=== PATIENT | female | born 1955 | race Caucasian/White ===

== ENCOUNTER → 2018-01-18 15:11 | Outpatient (CLI) | payer BC, SELFPAY ==
[2018-01-18 16:16] LABS: Color, Urine Yellow (Yellow); Glucose, Dipstick Normal (Normal); Ketone-Dipstick Negative (Negative); Leukocyte Esterase-Dipstick Negative /ul (Negative); Nitrite-Dipstick Negative (Negative); Occult Blood-Urine 10 /ul (Negative); Protein-Dipstick Negative (Negative); Urine Bilirubin Dipstick Negative (Negative); Urine Clarity Clear (Clear); Urine Urobilinogen Normal (Normal)
== END ==
PROVIDERS: Family Provider Family Medicine Geriatric Medicine; PCP Family Medicine Geriatric Medicine; Visit Provider Internal Medicine Rheumatology
DX: R31.9 Hematuria, unspecified (principal); I77.6 Arteritis, unspecified
CPT/HCPCS: 81002

== ENCOUNTER → 2018-02-24 15:45 | Outpatient (CLI) | payer BC, SELFPAY ==
--- NOTE | 2018-02-24 15:51 | CT_ITS ---
STUDY: CT ABDOMEN AND PELVIS WITH CONTRAST REASON FOR EXAM: Female, 62 years old. Hematuria RADIATION DOSAGE (If Supplied By Facility): CTDIvol = ( 15.70 ) mGy, DLP = ( 906.45 ) mGycm TECHNIQUE: Transaxial images were obtained from the dome of the diaphragm to the symphysis pubis without oral contrast. 100 ml of Isovue 300 contrast was administered. Sagittal and coronal images were reconstructed. Individualized dose optimization techniques were used for this CT. COMPARISON: CT dated February 13, 2015 FINDINGS: The visualized lung bases are unremarkable. There are coronary artery calcifications present. Within the left hepatic lobe there is a stable linear calcific appearing focus. Normal gallbladder and extrahepatic biliary system. There is persistent splenomegaly that is less pronounced than the prior examination. There is persistent mass effect on the left kidney. Normal pancreas. Normal bilateral adrenal glands. No hydronephrosis is visualized. There is symmetric enhancement of the kidneys. There are no discrete renal masses visualized. Normal visualized stomach. Normal small intestine. Normal colon. The appendix is visualized and appears normal. There is diffuse atherosclerotic calcification of the abdominal aorta, without a demonstrated aneurysm. Normal inferior vena cava. Normal retroperitoneum. Normal urinary bladder. There is a coarse calcification within the uterus consistent with a calcified fibroid. Normal abdominal wall. There are diffuse degenerative changes of the visualized lumbar spine. There is a levoscoliosis of the lumbar spine. CT/Abdomen/Pelvis W IV Cont ONLY IMPRESSION: Persistent splenomegaly, that is less pronounced than the prior examination, with persistent mass effect on the left kidney. No hydronephrosis. Atherosclerosis. Calcified uterine fibroid. Levoscoliosis of the lumbar spine. Electronically Signed: Nasra Ortiz MD at 16:59 EDT Tel , Service support ,
[2018-02-24 16:10] LABS: CREATININE FINGERSTICK 0.8 mg/dL (0.55-1.02); EGFR FINGERSTICK > 60.0000 mL/min (>60)
== END ==
PROVIDERS: Family Provider Family Medicine Geriatric Medicine; PCP Family Medicine Geriatric Medicine; Visit Provider Nurse Practitioner Adult Health
DX: R31.9 Hematuria, unspecified (principal)
CPT/HCPCS: 74177; Q9967

== ENCOUNTER 2018-03-23 12:39 | Emergency (ER) | payer BC, SELFPAY ==
[2018-03-23 12:40] VITALS: BP 138/78; PULSE 75; RESP 16; TEMP 36.7; O2SAT 100; BMI 27.9
--- NOTE | 2018-03-23 13:07 | RAD_ITS ---
STUDY: X-RAY - LEFT TIBIA AND FIBULA REASON FOR EXAM: Female, 62 years old. Laceration following a fall. TECHNIQUE: 4 view(s) of the tibia and fibula were obtained. COMPARISON: None. FINDINGS: Metallic screw is seen along the anterior tibial tuberosity most likely secondary to prior tendon repair. Normal visualized fibula. The soft tissue structures are unremarkable. RAD/Tibia & Fibula 2 Views IMPRESSION: No acute abnormality is seen. Electronically Signed: Amado Brar MD at 13:49 EDT Tel [phone], Service support ,
--- NOTE | 2018-03-23 13:54 | ED.DCSUM_ITS ---
- ER Visit Summary Date of Service: 03/23/18 Chief Complaint: Fall History of Present Illness: The patient is a 62 F presenting after fall. Patient tripped over a curb in the parking lot. She has a skin avulsion to her left lower extremity. Mild abrasion on the right lower extremity. She has been able to ambulate. She did not hit her head or lose consciousness. She is not on anticoagulants. Tetanus is up-to-date. Physical Examination: Vitals are stable. Patient is afebrile. Alert no acute distress. HEENT exam is unremarkable. Neck is nontender Lungs are clear and equal bilaterally. Heart is regular rate and rhythm. Abdomen is soft nontender nondistended. Extremities skin avulsion anterior left lower extremity, neurovascular intact distally, mild abrasion right lower extremity. Skin is warm and dry. No focal neurologic deficit. Remainder of exam is unremarkable. Emergency Department Course and Treatment: X-ray left tib-fib shows no acute process. Wounds are cleaned and dressed. Advised wound care instructions. Advised follow-up with primary care physician. Advised return to ED for worsening complaints. Disposition: Discharge home Impression: Left lower extremity skin tear status post mechanical fall This note was generated with [employer] dictation software. It may contain incorrect words, spelling, and punctuation that were not noted in review of the chart prior to signing ED Disposition - Plan for ED Patient: Chief Complaint: Laceration Referrals: Hector Bocanegra Chi, MD [Primary Care Provider] -
--- NOTE | 2018-03-23 13:55 | ED.DEP ---
ED Disposition - Plan for ED Patient: Chief Complaint: Laceration Instructions: ED Avulsion Dermal Referrals: Hector Bocanegra Chi, MD [Primary Care Provider] -
== END 2018-03-23 14:19 | disposition home or self-care (01) ==
LOC: ED 13:11
PROVIDERS: Emergency Provider Emergency Medicine; Family Provider Family Medicine Geriatric Medicine; PCP Family Medicine Geriatric Medicine
DX: S81.812A Laceration without foreign body, left lower leg, initial encounter (principal); W01.0XXA Fall on same level from slipping, tripping and stumbling without subsequent striking against object, initial encounter; Y93.9 Activity, unspecified; Y92.481 Parking lot as the place of occurrence of the external cause; M32.9 Systemic lupus erythematosus, unspecified; M19.90 Unspecified osteoarthritis, unspecified site
CPT/HCPCS: 73590; 99282

== ENCOUNTER → 2018-04-05 16:49 | Outpatient (CLI) | payer BC, SELFPAY ==
[2018-04-05 17:50] LABS: Absolute Lymphocyte Count 0.53 X10^3/ul (0.83-4.51); Absolute Neutrophil Count 1.1 X10^3/uL (2.0-7.7); Eosinophil# 0.03 X10^3/uL; Eosinophils% 1.6 % (0-5); Hematocrit 41.8 % (37-47); Lymphocyte # 0.53 X10^3/ul (4.0); Lymphocyte % 28.5 % (19-41); Mean Corp Hgb Conc 31.1 g/gl (32-36); Mean Corpuscular Hgb 25.4 pg (27.0-32.0); Mean Corpuscular Volume 81.8 fL (81-99); Mean Platelet Vol. 10.1 fl (6.2-12.0); Monocyte# 0.22 X10^3/uL; Monocyte% 11.8 % (0-10); Neutrophil # 1.08 X10^3/uL (2.7-7.7); Neutrophil % 58.1 % (47-70); Platelet Count 186 K/mm3 (150-450); RBC Distribution Width CV 13.3 % (11.6-14.6); RBC Distribution Width SD 40.1 fl (35.1-43.9); Red Blood Count 5.11 M/mm3 (4.2-5.4); White Blood Count 1.9 K/mm3 (4.4-11.0)
[2018-04-05 17:53] LABS: Differential Indicated SCAN CRITERIA MET; POSITIVE COUNT NO; POSITIVE DIFFERENTIAL YES; POSITIVE MORPHOLOGY NO
[2018-04-05 18:09] LABS: ALB/GLOB Ratio 1.1 RATIO (0.9-2.4); AST(SGOT) 14 U/L (15-37); Alanine Aminotransfer ALT/SGPT 13 U/L (13-56); Albumin, Serum 3.8 g/dL (3.2-5.0); Alkaline Phosphatase 60 U/L (45-117); Anion Gap 6 (5-15); BUN 13 mg/dL (7-18); BUN/Creat Ratio 17.5 RATIO (10-20); Calcium,Total 8.9 mg/dL (8.5-10.1); Chloride 104 mmol/L (98-107); Creatinine, Serum 0.74 mg/dL (0.55-1.02); EST Glomerular Filtration Rate 83 mL/min (>60); Est Glom Filt Rate - Afr Amer 101 mL/min (>60); Globulin 3.4 g/dL (2.2-4.2); Glucose 84 mg/dL (74-106); Potassium 4.6 mmol/L (3.5-5.1); Protein, Total 7.2 g/dL (6.4-8.2); Sodium Level 139 mmol/L (136-145); Thyroid Stim Hormone (TSH) 0.18 uIU/mL (0.358-3.74)
[2018-04-05 18:52] LABS: Platelet Estimate ADEQUATE (ADEQ); Red Cell Morphology NORM C+C NORMAL (NORM C&C)
[2018-04-06 14:31] LABS: T3 Uptake 31 % (30-39); T4 Free Direct 1.03 ng/dL (0.76-1.46)
== END ==
PROVIDERS: Family Provider Family Medicine Geriatric Medicine; PCP Family Medicine Geriatric Medicine; Visit Provider Family Medicine Geriatric Medicine
DX: E03.9 Hypothyroidism, unspecified (principal); R53.83 Other fatigue
CPT/HCPCS: 36415; 80053; 84439; 84443; 84479; 85025

== ENCOUNTER → 2018-10-11 16:08 | Outpatient (CLI) | payer MEDICARE, BC, SELFPAY ==
[2018-07-15 10:54] VITALS: BMI 27.5
[2018-10-11 17:58] LABS: Absolute Lymphocyte Count 0.38 X10^3/ul (0.83-4.51); Absolute Neutrophil Count 0.8 X10^3/uL (2.0-7.7); Eosinophil# 0.01 X10^3/uL; Eosinophils% 0.7 % (0-5); Hematocrit 42.3 % (37-47); Hemoglobin 13.2 g/dl (12.0-15.0); Lymphocyte # 0.38 X10^3/ul (4.0); Lymphocyte % 28.1 % (19-41); Mean Corp Hgb Conc 31.2 g/gl (32-36); Mean Corpuscular Hgb 23.7 pg (27.0-32.0); Mean Corpuscular Volume 76.1 fL (81-99); Mean Platelet Vol. 10.5 fl (6.2-12.0); Monocyte# 0.16 X10^3/uL; Monocyte% 11.9 % (0-10); Neutrophil % 59.3 % (47-70); Platelet Count 200 K/mm3 (150-450); RBC Distribution Width CV 15.7 % (11.6-14.6); RBC Distribution Width SD 42.7 fl (35.1-43.9); Red Blood Count 5.56 M/mm3 (4.2-5.4)
[2018-10-11 18:03] LABS: POSITIVE COUNT YES; POSITIVE DIFFERENTIAL YES; POSITIVE MORPHOLOGY NO; White Blood Count 1.4 K/mm3 (4.4-11.0)
[2018-10-11 18:07] LABS: Differential Indicated SCAN CRITERIA MET
[2018-10-11 18:13] LABS: Vitamin D,25 Hydroxy 29.6 ng/mL (29.95-100.01)
[2018-10-11 18:28] LABS: Platelet Estimate ADEQUATE (ADEQ); Red Cell Morphology NORM C+C NORMAL (NORM C&C)
[2018-10-11 19:15] LABS: AST(SGOT) 24 U/L (15-37); Alanine Aminotransfer ALT/SGPT 22 U/L (13-56); Albumin, Serum 4.1 g/dL (3.2-5.0); Alkaline Phosphatase 55 U/L (45-117); Anion Gap 12 (5-15); BUN 16 mg/dL (7-18); BUN/Creat Ratio 19.3 RATIO (10-20); Calcium,Total 9.4 mg/dL (8.5-10.1); Chloride 101 mmol/L (98-107); Creatinine, Serum 0.83 mg/dL (0.55-1.02); EST Glomerular Filtration Rate 73 mL/min (>60); Est Glom Filt Rate - Afr Amer 89 mL/min (>60); Glucose 100 mg/dL (74-106); Potassium 4.3 mmol/L (3.5-5.1); Protein, Total 8.1 g/dL (6.4-8.2); Sodium Level 138 mmol/L (136-145); Thyroid Stim Hormone (TSH) 0.14 uIU/mL (0.358-3.74)
[2018-10-12 14:22] LABS: Pathologist Review Reviewed
[2018-10-12 17:33] LABS: T3 Uptake 30 % (30-39); T4 Free Direct 0.95 ng/dL (0.76-1.46)
== END ==
PROVIDERS: Family Provider Family Medicine Geriatric Medicine; PCP Family Medicine Geriatric Medicine; Visit Provider Family Medicine Geriatric Medicine
DX: E55.9 Vitamin D deficiency, unspecified (principal); E03.9 Hypothyroidism, unspecified; R53.83 Other fatigue
CPT/HCPCS: 36415; 80053; 82306; 84439; 84443; 84479; 85025

== ENCOUNTER → 2018-11-22 09:23 | Outpatient (CLI) | payer MEDICARE, BC, SELFPAY ==
[2018-10-20 13:28] VITALS: BMI 25.9
--- NOTE | 2018-11-22 09:28 | NM_ITS ---
CLINICAL: 63-year-old female with reported history of clinical hyperthyroidism. I-123 THYROID UPTAKE and SCAN COMPARISON: None available. FINDINGS: The patient was administered a 301 uCi I-123 capsule by mouth. The 4-hour I-123 radioactive iodine thyroidal uptake was calculated to be 31.3 % (normal 5 to 25 %). The 24-hour I-123 radioactive iodine thyroidal uptake was calculated to be 129.4 % (normal 5 to 40 %). The I-123 thyroid scan demonstrates homogeneous radiopharmaceutical concentration throughout both lobes of a U-shaped thyroid gland. There are no colloidal parenchymal hypofunctioning-cold nodules noted in either lobe of the thyroid gland. NM/Thyroid Image Quant Measure IMPRESSION: 1. ABNORMAL ELEVATED 4- and 24-hour I-123 radioactive iodine thyroidal uptakes. 2. The I-123 thyroid scan in conjunction with the calculated iodine uptake values, is consistent with the presence of a diffuse toxic goiter. Electronically Signed: Augusto Collier DO at 23:03 EST Tel , Service support ,
== END ==
PROVIDERS: Family Provider Family Medicine Geriatric Medicine; PCP Family Medicine Geriatric Medicine; Referring Provider Family Medicine Geriatric Medicine; Visit Provider Family Medicine Geriatric Medicine
DX: E03.9 Hypothyroidism, unspecified (principal)
CPT/HCPCS: 78014; A9516

== ENCOUNTER → 2019-03-04 | Outpatient (CLI) | payer MEDICARE, BC, SELFPAY ==
[2018-10-20 13:28] VITALS: BMI 25.9
--- NOTE | 2019-03-04 10:28 | VDLE_ITS ---
Reason For Study: Localized edema RIGHT LEFT GSV is normal. GSV is normal. CFV is compressible, spontaneous, phasic, CFV is compressible, spontaneous, phasic, competent and demonstrates normal competent, and demonstrates normal augmentation. augmentation. FV is compressible, spontaneous, phasic, FV is compressible, spontaneous, phasic, competent and demonstrates normal competent and demonstrates normal augmentation. augmentation. POP V is compressible, spontaneous, phasic, POP V is compressible, spontaneous, phasic, competent and demonstrates normal competent and demonstrates normal augmentation. augmentation. T/P Trunk is compressible. T/P Trunk is compressible. PTV is compressible. PTV is compressible. RT PerV is compressible. LT PerV is compressible. Procedure Exam performed in department. A preliminary report was called and/or faxed to [facility]. Interpretation Summary Deep veins of the lower extremities are bilaterally patent and compressible segmentally. There is no evidence of deep vein thrombosis on either side. Valvular competence appears intact within the proximal deep venous systems bilaterally. The greater saphenous veins appear bilaterally patent and compressible segmentally. Ordering Physician: Hector Bocanegra Referring Physician: Hector Bocanegra Chi Performed By: Aysha Blackman RVT
--- NOTE | 2019-03-04 10:59 | CT_ITS ---
STUDY: CT LEFT TIBIA/FIBULA REASON FOR EXAM: Deep venous thrombosis, edema, lump in the medial calf, history of breast cancer. TECHNIQUE: Transaxial CT imaging of the tibia/fibula was performed. Sagittal and coronal images were reconstructed. Individualized dose optimization techniques were used for this CT. COMPARISON: Radiographs 03/23/2018. FINDINGS: There is a healed osteotomy of the anterior tibial tubercle from patellar realignment with an intact orthopedic screw (sagittal reconstructions 50-54). Otherwise, normal tibia. Normal fibula. There is atrophy with fat replacement of the distal medial gastrocnemius muscle (axial images 73-95). There is soft tissue swelling of the mid/distal lower leg without discrete soft tissue mass or cyst. There is vascular calcification. There are small superficial soft tissue calcifications. CT/Extremity Lower without Contra IMPRESSION: Soft tissue swelling without demonstrated soft tissue mass. Atrophy of the distal medial gastrocnemius muscle. Healed anterior tibial tubercle osteotomy. Electronically Signed: Vega Paulino MD at 12:16 EDT Tel , Service support ,
[2019-03-04 12:29] LABS: Absolute Lymphocyte Count 0.61 X10^3/ul (0.83-4.51); Absolute Neutrophil Count 0.9 X10^3/uL (2.0-7.7); Eosinophil# 0.03 X10^3/uL; Eosinophils% 1.6 % (0-5); Hematocrit 42.8 % (37-47); Hemoglobin 13.2 g/dl (12.0-15.0); Lymphocyte # 0.61 X10^3/ul (4.0); Lymphocyte % 32.8 % (19-41); Mean Corp Hgb Conc 30.8 g/gl (32-36); Mean Corpuscular Hgb 23.9 pg (27.0-32.0); Mean Corpuscular Volume 77.4 fL (81-99); Mean Platelet Vol. 10.8 fl (6.2-12.0); Monocyte# 0.28 X10^3/uL; Monocyte% 15.1 % (0-10); Neutrophil # 0.94 X10^3/uL (2.7-7.7); Neutrophil % 50.5 % (47-70); Platelet Count 216 K/mm3 (150-450); RBC Distribution Width CV 14.4 % (11.6-14.6); RBC Distribution Width SD 40.4 fl (35.1-43.9); Red Blood Count 5.53 M/mm3 (4.2-5.4); White Blood Count 1.9 K/mm3 (4.4-11.0)
[2019-03-04 12:32] LABS: Differential Indicated SCAN CRITERIA MET; POSITIVE COUNT NO; POSITIVE DIFFERENTIAL YES; POSITIVE MORPHOLOGY NO
[2019-03-04 12:39] LABS: Anion Gap 4 (5-15); BUN 16 mg/dL (7-18); BUN/Creat Ratio 20.2 RATIO (10-20); Calcium,Total 8.8 mg/dL (8.5-10.1); Chloride 103 mmol/L (98-107); Creatinine, Serum 0.79 mg/dL (0.55-1.02); EST Glomerular Filtration Rate 77 mL/min (>60); Est Glom Filt Rate - Afr Amer 93 mL/min (>60); Glucose 81 mg/dL (74-106); Potassium 4.2 mmol/L (3.5-5.1); Sodium Level 138 mmol/L (136-145)
[2019-03-04 13:04] LABS: Platelet Estimate ADEQUATE (ADEQ); Red Cell Morphology NORM C+C NORMAL (NORM C&C)
[2019-03-04 14:08] LABS: D-Dimer Quantitative (DVT/PE) 7.76 FEU/ug/m (0.27-0.49)
== END | disposition home or self-care (01) ==
PROVIDERS: Family Provider Family Medicine Geriatric Medicine; PCP Family Medicine Geriatric Medicine; Referring Provider Family Medicine Geriatric Medicine; Visit Provider Family Medicine Geriatric Medicine
DX: R60.0 Localized edema (principal)
CPT/HCPCS: 36415; 73700; 80048; 85025; 85379; 93970

== ENCOUNTER → 2019-03-07 | Outpatient (CLI) | payer MEDICARE, BC, SELFPAY ==
[2018-10-20 13:28] VITALS: BMI 25.9
--- NOTE | 2019-03-07 10:12 | CT_ITS ---
STUDY: CTA CHEST REASON FOR EXAM: Female, 63 years old. Elevated D dimer. Shortness of breath. RADIATION DOSAGE (If Supplied By Facility): CTDIvol = ( 4.80 ) mGy, DLP = ( 148.70 ) mGycm TECHNIQUE: The examination was performed with the intravenous administration of 100 IV Isovue 370. Post-processing of the angiographic images was performed, with multiplanar reformation and 3D reconstruction. Individualized dose optimization techniques were used for this CT. COMPARISON: None. FINDINGS: Normal enhancement of the main pulmonary artery and right and left pulmonary arteries. Normal enhancement of the bilateral peripheral pulmonary arteries. There is no demonstrated pulmonary embolism. Normal thoracic aorta and visualized great vessels. There is no demonstrated aortic dissection. There are calcifications of the coronary arteries. Normal mediastinum. Normal hilar regions. Normal visualized trachea and bronchi. The lungs are well expanded. Normal pulmonary parenchyma. Normal pleura. Normal chest wall structures. There are degenerative changes of thoracic spine. Splenomegaly. CT/CTA Chest W/WO Contrast IMPRESSION: Coronary artery calcification. Splenomegaly. Electronically Signed: Amado Brar, at 11:13 EDT , Service support ,
== END | disposition home or self-care (01) ==
PROVIDERS: Family Provider Family Medicine Geriatric Medicine; PCP Family Medicine Geriatric Medicine; Referring Provider Family Medicine Geriatric Medicine; Visit Provider Family Medicine Geriatric Medicine
DX: R79.9 Abnormal finding of blood chemistry, unspecified (principal)
CPT/HCPCS: 71275; Q9967

== ENCOUNTER → 2019-04-13 | Outpatient (CLI) | payer MEDICARE, BC, SELFPAY ==
[2018-10-20 13:28] VITALS: BMI 25.9
[2019-04-13 16:44] LABS: Absolute Lymphocyte Count 0.46 X10^3/uL (0.83-4.51); Absolute Neutrophil Count 0.5 X10^3/uL (2.0-7.7); Eosinophil# 0.05 X10^3/uL; Eosinophils% 4.2 % (0-5); Hematocrit 38.4 % (37-47); Hemoglobin 11.7 g/dL (12.0-15.0); Lymphocyte # 0.46 X10^3/ul (4.0); Mean Corp Hgb Conc 30.5 g/dL (32-36); Mean Corpuscular Hgb 23.2 pg (27.0-32.0); Mean Corpuscular Volume 76.2 fL (81-99); Mean Platelet Vol. 10.4 fl (6.2-12.0); Monocyte# 0.15 X10^3/uL; Monocyte% 12.7 % (0-10); NRBC Flagged by Analyzer 0 % (0-5); Neutrophil # 0.52 X10^3/uL (2.7-7.7); Neutrophil % 44.1 % (47-70); POSITIVE COUNT YES; POSITIVE DIFFERENTIAL YES; Platelet Count 191 K/mm3 (150-450); RBC Distribution Width CV 14.3 % (11.6-14.6); RBC Distribution Width SD 38.8 fl (35.1-43.9); Red Blood Count 5.04 M/mm3 (4.2-5.4)
[2019-04-13 17:10] LABS: Differential Indicated SCAN CRITERIA MET; White Blood Count 1.2 K/mm3 (4.4-11.0)
[2019-04-13 17:11] LABS: ALB/GLOB Ratio 0.9 RATIO (0.9-2.4); AST(SGOT) 15 U/L (15-37); Alanine Aminotransfer ALT/SGPT 9 U/L (13-56); Albumin, Serum 3.6 g/dL (3.2-5.0); Alkaline Phosphatase 48 U/L (45-117); Anion Gap 4 (5-15); BUN 18 mg/dL (7-18); BUN/Creat Ratio 20.7 RATIO (10-20); Calcium,Total 8.9 mg/dL (8.5-10.1); Chloride 104 mmol/L (98-107); Creatinine, Serum 0.87 mg/dL (0.55-1.02); EST Glomerular Filtration Rate 70 mL/min (>60); Est Glom Filt Rate - Afr Amer 84 mL/min (>60); Globulin 3.8 g/dL (2.2-4.2); Glucose 90 mg/dL (74-106); Protein, Total 7.4 g/dL (6.4-8.2); Sodium Level 137 mmol/L (136-145); Thyroid Stim Hormone (TSH) 0.33 uIU/mL (0.358-3.74)
[2019-04-13 17:49] LABS: Differential Comment SCANNED
[2019-04-14 15:26] LABS: Pathologist Review Reviewed
== END | disposition home or self-care (01) ==
LOC: POLAB3 10:45
PROVIDERS: Family Provider Family Medicine Geriatric Medicine; PCP Family Medicine Geriatric Medicine; Visit Provider Family Medicine Geriatric Medicine
DX: E55.9 Vitamin D deficiency, unspecified (principal); R53.83 Other fatigue
CPT/HCPCS: 36415; 80053; 82306; 84443; 85025

== ENCOUNTER → 2019-06-03 | Outpatient (CLI) | payer MEDICARE, BC, SELFPAY ==
[2019-04-20 12:55] VITALS: BMI 25.2
[2019-06-03 08:28] LABS: Absolute Lymphocyte Count 0.63 X10^3/uL (0.83-4.51); Absolute Neutrophil Count 0.4 X10^3/uL (2.0-7.7); Eosinophil# 0.09 X10^3/uL; Eosinophils% 6.8 % (0-5); Hematocrit 39.7 % (37-47); Hemoglobin 11.7 g/dL (12.0-15.0); Lymphocyte # 0.63 X10^3/ul (4.0); Lymphocyte % 47.7 % (19-41); Mean Corp Hgb Conc 29.5 g/dL (32-36); Mean Corpuscular Hgb 22.9 pg (27.0-32.0); Mean Corpuscular Volume 77.8 fL (81-99); Mean Platelet Vol. 9.7 fl (6.2-12.0); Monocyte% 15.2 % (0-10); NRBC Flagged by Analyzer 0 % (0-5); Neutrophil % 30.3 % (47-70); POSITIVE COUNT YES; POSITIVE DIFFERENTIAL YES; Platelet Count 194 K/mm3 (150-450); RBC Distribution Width CV 14.6 % (11.6-14.6); RBC Distribution Width SD 41.1 fl (35.1-43.9); White Blood Count 1.3 K/mm3 (4.4-11.0)
[2019-06-03 08:46] LABS: Differential Indicated SCAN CRITERIA MET
[2019-06-03 09:07] LABS: Albumin, Serum 3.2 g/dL (3.2-5.0); BUN 17 mg/dL (7-18); BUN/Creat Ratio 22.5 RATIO (10-20); Creatinine, Serum 0.76 mg/dL (0.55-1.02); EST Glomerular Filtration Rate 81 mL/min (>60); Est Glom Filt Rate - Afr Amer 98 mL/min (>60); Glucose 80 mg/dL (74-106); Protein, Total 7.2 g/dL (6.4-8.2)
[2019-06-03 09:08] LABS: ALB/GLOB Ratio 0.8 RATIO (0.9-2.4); AST(SGOT) 13 U/L (15-37); Alanine Aminotransfer ALT/SGPT 13 U/L (13-56); Alkaline Phosphatase 46 U/L (45-117); Anion Gap 9 (5-15); Calcium,Total 8.4 mg/dL (8.5-10.1); Chloride 107 mmol/L (98-107); Free T3 2.8 pg/mL (2.18-3.98); Potassium 3.8 mmol/L (3.5-5.1); Sodium Level 143 mmol/L (136-145); T4 Free Direct 1.09 ng/dL (0.76-1.46)
[2019-06-03 14:59] LABS: Vitamin D,25 Hydroxy 29.6 ng/mL (29.95-100.01)
[2019-06-05 07:06] LABS: Thyroid Stim Immunoglob <0.10 IU/L (0.00-0.55)
[2019-06-06 11:37] LABS: Thyroid Peroxidase AB 9 IU/mL (0-34)
[2019-06-07 12:24] LABS: Pathologist Review Reviewed
== END | disposition home or self-care (01) ==
LOC: LAB 08:00
PROVIDERS: Family Provider Family Medicine Geriatric Medicine; PCP Family Medicine Geriatric Medicine; Referring Provider Internal Medicine Endocrinology, Diabetes & Metabolism; Visit Provider Internal Medicine Endocrinology, Diabetes & Metabolism
DX: E05.90 Thyrotoxicosis, unspecified without thyrotoxic crisis or storm (principal); E55.9 Vitamin D deficiency, unspecified
CPT/HCPCS: 36415; 80053; 82306; 84439; 84443; 84445; 84481; 85025; 86376

== ENCOUNTER → 2019-10-13 13:13 | Outpatient (CLI) | payer MEDICARE, BC, SELFPAY ==
[2019-04-20 12:55] VITALS: BMI 25.2
[2019-10-13 16:41] LABS: Absolute Lymphocyte Count 0.32 X10^3/uL (0.83-4.51); Absolute Neutrophil Count 1.4 X10^3/uL (2.0-7.7); Eosinophil# 0.04 X10^3/uL; Eosinophils% 2.1 % (0-5); Hematocrit 41.1 % (37-47); Hemoglobin 12.2 g/dL (12.0-15.0); Lymphocyte # 0.32 X10^3/ul (4.0); Lymphocyte % 16.8 % (19-41); Mean Corp Hgb Conc 29.7 g/dL (32-36); Mean Corpuscular Hgb 23.4 pg (27.0-32.0); Mean Corpuscular Volume 78.7 fL (81-99); Monocyte# 0.15 X10^3/uL; Monocyte% 7.9 % (0-10); NRBC Flagged by Analyzer 0 % (0-5); Neutrophil # 1.38 X10^3/uL (2.7-7.7); Neutrophil % 72.7 % (47-70); POSITIVE DIFFERENTIAL YES; Platelet Count 197 K/mm3 (150-450); RBC Distribution Width CV 14.9 % (11.6-14.6); RBC Distribution Width SD 42.9 fl (35.1-43.9); Red Blood Count 5.22 M/mm3 (4.2-5.4); White Blood Count 1.9 K/mm3 (4.4-11.0)
[2019-10-13 16:49] LABS: Differential Indicated SCAN CRITERIA MET
[2019-10-13 17:07] LABS: Vitamin D,25 Hydroxy 27.9 ng/mL (29.95-100.01)
[2019-10-13 17:09] LABS: ALB/GLOB Ratio 0.9 RATIO (0.9-2.4); AST(SGOT) 14 U/L (15-37); Alanine Aminotransfer ALT/SGPT 14 U/L (13-56); Albumin, Serum 3.6 g/dL (3.2-5.0); Alkaline Phosphatase 47 U/L (45-117); Anion Gap 6 (5-15); BUN 16 mg/dL (7-18); BUN/Creat Ratio 20.9 RATIO (10-20); Calcium,Total 9.3 mg/dL (8.5-10.1); Chloride 102 mmol/L (98-107); Creatinine, Serum 0.76 mg/dL (0.55-1.02); EST Glomerular Filtration Rate 80 mL/min (>60); Est Glom Filt Rate - Afr Amer 97 mL/min (>60); Globulin 4.1 g/dL (2.2-4.2); Glucose 84 mg/dL (74-106); Potassium 3.9 mmol/L (3.5-5.1); Protein, Total 7.7 g/dL (6.4-8.2); Sodium Level 137 mmol/L (136-145); Thyroid Stim Hormone (TSH) 1.14 uIU/mL (0.358-3.74)
[2019-10-13 17:24] LABS: Platelet Estimate ADEQUATE (ADEQ); Red Cell Morphology NORM C+C NORMAL (NORM C&C)
[2019-10-14 14:07] LABS: Pathologist Review Reviewed
== END ==
PROVIDERS: PCP Family Medicine Geriatric Medicine; Visit Provider Family Medicine Geriatric Medicine
DX: E55.9 Vitamin D deficiency, unspecified (principal); R53.83 Other fatigue
CPT/HCPCS: 36415; 80053; 82306; 84443; 85025

== ENCOUNTER → 2020-02-13 | Outpatient (CLI) | payer MEDICARE, BC, SELFPAY ==
[2019-11-02 12:58] VITALS: BMI 23.9
[2020-02-13 15:53] LABS: Anion Gap 3 (5-15); BUN 19 mg/dL (7-18); BUN/Creat Ratio 23.2 RATIO (10-20); Chloride 106 mmol/L (98-107); Creatinine, Serum 0.82 mg/dL (0.55-1.02); EST Glomerular Filtration Rate 74 mL/min (>60); Est Glom Filt Rate - Afr Amer 90 mL/min (>60); Free T3 2.2 pg/mL (2.18-3.98); Glucose 94 mg/dL (74-106); Potassium 4.1 mmol/L (3.5-5.1); Sodium Level 140 mmol/L (136-145); T4 Free Direct 1.01 ng/dL (0.76-1.46); Thyroid Stim Hormone (TSH) 0.61 uIU/mL (0.358-3.74)
== END | disposition home or self-care (01) ==
LOC: LAB 14:57
PROVIDERS: PCP Family Medicine Geriatric Medicine; Referring Provider Internal Medicine Endocrinology, Diabetes & Metabolism; Visit Provider Internal Medicine Endocrinology, Diabetes & Metabolism
DX: E05.90 Thyrotoxicosis, unspecified without thyrotoxic crisis or storm (principal)
CPT/HCPCS: 36415; 80048; 84439; 84443; 84481

== ENCOUNTER → 2020-04-12 | Outpatient (CLI) | payer MEDICARE, BC, SELFPAY ==
[2019-11-02 12:58] VITALS: BMI 23.9
[2020-04-12 15:53] LABS: Absolute Lymphocyte Count 0.55 X10^3/uL (0.83-4.51); Absolute Neutrophil Count 0.8 X10^3/uL (2.0-7.7); Basophil# 0.01 X10^3/uL; Basophil% 0.6 % (0-1); Eosinophil# 0.07 X10^3/uL; Eosinophils% 4.2 % (0-5); Hematocrit 38.8 % (37-47); Hemoglobin 11.9 g/dL (12.0-15.0); Lymphocyte # 0.55 X10^3/ul (4.0); Lymphocyte % 32.7 % (19-41); Mean Corp Hgb Conc 30.7 g/dL (32-36); Mean Corpuscular Hgb 24.1 pg (27.0-32.0); Mean Corpuscular Volume 78.5 fL (81-99); Mean Platelet Vol. 10.6 fl (6.2-12.0); Monocyte# 0.27 X10^3/uL; Monocyte% 16.1 % (0-10); NRBC Flagged by Analyzer 0 % (0-5); Neutrophil # 0.78 X10^3/uL (2.7-7.7); Neutrophil % 46.4 % (47-70); POSITIVE DIFFERENTIAL YES; Platelet Count 208 K/mm3 (150-450); RBC Distribution Width CV 14.9 % (11.6-14.6); RBC Distribution Width SD 41.2 fl (35.1-43.9); Red Blood Count 4.94 M/mm3 (4.2-5.4); White Blood Count 1.7 K/mm3 (4.4-11.0)
[2020-04-12 16:07] LABS: Differential Indicated SCAN CRITERIA MET
[2020-04-12 16:16] LABS: Vitamin D,25 Hydroxy 35.1 ng/mL
[2020-04-12 16:28] LABS: ALB/GLOB Ratio 0.8 RATIO (0.9-2.4); AST(SGOT) 11 U/L (15-37); Alanine Aminotransfer ALT/SGPT 11 U/L (13-56); Albumin, Serum 3.4 g/dL (3.2-5.0); Alkaline Phosphatase 47 U/L (45-117); Anion Gap 5 (5-15); BUN 19 mg/dL (7-18); BUN/Creat Ratio 24.2 RATIO (10-20); Calcium,Total 9.1 mg/dL (8.5-10.1); Chloride 105 mmol/L (98-107); Creatinine, Serum 0.78 mg/dL (0.55-1.02); EST Glomerular Filtration Rate 78 mL/min (>60); Est Glom Filt Rate - Afr Amer 94 mL/min (>60); Globulin 4.1 g/dL (2.2-4.2); Glucose 87 mg/dL (74-106); Protein, Total 7.5 g/dL (6.4-8.2); Sodium Level 138 mmol/L (136-145); Thyroid Stim Hormone (TSH) 0.77 uIU/mL (0.358-3.74)
[2020-04-12 17:10] LABS: Platelet Estimate ADEQUATE (ADEQ); Red Cell Morphology NORM C+C NORMAL (NORM C&C)
[2020-04-13 12:20] LABS: Pathologist Review Reviewed
== END | disposition home or self-care (01) ==
LOC: POLAB3 15:15
PROVIDERS: PCP Family Medicine Geriatric Medicine; Visit Provider Family Medicine Geriatric Medicine
DX: E55.9 Vitamin D deficiency, unspecified (principal); R53.83 Other fatigue
CPT/HCPCS: 36415; 80053; 82306; 84443; 85025

== ENCOUNTER → 2020-05-17 | Outpatient (CLI) | payer MEDICARE, BC, SELFPAY ==
[2020-05-02 13:01] VITALS: BMI 23.7
--- NOTE | 2020-05-17 08:51 | VDLE_ITS ---
Reason For Study: Localized edema RIGHT GSV is normal. CFV is compressible, spontaneous, phasic, competent and demonstrates normal augmentation. FV is compressible, spontaneous, phasic, competent and demonstrates normal augmentation. POP V is compressible, spontaneous, phasic, competent and demonstrates normal augmentation. T/P Trunk is compressible. PTV is compressible. RT PerV is compressible. Procedure Exam performed in department. A preliminary report was called and/or faxed to [facility]. Interpretation Summary Deep veins of the right lower extremity are patent and compressible segmentally. There is no evidence of right lower extremity deep vein thrombosis. Valvular competence appears intact within the proximal deep venous system on the right . The right great saphenous vein appears patent and compressible segmentally. Ordering Physician: Hector Bocanegra Referring Physician: Hector Bocanegra Chi Performed By: Aysha Blackman RVT and Student
== END | disposition home or self-care (01) ==
LOC: CVS 08:49
PROVIDERS: PCP Family Medicine Geriatric Medicine; Referring Provider Family Medicine Geriatric Medicine; Visit Provider Family Medicine Geriatric Medicine
DX: R60.0 Localized edema (principal)
CPT/HCPCS: 93971

== ENCOUNTER → 2020-10-15 13:22 | Outpatient (CLI) | payer MEDICARE, BC, SELFPAY ==
[2020-05-02 13:01] VITALS: BMI 23.7
[2020-10-15 17:28] LABS: Absolute Neutrophil Count 0.8 X10^3/uL (2.0-7.7); Basophil# 0.01 X10^3/uL; Basophil% 0.5 % (0-1); Eosinophil# 0.08 X10^3/uL; Eosinophils% 4.1 % (0-5); Hemoglobin 12.6 g/dL (12.0-15.0); Lymphocyte % 36.3 % (19-41); Mean Corp Hgb Conc 28.6 g/dL (32-36); Mean Corpuscular Hgb 22.2 pg (27.0-32.0); Mean Corpuscular Volume 77.5 fL (81-99); Mean Platelet Vol. 10.3 fl (6.2-12.0); Monocyte# 0.34 X10^3/uL; Monocyte% 17.6 % (0-10); NRBC Flagged by Analyzer 0 % (0-5); Neutrophil # 0.79 X10^3/uL (2.7-7.7); POSITIVE DIFFERENTIAL YES; Platelet Count 247 K/mm3 (150-450); RBC Distribution Width CV 14.6 % (11.6-14.6); Red Blood Count 5.68 M/mm3 (4.2-5.4); White Blood Count 1.9 K/mm3 (4.4-11.0)
[2020-10-15 17:37] LABS: Vitamin D,25 Hydroxy 32.5 ng/mL
[2020-10-15 17:42] LABS: ALB/GLOB Ratio 0.8 RATIO (0.9-2.4); AST(SGOT) 18 U/L (15-37); Alanine Aminotransfer ALT/SGPT 17 U/L (13-56); Albumin, Serum 3.7 g/dL (3.2-5.0); Alkaline Phosphatase 56 U/L (45-117); Anion Gap 8 (5-15); BUN 18 mg/dL (7-18); BUN/Creat Ratio 21.5 RATIO (10-20); Calcium,Total 9.1 mg/dL (8.5-10.1); Chloride 105 mmol/L (98-107); Creatinine, Serum 0.84 mg/dL (0.55-1.02); EST Glomerular Filtration Rate 72 mL/min (>60); Est Glom Filt Rate - Afr Amer 87 mL/min (>60); Globulin 4.5 g/dL (2.2-4.2); Glucose 107 mg/dL (74-106); Potassium 3.6 mmol/L (3.5-5.1); Protein, Total 8.2 g/dL (6.4-8.2); Sodium Level 140 mmol/L (136-145); Thyroid Stim Hormone (TSH) 1.66 uIU/mL (0.358-3.74)
[2020-10-15 17:54] LABS: Differential Indicated SCAN CRITERIA MET
== END ==
PROVIDERS: PCP Family Medicine Geriatric Medicine; Visit Provider Family Medicine Geriatric Medicine
DX: E55.9 Vitamin D deficiency, unspecified (principal); R53.83 Other fatigue; N39.0 Urinary tract infection, site not specified
CPT/HCPCS: 36415; 80053; 82306; 84443; 85025; 87086; 87088; 87186

== ENCOUNTER 2020-10-25 09:40 | Emergency (ER) | payer MEDICARE, BC, SELFPAY ==
[2020-05-02 13:01] VITALS: BMI 23.7
[2020-10-25 09:41] VITALS: BP 126/66; PULSE 82; RESP 16; TEMP 35.8; BMI 24.6
--- NOTE | 2020-10-25 09:54 | ED.VIS.GEN ---
History of Present Illness Chief Complaint: Lower Extremity Injury Informant: Patient Narrative: 65-year-old female presenting with right foot pain on the plantar surface at the base of the right great toe. Patient states she injured her foot kicking a heater at home. She has antalgic gait secondary to this. She states she did not sustain a burn on the heater. - Past Medical History (1) History of hypertension Status: Chronic (2) History of irritable bowel syndrome Status: Chronic (3) History of malignant neoplasm of breast Status: Chronic Past Medical History - Allergies and Home Meds Allergies/Adverse Reactions: Allergies Penicillins Adverse Reaction (Intermediate, Verified 10/25/20 09:41) Rash itching Primary Care Physician: Hector Bocanegra Chi, MD [Primary Care Provider] - Prior records reviewed: Yes Past Medical History: - - Reviewed in problem list Surgical History: noncontributory, mastectomy, total knee arthroplasty Lives: Alone Smoking Status: Never smoker Alcohol: None Drugs: None Review of Systems General: Denies: Chills, Fever, Sweats Eyes: Denies: Visual changes - bilaterally, Diplopia ENT: Denies: Rhinorrhea, Sore throat Cardiovascular: Denies: Chest pain, Palpitations Respiratory: Denies: Dyspnea, Cough, Dyspnea on exertion Gastrointestinal: Denies: Abdominal pain, Nausea, Vomiting, Diarrhea, Melena, Hematochezia Genitourinary: Denies: Dysuria, Hematuria, Frequency Musculoskeletal: Reports: Swelling - Right foot, Extremity Pain - Right foot Skin: Reports: - - Bruising to the right foot. Denies: Rash, Abscess Neurological: Denies: Headache, Parasthesia, Numbness Psych: Denies: Depression, Anxiety Physical Exam Vital Signs/Narrative: Vital Signs Temp Pulse Resp BP 10/25/20 09:41 96.5 F L 82 16 126/66 H Inital Vital Signs reviewed: Yes General: Well nourished, No Acute Distress Head: Normocephalic, Atraumatic Eyes: Perrl, EOMI ENT: Negative for: Moist mucous membranes, No rhinorrhea Cardiovascular: Regular rate, Regular rhythm Respiratory: No distress, CTA bilaterally Extremities: Tenderness - Tenderness, erythema and swelling to the base of the right great toe Skin: - - Bruising and swelling noted to the base of the right great toe. Mild erythema noted. Neurological: Alert, Oriented x3, Cranial nerves II-XII grossly intact Psychological: Normal affect, Normal Mood Diagnostic/Tx/Re-eval Clinical Impression(s) from Imaging Studies Foot X-Ray 10/25/20 10:15 IMPRESSION: Diffuse soft tissue swelling. Electronically Signed: Amado Brar MD at 10:49 EST , Service support , - Medical Decision Making 65-year-old female presenting with right toe pain after kicking a home heater. She states this was several days ago but she is having trouble walking due to pain. She noticed that it is a little swollen and red. She has no systemic signs or symptoms. Patient had x-ray of the right foot as interpreted by myself and the radiologist there appears to be no fracture or subluxation. There is some soft tissue swelling. Given patient's erythema I will start her on antibiotics with first dose in the ED. Patient was given Ultram for pain. She is counseled on wound care and return precautions. She knowledge understanding. Impression: 1. Right foot contusion 2. Right foot cellulitis ED Disposition - Plan for ED Patient: Disposition: Home or Assisted Living Instructions: ED Cellulitis, ED Contusion, Lower Extremity Prescriptions: Doxycycline 100 mg PO BID #20 cap Prescription Printed traMADol [Ultram] 50 mg PO Q6H PRN PRN 3 Days #12 tab PRN Reason: Pain Prescription Printed Referrals: Hector Bocanegra Chi, MD [Primary Care Provider] -
[2020-10-25] MEDS: traMADol 50 MG Tablet PO (10:06)
--- NOTE | 2020-10-25 10:15 | RAD_ITS ---
STUDY: X-RAY - RIGHT FOOT CLINICAL: Female, 65 years old. Right foot pain. TECHNIQUE: 3 view(s) of the foot. COMPARISON: Comparison is made with prior study dated 04/21/2012. FINDINGS: Normal talus, calcaneus, and tarsal bones. Normal visualized subtalar, talonavicular, calcaneocuboid, tarsal and tarsometatarsal articulations. Normal metatarsi. Normal metatarsophalangeal joint of the great toe. Normal tibial and fibular sesamoid bones. Normal interphalangeal joint of the great toe. Normal phalanges of the great toe. Normal second through fifth metatarsophalangeal joints. Normal interphalangeal joints and phalanges of the lesser toes. Hammertoe deformity. Diffuse soft tissue swelling. RAD/Foot min 3 Views IMPRESSION: Diffuse soft tissue swelling. Electronically Signed: Amado Brar MD at 10:49 EST , Service support ,
[2020-10-25 11:26] VITALS: BP 129/74; PULSE 64; RESP 15; O2SAT 98
== END 2020-10-25 11:26 | disposition home or self-care (01) ==
LOC: ED 10:54
PROVIDERS: Emergency Provider Student in an Organized Health Care Education/Training Program; PCP Family Medicine Geriatric Medicine
DX: L03.115 Cellulitis of right lower limb (principal); S90.31XA Contusion of right foot, initial encounter; I10 Essential (primary) hypertension; W22.09XA Striking against other stationary object, initial encounter; Y93.89 Activity, other specified; Y92.009 Unspecified place in unspecified non-institutional (private) residence as the place of occurrence of the external cause; Y99.8 Other external cause status
CPT/HCPCS: 73630; 99282

== ENCOUNTER → 2021-04-16 12:59 | Outpatient (CLI) | payer MEDICARE, BC, SELFPAY ==
[2020-11-20 13:57] VITALS: BMI 23.9
[2021-04-16 16:28] LABS: Absolute Lymphocyte Count 0.45 X10^3/uL (0.83-4.51); Absolute Neutrophil Count 0.4 X10^3/uL (2.0-7.7); Basophil# 0.01 X10^3/uL; Basophil% 0.8 % (0-1); Eosinophil# 0.09 X10^3/uL; Eosinophils% 7.2 % (0-5); Hematocrit 39.6 % (37-47); Hemoglobin 11.7 g/dL (12.0-15.0); Lymphocyte # 0.45 X10^3/ul (0.83-4.51); Mean Corp Hgb Conc 29.5 g/dL (32-36); Mean Corpuscular Hgb 23.6 pg (27.0-32.0); Mean Platelet Vol. 10.2 fl (6.2-12.0); Monocyte# 0.25 X10^3/uL; NRBC Flagged by Analyzer 0 % (0-5); Neutrophil # 0.44 X10^3/uL (2.7-7.7); Neutrophil % 35.2 % (47-70); POSITIVE COUNT YES; POSITIVE DIFFERENTIAL YES; Platelet Count 221 K/mm3 (150-450); RBC Distribution Width CV 14.1 % (11.6-14.6); Red Blood Count 4.95 M/mm3 (4.2-5.4); White Blood Count 1.3 K/mm3 (4.4-11.0)
[2021-04-16 16:31] LABS: Differential Indicated SCAN CRITERIA MET
[2021-04-16 16:45] LABS: Vitamin D,25 Hydroxy 33.5 ng/mL
[2021-04-16 17:10] LABS: ALB/GLOB Ratio 0.8 RATIO (0.9-2.4); AST(SGOT) 15 U/L (15-37); Alanine Aminotransfer ALT/SGPT 12 U/L (13-56); Albumin, Serum 3.4 g/dL (3.2-5.0); Alkaline Phosphatase 48 U/L (45-117); Anion Gap 6 (5-15); BUN 16 mg/dL (7-18); BUN/Creat Ratio 20.9 RATIO (10-20); Calcium,Total 8.8 mg/dL (8.5-10.1); Chloride 105 mmol/L (98-107); Creatinine, Serum 0.76 mg/dL (0.55-1.02); EST Glomerular Filtration Rate 80 mL/min (>60); Est Glom Filt Rate - Afr Amer 97 mL/min (>60); Globulin 4.3 g/dL (2.2-4.2); Glucose 86 mg/dL (74-106); Protein, Total 7.7 g/dL (6.4-8.2); Sodium Level 137 mmol/L (136-145); Thyroid Stim Hormone (TSH) 0.47 uIU/mL (0.358-3.74)
[2021-04-17 12:46] LABS: Pathologist Review Reviewed
== END ==
PROVIDERS: PCP Family Medicine Geriatric Medicine; Visit Provider Family Medicine Geriatric Medicine
DX: E55.9 Vitamin D deficiency, unspecified (principal); R53.83 Other fatigue
CPT/HCPCS: 36415; 80053; 82306; 84443; 85025

== ENCOUNTER 2021-10-16 13:21 | Outpatient (CLI) | payer MEDICARE, SELFPAY ==
--- NOTE | 2021-10-16 14:18 | RAD_ITS ---
STUDY: X-RAY - LUMBAR SPINE REASON FOR EXAM: Female, 66 years old. Low back pain. TECHNIQUE: 3 view(s) of the lumbar spine were obtained. COMPARISON: February 20, 2015. FINDINGS: Progression of exaggerated lumbar lordosis measuring 55 degrees on the present study as compared to the prior study where it measured 35 degrees. Progression of lumbar levoscoliosis. On the present study the levoscoliosis measures 33 degrees and on the prior study 23 degrees. There is a normal alignment of the vertebrae. Normal vertebral bodies. Small marginal osteophytes at several levels. Mild multilevel disc space narrowing not significantly changed. The soft tissue structures are unremarkable. RAD/Lumbar Spine 2 or 3 Views IMPRESSION: Progression of lumbar lordosis and lumbar levoscoliosis. Mild degenerative changes. Electronically Signed: Sj Reynolds MD at 2:30 EST , Service support ,
[2021-10-16 16:21] LABS: Absolute Lymphocyte Count 0.52 X10^3/uL (0.83-4.51); Absolute Neutrophil Count 0.5 X10^3/uL (2.0-7.7); Basophil# 0.01 X10^3/uL; Basophil% 0.7 % (0-1); Eosinophils% 6.7 % (0-5); Hematocrit 40.6 % (37-47); Hemoglobin 12.6 g/dL (12.0-15.0); Lymphocyte # 0.52 X10^3/ul (0.83-4.51); Lymphocyte % 34.9 % (19-41); Mean Corpuscular Hgb 24.4 pg (27.0-32.0); Mean Corpuscular Volume 78.7 fL (81-99); Mean Platelet Vol. 10.4 fl (6.2-12.0); Monocyte# 0.37 X10^3/uL; Monocyte% 24.8 % (0-10); NRBC Flagged by Analyzer 0 % (0-5); Neutrophil # 0.49 X10^3/uL (2.7-7.7); Neutrophil % 32.9 % (47-70); POSITIVE COUNT YES; POSITIVE DIFFERENTIAL YES; Platelet Count 212 K/mm3 (150-450); RBC Distribution Width CV 13.6 % (11.6-14.6); RBC Distribution Width SD 38.6 fl (35.1-43.9); Red Blood Count 5.16 M/mm3 (4.2-5.4); White Blood Count 1.5 K/mm3 (4.4-11.0)
[2021-10-16 16:30] LABS: Differential Indicated SCAN CRITERIA MET
[2021-10-16 16:39] LABS: Vitamin D,25 Hydroxy 23.5 ng/mL
[2021-10-16 16:47] LABS: ALB/GLOB Ratio 0.8 RATIO (0.9-2.4); AST(SGOT) 16 U/L (15-37); Alanine Aminotransfer ALT/SGPT 15 U/L (13-56); Albumin, Serum 3.6 g/dL (3.2-5.0); Alkaline Phosphatase 50 U/L (45-117); Anion Gap 6 (5-15); BUN 20 mg/dL (7-18); BUN/Creat Ratio 26.9 RATIO (10-20); Calcium,Total 9.1 mg/dL (8.5-10.1); Chloride 105 mmol/L (98-107); Creatinine, Serum 0.74 mg/dL (0.55-1.02); EST Glomerular Filtration Rate 83 mL/min (>60); Est Glom Filt Rate - Afr Amer 100 mL/min (>60); Globulin 4.3 g/dL (2.2-4.2); Glucose 98 mg/dL (74-106); Potassium 3.9 mmol/L (3.5-5.1); Protein, Total 7.9 g/dL (6.4-8.2); Sodium Level 139 mmol/L (136-145)
[2021-10-16 16:59] LABS: Differential Comment SCANNED
[2021-10-21 09:09] LABS: Pathologist Review Reviewed
== END 2021-10-16 23:59 | disposition short-term general hospital (02) ==
LOC: POLAB3 13:22 → RAD 14:16
PROVIDERS: PCP Family Medicine Geriatric Medicine; Referring Provider Family Medicine Geriatric Medicine; Visit Provider Family Medicine Geriatric Medicine
DX: R53.83 Other fatigue (principal); E55.9 Vitamin D deficiency, unspecified; N39.0 Urinary tract infection, site not specified; M54.50 Low back pain, unspecified
CPT/HCPCS: 36415; 72100; 80053; 82306; 84443; 85025; 87086; 87088

== ENCOUNTER → 2022-10-08 | Outpatient (CLI) | payer MEDICARE, SELFPAY ==
[2022-10-08 17:30] LABS: Absolute Lymphocyte Count 0.37 X10^3/uL (0.83-4.51); Absolute Neutrophil Count 0.5 X10^3/uL (2.0-7.7); Basophil# 0.01 X10^3/uL; Basophil% 0.9 % (0-1); Eosinophil# 0.05 X10^3/uL; Eosinophils% 4.3 % (0-5); Hematocrit 40.1 % (37-47); Hemoglobin 12.4 g/dL (12.0-15.0); Lymphocyte # 0.37 X10^3/ul (0.83-4.51); Lymphocyte % 32.2 % (19-41); Mean Corp Hgb Conc 30.9 g/dL (32-36); Mean Corpuscular Hgb 24.2 pg (27.0-32.0); Mean Corpuscular Volume 78.3 fL (81-99); Mean Platelet Vol. 10.2 fl (6.2-12.0); Monocyte# 0.21 X10^3/uL; Monocyte% 18.3 % (0-10); NRBC Flagged by Analyzer 0 % (0-5); Neutrophil # 0.51 X10^3/uL (2.7-7.7); Neutrophil % 44.3 % (47-70); POSITIVE COUNT YES; POSITIVE DIFFERENTIAL YES; Platelet Count 169 K/mm3 (150-450); RBC Distribution Width CV 15.3 % (11.6-14.6); RBC Distribution Width SD 42.8 fl (35.1-43.9); Red Blood Count 5.12 M/mm3 (4.2-5.4)
[2022-10-08 17:46] LABS: ALB/GLOB Ratio 0.9 RATIO (0.9-2.4); AST(SGOT) 10 U/L (15-37); Alanine Aminotransfer ALT/SGPT 14 U/L (13-56); Albumin, Serum 3.5 g/dL (3.2-5.0); Alkaline Phosphatase 47 U/L (45-117); Anion Gap 6 (5-15); BUN 22 mg/dL (7-18); BUN/Creat Ratio 23.8 RATIO (10-20); Chloride 106 mmol/L (98-107); Creatinine, Serum 0.93 mg/dL (0.55-1.02); EST Glomerular Filtration Rate 64 mL/min (>60); Est Glom Filt Rate - Afr Amer 77 mL/min (>60); Globulin 3.8 g/dL (2.2-4.2); Glucose 87 mg/dL (74-106); Potassium 4.5 mmol/L (3.5-5.1); Protein, Total 7.3 g/dL (6.4-8.2); Sodium Level 139 mmol/L (136-145); Thyroid Stim Hormone (TSH) 0.85 uIU/mL (0.358-3.74); Vitamin D,25 Hydroxy 25.8 ng/mL
[2022-10-08 17:58] LABS: Differential Indicated SCAN CRITERIA MET; White Blood Count 1.2 K/mm3 (4.4-11.0)
[2022-10-08 19:22] LABS: Differential Comment SCANNED
[2022-10-10 11:40] LABS: Pathologist Review Reviewed
== END | disposition home or self-care (01) ==
LOC: POLAB3 15:37
PROVIDERS: PCP Family Medicine Geriatric Medicine; Visit Provider Family Medicine Geriatric Medicine
DX: R53.83 Other fatigue (principal); E55.9 Vitamin D deficiency, unspecified
CPT/HCPCS: 36415; 80053; 82306; 84443; 85025

== ENCOUNTER → 2023-04-01 | Outpatient (CLI) | payer MEDICARE, SELFPAY ==
--- NOTE | 2023-04-01 11:10 | RAD_ITS ---
INDICATION: WOUND LATERAL MALLEOLUS EXAMINATION/TECHNIQUE: X-RAY - LEFT XR Ankle Min 3 Views 3 VIEWS COMPARISON: X-rays left tibia-fibula 03/23/2018. FINDINGS: BONES: Osteopenic. No fracture demonstrated. No lytic lesion or periosteal reaction. JOINTS: No dislocation. SOFT TISSUES: Mild soft tissue swelling overlying the lateral malleolus with skin defect noted corresponding to wound. No radiopaque foreign body identified. RAD/Ankle min 3 Views IMPRESSION: Soft tissue swelling. No radiographic evidence of osteomyelitis. MRI may be helpful for further evaluation clinically indicated. Electronically Signed: Caitlyn Cantor MD at 18:37 EDT ,
[2023-04-01 12:25] LABS: Erythrocyte Sedimentation Rate 14 mm/hr (0-30)
[2023-04-01 12:27] LABS: Absolute Lymphocyte Count 0.46 X10^3/uL (0.83-4.51); Absolute Neutrophil Count 0.5 X10^3/uL (2.0-7.7); Basophil# 0.01 X10^3/uL; Basophil% 0.8 % (0-1); Eosinophil# 0.04 X10^3/uL; Eosinophils% 3.1 % (0-5); Hematocrit 42.3 % (37-47); Hemoglobin 12.9 g/dL (12.0-15.0); Lymphocyte # 0.46 X10^3/ul (0.83-4.51); Lymphocyte % 35.9 % (19-41); Mean Corp Hgb Conc 30.5 g/dL (32-36); Mean Corpuscular Hgb 24.7 pg (27.0-32.0); Mean Platelet Vol. 10.8 fl (6.2-12.0); Monocyte# 0.31 X10^3/uL; Monocyte% 24.2 % (0-10); NRBC Flagged by Analyzer 0 % (0-5); Neutrophil # 0.46 X10^3/uL (2.7-7.7); POSITIVE COUNT YES; POSITIVE DIFFERENTIAL YES; Platelet Count 183 K/mm3 (150-450); RBC Distribution Width CV 14.2 % (11.6-14.6); RBC Distribution Width SD 41.4 fl (35.1-43.9); Red Blood Count 5.22 M/mm3 (4.2-5.4); White Blood Count 1.3 K/mm3 (4.4-11.0)
[2023-04-01 12:42] LABS: ALB/GLOB Ratio 0.9 RATIO (0.9-2.4); AST(SGOT) 13 U/L (15-37); Alanine Aminotransfer ALT/SGPT 11 U/L (13-56); Albumin, Serum 3.7 g/dL (3.2-5.0); Alkaline Phosphatase 44 U/L (45-117); Anion Gap 4 (5-15); BUN 22 mg/dL (7-18); BUN/Creat Ratio 25.1 RATIO (10-20); CRP 9.94 mg/L (0.0-3.0); Calcium,Total 9.2 mg/dL (8.5-10.1); Chloride 108 mmol/L (98-107); Creatinine, Serum 0.88 mg/dL (0.55-1.02); EST Glomerular Filtration Rate 68 mL/min (>60); Est Glom Filt Rate - Afr Amer 82 mL/min (>60); Globulin 3.9 g/dL (2.2-4.2); Glucose 92 mg/dL (74-106); Potassium 4.6 mmol/L (3.5-5.1); Protein, Total 7.6 g/dL (6.4-8.2); Sodium Level 138 mmol/L (136-145)
[2023-04-01 12:48] LABS: Differential Indicated SCAN CRITERIA MET
[2023-04-01 12:59] LABS: Differential Comment SCANNED
[2023-04-01 14:43] LABS: M R Staph aureus DNA By PCR Negative (Negative); Probe Check PASS; Specimen Processing Control PASS; Staph aureus DNA By PCR NEGATIVE (Negative)
[2023-04-03 10:23] LABS: Pathologist Review Reviewed
== END | disposition home or self-care (01) ==
PROVIDERS: PCP Family Medicine Geriatric Medicine; Referring Provider Family Medicine Geriatric Medicine; Visit Provider Family Medicine Geriatric Medicine
DX: M32.9 Systemic lupus erythematosus, unspecified (principal); B95.62 Methicillin resistant Staphylococcus aureus infection as the cause of diseases classified elsewhere; M25.472 Effusion, left ankle
CPT/HCPCS: 36415; 73610; 80053; 85025; 85652; 86140; 87075; 87640

== ENCOUNTER 2023-04-23 13:45 | Outpatient (RCR) | payer MEDICARE, SELFPAY ==
[2023-04-14 13:05] VITALS: BP 133/78; PULSE 78; RESP 16; TEMP 36.1; BMI 24.5
--- NOTE | 2023-04-14 14:03 | HP.PCM_ITS ---
History of Present Illness Date of Service: 04/14/23 Chief Complaint: Pressure ulceration, left lateral malleolus History of Wound: This is a 67-year-old female who presents with an ulceration on the left lateral malleolus. The ulceration has been present for approximately 4 weeks. The patient indicates her suspicion that this may be due to pressure phenomenon. She is a side sleeper, and notes restlessness in her lower extremities while sleeping. She has made effort in recent days to avoid sleeping on her left side, relieving the pressure on the ulcer site. She has been evaluated by her primary care physician, Dr. Bocanegra, who has treated the patient with 2 courses of oral antibiotics, including doxycycline and clindamycin. A culture performed on April 01, 2023, was positive for anaerobic cocci, though no sensitivities were reported. A recent x-ray of the area revealed soft tissue swelling, though no evidence of osteomyelitis. Laboratory studies were obtained on April 01, 2023, with results as follows: White blood count 1.3, hemoglobin 12.9, hematocrit 42.3, platelets 183,000, ESR 14, potassium 4.6, sodium 138, chloride 108, carbon dioxide 26.0, BUN 22, creatinine 0.88, glucose 92, calcium 9.2, total bilirubin 0.50, AST 13, ALT 11, alkaline phosphatase 44, C-reactive protein 9.94, total protein 7.6, albumin 3.7. The patient is active. Her BMI is 24.6. She denies a history of cerebrovascular accident, myocardial infarction, pulmonary disease, renal disease, and diabetes mellitus. Pre-existing medical problems are documented herein. Due to systemic lupus erythematosus, the patient has been on long-term steroid administration. [facility] Medical History Breast cancer Fibromyalgia Hyperlipidemia Hypertension Insomnia Irritable bowel syndrome Muscle spasm Pressure ulcer of left ankle, stage 3 Splenomegaly Systemic lupus erythematosus Home Medications doxycycline monohydrate 100 mg capsule 100 mg PO BID #20 caps 10/25/20 [Rx Last Taken Unknown] prednisone 5 mg tablet 5 mg PO DAILY 10/25/20 [History Last Taken Unknown] cholecalciferol (vitamin D3) 50 mcg (2,000 unit) capsule 50 mcg PO DAILY 05/26/22 [History Last Taken Unknown] hydroxychloroquine 200 mg tablet (Plaquenil) 200 mg PO DAILY 05/26/22 [History Last Taken Unknown] Allergy/AdvReac Type Severity Reaction Status Date / Time Penicillins AdvReac Intermediate Rash Verified 05/26/22 13:55 Family History Daughter No problems noted. Father Diabetes Father Pancreas cancer Mother Osteoarthritis Afib Surgical History History of bilateral mastectomy History of left knee surgery Social History Smoking Status: Never smoker second hand exposure: No alcohol intake: never substance use type: does not use ford/latter-day: None seatbelt use: always do you feel safe at home: Yes Vital Signs Vital Signs Vital Signs: 04/14/23 13:05 Temperature 96.9 F L Temperature Source Temporal Pulse Rate 78 Respiratory Rate 16 Blood Pressure 133/78 H Blood Pressure Mean 96 Blood Pressure Source Monitor Blood Pressure Position Sitting Blood Pressure Location Left Arm Oxygen Delivery Method Room Air Weight Weight: 150 lb Body Mass Index (BMI) 24.5 Physical Exam Const alert, oriented x3, no apparent distress and average body habitus General Appearance: cooperative, comfortable, well kempt, well developed and frail Orientation / Consciousness: awake, oriented to person, oriented to place and oriented to time Exam Limitations: no limitations HEENT normocephalic, head/scalp atraumatic and hearing grossly normal bilaterally Head and Scalp: normal to inspection, normocephalic and atraumatic Face and Sinus: normal facial exam External Ear: external ears normal Eyes PERRL, EOMs intact bilaterally and conjunctivae normal General Eye: normal appearance of both eyes Neck full ROM Chest Chest: symmetrical chest wall rise Resp normal respiratory effort, normal air movement, no retractions and no use of accessory muscles Effort and Inspection: able to speak in complete sentences Back/Spine Back/Spine Narrative: Kyphoscoliosis Extremity no clubbing, cyanosis or edema Skin General Skin Exam: ecchymosis Wound Narrative: No significant swelling or edema are noted in the patient's lower extremities bilaterally. An ulceration is noted overlying the left lateral malleolus. Dimensions are documented elsewhere. There is no sign of infection or cellulitis. There is a moderate amount of bioburden. Neuro oriented x3, CN's II-XII intact bilaterally, moves all extremities and no focal motor deficits Sensorium / Orientation: awake, alert, oriented to person, oriented to place and oriented to time Coordination / Balance: [id number] test normal Speech: speech normal Psych mental status grossly normal Appearance: grossly normal and appropriate Attitude: calm Activity / Motor Behavior: appropriate eye contact Speech: normal speech Mood & Affect: euthymic mood Thought Process: normal thought process Thought Content: normal thought content Attention / Concentration: attention grossly intact Debridement Note Debridement Note Wound debrided: Left lateral malleolus Laterality: Left Wound Grade/Stage: Stage III pressure ulcer Type of Debridement: Excisional debridement Anesthesia Used: 5% Lidocaine Gel Depth: Down to and including healthy tissue and in the subcutaneous layer Percentage of wound debrided: 100 Instrument Used: 5mm curette Tissue Removed: Bioburden and nonviable tissue Severity: Fat Layer Exposed Amount of bleeding with debridement: Mild Bleeding Controlled with: Compression and gauze Patient tolerated procedure: Patient tolerated procedure well Post-Debridement Measurements and Additional Note: Post-Debridement Measurements/Treatment - Nurse 1 - General Ulcer Assessment Start: 04/14/23 13:05 Freq: Status: Active Protocol: JESUS Activity Type Activity Date Activity User E-sign Co-sign Detail Recorded Client Recorded Date Recorded By Document 04/14/23 13:05 [id number] 04/14/23 13:28 04/14/23 13:05 - Today's Visit Information Type of service Initial Visit Arrival Mode Ambulatory Patient Identification Verified (Name & Yes ) Height and Weight Height 5 ft 5.5 in Weight 150 lb Weight in Pounds 150.0 lbs Body Mass Index (BMI) 24.5 BMI Classification Normal BSA - Hero 1.76 Vital Signs Temperature (97.8 F-99.1 F) 96.9 F L Temperature Source Temporal Pulse Rate (60-100) 78 Pulse Location Monitor Respiratory Rate (12-18) 16 Respiratory rate source Observation Oxygen Delivery Method Room Air Blood Pressure (90/60-120/80) 133/78 H Blood Pressure Mean 96 Source Monitor Position Sitting Blood Pressure Location Left Arm History Since Last Visit- (Skip if this is Patient's initial visit) Left Footwear Regular Shoe Right Footwear Regular Shoe Pain Scale: 0-10 Numeric Is Patient Pain Free? No LT ANKLE -Description Sharp -Intensity 8 -Duration (hours) Acute -Pain Behavior Guarding -Alleviating Factors/Interventions Medication Lower Extremity Assessment/ Foot Assessment/ Toe Nail Assessment Left -Dorsalis Pedis Palpable Yes -Dorsalis Pedis Doppler Monophasic -Extremity Color Normal -Hair Growth on Legs Yes -Hair Growth on Toes No -Temperature of Extremity Warm -Capillary Refill Less than 3 Seconds -Thick No -Discolored No -Deformed No -Improper Length & Hygeine No Communication Assessment Preferred language Azeri Able to Read Yes Able to Write Yes Communication Tools None Caregiver Communication Skills No Impairment Impairment Right Hearing Abillity Normal Left Hearing Abillity Normal Visual Assistive Devices Glasses Teaching Assessment Preferences Verbal,Written, Demonstration Barriers to Learning None Readiness To Learn Excellent Willingness to Engage in Self Management High Activies Readiness to Engage in Self Management High Activities Anxiety Level Calm Cooperation Cooperative Perception Coherent Interest in Health Problem Asks Questions Education Importance Acknowledges Need Does Patient Smoke tobacco or other No substances Smoking Status Never smoker Is Patient Diabetic No Functional Assessment Recent Decline in Ability to Perform Denies Any Declines Culture/Gnosticist/Irrigator Overhead Cultural/Gnosticist Needs that may affect No Treatment Plan Would you allow our hospital rivet passer to No meet you for the purpose of spiritual/ emotional support? Irrigator Overhead to contact place of episcopal No Teaching: Wound Center *Welcome to the Wound Center -Person Taught Patient -Teaching Method Discussion, Demonstration -Response to teaching Verbalize understanding WC - Nurse 1 - General Ulcer Measurement Start: 04/14/23 13:05 Freq: Status: Active Protocol: Activity Type Activity Date Activity User E-sign Co-sign Detail Recorded Client Recorded Date Recorded By Document 04/14/23 13:05 [id number] 04/14/23 13:28 04/14/23 13:05 Wound Center Nurse 1 1. LT LAT ANKLE -Current Size (cm) - Length 1.3 -Current Size (cm) - Width 1.6 -Current Size (cm) - Depth 0.2 -Total Square Cm 2.08 -Date of Last Picture (Recall this 04/14/23 field) -Photo Taken Yes -Tunneling No -Undermining/Tunneling No -Circular Undermining No -Exudate Amt Small -Exudate Type Serosanguineous -Wound Margin Distinct, Outline Attached -Granulation Amt Large (67-100%) -Granulation Quality Red -Necrosis Amt Medium (34-66%) -Necrotic Tissue Type Adherent Slough -Structure Exposed None/Limited to Skin Breakdown -Texture (Aurelia-wound Skin Appearance) Assessed, Localized Edema -Moisture (Aurelia-wound Skin Appearance) Assessed -Color (Aurelia-wound Skin Appearance) Assessed, Erythema -Temperature (Aurelia-wound Skin No Abnormality Appearance) (Pt Warm) -Tenderness on Palpation (Aurelia-wound Yes Skin Appearance) -Ulcer Cleansing Soap and Water -Foul Odor after Cleansing No -Anesthetic Used 5% Lidocaine Gel Left Calf (cm) 34 Left Ankle (cm) 19.7 Assessment/Plan Assessment/Plan (1) Pressure ulcer of left ankle, stage 3: CODE(S): L89.523 - Pressure ulcer of left ankle, stage 3 (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9 - Systemic lupus erythematosus, unspecified (10) Hypertension: CODE(S): I10 - Essential (primary) hypertension (11) Irritable bowel syndrome: CODE(S): K58.9 - Irritable bowel syndrome without diarrhea PLAN: Plan This is a 67-year-old female of relatively normal body habitus. She presents w ith an ulceration overlying the left lateral malleolus. The ulceration has been present for approximately 1 month. She denies trauma, but feels as though this may be pressure related. She has been sleeping on her left side, and she indicates that pressure to the left lateral malleolus may have resulted in the ulceration. She has been treated by courses of doxycycline and clindamycin by her primary care physician, Dr. Bocanegra. Recent x-rays reveal soft tissue swelling, but no other significant abnormalities. The patient has been utilizing an antibiotic ointment topically. She is known to be on long-term steroids due to her diagnosis of systemic lupus erythematosus. The long-term use of steroids may adversely affect the patient's healing potential. The patient has been advised to elevate her lower extremities to minimize swelling. We are to implement the use of Aquacel silver topically, which will be applied by the patient on a daily basis. She has been instructed in the appropriate means of application. A foam overlay will be applied to minimize pressure and trauma. Offloading measures have been discussed with the patient in detail. She is to avoid sleeping on her left side, which will eliminate the likelihood of pressure to the ulcerated area. The patient is to return in 1 week for reassessment. Total time: 48 minutes
[2023-04-23 13:49] VITALS: BP 146/83; PULSE 68; RESP 16; TEMP 36.3; BMI 24.5
== END 2023-04-27 23:59 | disposition home or self-care (01) ==
LOC: WC 13:45
PROVIDERS: PCP Family Medicine Geriatric Medicine; Referring Provider Family Medicine Geriatric Medicine; Visit Provider Surgery
DX: L89.523 Pressure ulcer of left ankle, stage 3 (principal); D70.9 Neutropenia, unspecified; D70.8 Other neutropenia; M32.9 Systemic lupus erythematosus, unspecified; M06.9 Rheumatoid arthritis, unspecified; M05.00 Felty's syndrome, unspecified site; Z90.13 Acquired absence of bilateral breasts and nipples; I10 Essential (primary) hypertension; Z80.0 Family history of malignant neoplasm of digestive organs; R16.1 Splenomegaly, not elsewhere classified; E78.5 Hyperlipidemia, unspecified; I73.00 Raynaud's syndrome without gangrene; K58.9 Irritable bowel syndrome, unspecified; R60.0 Localized edema
CPT/HCPCS: 11042; 99211; 99213; G0463

== ENCOUNTER 2023-05-26 11:30 | Outpatient (RCR) | payer MEDICARE, SELFPAY ==
[2023-04-28 00:23] VITALS: BP 146/83; PULSE 68; RESP 16; TEMP 36.3; BMI 24.5
[2023-04-28 11:10] VITALS: BP 142/68; PULSE 60; RESP 18; TEMP 36.2; BMI 24.5
--- NOTE | 2023-04-28 14:55 | HP.PCM_ITS ---
History of Present Illness Date of Service: 04/28/23 Chief Complaint: Pressure ulceration, left lateral malleolus History of Wound: This is a 67-year-old female who presented with an ulceration on the left lateral malleolus. The ulceration had been present for approximately 4 weeks. The patient indicated her suspicion that this may be due to pressure phenomenon. She is a side sleeper, and notes restlessness in her lower extremities while sleeping. She has made effort in recent days to avoid sleeping on her left side, relieving the pressure on the ulcer site. She has been evaluated by her primary care physician, Dr. Bocanegra, who has treated the patient with 2 courses of oral antibiotics, including doxycycline and clindamycin. A culture performed on April 01, 2023, was positive for anaerobic cocci, though no sensitivities were reported. A recent x-ray of the area revealed soft tissue swelling, though no evidence of osteomyelitis. Laboratory studies were obtained on April 01, 2023, with results as follows: White blood count 1.3, hemoglobin 12.9, hematocrit 42.3, platelets 183,000, ESR 14, potassium 4.6, sodium 138, chloride 108, carbon dioxide 26.0, BUN 22, creatinine 0.88, glucose 92, calcium 9.2, total bilirubin 0.50, AST 13, ALT 11, alkaline phosphatase 44, C-reactive protein 9.94, total protein 7.6, albumin 3.7. The patient is active. Her BMI is 24.6. She denies a history of cerebrovascular accident, myocardial infarction, pulmonary disease, renal disease, and diabetes mellitus. Pre-existing medical problems are documented herein. Due to systemic lupus erythematosus, the patient has been on long-term steroid administration. [facility] Medical History Breast cancer Fibromyalgia Hyperlipidemia Hypertension Insomnia Irritable bowel syndrome Muscle spasm Pressure ulcer of left ankle, stage 3 Splenomegaly Systemic lupus erythematosus Home Medications doxycycline monohydrate 100 mg capsule 100 mg PO BID #20 caps 10/25/20 [Rx Last Taken Unknown] prednisone 5 mg tablet 5 mg PO DAILY 10/25/20 [History Last Taken Unknown] cholecalciferol (vitamin D3) 50 mcg (2,000 unit) capsule 50 mcg PO DAILY 05/26/22 [History Last Taken Unknown] hydroxychloroquine 200 mg tablet (Plaquenil) 200 mg PO DAILY 05/26/22 [History Last Taken Unknown] Allergy/AdvReac Type Severity Reaction Status Date / Time Penicillins AdvReac Intermediate Rash Verified 05/26/22 13:55 Family History Daughter No problems noted. Father Diabetes Father Pancreas cancer Mother Osteoarthritis Afib Surgical History History of bilateral mastectomy History of left knee surgery Social History Smoking Status: Never smoker second hand exposure: No alcohol intake: never substance use type: does not use ford/baptism: None seatbelt use: always do you feel safe at home: Yes Vital Signs Vital Signs Vital Signs: 04/28/23 11:10 04/28/23 00:23 Temperature 97.1 F L 97.3 F L Temperature Source Temporal Pulse Rate 60 68 Respiratory Rate 18 16 Blood Pressure 142/68 H 146/83 H Blood Pressure Mean 92 104 Blood Pressure Source Monitor Blood Pressure Position Sitting Blood Pressure Location Left Arm Left Arm Oxygen Delivery Method Room Air Weight Weight: 150 lb Body Mass Index (BMI) 24.5 Physical Exam Const alert, oriented x3, no apparent distress and average body habitus General Appearance: cooperative, comfortable, well kempt, well developed and frail Orientation / Consciousness: awake, oriented to person, oriented to place and oriented to time Exam Limitations: no limitations HEENT normocephalic, head/scalp atraumatic and hearing grossly normal bilaterally Head and Scalp: normal to inspection, normocephalic and atraumatic Face and Sinus: normal facial exam External Ear: external ears normal Eyes PERRL, EOMs intact bilaterally and conjunctivae normal General Eye: normal appearance of both eyes Neck full ROM Chest Chest: symmetrical chest wall rise Resp normal respiratory effort, normal air movement, no retractions and no use of accessory muscles Effort and Inspection: able to speak in complete sentences Back/Spine Back/Spine Narrative: Kyphoscoliosis Extremity no clubbing, cyanosis or edema Skin General Skin Exam: ecchymosis Wound Narrative: No significant swelling or edema are noted in the patient's lower extremities bilaterally. An ulceration is noted overlying the left lateral malleolus. Dimensions are documented elsewhere. There is a moderate amount of bioburden. There is now significant undermining in virtually all directions, with the development of callus circumferentially about the ulceration. Neuro oriented x3, CN's II-XII intact bilaterally, moves all extremities and no focal motor deficits Sensorium / Orientation: awake, alert, oriented to person, oriented to place and oriented to time Coordination / Balance: [id number] test normal Speech: speech normal Psych mental status grossly normal Appearance: grossly normal and appropriate Attitude: calm Activity / Motor Behavior: appropriate eye contact Speech: normal speech Mood & Affect: euthymic mood Thought Process: normal thought process Thought Content: normal thought content Attention / Concentration: attention grossly intact Debridement Note Debridement Note Wound debrided: Left lateral malleolus Laterality: Left Wound Grade/Stage: Stage III pressure ulcer Type of Debridement: Excisional debridement Anesthesia Used: 5% Lidocaine Gel Depth: Down to and including healthy tissue and in the subcutaneous layer Percentage of wound debrided: 100 Instrument Used: 5mm curette Tissue Removed: Bioburden and nonviable tissue Severity: Fat Layer Exposed Amount of bleeding with debridement: Mild Bleeding Controlled with: Compression and gauze Patient tolerated procedure: Patient tolerated procedure well Debridement Free Text: Due to the significant change in the appearance of the ulceration over the last week, swab cultures have been obtained for aerobic and anaerobic bacterial growth. Post-Debridement Measurements and Additional Note: Post-Debridement Measurements/Treatment - Nurse 1 - General Ulcer Assessment Start: 04/28/23 11:10 Freq: Status: Active Protocol: WC.LOWEXT Activity Type Activity Date Activity User E-sign Co-sign Detail Recorded Client Recorded Date Recorded By Document 04/28/23 11:10 [id number] 04/28/23 11:12 04/28/23 11:10 - Today's Visit Information Type of service Follow-up Visit (Physician/FINANCIAL DIRECTOR ) Arrival Mode Ambulatory Patient Identification Verified (Name & Yes ) Patient Requires Transmission-Based No Precautions Height and Weight Body Mass Index (BMI) 24.5 BMI Classification Normal Vital Signs Temperature (97.8 F-99.1 F) 97.1 F L Temperature Source Temporal Pulse Rate (60-100) 60 Pulse Location Monitor Respiratory Rate (12-18) 18 Respiratory rate source Observation Oxygen Delivery Method Room Air Blood Pressure (90/60-120/80) 142/68 H Blood Pressure Mean 92 Source Monitor Position Sitting Blood Pressure Location Left Arm History Since Last Visit- (Skip if this is Patient's initial visit) Have you changed medications since your No last visit? Any new allergies or adverse reactions No Had a fall/change in ADL's that may No increase risk of falls Signs or symptoms of abuse and/or No neglect since last visit Have you been in the hospital since your No last visit? Has dressing in place as prescribed Yes Has compression in place as prescribed No Has offloadiing in place as prescribed No Experienced any changes in pain level or No management Left Footwear Regular Shoe Right Footwear Regular Shoe Pain Scale: 0-10 Numeric Is Patient Pain Free? No LT ankle -Description Sharp,Aching -Intensity 8 -Duration (hours) Acute -Pain Behavior Facial Grimacing -Alleviating Factors/Interventions Medication WC - Nurse 1 - General Ulcer Measurement Start: 04/28/23 11:10 Freq: Status: Active Protocol: Activity Type Activity Date Activity User E-sign Co-sign Detail Recorded Client Recorded Date Recorded By Document 04/28/23 11:10 HANDY [id number] 04/28/23 11:12 HANDY 04/28/23 11:10 Wound Center Nurse 1 1. LT LAT ANKLE -Current Size (cm) - Length 0.9 -Current Size (cm) - Width 1.0 -Current Size (cm) - Depth 0.2 -Total Square Cm 0.90 -Date of Last Picture (Recall this 04/28/23 field) -Photo Taken Yes -Tunneling No -Undermining/Tunneling No -Circular Undermining No -Exudate Amt Small -Exudate Type Serosanguineous -Wound Margin Distinct, Outline Attached -Granulation Amt Medium (34-66%) -Granulation Quality [place] -Necrosis Amt Large (67-100%) -Necrotic Tissue Type Adherent Slough -Texture (Aurelia-wound Skin Appearance) Assessed -Moisture (Aurelia-wound Skin Appearance) Assessed, Maceration -Color (Aurelia-wound Skin Appearance) Assessed,Palor -Temperature (Aurelia-wound Skin No Abnormality Appearance) (Pt Warm) -Tenderness on Palpation (Aurelia-wound No Skin Appearance) -Ulcer Cleansing Soap and Water -Foul Odor after Cleansing No -Anesthetic Used 5% Lidocaine Gel WC - Nurse 2 - General Ulcer CM Notes Start: 04/28/23 11:10 Freq: Status: Active Protocol: Activity Type Activity Date Activity User E-sign Co-sign Detail Recorded Client Recorded Date Recorded By Document 04/28/23 12:41 PL [id number] 04/28/23 12:41 PL 04/28/23 12:41 Wound Center Nurse 2 -Time 11:17 -Correct Patient Yes -Correct Side, Site, Position Yes -Correct Procedure Yes -Procedure Performed Yes -Type of Procedure Debridement -Clinical Debridement Subcutaneous -Tissue Removed Subcutaneous -Post Debridement (cm) - Length 0.9 -Post Debridement (cm) - Width 1.0 -Post Debridement (cm) - Depth 0.2 -Total Square (Post) (cm) 0.90 -Area of Debridement (cm) - Length 0.9 -Area of Debridement (cm) - Width 1.0 -Total Square (Area) (cm) 0.90 -Tunneling No -Undermining/Tunneling No -Circular Undermining No -Wound/Ulcer Outcome Not Healed -Ulcer Cleansing Rinsed/ Irrigated with Saline -Foul Odor after Cleansing No -Bioengineered Tissue No -Bleeding Controlled with Pressure -Treatment Response Procedure Tolerated Well -Debridement - Subq, 1st 20sq cm Yes Pain Scale: 0-10 Numeric Is Patient Pain Free? Yes - Nurse 3 - General Ulcer D/C NN Start: 04/28/23 11:10 Freq: Status: Active Protocol: Activity Type Activity Date Activity User E-sign Co-sign Detail Recorded Client Recorded Date Recorded By Document 04/28/23 14:31 DL [id number] 04/28/23 14:32 DL 04/28/23 14:31 Wound Care Center Nurse 3 1. LT LAT ANKLE -Ulcer Cleansing Rinsed/ Irrigated with Saline -Foul Odor after Cleansing No -Primary Dressing Applied Promogran -Primary Dressing Covered/Secured with Dry Gauze, Secured with Tape -Promogran 1 Treatment Response Procedure Tolerated Well Pain Scale: 0-10 Numeric Is Patient Pain Free? 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9 - Systemic lupus erythematosus, unspecified (10) Hypertension: CODE(S): I10 - Essential (primary) hypertension (11) Irritable bowel syndrome: CODE(S): K58.9 - Irritable bowel syndrome without diarrhea PLAN: Plan This is a 67-year-old female of relatively normal body habitus. She presents with an ulceration overlying the left lateral malleolus. The ulceration had been present for approximately 1 month. She denied trauma, but felt as though this may be pressure related. She had been sleeping on her left side, and she indicated that pressure to the left lateral malleolus may have resulted in the ulceration. She had been treated by courses of doxycycline and clindamycin by her primary care physician, Dr. Bocanegra. Recent x-rays reveal soft tissue swelling, but no other significant abnormalities. The patient had been uti lizing an antibiotic ointment topically. She is known to be on long-term steroids due to her diagnosis of systemic lupus erythematosus. The long-term use of steroids may adversely affect the patient's healing potential. The patient has been advised to elevate her lower extremities to minimize swelling. We are to continue the use of Aquacel silver topically, which will be applied by the patient on a daily basis. She has been instructed in the appropriate means of application. A foam overlay will be applied to minimize pressure and trauma. Offloading measures have been discussed with the patient in detail. She is to avoid sleeping on her left side, which will eliminate the likelihood of pressure to the ulcerated area. Because of the development of undermining circumferentially, with apparent callus formation, it may be necessary to consider a surgical debridement and unroofing procedure in the OR setting. This will be determined in the near future. We will await the results of bacterial cultures, obtained today. The patient is to return in 1 week for reassessment. Total time: 28 minutes
[2023-05-05 10:54] VITALS: BP 113/84; PULSE 72; RESP 18; TEMP 36.1; BMI 24.5
--- NOTE | 2023-05-05 11:16 | HP.PCM_ITS ---
History of Present Illness Date of Service: 05/05/23 Chief Complaint: Pressure ulceration, left lateral malleolus History of Wound: This is a 67-year-old female who presented with an ulceration on the left lateral malleolus. The ulceration had been present for approximately 4 weeks. The patient indicated her suspicion that this may be due to pressure phenomenon. She is a side sleeper, and notes restlessness in her lower extremities while sleeping. She has made effort in recent days to avoid sleeping on her left side, relieving the pressure on the ulcer site. She has been evaluated by her primary care physician, Dr. Bocanegra, who has treated the patient with 2 courses of oral antibiotics, including doxycycline and clindamycin. A culture performed on April 01, 2023, was positive for anaerobic cocci, though no sensitivities were reported. A recent x-ray of the area revealed soft tissue swelling, though no evidence of osteomyelitis. Laboratory studies were obtained on April 01, 2023, with results as follows: White blood count 1.3, hemoglobin 12.9, hematocrit 42.3, platelets 183,000, ESR 14, potassium 4.6, sodium 138, chloride 108, carbon dioxide 26.0, BUN 22, creatinine 0.88, glucose 92, calcium 9.2, total bilirubin 0.50, AST 13, ALT 11, alkaline phosphatase 44, C-reactive protein 9.94, total protein 7.6, albumin 3.7. The patient is active. Her BMI is 24.6. She denies a history of cerebrovascular accident, myocardial infarction, pulmonary disease, renal disease, and diabetes mellitus. Pre-existing medical problems are documented herein. Due to systemic lupus erythematosus, the patient has been on long-term steroid administration. [facility] Medical History Breast cancer Fibromyalgia Hyperlipidemia Hypertension Insomnia Irritable bowel syndrome Muscle spasm Pressure ulcer of left ankle, stage 3 Splenomegaly Systemic lupus erythematosus Home Medications doxycycline monohydrate 100 mg capsule 100 mg PO BID #20 caps 10/25/20 [Rx Last Taken Unknown] prednisone 5 mg tablet 5 mg PO DAILY 10/25/20 [History Last Taken Unknown] cholecalciferol (vitamin D3) 50 mcg (2,000 unit) capsule 50 mcg PO DAILY 05/26/22 [History Last Taken Unknown] hydroxychloroquine 200 mg tablet (Plaquenil) 200 mg PO DAILY 05/26/22 [History Last Taken Unknown] Allergy/AdvReac Type Severity Reaction Status Date / Time Penicillins AdvReac Intermediate Rash Verified 05/26/22 13:55 Family History Daughter No problems noted. Father Diabetes Father Pancreas cancer Mother Osteoarthritis Afib Surgical History History of bilateral mastectomy History of left knee surgery Social History Smoking Status: Never smoker second hand exposure: No alcohol intake: never substance use type: does not use ford/buddhism: None seatbelt use: always do you feel safe at home: Yes Vital Signs Vital Signs Vital Signs: 05/05/23 10:54 Temperature 97.0 F L Temperature Source Temporal Pulse Rate 72 Respiratory Rate 18 Blood Pressure 113/84 H Blood Pressure Mean 93 Blood Pressure Source Monitor Blood Pressure Position Sitting Blood Pressure Location Right Arm Oxygen Delivery Method Room Air Weight Weight: 150 lb Body Mass Index (BMI) 24.5 Physical Exam Const alert, oriented x3, no apparent distress and average body habitus General Appearance: cooperative, comfortable, well kempt, well developed and frail Orientation / Consciousness: awake, oriented to person, oriented to place and oriented to time Exam Limitations: no limitations HEENT normocephalic, head/scalp atraumatic and hearing grossly normal bilaterally Head and Scalp: normal to inspection, normocephalic and atraumatic Face and Sinus: normal facial exam External Ear: external ears normal Eyes PERRL, EOMs intact bilaterally and conjunctivae normal General Eye: normal appearance of both eyes Neck full ROM Chest Chest: symmetrical chest wall rise Resp normal respiratory effort, normal air movement, no retractions and no use of accessory muscles Effort and Inspection: able to speak in complete sentences Back/Spine Back/Spine Narrative: Kyphoscoliosis Extremity no clubbing, cyanosis or edema Skin General Skin Exam: ecchymosis Wound Narrative: No significant swelling or edema are noted in the patient's lower extremities bilaterally. An ulceration is noted overlying the left lateral malleolus. Dimensions are documented elsewhere. There is a moderate amount of bioburden. There is less erythema in the periulcer area, and no appreciable undermining. There has been significant improvement. Neuro oriented x3, CN's II-XII intact bilaterally, moves all extremities and no focal motor deficits Sensorium / Orientation: awake, alert, oriented to person, oriented to place and oriented to time Coordination / Balance: [id number] test normal Speech: speech normal Psych mental status grossly normal Appearance: grossly normal and appropriate Attitude: calm Activity / Motor Behavior: appropriate eye contact Speech: normal speech Mood & Affect: euthymic mood Thought Process: normal thought process Thought Content: normal thought content Attention / Concentration: attention grossly intact Debridement Note Debridement Note Wound debrided: Left lateral malleolus Laterality: Left Wound Grade/Stage: Stage III pressure ulcer Type of Debridement: Excisional debridement Anesthesia Used: 5% Lidocaine Gel Depth: Down to and including healthy tissue and in the subcutaneous layer Percentage of wound debrided: 100 Instrument Used: 5mm curette Tissue Removed: Bioburden and nonviable tissue Severity: Fat Layer Exposed Amount of bleeding with debridement: Mild Bleeding Controlled with: Compression and gauze Patient tolerated procedure: Patient tolerated procedure well Post-Debridement Measurements and Additional Note: Post-Debridement Measurements/Treatment - Nurse 1 - General Ulcer Assessment Start: 04/28/23 11:10 Freq: Status: Active Protocol: JESUS Activity Type Activity Date Activity User E-sign Co-sign Detail Recorded Client Recorded Date Recorded By Document 04/28/23 11:10 KW [id number] 04/28/23 11:12 KW Document 05/05/23 10:54 MW [id number] 05/05/23 10:57 MW 04/28/23 05/05/23 11:10 10:54 - Today's Visit Information Type of service Follow-up Visit Follow-up Visit (Physician/COATING MACHINE OPERATOR (Physician/COATING MACHINE OPERATOR ) ) Arrival Mode Ambulatory Ambulatory Transfer Assistance None Accompanied by self Patient Identification Verified (Name & Yes Yes ) Patient Requires Transmission-Based No No Precautions Safety Precautions NA Height and Weight Body Mass Index (BMI) 24.5 24.5 BMI Classification Normal Normal Vital Signs Temperature (97.8 F-99.1 F) 97.1 F L 97.0 F L Temperature Source Temporal Temporal Pulse Rate (60-100) 60 72 Pulse Location Monitor Monitor Respiratory Rate (12-18) 18 18 Respiratory rate source Observation Observation Oxygen Delivery Method Room Air Room Air Blood Pressure (90/60-120/80) 142/68 H 113/84 H Blood Pressure Mean 92 93 Source Monitor Monitor Position Sitting Sitting Blood Pressure Location Left Arm Right Arm History Since Last Visit- (Skip if this is Patient's initial visit) Have you changed medications since your No No last visit? Any new allergies or adverse reactions No No Had a fall/change in ADL's that may No No increase risk of falls Signs or symptoms of abuse and/or No No neglect since last visit Have you been in the hospital since your No No last visit? Has dressing in place as prescribed Yes Yes Has compression in place as prescribed No N/A Has offloadiing in place as prescribed No No Experienced any changes in pain level or No No management Left Footwear Regular Shoe Regular Shoe Right Footwear Regular Shoe Regular Shoe Pain Scale: 0-10 Numeric Is Patient Pain Free? No No LT ankle -Description Sharp,Aching Sharp,Burning -Intensity 8 7 -Duration (hours) Acute Acute -Pain Behavior Facial Withdrawal from Grimacing Touch,Facial Grimacing -Pain Aggravating Factors Walking, Debridement -Alleviating Factors/Interventions Medication None -Effectiveness of Alleviating Factor/ Minimally Intervention effective -Comments Taking advil OTC WC - Nurse 1 - General Ulcer Measurement Start: 04/28/23 11:10 Freq: Status: Active Protocol: Activity Type Activity Date Activity User E-sign Co-sign Detail Recorded Client Recorded Date Recorded By Document 04/28/23 11:10 KW [id number] 04/28/23 11:12 KW Document 05/05/23 10:54 MW [id number] 05/05/23 10:57 MW 04/28/23 05/05/23 11:10 10:54 Wound Center Nurse 1 1. LT LAT ANKLE -Combined with other wound No -Current Size (cm) - Length 0.9 1.3 -Current Size (cm) - Width 1.0 1.2 -Current Size (cm) - Depth 0.2 0.2 -Total Square Cm 0.90 1.56 -Date of Last Picture (Recall this 04/28/23 field) -Photo Taken Yes No -Epithelialization None Present -Tunneling No No -Undermining/Tunneling No No -Circular Undermining No No -Exudate Amt Small -Exudate Type Serosanguineous -Wound Margin Distinct, Outline Attached -Granulation Amt Medium (34-66%) Medium (34-66%) -Granulation Quality [place] -Slough/Fibrin Yes -Necrosis Amt Large (67-100%) Medium (34-66%) -Necrotic Tissue Type Adherent Slough Adherent Slough -Structure Exposed Fat Layer Exposed,N/A -Texture (Aurelia-wound Skin Appearance) Assessed Assessed, Localized Edema ,Scarring -Moisture (Aurelia-wound Skin Appearance) Assessed, Assessed,Dry/ Maceration Scaly -Color (Aurelia-wound Skin Appearance) Assessed,Palor Assessed -Temperature (Aurelia-wound Skin No Abnormality No Abnormality Appearance) (Pt Warm) (Pt Warm) -Tenderness on Palpation (Aurelia-wound No No Skin Appearance) -Ulcer Cleansing Soap and Water Rinsed/ Irrigated with Saline -Foul Odor after Cleansing No No -Anesthetic Used 5% Lidocaine 5% Lidocaine Gel Gel Lower Limb Edema Present No WC - Nurse 2 - General Ulcer CM Notes Start: 04/28/23 11:10 Freq: Status: Active Protocol: Activity Type Activity Date Activity User E-sign Co-sign Detail Recorded Client Recorded Date Recorded By Document 04/28/23 12:41 PL [id number] 04/28/23 12:41 PL 04/28/23 12:41 Wound Center Nurse 2 1. LT LAT ANKLE -Time 11:17 -Correct Patient Yes -Correct Side, Site, Position Yes -Correct Procedure Yes -Procedure Performed Yes -Type of Procedure Debridement -Clinical Debridement Subcutaneous -Tissue Removed Subcutaneous -Post Debridement (cm) - Length 0.9 -Post Debridement (cm) - Width 1.0 -Post Debridement (cm) - Depth 0.2 -Total Square (Post) (cm) 0.90 -Area of Debridement (cm) - Length 0.9 -Area of Debridement (cm) - Width 1.0 -Total Square (Area) (cm) 0.90 -Tunneling No -Undermining/Tunneling No -Circular Undermining No -Wound/Ulcer Outcome Not Healed -Ulcer Cleansing Rinsed/ Irrigated with Saline -Foul Odor after Cleansing No -Bioengineered Tissue No -Bleeding Controlled with Pressure -Treatment Response Procedure Tolerated Well -Debridement - Subq, 1st 20sq cm Yes Pain Scale: 0-10 Numeric Is Patient Pain Free? Yes TIERA - Nurse 3 - General Ulcer D/C NN Start: 04/28/23 11:10 Freq: Status: Active Protocol: Activity Type Activity Date Activity User E-sign Co-sign Detail Recorded Client Recorded Date Recorded By Document 04/28/23 14:31 DL [id number] 04/28/23 14:32 DL 04/28/23 14:31 Wound Care Center Nurse 3 1. LT LAT ANKLE -Ulcer Cleansing Rinsed/ Irrigated with Saline -Foul Odor after Cleansing No -Primary Dressing Applied Promogran -Primary Dressing Covered/Secured with Dry Gauze, Secured with Tape -Promogran 1 Treatment Response Procedure Tolerated Well Pain Scale: 0-10 Numeric Is Patient Pain Free? 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9 - Systemic lupus erythematosus, unspecified (10) Hypertension: CODE(S): I10 - Essential (primary) hypertension (11) Irritable bowel syndrome: CODE(S): K58.9 - Irritable bowel syndrome without diarrhea PLAN: Plan This is a 67-year-old female of relatively normal body habitus. She presented with an ulceration overlying the left lateral malleolus. The ulceration had b een present for approximately 1 month. She denied trauma, but felt as though this may be pressure related. She had been sleeping on her left side, and she indicated that pressure to the left lateral malleolus may have resulted in the ulceration. She had been treated by courses of doxycycline and clindamycin by her primary care physician, Dr. Bocanegra. Recent x-rays reveal soft tissue swelling, but no other significant abnormalities. The patient had been utilizing an antibiotic ointment topically. She is known to be on long-term steroids due to her diagnosis of systemic lupus erythematosus. The long-term use of steroids may adversely affect the patient's healing potential. The patient has been advised to elevate her lower extremities to minimize swelling. We are to continue the use of Aquacel silver topically, which will be applied by the patient on a daily basis. She has been instructed in the appropriate means of application. A foam overlay will be applied to minimize pressure and trauma. Offloading measures have been discussed with the patient in detail. She is to avoid sleeping on her left side, which will eliminate the likelihood of pressure to the ulcerated area. Cultures were obtained 1 week ago, results of which were positive for ESBL E. coli, ESBL Klebsiella oxytoca, stenotrophomonas maltophilia, and Enterococcus faecalis. Prescriptions have been provided the patient for Bactrim double strength twice daily for 10 days, as well as linezolid 600 mg p.o. twice daily for 10 days. The patient is currently in the midst of these courses of antibiotics. Since the patient's prior appointment, there is now less erythema and undermining, with significant improvement of the ulcer bed and the aurelia-ulcer area. The patient is to return in 1 week for reassessment. Total time: 26 minutes
[2023-05-12 11:00] VITALS: BP 140/60; PULSE 65; RESP 18; TEMP 36.6; BMI 24.5
--- NOTE | 2023-05-12 12:36 | HP.PCM_ITS ---
History of Present Illness Date of Service: 05/12/23 Chief Complaint: Pressure ulceration, left lateral malleolus History of Wound: This is a 67-year-old female who presented with an ulceration on the left lateral malleolus. The ulceration had been present for approximately 4 weeks. The patient indicated her suspicion that this may be due to pressure phenomenon. She is a side sleeper, and notes restlessness in her lower extremities while sleeping. She has made effort in recent days to avoid sleeping on her left side, relieving the pressure on the ulcer site. She has been evaluated by her primary care physician, Dr. Bocanegra, who has treated the patient with 2 courses of oral antibiotics, including doxycycline and clindamycin. A culture performed on April 01, 2023, was positive for anaerobic cocci, though no sensitivities were reported. A recent x-ray of the area revealed soft tissue swelling, though no evidence of osteomyelitis. Laboratory studies were obtained on April 01, 2023, with results as follows: White blood count 1.3, hemoglobin 12.9, hematocrit 42.3, platelets 183,000, ESR 14, potassium 4.6, sodium 138, chloride 108, carbon dioxide 26.0, BUN 22, creatinine 0.88, glucose 92, calcium 9.2, total bilirubin 0.50, AST 13, ALT 11, alkaline phosphatase 44, C-reactive protein 9.94, total protein 7.6, albumin 3.7. The patient is active. Her BMI is 24.6. She denies a history of cerebrovascular accident, myocardial infarction, pulmonary disease, renal disease, and diabetes mellitus. Pre-existing medical problems are documented herein. Due to systemic lupus erythematosus, the patient has been on long-term steroid administration. [facility] Medical History Breast cancer Fibromyalgia Hyperlipidemia Hypertension Insomnia Irritable bowel syndrome Muscle spasm Pressure ulcer of left ankle, stage 3 Splenomegaly Systemic lupus erythematosus Home Medications doxycycline monohydrate 100 mg capsule 100 mg PO BID #20 caps 10/25/20 [Rx Last Taken Unknown] prednisone 5 mg tablet 5 mg PO DAILY 10/25/20 [History Last Taken Unknown] cholecalciferol (vitamin D3) 50 mcg (2,000 unit) capsule 50 mcg PO DAILY 05/26/22 [History Last Taken Unknown] hydroxychloroquine 200 mg tablet (Plaquenil) 200 mg PO DAILY 05/26/22 [History Last Taken Unknown] Allergy/AdvReac Type Severity Reaction Status Date / Time Penicillins AdvReac Intermediate Rash Verified 05/26/22 13:55 Family History Daughter No problems noted. Father Diabetes Father Pancreas cancer Mother Osteoarthritis Afib Surgical History History of bilateral mastectomy History of left knee surgery Social History Smoking Status: Never smoker second hand exposure: No alcohol intake: never substance use type: does not use ford/christianity: None seatbelt use: always do you feel safe at home: Yes Vital Signs Vital Signs Vital Signs: 05/12/23 11:00 Temperature 97.8 F Temperature Source Temporal Pulse Rate 65 Respiratory Rate 18 Blood Pressure 140/60 H Blood Pressure Mean 86 Blood Pressure Source Monitor Blood Pressure Position Sitting Blood Pressure Location Left Arm Oxygen Delivery Method Room Air Weight Weight: 150 lb Body Mass Index (BMI) 24.5 Physical Exam Const alert, oriented x3, no apparent distress, average body habitus and no limitations General Appearance: cooperative, comfortable, well kempt, well developed and frail Orientation / Consciousness: awake, oriented to person, oriented to place and oriented to time Exam Limitations: no limitations HEENT normocephalic, head/scalp atraumatic and hearing grossly normal bilaterally Head and Scalp: normal to inspection, normocephalic and atraumatic Face and Sinus: normal facial exam External Ear: external ears normal Eyes PERRL, EOMs intact bilaterally and conjunctivae normal General Eye: normal appearance of both eyes Neck full ROM Chest Chest: symmetrical chest wall rise Resp normal respiratory effort, normal air movement, no retractions and no use of accessory muscles Effort and Inspection: able to speak in complete sentences Back/Spine Back/Spine Narrative: Kyphoscoliosis Extremity no clubbing, cyanosis or edema Skin General Skin Exam: ecchymosis Wound Narrative: No significant swelling or edema are noted in the patient's lower extremities bilaterally. An ulceration is noted overlying the left lateral malleolus. Dimensions are documented elsewhere. There is a moderate amount of bioburden. There is no significant erythema in the aurelia-ulcer area, and only minimal undermining. Neuro oriented x3, CN's II-XII intact bilaterally, moves all extremities and no focal motor deficits Sensorium / Orientation: awake, alert, oriented to person, oriented to place and oriented to time Coordination / Balance: [id number] test normal Speech: speech normal Psych mental status grossly normal Appearance: grossly normal and appropriate Attitude: calm Activity / Motor Behavior: appropriate eye contact Speech: normal speech Mood & Affect: euthymic mood Thought Process: normal thought process Thought Content: normal thought content Attention / Concentration: attention grossly intact Debridement Note Debridement Note Wound debrided: Left lateral malleolus Laterality: Left Wound Grade/Stage: Stage III pressure ulcer Type of Debridement: Excisional debridement Anesthesia Used: 5% Lidocaine Gel Depth: Down to and including healthy tissue and in the subcutaneous layer Percentage of wound debrided: 100 Instrument Used: 5mm curette Tissue Removed: Bioburden and nonviable tissue Severity: Fat Layer Exposed Amount of bleeding with debridement: Mild Bleeding Controlled with: Compression and gauze Patient tolerated procedure: Patient tolerated procedure well Post-Debridement Measurements and Additional Note: Post-Debridement Measurements/Treatment - Nurse 1 - General Ulcer Assessment Start: 04/28/23 11:10 Freq: Status: Active Protocol: JESUS Activity Type Activity Date Activity User E-sign Co-sign Detail Recorded Client Recorded Date Recorded By Document 04/28/23 11:10 KW [id number] 04/28/23 11:12 KW Document 05/05/23 10:54 MW [id number] 05/05/23 10:57 MW Document 05/12/23 11:00 MW [id number] 05/12/23 11:03 MW 04/28/23 05/05/23 05/12/23 11:10 10:54 11:00 - Today's Visit Information Type of service Follow-up Visit Follow-up Visit Follow-up Visit (Physician/SERVICE TECH/WELDER (Physician/SERVICE TECH/WELDER (Physician/SERVICE TECH/WELDER ) ) ) Arrival Mode Ambulatory Ambulatory Ambulatory Transfer Assistance None None Accompanied by self self Patient Identification Verified (Name & Yes Yes Yes ) Patient Requires Transmission-Based No No No Precautions Safety Precautions NA NA Height and Weight Body Mass Index (BMI) 24.5 24.5 24.5 BMI Classification Normal Normal Normal Vital Signs Temperature (97.8 F-99.1 F) 97.1 F L 97.0 F L 97.8 F Temperature Source Temporal Temporal Temporal Pulse Rate (60-100) 60 72 65 Pulse Location Monitor Monitor Monitor Respiratory Rate (12-18) 18 18 18 Respiratory rate source Observation Observation Observation Oxygen Delivery Method Room Air Room Air Room Air Blood Pressure (90/60-120/80) 142/68 H 113/84 H 140/60 H Blood Pressure Mean 92 93 86 Source Monitor Monitor Monitor Position Sitting Sitting Sitting Blood Pressure Location Left Arm Right Arm Left Arm History Since Last Visit- (Skip if this is Patient's initial visit) Have you changed medications since your No No No last visit? Any new allergies or adverse reactions No No No Had a fall/change in ADL's that may No No No increase risk of falls Signs or symptoms of abuse and/or No No No neglect since last visit Have you been in the hospital since your No No No last visit? Has dressing in place as prescribed Yes Yes Yes Has compression in place as prescribed No N/A N/A Has offloadiing in place as prescribed No No N/A Experienced any changes in pain level or No No No management Left Footwear Regular Shoe Regular Shoe Regular Shoe Right Footwear Regular Shoe Regular Shoe Regular Shoe Pain Scale: 0-10 Numeric Is Patient Pain Free? No No No LT ankle -Description Sharp,Aching Sharp,Burning -Intensity 8 7 -Duration (hours) Acute Acute -Pain Behavior Facial Withdrawal from Grimacing Touch,Facial Grimacing -Pain Aggravating Factors Walking, Debridement -Alleviating Factors/Interventions Medication None -Effectiveness of Alleviating Factor/ Minimally Intervention effective -Comments Taking advil OTC WC - Nurse 1 - General Ulcer Measurement Start: 04/28/23 11:10 Freq: Status: Active Protocol: Activity Type Activity Date Activity User E-sign Co-sign Detail Recorded Client Recorded Date Recorded By Document 04/28/23 11:10 KW [id number] 04/28/23 11:12 KW Document 05/05/23 10:54 MW [id number] 05/05/23 10:57 MW Document 05/12/23 11:00 MW [id number] 05/12/23 11:03 MW 04/28/23 05/05/23 05/12/23 11:10 10:54 11:00 Wound Center Nurse 1 1. LT LAT ANKLE -Combined with other wound No No -Current Size (cm) - Length 0.9 1.3 1.2 -Current Size (cm) - Width 1.0 1.2 1.5 -Current Size (cm) - Depth 0.2 0.2 0.2 -Total Square Cm 0.90 1.56 1.80 -Date of Last Picture (Recall this 04/28/23 field) -Photo Taken Yes No No -Epithelialization None Present Small 1-33% -Tunneling No No No -Undermining/Tunneling No No No -Circular Undermining No No No -Exudate Amt Small Small -Exudate Type Serosanguineous Serosanguineous -Wound Margin Distinct, Flat & Intact Outline Attached -Granulation Amt Medium (34-66%) Medium (34-66%) Medium (34-66%) -Granulation Quality [place] -Slough/Fibrin Yes Yes -Necrosis Amt Large (67-100%) Medium (34-66%) Medium (34-66%) -Necrotic Tissue Type Adherent Slough Adherent Slough Adherent Slough -Structure Exposed Fat Layer N/A Exposed,N/A -Texture (Aurelia-wound Skin Appearance) Assessed Assessed, Assessed, Localized Edema Localized Edema ,Scarring ,Scarring -Moisture (Aurelia-wound Skin Appearance) Assessed, Assessed,Dry/ Maceration Scaly -Color (Aurelia-wound Skin Appearance) Assessed,Palor Assessed Assessed, Hemosiderin Staining -Temperature (Aurelia-wound Skin No Abnormality No Abnormality No Abnormality Appearance) (Pt Warm) (Pt Warm) (Pt Warm) -Tenderness on Palpation (Aurelia-wound No No No Skin Appearance) -Ulcer Cleansing Soap and Water Rinsed/ Rinsed/ Irrigated with Irrigated with Saline Saline -Foul Odor after Cleansing No No No -Anesthetic Used 5% Lidocaine 5% Lidocaine 5% Lidocaine Gel Gel Gel Lower Limb Edema Present No No WC - Nurse 2 - General Ulcer CM Notes Start: 04/28/23 11:10 Freq: Status: Active Protocol: Activity Type Activity Date Activity User E-sign Co-sign Detail Recorded Client Recorded Date Recorded By Document 04/28/23 12:41 PL [id number] 04/28/23 12:41 PL Document 05/05/23 12:20 PL [id number] 05/05/23 12:21 PL Document 05/12/23 12:27 PL [id number] 05/12/23 12:28 PL 04/28/23 05/05/23 05/12/23 12:41 12:20 12:27 Wound Center Nurse 2 1. LT LAT ANKLE -Time 11:17 11:01 11:18 -Correct Patient Yes Yes Yes -Correct Side, Site, Position Yes Yes Yes -Correct Procedure Yes Yes Yes -Procedure Performed Yes Yes Yes -Type of Procedure Debridement Debridement Debridement -Clinical Debridement Subcutaneous Subcutaneous Subcutaneous -Tissue Removed Subcutaneous Subcutaneous Subcutaneous -Post Debridement (cm) - Length 0.9 1.3 1.2 -Post Debridement (cm) - Width 1.0 1.2 1.5 -Post Debridement (cm) - Depth 0.2 0.2 0.2 -Total Square (Post) (cm) 0.90 1.56 1.80 -Area of Debridement (cm) - Length 0.9 1.3 1.2 -Area of Debridement (cm) - Width 1.0 1.2 1.5 -Total Square (Area) (cm) 0.90 1.56 1.80 -Tunneling No No No -Undermining/Tunneling No No No -Circular Undermining No No No -Wound/Ulcer Outcome Not Healed Not Healed Not Healed -Ulcer Cleansing Rinsed/ Rinsed/ Rinsed/ Irrigated with Irrigated with Irrigated with Saline Saline Saline -Foul Odor after Cleansing No No No -Bioengineered Tissue No No No -Bleeding Controlled with Pressure Pressure Pressure -Treatment Response Procedure Procedure Procedure Tolerated Well Tolerated Well Tolerated Well -Debridement - Subq, 1st 20sq cm Yes Yes Yes Pain Scale: 0-10 Numeric Is Patient Pain Free? Yes Yes Yes - Nurse 3 - General Ulcer D/C NN Start: 04/28/23 11:10 Freq: Status: Active Protocol: Activity Type Activity Date Activity User E-sign Co-sign Detail Recorded Client Recorded Date Recorded By Document 04/28/23 14:31 DL [id number] 04/28/23 14:32 DL Document 05/12/23 11:29 DL [id number] 05/12/23 11:29 DL 04/28/23 05/12/23 14:31 11:29 Wound Care Center Nurse 3 1. LT LAT ANKLE -Ulcer Cleansing Rinsed/ Rinsed/ Irrigated with Irrigated with Saline Saline -Foul Odor after Cleansing No No -Primary Dressing Applied Promogran Promogran -Primary Dressing Covered/Secured with Dry Gauze, Dry Gauze & Secured with Roll Gauze, Tape Secured with Tape -Promogran 1 1 Treatment Response Procedure Procedure Tolerated Well Tolerated Well Pain Scale: 0-10 Numeric Is Patient Pain Free? 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9 - Systemic lupus erythematosus, unspecified (10) Hypertension: CODE(S): I10 - Essential (primary) hypertension (11) Irritable bowel syndrome: CODE(S): K58.9 - Irritable bowel syndrome without diarrhea PLAN: Plan This is a 67-year-old female of relatively normal body habitus. She presented with an ulceration overlying the left lateral malleolus. The ulceration had been present for approximately 1 month. She denied trauma, but felt as though this may be pressure related. She had been sleeping on her left side, and she indicated that pressure to the left lateral malleolus may have resulted in the ulceration. She had been treated by courses of doxycycline and clindamycin by her primary care physician, Dr. Bocanegra. Recent x-rays reveal soft tissue swelling, but no other significant abnormalities. The patient had been utilizing an antibiotic ointment topically. She is known to be on long-term steroids due to her diagnosis of systemic lupus erythematosus. The long-term use of steroids may adversely affect the patient's healing potential. The patient has been advised to elevate her lower extremities to minimize swelling. There has been little change in the appearance of the ulceration within the last week. We are to implement the use of Promogran topically, which will be applied by the patient on a daily basis. She has been instructed in the appropriate means of application. A foam overlay will be applied to minimize pressure and trauma. Offloading measures have been discussed with the patient in detail. She is to avoid sleeping on her left side, which will eliminate the likelihood of pressure to the ulcerated area. Cultures were obtained recently, results of which were positive for ESBL E. coli, ESBL Klebsiella oxytoca, stenotrophomonas maltophilia, and Enterococcus faecalis. Prescriptions have been provided the patient for Bactrim double strength twice daily for 10 days, as well as linezolid 600 mg p.o. twice daily for 10 days. The patient is currently near completion of these antibiotics. There appears to be less aurelia-ulcer erythema and undermining involving the ulceration. We are to consider the use of a skin graft substitute/allograft, and we will seek insurance preauthorization. The patient is to return in 1 week for reassessment. Total time: 25 minutes
[2023-05-19 11:04] VITALS: BP 142/64; PULSE 57; RESP 18; TEMP 35.2; BMI 24.5
--- NOTE | 2023-05-19 12:57 | PCM.WC.HP ---
History of Present Illness Date of Service: 05/19/23 Chief Complaint: Pressure ulceration, left lateral malleolus History of Wound: This is a 67-year-old female who presented with an ulceration on the left lateral malleolus. The ulceration had been present for approximately 4 weeks. The patient indicated her suspicion that this may be due to pressure phenomenon. She is a side sleeper, and notes restlessness in her lower extremities while sleeping. She has made effort in recent days to avoid sleeping on her left side, relieving the pressure on the ulcer site. She has been evaluated by her primary care physician, Dr. Bocanegra, who has treated the patient with 2 courses of oral antibiotics, including doxycycline and clindamycin. A culture performed on April 01, 2023, was positive for anaerobic cocci, though no sensitivities were reported. A recent x-ray of the area revealed soft tissue swelling, though no evidence of osteomyelitis. Laboratory studies were obtained on April 01, 2023, with results as follows: White blood count 1.3, hemoglobin 12.9, hematocrit 42.3, platelets 183,000, ESR 14, potassium 4.6, sodium 138, chloride 108, carbon dioxide 26.0, BUN 22, creatinine 0.88, glucose 92, calcium 9.2, total bilirubin 0.50, AST 13, ALT 11, alkaline phosphatase 44, C-reactive protein 9.94, total protein 7.6, albumin 3.7. The patient is active. Her BMI is 24.6. She denies a history of cerebrovascular accident, myocardial infarction, pulmonary disease, renal disease, and diabetes mellitus. Pre-existing medical problems are documented herein. Due to systemic lupus erythematosus, the patient has been on long-term steroid administration. [facility] Medical History Breast cancer Fibromyalgia Hyperlipidemia Hypertension Insomnia Irritable bowel syndrome Muscle spasm Pressure ulcer of left ankle, stage 3 Splenomegaly Systemic lupus erythematosus Home Medications doxycycline monohydrate 100 mg capsule 100 mg PO BID #20 caps 10/25/20 [Rx Last Taken Unknown] prednisone 5 mg tablet 5 mg PO DAILY 10/25/20 [History Last Taken Unknown] cholecalciferol (vitamin D3) 50 mcg (2,000 unit) capsule 50 mcg PO DAILY 05/26/22 [History Last Taken Unknown] hydroxychloroquine 200 mg tablet (Plaquenil) 200 mg PO DAILY 05/26/22 [History Last Taken Unknown] Allergy/AdvReac Type Severity Reaction Status Date / Time Penicillins AdvReac Intermediate Rash Verified 05/26/22 13:55 Family History Daughter No problems noted. Father Diabetes Father Pancreas cancer Mother Osteoarthritis Afib Surgical History History of bilateral mastectomy History of left knee surgery Social History Smoking Status: Never smoker second hand exposure: No alcohol intake: never substance use type: does not use ford/sabianist: None seatbelt use: always do you feel safe at home: Yes Vital Signs Vital Signs Vital Signs: 05/19/23 11:04 Temperature 95.3 F L Temperature Source Temporal Pulse Rate 57 L Respiratory Rate 18 Blood Pressure 142/64 H Blood Pressure Mean 90 Blood Pressure Source Monitor Blood Pressure Position Semi-Fowlers Blood Pressure Location Left Arm Oxygen Delivery Method Room Air Weight Weight: 150 lb Body Mass Index (BMI) 24.5 Physical Exam Const alert, oriented x3, no apparent distress, average body habitus and no limitations General Appearance: cooperative, comfortable, well kempt, well developed and frail Orientation / Consciousness: awake, oriented to person, oriented to place and oriented to time Exam Limitations: no limitations HEENT normocephalic, head/scalp atraumatic and hearing grossly normal bilaterally Head and Scalp: normal to inspection, normocephalic and atraumatic Face and Sinus: normal facial exam External Ear: external ears normal Eyes PERRL, EOMs intact bilaterally and conjunctivae normal General Eye: normal appearance of both eyes Neck full ROM Chest Chest: symmetrical chest wall rise Resp normal respiratory effort, normal air movement, no retractions and no use of accessory muscles Effort and Inspection: able to speak in complete sentences Back/Spine Back/Spine Narrative: Kyphoscoliosis Extremity no clubbing, cyanosis or edema Skin General Skin Exam: ecchymosis Wound Narrative: No significant swelling or edema are noted in the patient's lower extremities bilaterally. An ulceration is noted overlying the left lateral malleolus. Dimensions are documented elsewhere. There is a moderate amount of bioburden. There is no significant erythema in the aurelia-ulcer area. There is no sign of infection or cellulitis. Neuro oriented x3, CN's II-XII intact bilaterally, moves all extremities and no focal motor deficits Sensorium / Orientation: awake, alert, oriented to person, oriented to place and oriented to time Coordination / Balance: moavoz-lu-pclu test normal Speech: speech normal Psych mental status grossly normal Appearance: grossly normal and appropriate Attitude: calm Activity / Motor Behavior: appropriate eye contact Speech: normal speech Mood & Affect: euthymic mood Thought Process: normal thought process Thought Content: normal thought content Attention / Concentration: attention grossly intact Debridement Note Debridement Note Wound debrided: Left lateral malleolus Laterality: Left Wound Grade/Stage: Stage III pressure ulcer Type of Debridement: Excisional debridement Anesthesia Used: 5% Lidocaine Gel Depth: Down to and including healthy tissue and in the subcutaneous layer Percentage of wound debrided: 100 Instrument Used: 5mm curette Tissue Removed: Bioburden and nonviable tissue Severity: Fat Layer Exposed Amount of bleeding with debridement: Mild Bleeding Controlled with: Compression and gauze Patient tolerated procedure: Patient tolerated procedure well Debridement Free Text: Following a routine excisional debridement, which was well-tolerated by the patient, an allograft was applied to the left lateral malleolus ulceration. With hemostasis controlled, an 18 mm EpiFix allograft was selected. The allograft was removed from its sterile packaging. It was placed topically on the ulcer bed in the appropriate orientation. The entirety of the graft was utilized to cover the open ulceration. Adaptic Touch was placed topically, over which dry sterile gauze was placed. The entire site was then anchored in place using Steri-Strips. A dry sterile gauze dressing was then placed over the entire area. The patient tolerated the procedure well. Post-Debridement Measurements and Additional Note: Post-Debridement Measurements/Treatment TIERA - Nurse 1 - General Ulcer Assessment Start: 04/28/23 11:10 Freq: Status: Active Protocol: JESUS Activity Type Activity Date Activity User E-sign Co-sign Detail Recorded Client Recorded Date Recorded By Document 04/28/23 11:10 KW [id number] 04/28/23 11:12 KW Document 05/05/23 10:54 MW [id number] 05/05/23 10:57 MW Document 05/12/23 11:00 MW [id number] 05/12/23 11:03 MW Document 05/19/23 11:04 KW [id number] 05/19/23 11:08 KW 04/28/23 05/05/23 05/12/23 11:10 10:54 11:00 WC - Today's Visit Information Type of service Follow-up Visit Follow-up Visit Follow-up Visit (Physician/MATHEMATICS LECTURER (Physician/MATHEMATICS LECTURER (Physician/MATHEMATICS LECTURER ) ) ) Arrival Mode Ambulatory Ambulatory Ambulatory Transfer Assistance None None Accompanied by self self Patient Identification Verified (Name & Yes Yes Yes ) Patient Requires Transmission-Based No No No Precautions Safety Precautions NA NA Height and Weight Body Mass Index (BMI) 24.5 24.5 24.5 BMI Classification Normal Normal Normal Vital Signs Temperature (97.8 F-99.1 F) 97.1 F L 97.0 F L 97.8 F Temperature Source Temporal Temporal Temporal Pulse Rate (60-100) 60 72 65 Pulse Location Monitor Monitor Monitor Respiratory Rate (12-18) 18 18 18 Respiratory rate source Observation Observation Observation Oxygen Delivery Method Room Air Room Air Room Air Blood Pressure (90/60-120/80) 142/68 H 113/84 H 140/60 H Blood Pressure Mean 92 93 86 Source Monitor Monitor Monitor Position Sitting Sitting Sitting Blood Pressure Location Left Arm Right Arm Left Arm History Since Last Visit- (Skip if this is Patient's initial visit) Have you changed medications since your No No No last visit? Any new allergies or adverse reactions No No No Had a fall/change in ADL's that may No No No increase risk of falls Signs or symptoms of abuse and/or No No No neglect since last visit Have you been in the hospital since your No No No last visit? Has dressing in place as prescribed Yes Yes Yes Has compression in place as prescribed No N/A N/A Has offloadiing in place as prescribed No No N/A Experienced any changes in pain level or No No No management Left Footwear Regular Shoe Regular Shoe Regular Shoe Right Footwear Regular Shoe Regular Shoe Regular Shoe Pain Scale: 0-10 Numeric Is Patient Pain Free? No No No LT ankle -Description Sharp,Aching Sharp,Burning -Intensity 8 7 -Duration (hours) Acute Acute -Pain Behavior Facial Withdrawal from Grimacing Touch,Facial Grimacing -Pain Aggravating Factors Walking, Debridement -Alleviating Factors/Interventions Medication None -Effectiveness of Alleviating Factor/ Minimally Intervention effective -Comments Taking advil OTC 05/19/23 11:04 WC - Today's Visit Information Type of service Follow-up Visit (Physician/MATHEMATICS LECTURER ) Arrival Mode Ambulatory Transfer Assistance Accompanied by Patient Identification Verified (Name & Yes ) Patient Requires Transmission-Based Precautions Safety Precautions Height and Weight Body Mass Index (BMI) 24.5 BMI Classification Normal Vital Signs Temperature (97.8 F-99.1 F) 95.3 F L Temperature Source Temporal Pulse Rate (60-100) 57 L Pulse Location Monitor Respiratory Rate (12-18) 18 Respiratory rate source Observation Oxygen Delivery Method Room Air Blood Pressure (90/60-120/80) 142/64 H Blood Pressure Mean 90 Source Monitor Position Semi-Fowlers Blood Pressure Location Left Arm History Since Last Visit- (Skip if this is Patient's initial visit) Have you changed medications since your No last visit? Any new allergies or adverse reactions No Had a fall/change in ADL's that may No increase risk of falls Signs or symptoms of abuse and/or No neglect since last visit Have you been in the hospital since your No last visit? Has dressing in place as prescribed Yes Has compression in place as prescribed No Has offloadiing in place as prescribed No Experienced any changes in pain level or No management Left Footwear Regular Shoe Right Footwear Regular Shoe Pain Scale: 0-10 Numeric Is Patient Pain Free? Yes LT ankle -Description -Intensity -Duration (hours) -Pain Behavior -Pain Aggravating Factors -Alleviating Factors/Interventions -Effectiveness of Alleviating Factor/ Intervention -Comments WC - Nurse 1 - General Ulcer Measurement Start: 04/28/23 11:10 Freq: Status: Active Protocol: Activity Type Activity Date Activity User E-sign Co-sign Detail Recorded Client Recorded Date Recorded By Document 04/28/23 11:10 KW [id number] 04/28/23 11:12 KW Document 05/05/23 10:54 MW [id number] 05/05/23 10:57 MW Document 05/12/23 11:00 MW [id number] 05/12/23 11:03 MW Document 05/19/23 11:04 KW [id number] 05/19/23 11:08 KW 04/28/23 05/05/23 05/12/23 11:10 10:54 11:00 Wound Center Nurse 1 1. LT LAT ANKLE -Combined with other wound No No -Current Size (cm) - Length 0.9 1.3 1.2 -Current Size (cm) - Width 1.0 1.2 1.5 -Current Size (cm) - Depth 0.2 0.2 0.2 -Total Square Cm 0.90 1.56 1.80 -Date of Last Picture (Recall this 04/28/23 field) -Photo Taken Yes No No -Epithelialization None Present Small 1-33% -Tunneling No No No -Undermining/Tunneling No No No -Circular Undermining No No No -Exudate Amt Small Small -Exudate Type Serosanguineous Serosanguineous -Wound Margin Distinct, Flat & Intact Outline Attached -Granulation Amt Medium (34-66%) Medium (34-66%) Medium (34-66%) -Granulation Quality [place] -Slough/Fibrin Yes Yes -Necrosis Amt Large (67-100%) Medium (34-66%) Medium (34-66%) -Necrotic Tissue Type Adherent Slough Adherent Slough Adherent Slough -Structure Exposed Fat Layer N/A Exposed,N/A -Texture (Aurelia-wound Skin Appearance) Assessed Assessed, Assessed, Localized Edema Localized Edema ,Scarring ,Scarring -Moisture (Aurelia-wound Skin Appearance) Assessed, Assessed,Dry/ Maceration Scaly -Color (Aurelia-wound Skin Appearance) Assessed,Palor Assessed Assessed, Hemosiderin Staining -Temperature (Aurelia-wound Skin No Abnormality No Abnormality No Abnormality Appearance) (Pt Warm) (Pt Warm) (Pt Warm) -Tenderness on Palpation (Aurelia-wound No No No Skin Appearance) -Ulcer Cleansing Soap and Water Rinsed/ Rinsed/ Irrigated with Irrigated with Saline Saline -Foul Odor after Cleansing No No No -Anesthetic Used 5% Lidocaine 5% Lidocaine 5% Lidocaine Gel Gel Gel Lower Limb Edema Present No No 05/19/23 11:04 Wound Center Nurse 1 1. LT LAT ANKLE -Combined with other wound -Current Size (cm) - Length 1.1 -Current Size (cm) - Width 1.8 -Current Size (cm) - Depth 0.1 -Total Square Cm 1.98 -Date of Last Picture (Recall this field) -Photo Taken -Epithelialization -Tunneling No -Undermining/Tunneling No -Circular Undermining No -Exudate Amt Small -Exudate Type Serosanguineous -Wound Margin Distinct, Outline Attached -Granulation Amt Small (1-33%) -Granulation Quality [place],Red -Slough/Fibrin -Necrosis Amt Small (1-33%) -Necrotic Tissue Type Adherent Slough -Structure Exposed None/Limited to Skin Breakdown -Texture (Aurelia-wound Skin Appearance) Assessed -Moisture (Aurelia-wound Skin Appearance) Assessed,Dry/ Scaly -Color (Aurelia-wound Skin Appearance) Assessed -Temperature (Aurelia-wound Skin No Abnormality Appearance) (Pt Warm) -Tenderness on Palpation (Aurelia-wound Skin Appearance) -Ulcer Cleansing Rinsed/ Irrigated with Saline -Foul Odor after Cleansing No -Anesthetic Used 5% Lidocaine Gel Lower Limb Edema Present NA WC - Nurse 2 - General Ulcer CM Notes Start: 04/28/23 11:10 Freq: Status: Active Protocol: Activity Type Activity Date Activity User E-sign Co-sign Detail Recorded Client Recorded Date Recorded By Document 04/28/23 12:41 PL [id number] 04/28/23 12:41 PL Document 05/05/23 12:20 PL [id number] 05/05/23 12:21 PL Document 05/12/23 12:27 PL [id number] 05/12/23 12:28 PL 04/28/23 05/05/23 05/12/23 12:41 12:20 12:27 Wound Center Nurse 2 1. LT LAT ANKLE -Time 11:17 11:01 11:18 -Correct Patient Yes Yes Yes -Correct Side, Site, Position Yes Yes Yes -Correct Procedure Yes Yes Yes -Procedure Performed Yes Yes Yes -Type of Procedure Debridement Debridement Debridement -Clinical Debridement Subcutaneous Subcutaneous Subcutaneous -Tissue Removed Subcutaneous Subcutaneous Subcutaneous -Post Debridement (cm) - Length 0.9 1.3 1.2 -Post Debridement (cm) - Width 1.0 1.2 1.5 -Post Debridement (cm) - Depth 0.2 0.2 0.2 -Total Square (Post) (cm) 0.90 1.56 1.80 -Area of Debridement (cm) - Length 0.9 1.3 1.2 -Area of Debridement (cm) - Width 1.0 1.2 1.5 -Total Square (Area) (cm) 0.90 1.56 1.80 -Tunneling No No No -Undermining/Tunneling No No No -Circular Undermining No No No -Wound/Ulcer Outcome Not Healed Not Healed Not Healed -Ulcer Cleansing Rinsed/ Rinsed/ Rinsed/ Irrigated with Irrigated with Irrigated with Saline Saline Saline -Foul Odor after Cleansing No No No -Bioengineered Tissue No No No -Bleeding Controlled with Pressure Pressure Pressure -Treatment Response Procedure Procedure Procedure Tolerated Well Tolerated Well Tolerated Well -Debridement - Subq, 1st 20sq cm Yes Yes Yes Pain Scale: 0-10 Numeric Is Patient Pain Free? Yes Yes Yes - Nurse 3 - General Ulcer D/C NN Start: 04/28/23 11:10 Freq: Status: Active Protocol: Activity Type Activity Date Activity User E-sign Co-sign Detail Recorded Client Recorded Date Recorded By Document 04/28/23 14:31 DL [id number] 04/28/23 14:32 DL Document 05/12/23 11:29 DL [id number] 05/12/23 11:29 DL Document 05/19/23 11:35 DL [id number] 05/19/23 11:36 DL 04/28/23 05/12/23 05/19/23 14:31 11:29 11:35 Wound Care Center Nurse 3 1. LT LAT ANKLE -Ulcer Cleansing Rinsed/ Rinsed/ Irrigated with Irrigated with Saline Saline -Foul Odor after Cleansing No No No -Primary Dressing Applied Promogran Promogran -Other Dressing epifix -Primary Dressing Covered/Secured with Dry Gauze, Dry Gauze & Dry Gauze & Secured with Roll Gauze, Roll Gauze, Tape Secured with Secured with Tape Tape -Promogran 1 1 Treatment Response Procedure Procedure Procedure Tolerated Well Tolerated Well Tolerated Well Pain Scale: 0-10 Numeric Is Patient Pain Free? 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9 - Systemic lupus erythematosus, unspecified (10) Hypertension: CODE(S): I10 - Essential (primary) hypertension (11) Irritable bowel syndrome: CODE(S): K58.9 - Irritable bowel syndrome without diarrhea PLAN: Plan This is a 67-year-old female of relatively normal body habitus. She presented with an ulceration overlying the left lateral malleolus. The ulceration had been present for approximately 1 month. She denied trauma, but felt as though this may be pressure related. She had been sleeping on her left side, and she indicated that pressure to the left lateral malleolus may have resulted in the ulceration. She had been treated by courses of doxycycline and clindamycin by her primary care physician, Dr. Bocanegra. Recent x-rays reveal soft tissue swelling, but no other significant abnormalities. The patient had been utilizing an antibiotic ointment topically. She is known to be on long-term steroids due to her diagnosis of systemic lupus erythematosus. The long-term use of steroids may adversely affect the patient's healing potential. The patient has been advised to elevate her lower extremities to minimize swelling. There has been little change in the appearance of the ulceration within the last week. We have placed an 18 mm EpiFix allograft today, which is to be left in place, undisturbed, for the next week. This represents the first such allograft placement. Offloading measures have been discussed with the patient in detail. She is to avoid sleeping on her left side, which will eliminate the likelihood of pressure to the ulcerated area. Cultures were obtained recently, results of which were positive for ESBL E. coli, ESBL Klebsiella oxytoca, stenotrophomonas maltophilia, and Enterococcus faecalis. Prescriptions were provided the patient for Bactrim double strength twice daily for 10 days, as well as linezolid 600 mg p.o. twice daily for 10 days. The patient has completed both courses of antibiotics. The patient is to return in 1 week for reassessment. Total time: 26 minutes
[2023-05-26 11:54] VITALS: BP 134/52; PULSE 73; RESP 16; TEMP 36.1; BMI 24.5
--- NOTE | 2023-05-26 14:08 | PCM.WC.HP ---
History of Present Illness Date of Service: 05/26/23 Chief Complaint: Pressure ulceration, left lateral malleolus History of Wound: This is a 67-year-old female who presented with an ulceration on the left lateral malleolus. The ulceration had been present for approximately 4 weeks. The patient indicated her suspicion that this may be due to pressure phenomenon. She is a side sleeper, and notes restlessness in her lower extremities while sleeping. She has made effort in recent days to avoid sleeping on her left side, relieving the pressure on the ulcer site. She has been evaluated by her primary care physician, Dr. Bocanegra, who has treated the patient with 2 courses of oral antibiotics, including doxycycline and clindamycin. A culture performed on April 01, 2023, was positive for anaerobic cocci, though no sensitivities were reported. A recent x-ray of the area revealed soft tissue swelling, though no evidence of osteomyelitis. Laboratory studies were obtained on April 01, 2023, with results as follows: White blood count 1.3, hemoglobin 12.9, hematocrit 42.3, platelets 183,000, ESR 14, potassium 4.6, sodium 138, chloride 108, carbon dioxide 26.0, BUN 22, creatinine 0.88, glucose 92, calcium 9.2, total bilirubin 0.50, AST 13, ALT 11, alkaline phosphatase 44, C-reactive protein 9.94, total protein 7.6, albumin 3.7. The patient is active. Her BMI is 24.6. She denies a history of cerebrovascular accident, myocardial infarction, pulmonary disease, renal disease, and diabetes mellitus. Pre-existing medical problems are documented herein. Due to systemic lupus erythematosus, the patient has been on long-term steroid administration. [facility] Medical History B12 deficiency anemia Breast cancer Fibromyalgia Hyperlipidemia Hypertension Insomnia Irritable bowel syndrome Muscle spasm Pressure ulcer of left ankle, stage 3 Splenomegaly Systemic lupus erythematosus Home Medications doxycycline monohydrate 100 mg capsule 100 mg PO BID #20 caps 10/25/20 [Rx Last Taken Unknown] prednisone 5 mg tablet 5 mg PO DAILY 10/25/20 [History Last Taken Unknown] hydroxychloroquine 200 mg tablet (Plaquenil) 200 mg PO DAILY 05/26/22 [History Last Taken Unknown] Allergy/AdvReac Type Severity Reaction Status Date / Time Penicillins AdvReac Intermediate Rash Verified 05/25/23 14:30 Family History Daughter No problems noted. Father Diabetes Father Pancreas cancer Mother Osteoarthritis Afib Surgical History History of bilateral mastectomy History of left knee surgery Social History Smoking Status: Never smoker second hand exposure: No alcohol intake: never substance use type: does not use ford/confucianist: None seatbelt use: always do you feel safe at home: Yes Vital Signs Vital Signs Vital Signs: 05/26/23 11:54 Temperature 96.9 F L Temperature Source Temporal Pulse Rate 73 Respiratory Rate 16 Blood Pressure 134/52 H Blood Pressure Mean 79 Blood Pressure Source Monitor Blood Pressure Position Semi-Fowlers Blood Pressure Location Right Arm Weight Weight: 150 lb Body Mass Index (BMI) 24.5 Physical Exam Const alert, oriented x3, no apparent distress, average body habitus and no limitations General Appearance: cooperative, comfortable, well kempt, well developed and frail Orientation / Consciousness: awake, oriented to person, oriented to place and oriented to time Exam Limitations: no limitations HEENT normocephalic, head/scalp atraumatic and hearing grossly normal bilaterally Head and Scalp: normal to inspection, normocephalic and atraumatic Face and Sinus: normal facial exam External Ear: external ears normal Eyes PERRL, EOMs intact bilaterally and conjunctivae normal General Eye: normal appearance of both eyes Neck full ROM Chest Chest: symmetrical chest wall rise Resp normal respiratory effort, normal air movement, no retractions and no use of accessory muscles Effort and Inspection: able to speak in complete sentences Back/Spine Back/Spine Narrative: Kyphoscoliosis Extremity no clubbing, cyanosis or edema Skin General Skin Exam: ecchymosis Wound Narrative: No significant swelling or edema are noted in the patient's lower extremities bilaterally. An ulceration is noted overlying the left lateral malleolus. Dimensions are documented elsewhere. There is a small amount of bioburden. There is no significant erythema in the aurelia-ulcer area. There is no sign of infection or cellulitis. Neuro oriented x3, CN's II-XII intact bilaterally, moves all extremities and no focal motor deficits Sensorium / Orientation: awake, alert, oriented to person, oriented to place and oriented to time Coordination / Balance: [id number] test normal Speech: speech normal Psych mental status grossly normal Appearance: grossly normal and appropriate Attitude: calm Activity / Motor Behavior: appropriate eye contact Speech: normal speech Mood & Affect: euthymic mood Thought Process: normal thought process Thought Content: normal thought content Attention / Concentration: attention grossly intact Debridement Note Debridement Note Wound debrided: Left lateral malleolus Laterality: Left Wound Grade/Stage: Stage III pressure ulcer Type of Debridement: Excisional debridement Anesthesia Used: 5% Lidocaine Gel Depth: Down to and including healthy tissue and in the subcutaneous layer Percentage of wound debrided: 100 Instrument Used: 5mm curette Tissue Removed: Bioburden and nonviable tissue Severity: Fat Layer Exposed Amount of bleeding with debridement: Mild Bleeding Controlled with: Compression and gauze Patient tolerated procedure: Patient tolerated procedure well Debridement Free Text: Following a routine excisional debridement, which was well-tolerated by the patient, an allograft was applied to the left lateral malleolus ulceration. With hemostasis controlled, an 18 mm EpiFix allograft was selected. The allograft was removed from its sterile packaging. It was placed topically on the ulcer bed in the appropriate orientation. The entirety of the graft was utilized to cover the open ulceration. Adaptic Touch was placed topically, over which dry sterile gauze was placed. The Adaptic and gauze were then anchored in place using Steri-Strips. A dry sterile gauze dressing was then placed over the entire area. This was the second such application of an EpiFix allograft. The patient tolerated the procedure well. Post-Debridement Measurements and Additional Note: Post-Debridement Measurements/Treatment WC - Nurse 1 - General Ulcer Assessment Start: 04/28/23 11:10 Freq: Status: Active Protocol: TIERA.ROULA Activity Type Activity Date Activity User E-sign Co-sign Detail Recorded Client Recorded Date Recorded By Document 04/28/23 11:10 KW [id number] 04/28/23 11:12 KW Document 05/05/23 10:54 MW [id number] 05/05/23 10:57 MW Document 05/12/23 11:00 MW [id number] 05/12/23 11:03 MW Document 05/19/23 11:04 KW [id number] 05/19/23 11:08 KW Document 05/26/23 11:54 KIKE [id number] 05/26/23 11:55 JF 04/28/23 05/05/23 05/12/23 11:10 10:54 11:00 - Today's Visit Information Type of service Follow-up Visit Follow-up Visit Follow-up Visit (Physician/RESISTOR TESTING MACHINE OPERATOR (Physician/RESISTOR TESTING MACHINE OPERATOR (Physician/RESISTOR TESTING MACHINE OPERATOR ) ) ) Arrival Mode Ambulatory Ambulatory Ambulatory Transfer Assistance None None Accompanied by self self Patient Identification Verified (Name & Yes Yes Yes ) Patient Requires Transmission-Based No No No Precautions Safety Precautions NA NA Height and Weight Body Mass Index (BMI) 24.5 24.5 24.5 BMI Classification Normal Normal Normal Vital Signs Temperature (97.8 F-99.1 F) 97.1 F L 97.0 F L 97.8 F Temperature Source Temporal Temporal Temporal Pulse Rate (60-100) 60 72 65 Pulse Location Monitor Monitor Monitor Respiratory Rate (12-18) 18 18 18 Respiratory rate source Observation Observation Observation Oxygen Delivery Method Room Air Room Air Room Air Blood Pressure (90/60-120/80) 142/68 H 113/84 H 140/60 H Blood Pressure Mean 92 93 86 Source Monitor Monitor Monitor Position Sitting Sitting Sitting Blood Pressure Location Left Arm Right Arm Left Arm History Since Last Visit- (Skip if this is Patient's initial visit) Have you changed medications since your No No No last visit? Any new allergies or adverse reactions No No No Had a fall/change in ADL's that may No No No increase risk of falls Signs or symptoms of abuse and/or No No No neglect since last visit Have you been in the hospital since your No No No last visit? Has dressing in place as prescribed Yes Yes Yes Has compression in place as prescribed No N/A N/A Has offloadiing in place as prescribed No No N/A Experienced any changes in pain level or No No No management Left Footwear Regular Shoe Regular Shoe Regular Shoe Right Footwear Regular Shoe Regular Shoe Regular Shoe Pain Scale: 0-10 Numeric Is Patient Pain Free? No No No LT ankle -Description Sharp,Aching Sharp,Burning -Intensity 8 7 -Duration (hours) Acute Acute -Pain Behavior Facial Withdrawal from Grimacing Touch,Facial Grimacing -Pain Aggravating Factors Walking, Debridement -Alleviating Factors/Interventions Medication None -Effectiveness of Alleviating Factor/ Minimally Intervention effective -Comments Taking advil OTC 05/19/23 05/26/23 11:04 11:54 WC - Today's Visit Information Type of service Follow-up Visit Follow-up Visit (Physician/RESISTOR TESTING MACHINE OPERATOR (Physician/RESISTOR TESTING MACHINE OPERATOR ) ) Arrival Mode Ambulatory Ambulatory Transfer Assistance Accompanied by Patient Identification Verified (Name & Yes Yes ) Patient Requires Transmission-Based Precautions Safety Precautions Height and Weight Body Mass Index (BMI) 24.5 24.5 BMI Classification Normal Normal Vital Signs Temperature (97.8 F-99.1 F) 95.3 F L 96.9 F L Temperature Source Temporal Temporal Pulse Rate (60-100) 57 L 73 Pulse Location Monitor Monitor Respiratory Rate (12-18) 18 16 Respiratory rate source Observation Observation Oxygen Delivery Method Room Air Blood Pressure (90/60-120/80) 142/64 H 134/52 H Blood Pressure Mean 90 79 Source Monitor Monitor Position Semi-Fowlers Semi-Fowlers Blood Pressure Location Left Arm Right Arm History Since Last Visit- (Skip if this is Patient's initial visit) Have you changed medications since your No No last visit? Any new allergies or adverse reactions No No Had a fall/change in ADL's that may No No increase risk of falls Signs or symptoms of abuse and/or No No neglect since last visit Have you been in the hospital since your No No last visit? Has dressing in place as prescribed Yes Yes Has compression in place as prescribed No N/A Has offloadiing in place as prescribed No N/A Experienced any changes in pain level or No No management Left Footwear Regular Shoe Regular Shoe Right Footwear Regular Shoe Regular Shoe Pain Scale: 0-10 Numeric Is Patient Pain Free? Yes Yes LT ankle -Description -Intensity -Duration (hours) -Pain Behavior -Pain Aggravating Factors -Alleviating Factors/Interventions -Effectiveness of Alleviating Factor/ Intervention -Comments WC - Nurse 1 - General Ulcer Measurement Start: 04/28/23 11:10 Freq: Status: Active Protocol: Activity Type Activity Date Activity User E-sign Co-sign Detail Recorded Client Recorded Date Recorded By Document 04/28/23 11:10 KW [id number] 04/28/23 11:12 KW Document 05/05/23 10:54 MW [id number] 05/05/23 10:57 MW Document 05/12/23 11:00 MW [id number] 05/12/23 11:03 MW Document 05/19/23 11:04 KW [id number] 05/19/23 11:08 KW Document 05/26/23 11:54 JF [id number] 05/26/23 11:55 JF 04/28/23 05/05/23 05/12/23 11:10 10:54 11:00 Wound Center Nurse 1 1. LT LAT ANKLE -Combined with other wound No No -Current Size (cm) - Length 0.9 1.3 1.2 -Current Size (cm) - Width 1.0 1.2 1.5 -Current Size (cm) - Depth 0.2 0.2 0.2 -Total Square Cm 0.90 1.56 1.80 -Date of Last Picture (Recall this 04/28/23 field) -Photo Taken Yes No No -Epithelialization None Present Small 1-33% -Tunneling No No No -Undermining/Tunneling No No No -Circular Undermining No No No -Exudate Amt Small Small -Exudate Type Serosanguineous Serosanguineous -Wound Margin Distinct, Flat & Intact Outline Attached -Granulation Amt Medium (34-66%) Medium (34-66%) Medium (34-66%) -Granulation Quality [place] -Slough/Fibrin Yes Yes -Necrosis Amt Large (67-100%) Medium (34-66%) Medium (34-66%) -Necrotic Tissue Type Adherent Slough Adherent Slough Adherent Slough -Structure Exposed Fat Layer N/A Exposed,N/A -Texture (Aurelia-wound Skin Appearance) Assessed Assessed, Assessed, Localized Edema Localized Edema ,Scarring ,Scarring -Moisture (Aurelia-wound Skin Appearance) Assessed, Assessed,Dry/ Maceration Scaly -Color (Aurelia-wound Skin Appearance) Assessed,Palor Assessed Assessed, Hemosiderin Staining -Temperature (Aurelia-wound Skin No Abnormality No Abnormality No Abnormality Appearance) (Pt Warm) (Pt Warm) (Pt Warm) -Tenderness on Palpation (Aurelia-wound No No No Skin Appearance) -Ulcer Cleansing Soap and Water Rinsed/ Rinsed/ Irrigated with Irrigated with Saline Saline -Foul Odor after Cleansing No No No -Anesthetic Used 5% Lidocaine 5% Lidocaine 5% Lidocaine Gel Gel Gel Lower Limb Edema Present No No Left Calf (cm) Left Ankle (cm) 05/19/23 05/26/23 11:04 11:54 Wound Center Nurse 1 1. LT LAT ANKLE -Combined with other wound No -Current Size (cm) - Length 1.1 1.2 -Current Size (cm) - Width 1.8 1.4 -Current Size (cm) - Depth 0.1 0.1 -Total Square Cm 1.98 1.68 -Date of Last Picture (Recall this field) -Photo Taken Yes -Epithelialization Small 1-33% -Tunneling No No -Undermining/Tunneling No No -Circular Undermining No No -Exudate Amt Small Small -Exudate Type Serosanguineous Serosanguineous -Wound Margin Distinct, Flat & Intact Outline Attached -Granulation Amt Small (1-33%) Large (67-100%) -Granulation Quality [place],Red Red -Slough/Fibrin Yes -Necrosis Amt Small (1-33%) Small (1-33%) -Necrotic Tissue Type Adherent Slough Adherent Slough -Structure Exposed None/Limited to N/A Skin Breakdown -Texture (Aurelia-wound Skin Appearance) Assessed Assessed -Moisture (Aurelia-wound Skin Appearance) Assessed,Dry/ Assessed,Dry/ Scaly Scaly -Color (Aurelia-wound Skin Appearance) Assessed Assessed -Temperature (Aurelia-wound Skin No Abnormality No Abnormality Appearance) (Pt Warm) (Pt Warm) -Tenderness on Palpation (Aurelia-wound No Skin Appearance) -Ulcer Cleansing Rinsed/ Wound Cleanser Irrigated with Saline -Foul Odor after Cleansing No No -Anesthetic Used 5% Lidocaine 5% Lidocaine Gel Gel Lower Limb Edema Present NA Yes Left Calf (cm) 35.3 Left Ankle (cm) 19.0 WC - Nurse 2 - General Ulcer CM Notes Start: 04/28/23 11:10 Freq: Status: Active Protocol: Activity Type Activity Date Activity User E-sign Co-sign Detail Recorded Client Recorded Date Recorded By Document 04/28/23 12:41 PL [id number] 04/28/23 12:41 PL Document 05/05/23 12:20 PL [id number] 05/05/23 12:21 PL Document 05/12/23 12:27 PL [id number] 05/12/23 12:28 PL Document 05/19/23 15:35 PL [id number] 05/19/23 15:39 PL Edit Result 05/19/23 15:35 PL (1) [id number] 05/19/23 15:42 PL Document 05/26/23 12:52 PL [id number] 05/26/23 12:53 PL (1) 1. LT LAT ANKLE - Expiration Date => 01/27/28 - Product Lot Number => [id number] - Percent Used => 100 04/28/23 05/05/23 05/12/23 12:41 12:20 12:27 Wound Center Nurse 2 1. LT LAT ANKLE -Time 11:17 11:01 11:18 -Correct Patient Yes Yes Yes -Correct Side, Site, Position Yes Yes Yes -Correct Procedure Yes Yes Yes -Procedure Performed Yes Yes Yes -Type of Procedure Debridement Debridement Debridement -Clinical Debridement Subcutaneous Subcutaneous Subcutaneous -Tissue Removed Subcutaneous Subcutaneous Subcutaneous -Post Debridement (cm) - Length 0.9 1.3 1.2 -Post Debridement (cm) - Width 1.0 1.2 1.5 -Post Debridement (cm) - Depth 0.2 0.2 0.2 -Total Square (Post) (cm) 0.90 1.56 1.80 -Area of Debridement (cm) - Length 0.9 1.3 1.2 -Area of Debridement (cm) - Width 1.0 1.2 1.5 -Total Square (Area) (cm) 0.90 1.56 1.80 -Tunneling No No No -Undermining/Tunneling No No No -Circular Undermining No No No -Wound/Ulcer Outcome Not Healed Not Healed Not Healed -Ulcer Cleansing Rinsed/ Rinsed/ Rinsed/ Irrigated with Irrigated with Irrigated with Saline Saline Saline -Foul Odor after Cleansing No No No -Bioengineered Tissue No No No -Type of Bioengineered Tissue -Expiration Date -Product Lot Number -Percent Used -Bleeding Controlled with Pressure Pressure Pressure -Treatment Response Procedure Procedure Procedure Tolerated Well Tolerated Well Tolerated Well -Debridement - Subq, 1st 20sq cm Yes Yes Yes -Apply Skin Sub - 1st 25 sq cm - Legs -Epifix 18mm Disc Pain Scale: 0-10 Numeric Is Patient Pain Free? Yes Yes Yes 05/19/23 05/26/23 15:35 12:52 Wound Center Nurse 2 1. LT LAT ANKLE -Time 11:17 12:06 -Correct Patient Yes Yes -Correct Side, Site, Position Yes Yes -Correct Procedure Yes Yes -Procedure Performed Yes Yes -Type of Procedure Debridement Debridement -Clinical Debridement Subcutaneous Subcutaneous -Tissue Removed Subcutaneous Subcutaneous -Post Debridement (cm) - Length 1.1 1.2 -Post Debridement (cm) - Width 1.8 1.4 -Post Debridement (cm) - Depth 0.1 0.1 -Total Square (Post) (cm) 1.98 1.68 -Area of Debridement (cm) - Length 1.1 1.2 -Area of Debridement (cm) - Width 1.8 1.4 -Total Square (Area) (cm) 1.98 1.68 -Tunneling No No -Undermining/Tunneling No No -Circular Undermining No No -Wound/Ulcer Outcome Not Healed Not Healed -Ulcer Cleansing Rinsed/ Rinsed/ Irrigated with Irrigated with Saline Saline -Foul Odor after Cleansing No No -Bioengineered Tissue Yes Yes -Type of Bioengineered Tissue Epifix 18mm Epifix 18mm Disc Disc -Expiration Date 01/27/28 -Product Lot Number [id number] -Percent Used 100 -Bleeding Controlled with Pressure Pressure -Treatment Response Procedure Procedure Tolerated Well Tolerated Well -Debridement - Subq, 1st 20sq cm No No -Apply Skin Sub - 1st 25 sq cm - Legs 1 1 -Epifix 18mm Disc 3 3 Pain Scale: 0-10 Numeric Is Patient Pain Free? Yes Yes WC - Nurse 3 - General Ulcer D/C NN Start: 04/28/23 11:10 Freq: Status: Active Protocol: Activity Type Activity Date Activity User E-sign Co-sign Detail Recorded Client Recorded Date Recorded By Document 04/28/23 14:31 DL [id number] 04/28/23 14:32 DL Document 05/12/23 11:29 DL [id number] 05/12/23 11:29 DL Document 05/19/23 11:35 DL [id number] 05/19/23 11:36 DL 04/28/23 05/12/23 05/19/23 14:31 11:29 11:35 Wound Care Center Nurse 3 1. LT LAT ANKLE -Ulcer Cleansing Rinsed/ Rinsed/ Irrigated with Irrigated with Saline Saline -Foul Odor after Cleansing No No No -Primary Dressing Applied Promogran Promogran -Other Dressing epifix -Primary Dressing Covered/Secured with Dry Gauze, Dry Gauze & Dry Gauze & Secured with Roll Gauze, Roll Gauze, Tape Secured with Secured with Tape Tape -Promogran 1 1 Treatment Response Procedure Procedure Procedure Tolerated Well Tolerated Well Tolerated Well Pain Scale: 0-10 Numeric Is Patient Pain Free? 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9 - Systemic lupus erythematosus, unspecified (10) Hypertension: CODE(S): I10 - Essential (primary) hypertension (11) Irritable bowel syndrome: CODE(S): K58.9 - Irritable bowel syndrome without diarrhea PLAN: Plan This is a 67-year-old female of relatively normal body habitus. She presented with an ulceration overlying the left lateral malleolus. The ulceration had been present for approximately 1 month. She denied trauma, but felt as though this may be pressure related. She had been sleeping on her left side, and she indicated that pressure to the left lateral malleolus may have resulted in the ulceration. She had been treated by courses of doxycycline and clindamycin by her primary care physician, Dr. Bocanegra. Recent x-rays reveal soft tissue swelling, but no other significant abnormalities. The patient had been utilizing an antibiotic ointment topically. She is known to be on long-term steroids due to her diagnosis of systemic lupus erythematosus. The long-term use of steroids may adversely affect the patient's healing potential. The patient has been advised to elevate her lower extremities to minimize swelling. There has been slight improvement in the appearance of the ulceration within the last week. We have placed an 18 mm EpiFix allograft today, which is to be left in place, undisturbed, for the next week. This represents the second such allograft placement. Offloading measures have been discussed with the patient in detail. She is to avoid sleeping on her left side, which will eliminate the likelihood of pressure to the ulcerated area. Cultures were obtained recently, results of which were positive for ESBL E. coli, ESBL Klebsiella oxytoca, stenotrophomonas maltophilia, and Enterococcus faecalis. Prescriptions were provided the patient for Bactrim double strength twice daily for 10 days, as well as linezolid 600 mg p.o. twice daily for 10 days. The patient has completed both courses of antibiotics. The patient is to return in 1 week for reassessment. Total time: 25 minutes
== END 2023-05-28 23:59 | disposition home or self-care (01) ==
LOC: WC 11:30
PROVIDERS: PCP Family Medicine Geriatric Medicine; Referring Provider Family Medicine Geriatric Medicine; Visit Provider Surgery
DX: L89.523 Pressure ulcer of left ankle, stage 3 (principal); D70.8 Other neutropenia; M32.9 Systemic lupus erythematosus, unspecified; M06.9 Rheumatoid arthritis, unspecified; M05.00 Felty's syndrome, unspecified site; I10 Essential (primary) hypertension; E78.5 Hyperlipidemia, unspecified; Z90.13 Acquired absence of bilateral breasts and nipples; Z80.0 Family history of malignant neoplasm of digestive organs; I73.00 Raynaud's syndrome without gangrene; K58.9 Irritable bowel syndrome, unspecified; Z79.2 Long term (current) use of antibiotics; R16.1 Splenomegaly, not elsewhere classified
CPT/HCPCS: 11042; 15271; 87070; 87075; 87077; 87186; 87205; Q4186

== ENCOUNTER 2023-06-23 11:30 | Outpatient (RCR) | payer MEDICARE, SELFPAY ==
[2023-05-29 00:32] VITALS: BP 134/52; PULSE 73; RESP 16; TEMP 36.1; BMI 24.5
[2023-06-02 11:32] VITALS: BP 149/71; PULSE 79; RESP 16; TEMP 36.3; BMI 24.5
--- NOTE | 2023-06-02 13:13 | HP.PCM_ITS ---
History of Present Illness Date of Service: 06/02/23 Chief Complaint: Pressure ulceration, left lateral malleolus History of Wound: This is a 67-year-old female who presented with an ulceration on the left lateral malleolus. The ulceration had been present for approximately 4 weeks. The patient indicated her suspicion that this may be due to pressure phenomenon. She is a side sleeper, and notes restlessness in her lower extremities while sleeping. She has made effort in recent days to avoid sleeping on her left side, relieving the pressure on the ulcer site. She has been evaluated by her primary care physician, Dr. Bocanegra, who has treated the patient with 2 courses of oral antibiotics, including doxycycline and clindamycin. A culture performed on April 01, 2023, was positive for anaerobic cocci, though no sensitivities were reported. A recent x-ray of the area revealed soft tissue swelling, though no evidence of osteomyelitis. Laboratory studies were obtained on April 01, 2023, with results as follows: White blood count 1.3, hemoglobin 12.9, hematocrit 42.3, platelets 183,000, ESR 14, potassium 4.6, sodium 138, chloride 108, carbon dioxide 26.0, BUN 22, creatinine 0.88, glucose 92, calcium 9.2, total bilirubin 0.50, AST 13, ALT 11, alkaline phosphatase 44, C-reactive protein 9.94, total protein 7.6, albumin 3.7. The patient is active. Her BMI is 24.6. She denies a history of cerebrovascular accident, myocardial infarction, pulmonary disease, renal disease, and diabetes mellitus. Pre-existing medical problems are documented herein. Due to systemic lupus erythematosus, the patient has been on long-term steroid administration. [facility] Medical History B12 deficiency anemia Breast cancer Fibromyalgia Hyperlipidemia Hypertension Insomnia Irritable bowel syndrome Muscle spasm Pressure ulcer of left ankle, stage 3 Splenomegaly Systemic lupus erythematosus Home Medications doxycycline monohydrate 100 mg capsule 100 mg PO BID #20 caps 10/25/20 [Rx Last Taken Unknown] prednisone 5 mg tablet 5 mg PO DAILY 10/25/20 [History Last Taken Unknown] hydroxychloroquine 200 mg tablet (Plaquenil) 200 mg PO DAILY 05/26/22 [History Last Taken Unknown] Allergy/AdvReac Type Severity Reaction Status Date / Time Penicillins AdvReac Intermediate Rash Verified 05/25/23 14:30 Family History Daughter No problems noted. Father Diabetes Father Pancreas cancer Mother Osteoarthritis Afib Surgical History History of bilateral mastectomy History of left knee surgery Social History Smoking Status: Never smoker second hand exposure: No alcohol intake: never substance use type: does not use ford/pentecostalism: None seatbelt use: always do you feel safe at home: Yes Vital Signs Vital Signs Vital Signs: 06/02/23 11:32 Temperature 97.3 F L Temperature Source Temporal Pulse Rate 79 Respiratory Rate 16 Blood Pressure 149/71 H Blood Pressure Mean 97 Blood Pressure Source Monitor Blood Pressure Position Sitting Blood Pressure Location Left Arm Weight Weight: 150 lb Body Mass Index (BMI) 24.5 Physical Exam Const alert, oriented x3, no apparent distress, average body habitus and no limitations General Appearance: cooperative, comfortable, well kempt, well developed and frail Orientation / Consciousness: awake, oriented to person, oriented to place and oriented to time Exam Limitations: no limitations HEENT normocephalic, head/scalp atraumatic and hearing grossly normal bilaterally Head and Scalp: normal to inspection, normocephalic and atraumatic Face and Sinus: normal facial exam External Ear: external ears normal Eyes PERRL, EOMs intact bilaterally and conjunctivae normal General Eye: normal appearance of both eyes Neck full ROM Chest Chest: symmetrical chest wall rise Resp normal respiratory effort, normal air movement, no retractions and no use of accessory muscles Effort and Inspection: able to speak in complete sentences Back/Spine Back/Spine Narrative: Kyphoscoliosis Extremity no clubbing, cyanosis or edema Skin General Skin Exam: ecchymosis Wound Narrative: No significant swelling or edema are noted in the patient's lower extremities bilaterally. An ulceration is noted overlying the left lateral malleolus. Dimensions are documented elsewhere. The ulceration has decreased in size slightly. There is a small amount of bioburden. There is no significant erythema in the aurelia-ulcer area. There is no sign of infection or cellulitis. A small satellite ulceration is noted superior to the original ulceration. Neuro oriented x3, CN's II-XII intact bilaterally, moves all extremities and no focal motor deficits Sensorium / Orientation: awake, alert, oriented to person, oriented to place and oriented to time Coordination / Balance: [id number] test normal Speech: speech normal Psych mental status grossly normal Appearance: grossly normal and appropriate Attitude: calm Activity / Motor Behavior: appropriate eye contact Speech: normal speech Mood & Affect: euthymic mood Thought Process: normal thought process Thought Content: normal thought content Attention / Concentration: attention grossly intact Debridement Note Debridement Note Wound debrided: Left lateral malleolus Laterality: Left Wound Grade/Stage: Stage III pressure ulcer Type of Debridement: Excisional debridement Anesthesia Used: 5% Lidocaine Gel Depth: Down to and including healthy tissue and in the subcutaneous layer Percentage of wound debrided: 100 Instrument Used: 5mm curette Tissue Removed: Bioburden and nonviable tissue Severity: Fat Layer Exposed Amount of bleeding with debridement: Mild Bleeding Controlled with: Compression and gauze Patient tolerated procedure: Patient tolerated procedure well Debridement Free Text: Following a routine excisional debridement, which was well-tolerated by the patient, an allograft was applied to the left lateral malleolus ulceration. With hemostasis controlled, an 18 mm EpiFix allograft was selected. The allograft was removed from its sterile packaging. It was placed topically on the ulcer bed in the appropriate orientation. The entirety of the graft was utilized to cover the open ulceration. Collagen hydrogel was applied topically to the small satellite ulceration superior to the original ulcer. Adaptic Touch was placed topically, over which dry sterile gauze was placed. The Adaptic and gauze were then anchored in place using Steri-Strips. A dry sterile gauze dressing was then placed over the entire area. This was the third such application of an EpiFix allograft. The patient tolerated the procedure well. Post-Debridement Measurements and Additional Note: Post-Debridement Measurements/Treatment TIERA - Nurse 1 - General Ulcer Assessment Start: 06/02/23 11:32 Freq: Status: Active Protocol: JESUS Activity Type Activity Date Activity User E-sign Co-sign Detail Recorded Client Recorded Date Recorded By Document 06/02/23 11:32 KIKE [id number] 06/02/23 11:39 KIKE 06/02/23 11:32 TIERA - Today's Visit Information Type of service Follow-up Visit (Physician/MANAGER PRICING ) Arrival Mode Ambulatory Patient Identification Verified (Name & Yes ) Patient Requires Transmission-Based No Precautions Height and Weight Body Mass Index (BMI) 24.5 BMI Classification Normal Vital Signs Temperature (97.8 F-99.1 F) 97.3 F L Temperature Source Temporal Pulse Rate (60-100) 79 Pulse Location Monitor Respiratory Rate (12-18) 16 Respiratory rate source Observation Blood Pressure (90/60-120/80) 149/71 H Blood Pressure Mean 97 Source Monitor Position Sitting Blood Pressure Location Left Arm History Since Last Visit- (Skip if this is Patient's initial visit) Have you changed medications since your No last visit? Any new allergies or adverse reactions No Had a fall/change in ADL's that may No increase risk of falls Signs or symptoms of abuse and/or No neglect since last visit Has dressing in place as prescribed Yes Has compression in place as prescribed N/A Has offloadiing in place as prescribed N/A Experienced any changes in pain level or No management Left Footwear Regular Shoe Right Footwear Regular Shoe Pain Scale: 0-10 Numeric Is Patient Pain Free? Yes - Nurse 1 - General Ulcer Measurement Start: 06/02/23 11:32 Freq: Status: Active Protocol: Activity Type Activity Date Activity User E-sign Co-sign Detail Recorded Client Recorded Date Recorded By Document 06/02/23 11:32 KIKE [id number] 06/02/23 11:39 KIKE 06/02/23 11:32 Wound Center Nurse 1 1. LT LAT ANKLE -Combined with other wound No -Current Size (cm) - Length 1.2 -Current Size (cm) - Width 1.2 -Current Size (cm) - Depth 0.1 -Total Square Cm 1.44 -Photo Taken Yes -Epithelialization None Present -Tunneling No -Undermining/Tunneling No -Circular Undermining No -Exudate Amt Small -Exudate Type Serosanguineous -Wound Margin Flat & Intact -Granulation Amt Medium (34-66%) -Granulation Quality Red -Slough/Fibrin Yes -Necrosis Amt Small (1-33%) -Necrotic Tissue Type Adherent Slough -Structure Exposed N/A -Texture (Aurelia-wound Skin Appearance) Assessed, Fluctuance, Localized Edema -Moisture (Aurelia-wound Skin Appearance) Assessed,Dry/ Scaly -Color (Aurelia-wound Skin Appearance) Assessed -Temperature (Aurelia-wound Skin No Abnormality Appearance) (Pt Warm) -Tenderness on Palpation (Aurelia-wound No Skin Appearance) -Ulcer Cleansing Wound Cleanser -Foul Odor after Cleansing No -Anesthetic Used 5% Lidocaine Gel Lower Limb Edema Present NA WC - Nurse 3 - General Ulcer D/C NN Start: 06/02/23 11:32 Freq: Status: Active Protocol: Activity Type Activity Date Activity User E-sign Co-sign Detail Recorded Client Recorded Date Recorded By Document 06/02/23 12:04 [facility] [id number] 06/02/23 12:05 [facility] 06/02/23 12:04 Wound Care Center Nurse 3 1. LT LAT ANKLE -Other Dressing EPIFIX -Primary Dressing Covered/Secured with Dry Gauze & Roll Gauze, Secured with Tape Treatment Response Procedure Tolerated Well Pain Scale: 0-10 Numeric Is Patient Pain Free? 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9 - Systemic lupus erythematosus, unspecified (10) Hypertension: CODE(S): I10 - Essential (primary) hypertension (11) Irritable bowel syndrome: CODE(S): K58.9 - Irritable bowel syndrome without diarrhea PLAN: Plan This is a 67-year-old female of relatively normal body habitus. She presented with an ulceration overlying the left lateral malleolus. The ulceration had been present for approximately 1 month. She denied trauma, but felt as though this may be pressure related. She had been sleeping on her left side, and she indicated that pressure to the left lateral malleolus may have resulted in the ulceration. She had been treated by courses of doxycycline and clindamycin by her primary care physician, Dr. Bocanegra. Recent x-rays reveal soft tissue swelling, but no other significant abnormalities. The patient had been utilizing an antibiotic ointment topically. She is known to be on long-term steroids due to her diagnosis of systemic lupus erythematosus. The long-term use of steroids may adversely affect the patient's healing potential. The patient has been advised to elevate her lower extremities to minimize swelling. There has been slight improvement in the appearance and size of the ulceration within the last week. We have placed an 18 mm EpiFix allograft today, which is to be left in place, undisturbed, for the next week. This represents the third such allograft placement. Offloading measures have been discussed with the patient in detail. She is to avoid sleeping on her left side, which will eliminate the likelihood of pressure to the ulcerated area. Cultures were obtained recently, results of which were positive for ESBL E. coli, ESBL Klebsiella oxytoca, stenotrophomonas maltophilia, and Enterococcus faecalis. Prescriptions were provided the patient for Bactrim double strength twice daily for 10 days, as well as linezolid 600 mg p.o. twice daily for 10 days. The patient has completed both courses of antibiotics. The patient is to return in 1 week for reassessment. Total time: 24 minutes
[2023-06-09 11:32] VITALS: BP 150/78; PULSE 72; RESP 18; TEMP 36.5; BMI 24.5
--- NOTE | 2023-06-09 11:54 | HP.PCM_ITS ---
History of Present Illness Date of Service: 06/09/23 Chief Complaint: Pressure ulceration, left lateral malleolus History of Wound: This is a 67-year-old female who presented with an ulceration on the left lateral malleolus. The ulceration had been present for approximately 4 weeks. The patient indicated her suspicion that this may be due to pressure phenomenon. She is a side sleeper, and notes restlessness in her lower extremities while sleeping. She has made effort in recent days to avoid sleeping on her left side, relieving the pressure on the ulcer site. She has been evaluated by her primary care physician, Dr. Bocanegra, who has treated the patient with 2 courses of oral antibiotics, including doxycycline and clindamycin. A culture performed on April 01, 2023, was positive for anaerobic cocci, though no sensitivities were reported. A recent x-ray of the area revealed soft tissue swelling, though no evidence of osteomyelitis. Laboratory studies were obtained on April 01, 2023, with results as follows: White blood count 1.3, hemoglobin 12.9, hematocrit 42.3, platelets 183,000, ESR 14, potassium 4.6, sodium 138, chloride 108, carbon dioxide 26.0, BUN 22, creatinine 0.88, glucose 92, calcium 9.2, total bilirubin 0.50, AST 13, ALT 11, alkaline phosphatase 44, C-reactive protein 9.94, total protein 7.6, albumin 3.7. The patient is active. Her BMI is 24.6. She denies a history of cerebrovascular accident, myocardial infarction, pulmonary disease, renal disease, and diabetes mellitus. Pre-existing medical problems are documented herein. Due to systemic lupus erythematosus, the patient has been on long-term steroid administration. [facility] Medical History B12 deficiency anemia Breast cancer Fibromyalgia Hyperlipidemia Hypertension Insomnia Irritable bowel syndrome Muscle spasm Pressure ulcer of left ankle, stage 3 Splenomegaly Systemic lupus erythematosus Home Medications doxycycline monohydrate 100 mg capsule 100 mg PO BID #20 caps 10/25/20 [Rx Last Taken Unknown] prednisone 5 mg tablet 5 mg PO DAILY 10/25/20 [History Last Taken Unknown] hydroxychloroquine 200 mg tablet (Plaquenil) 200 mg PO DAILY 05/26/22 [History Last Taken Unknown] Allergy/AdvReac Type Severity Reaction Status Date / Time Penicillins AdvReac Intermediate Rash Verified 05/25/23 14:30 Family History Daughter No problems noted. Father Diabetes Father Pancreas cancer Mother Osteoarthritis Afib Surgical History History of bilateral mastectomy History of left knee surgery Social History Smoking Status: Never smoker second hand exposure: No alcohol intake: never substance use type: does not use ford/latter-day: None seatbelt use: always do you feel safe at home: Yes Vital Signs Vital Signs Vital Signs: 06/09/23 11:32 Temperature 97.7 F L Temperature Source Temporal Pulse Rate 72 Respiratory Rate 18 Blood Pressure 150/78 H Blood Pressure Mean 102 Blood Pressure Source Monitor Weight Weight: 150 lb Body Mass Index (BMI) 24.5 Physical Exam Const alert, oriented x3, no apparent distress, average body habitus and no limitations General Appearance: cooperative, comfortable, well kempt, well developed and frail Orientation / Consciousness: awake, oriented to person, oriented to place and oriented to time Exam Limitations: no limitations HEENT normocephalic, head/scalp atraumatic and hearing grossly normal bilaterally Head and Scalp: normal to inspection, normocephalic and atraumatic Face and Sinus: normal facial exam External Ear: external ears normal Eyes PERRL, EOMs intact bilaterally and conjunctivae normal General Eye: normal appearance of both eyes Neck full ROM Chest Chest: symmetrical chest wall rise Resp normal respiratory effort, normal air movement, no retractions and no use of accessory muscles Effort and Inspection: able to speak in complete sentences Back/Spine Back/Spine Narrative: Kyphoscoliosis Extremity no clubbing, cyanosis or edema Skin General Skin Exam: ecchymosis Wound Narrative: No significant swelling or edema are noted in the patient's lower extremities bilaterally. An ulceration is noted overlying the left lateral malleolus. Dimensions are documented elsewhere. The ulceration has decreased in size slightly, and has become more superficial. The former placement of an allograft appears to remain in place. There is no significant erythema in the aurelia-ulcer area. There is no sign of infection or cellulitis. A small satellite ulceration is noted superior to the original ulceration, which is full-thickness and demonstrates a moderate amount of bioburden. Neuro oriented x3, CN's II-XII intact bilaterally, moves all extremities and no focal motor deficits Sensorium / Orientation: awake, alert, oriented to person, oriented to place and oriented to time Coordination / Balance: [id number] test normal Speech: speech normal Psych mental status grossly normal Appearance: grossly normal and appropriate Attitude: calm Activity / Motor Behavior: appropriate eye contact Speech: normal speech Mood & Affect: euthymic mood Thought Process: normal thought process Thought Content: normal thought content Attention / Concentration: attention grossly intact Debridement Note Debridement Note Wound debrided: Left lateral malleolus Laterality: Left Type of Debridement: Excisional debridement Anesthesia Used: 5% Lidocaine Gel Depth: Down to and including healthy tissue and in the subcutaneous layer Percentage of wound debrided: 100 Instrument Used: 3mm curette Severity: Fat Layer Exposed Amount of bleeding with debridement: Mild Bleeding Controlled with: Compression and gauze Patient tolerated procedure: Patient tolerated procedure well Post-Debridement Measurements and Additional Note: Post-Debridement Measurements/Treatment - Nurse 1 - General Ulcer Assessment Start: 06/02/23 11:32 Freq: Status: Active Protocol: JESUS Activity Type Activity Date Activity User E-sign Co-sign Detail Recorded Client Recorded Date Recorded By Document 06/02/23 11:32 [id number] 06/02/23 11:39 Document 06/09/23 11:32 DL [id number] 06/09/23 11:34 DL 06/02/23 06/09/23 11:32 11:32 - Today's Visit Information Type of service Follow-up Visit Follow-up Visit (Physician/CROSSING SUPERVISOR (Physician/CROSSING SUPERVISOR ) ) Arrival Mode Ambulatory Ambulatory Transfer Assistance None Patient Identification Verified (Name & Yes Yes ) Patient Requires Transmission-Based No No Precautions Height and Weight Body Mass Index (BMI) 24.5 24.5 BMI Classification Normal Normal Vital Signs Temperature (97.8 F-99.1 F) 97.3 F L 97.7 F L Temperature Source Temporal Temporal Pulse Rate (60-100) 79 72 Pulse Location Monitor Monitor Respiratory Rate (12-18) 16 18 Respiratory rate source Observation Observation Blood Pressure (90/60-120/80) 149/71 H 150/78 H Blood Pressure Mean 97 102 Source Monitor Monitor Position Sitting Blood Pressure Location Left Arm History Since Last Visit- (Skip if this is Patient's initial visit) Have you changed medications since your No No last visit? Any new allergies or adverse reactions No No Had a fall/change in ADL's that may No No increase risk of falls Signs or symptoms of abuse and/or No No neglect since last visit Have you been in the hospital since your No last visit? Has dressing in place as prescribed Yes Yes Has compression in place as prescribed N/A Yes Has offloadiing in place as prescribed N/A N/A Experienced any changes in pain level or No No management Left Footwear Regular Shoe Right Footwear Regular Shoe Pain Scale: 0-10 Numeric Is Patient Pain Free? Yes Yes WC - Nurse 1 - General Ulcer Measurement Start: 06/02/23 11:32 Freq: Status: Active Protocol: Activity Type Activity Date Activity User E-sign Co-sign Detail Recorded Client Recorded Date Recorded By Document 06/02/23 11:32 JF [id number] 06/02/23 11:39 JF Document 06/09/23 11:34 DL [id number] 06/09/23 11:38 DL 06/02/23 06/09/23 11:32 11:34 Wound Center Nurse 1 1. LT LAT ANKLE -Combined with other wound No -Current Size (cm) - Length 1.2 2.6 -Current Size (cm) - Width 1.2 2.2 -Current Size (cm) - Depth 0.1 0.2 -Total Square Cm 1.44 5.72 -Photo Taken Yes No -Epithelialization None Present -Tunneling No -Undermining/Tunneling No -Circular Undermining No -Exudate Amt Small Medium -Exudate Type Serosanguineous Serosanguineous -Wound Margin Flat & Intact Distinct, Outline Attached -Granulation Amt Medium (34-66%) Medium (34-66%) -Granulation Quality Red Red -Slough/Fibrin Yes -Necrosis Amt Small (1-33%) Medium (34-66%) -Necrotic Tissue Type Adherent Slough Adherent Slough -Structure Exposed N/A N/A -Texture (Aurelia-wound Skin Appearance) Assessed, Scarring Fluctuance, Localized Edema -Moisture (Aurelia-wound Skin Appearance) Assessed,Dry/ No Abnormality Scaly -Color (Aurelia-wound Skin Appearance) Assessed Hemosiderin Staining -Temperature (Aurelia-wound Skin No Abnormality No Abnormality Appearance) (Pt Warm) (Pt Warm) -Tenderness on Palpation (Aurelia-wound No No Skin Appearance) -Ulcer Cleansing Wound Cleanser Soap and Water -Foul Odor after Cleansing No No -Anesthetic Used 5% Lidocaine 5% Lidocaine Gel Gel Lower Limb Edema Present NA WC - Nurse 2 - General Ulcer CM Notes Start: 06/02/23 11:32 Freq: Status: Active Protocol: Activity Type Activity Date Activity User E-sign Co-sign Detail Recorded Client Recorded Date Recorded By Document 06/02/23 14:20 PL [id number] 06/02/23 14:34 PL 06/02/23 14:20 Wound Center Nurse 2 -Time 11:46 -Correct Patient Yes -Correct Side, Site, Position Yes -Correct Procedure Yes -Procedure Performed Yes -Type of Procedure Debridement -Clinical Debridement Subcutaneous -Tissue Removed Subcutaneous -Post Debridement (cm) - Length 1.2 -Post Debridement (cm) - Width 1.2 -Post Debridement (cm) - Depth 0.1 -Total Square (Post) (cm) 1.44 -Area of Debridement (cm) - Length 1.2 -Area of Debridement (cm) - Width 1.2 -Total Square (Area) (cm) 1.44 -Tunneling No -Undermining/Tunneling No -Circular Undermining No -Wound/Ulcer Outcome Not Healed -Ulcer Cleansing Rinsed/ Irrigated with Saline -Foul Odor after Cleansing No -Bioengineered Tissue Yes -Type of Bioengineered Tissue Epifix 18mm Disc -Expiration Date 01/27/28 -Product Lot Number [id number] -Percent Used 100 -Bleeding Controlled with Pressure -Treatment Response Procedure Tolerated Well -Debridement - Subq, 1st 20sq cm No -Apply Skin Sub - 1st 25 sq cm - Legs 1 -Epifix 18mm Disc 3 Pain Scale: 0-10 Numeric Is Patient Pain Free? Yes - Nurse 3 - General Ulcer D/C NN Start: 06/02/23 11:32 Freq: Status: Active Protocol: Activity Type Activity Date Activity User E-sign Co-sign Detail Recorded Client Recorded Date Recorded By Document 06/02/23 12:04 [facility] [id number] 06/02/23 12:05 [facility] 06/02/23 12:04 Wound Care Center Nurse 3 1. LT LAT ANKLE -Other Dressing EPIFIX -Primary Dressing Covered/Secured with Dry Gauze & Roll Gauze, Secured with Tape Treatment Response Procedure Tolerated Well Pain Scale: 0-10 Numeric Is Patient Pain Free? 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9 - Systemic lupus erythematosus, unspecified (10) Hypertension: CODE(S): I10 - Essential (primary) hypertension (11) Irritable bowel syndrome: CODE(S): K58.9 - Irritable bowel syndrome without diarrhea PLAN: Plan This is a 67-year-old female of relatively normal body habitus. She presented with an ulceration overlying the left lateral malleolus. The ulceration had been present for approximately 1 month. She denied trauma, but felt as though this may be pressure related. She had been sleeping on her left side, and she indicated that pressure to the left lateral malleolus may have resulted in the ulceration. She had been treated by courses of doxycycline and clindamycin by her primary care physician, Dr. Bocanegra. Recent x-rays revealed soft tissue swelling, but no other significant abnormalities. The patient had been utilizing an antibiotic ointment topically. She is known to be on long-term steroids due to her diagnosis of systemic lupus erythematosus. The long-term use of steroids may adversely affect the patient's healing potential. The patient has been advised to elevate her lower extremities to minimize swelling. There has been slight improvement in the appearance and size of the ulceration within the last week. We placed an 18 mm EpiFix allograft 1 week ago, which had been left undisturbed until her visit today. The recent allograft application was the third such application. Currently, remnants of the allograft appear to remain in place. Therefore, the pressure ulceration was left undisturbed, and we will allow 1 more week to derive full benefit from the third allograft application. The satellite ulceration, superior to the primary ulceration, was debrided today. Following debridement, an Adaptic was placed over the site, and anchored in place with Steri-Strips. The patient is to leave this dressing in place, apply collagen hydrogel topically on a daily basis, then cover with gauze and anchor in place. Offloading measures have been discussed with the patient in detail, and are to continue. She is to avoid sleeping on her left side, which will eliminate the likelihood of pressure to the ulcerated area. Cultures were obtained recently, results of which were positive for ESBL E. coli, ESBL Klebsiella oxytoca, stenotrophomonas maltophilia, and Enterococcus faecalis. Prescriptions were provided the patient for Bactrim double strength twice daily for 10 days, as well as linezolid 600 mg p.o. twice daily for 10 days. The patient has completed both courses of antibiotics. The patient is to return in 1 week for reassessment. It is anticipated that we will apply the fourth EpiFix allograft at the patient's next visit. Total time: 26 minutes
[2023-06-16 11:32] VITALS: BP 149/49; PULSE 69; RESP 20; TEMP 35.9; BMI 24.5
--- NOTE | 2023-06-16 13:11 | HP.PCM_ITS ---
History of Present Illness Date of Service: 06/16/23 Chief Complaint: Pressure ulceration, left lateral malleolus History of Wound: This is a 68-year-old female who presented with an ulceration on the left lateral malleolus. The ulceration had been present for approximately 4 weeks. The patient indicated her suspicion that this may be due to pressure phenomenon. She is a side sleeper, and notes restlessness in her lower extremities while sleeping. She has made effort in recent days to avoid sleeping on her left side, relieving the pressure on the ulcer site. She has been evaluated by her primary care physician, Dr. Bocanegra, who has treated the patient with 2 courses of oral antibiotics, including doxycycline and clindamycin. A culture performed on April 01, 2023, was positive for anaerobic cocci, though no sensitivities were reported. A recent x-ray of the area revealed soft tissue swelling, though no evidence of osteomyelitis. Laboratory studies were obtained on April 01, 2023, with results as follows: White blood count 1.3, hemoglobin 12.9, hematocrit 42.3, platelets 183,000, ESR 14, potassium 4.6, sodium 138, chloride 108, carbon dioxide 26.0, BUN 22, creatinine 0.88, glucose 92, calcium 9.2, total bilirubin 0.50, AST 13, ALT 11, alkaline phosphatase 44, C-reactive protein 9.94, total protein 7.6, albumin 3.7. The patient is active. Her BMI is 24.6. She denies a history of cerebrovascular accident, myocardial infarction, pulmonary disease, renal disease, and diabetes mellitus. Pre-existing medical problems are documented herein. Due to systemic lupus erythematosus, the patient has been on long-term steroid administration. [facility] Medical History B12 deficiency anemia Breast cancer Fibromyalgia Hyperlipidemia Hypertension Insomnia Irritable bowel syndrome Muscle spasm Pressure ulcer of left ankle, stage 3 Splenomegaly Systemic lupus erythematosus Home Medications doxycycline monohydrate 100 mg capsule 100 mg PO BID #20 caps 10/25/20 [Rx Last Taken Unknown] prednisone 5 mg tablet 5 mg PO DAILY 10/25/20 [History Last Taken Unknown] hydroxychloroquine 200 mg tablet (Plaquenil) 200 mg PO DAILY 05/26/22 [History Last Taken Unknown] Allergy/AdvReac Type Severity Reaction Status Date / Time Penicillins AdvReac Intermediate Rash Verified 06/09/23 15:30 Family History Daughter No problems noted. Father Diabetes Father Pancreas cancer Mother Osteoarthritis Afib Surgical History History of bilateral mastectomy History of left knee surgery Social History Smoking Status: Never smoker second hand exposure: No alcohol intake: never substance use type: does not use ford/presybeterian: None seatbelt use: always do you feel safe at home: Yes Vital Signs Vital Signs Vital Signs: 06/16/23 11:32 Temperature 96.7 F L Temperature Source Temporal Pulse Rate 69 Respiratory Rate 20 H Blood Pressure 149/49 H Blood Pressure Mean 82 Weight Weight: 150 lb Body Mass Index (BMI) 24.5 Physical Exam Const alert, oriented x3, no apparent distress, average body habitus and no limitations General Appearance: cooperative, comfortable, well kempt, well developed and frail Orientation / Consciousness: awake, oriented to person, oriented to place and oriented to time Exam Limitations: no limitations HEENT normocephalic, head/scalp atraumatic and hearing grossly normal bilaterally Head and Scalp: normal to inspection, normocephalic and atraumatic Face and Sinus: normal facial exam External Ear: external ears normal Eyes PERRL, EOMs intact bilaterally and conjunctivae normal General Eye: normal appearance of both eyes Neck full ROM Chest Chest: symmetrical chest wall rise Resp normal respiratory effort, normal air movement, no retractions and no use of accessory muscles Effort and Inspection: able to speak in complete sentences Back/Spine Back/Spine Narrative: Kyphoscoliosis Extremity no clubbing, cyanosis or edema Skin General Skin Exam: ecchymosis Wound Narrative: No significant swelling or edema are noted in the patient's lower extremities bilaterally. The ulceration overlying the left lateral malleolus has taken a turn for the worst. There is now a significant amount of nonviable and necrotic tissue present. The satellite ulceration, located superiorly, has enlarged, and is now nearly coalescent with the original ulceration. Significant aurelia-ulcer erythema is noted, appearing to be cellulitic in nature. Dimensions are documented elsewhere. Swab cultures have been obtained, for aerobic and anaerobic bacterial growth. Neuro oriented x3, CN's II-XII intact bilaterally, moves all extremities and no focal motor deficits Sensorium / Orientation: awake, alert, oriented to person, oriented to place and oriented to time Coordination / Balance: offtax-ru-gcps test normal Speech: speech normal Psych mental status grossly normal Appearance: grossly normal and appropriate Attitude: calm Activity / Motor Behavior: appropriate eye contact Speech: normal speech Mood & Affect: euthymic mood Thought Process: normal thought process Thought Content: normal thought content Attention / Concentration: attention grossly intact Debridement Note Debridement Note Wound debrided: Left lateral malleolus ulceration and satellite ulceration Laterality: Left Type of Debridement: Excisional debridement Anesthesia Used: 5% Lidocaine Gel Depth: Down to and including healthy tissue and in the subcutaneous layer Percentage of wound debrided: 100 Instrument Used: 3mm curette Severity: Fat Layer Exposed Amount of bleeding with debridement: Mild Bleeding Controlled with: Compression and gauze Patient tolerated procedure: Patient tolerated procedure well Debridement Free Text: Swab cultures have been obtained for aerobic and anaerobic bacterial growth. Post-Debridement Measurements and Additional Note: Post-Debridement Measurements/Treatment - Nurse 1 - General Ulcer Assessment Start: 06/02/23 11:32 Freq: Status: Active Protocol: JESUS Activity Type Activity Date Activity User E-sign Co-sign Detail Recorded Client Recorded Date Recorded By Document 06/02/23 11:32 [id number] 06/02/23 11:39 Document 06/09/23 11:32 DL [id number] 06/09/23 11:34 DL Document 06/16/23 11:32 DL Desktop 06/16/23 11:36 DL 06/02/23 06/09/23 06/16/23 11:32 11:32 11:32 - Today's Visit Information Type of service Follow-up Visit Follow-up Visit Follow-up Visit (Physician/BLISTER RUST ERADICATOR (Physician/BLISTER RUST ERADICATOR (Physician/BLISTER RUST ERADICATOR ) ) ) Arrival Mode Ambulatory Ambulatory Ambulatory Transfer Assistance None None Patient Identification Verified (Name & Yes Yes Yes ) Patient Requires Transmission-Based No No No Precautions Height and Weight Body Mass Index (BMI) 24.5 24.5 24.5 BMI Classification Normal Normal Normal Vital Signs Temperature (97.8 F-99.1 F) 97.3 F L 97.7 F L 96.7 F L Temperature Source Temporal Temporal Temporal Pulse Rate (60-100) 79 72 69 Pulse Location Monitor Monitor Apical Respiratory Rate (12-18) 16 18 20 H Respiratory rate source Observation Observation Blood Pressure (90/60-120/80) 149/71 H 150/78 H 149/49 H Blood Pressure Mean 97 102 82 Source Monitor Monitor Position Sitting Blood Pressure Location Left Arm History Since Last Visit- (Skip if this is Patient's initial visit) Have you changed medications since your No No No last visit? Any new allergies or adverse reactions No No No Had a fall/change in ADL's that may No No No increase risk of falls Signs or symptoms of abuse and/or No No No neglect since last visit Have you been in the hospital since your No No last visit? Has dressing in place as prescribed Yes Yes Yes Has compression in place as prescribed N/A Yes N/A Has offloadiing in place as prescribed N/A N/A N/A Experienced any changes in pain level or No No No management Left Footwear Regular Shoe Right Footwear Regular Shoe Pain Scale: 0-10 Numeric Is Patient Pain Free? Yes Yes Yes - Nurse 1 - General Ulcer Measurement Start: 06/02/23 11:32 Freq: Status: Active Protocol: Activity Type Activity Date Activity User E-sign Co-sign Detail Recorded Client Recorded Date Recorded By Document 06/02/23 11:32 [id number] 06/02/23 11:39 Document 06/09/23 11:34 DL [id number] 06/09/23 11:38 DL Document 06/16/23 11:32 DL Desktop 06/16/23 11:36 DL 06/02/23 06/09/23 06/16/23 11:32 11:34 11:32 Wound Center Nurse 1 1. LT LAT ANKLE -Combined with other wound No -Current Size (cm) - Length 1.2 2.6 2.7 -Current Size (cm) - Width 1.2 2.2 1.7 -Current Size (cm) - Depth 0.1 0.2 0.2 -Total Square Cm 1.44 5.72 4.59 -Photo Taken Yes No Yes -Epithelialization None Present -Tunneling No -Undermining/Tunneling No -Circular Undermining No -Exudate Amt Small Medium Small -Exudate Type Serosanguineous Serosanguineous Serosanguineous -Wound Margin Flat & Intact Distinct, Distinct, Outline Outline Attached Attached -Granulation Amt Medium (34-66%) Medium (34-66%) None Present (0 %) -Granulation Quality Red Red -Slough/Fibrin Yes -Necrosis Amt Small (1-33%) Medium (34-66%) Large (67-100%) -Necrotic Tissue Type Adherent Slough Adherent Slough Eschar -Structure Exposed N/A N/A N/A -Texture (Aurelia-wound Skin Appearance) Assessed, Scarring Scarring Fluctuance, Localized Edema -Moisture (Aurelia-wound Skin Appearance) Assessed,Dry/ No Abnormality No Abnormality Scaly -Color (Aurelia-wound Skin Appearance) Assessed Hemosiderin Erythema, Staining Hemosiderin Staining -Temperature (Aurelia-wound Skin No Abnormality No Abnormality No Abnormality Appearance) (Pt Warm) (Pt Warm) (Pt Warm) -Tenderness on Palpation (Aurelia-wound No No No Skin Appearance) -Ulcer Cleansing Wound Cleanser Soap and Water Soap and Water -Foul Odor after Cleansing No No No -Anesthetic Used 5% Lidocaine 5% Lidocaine 5% Lidocaine Gel Gel Gel Lower Limb Edema Present NA WC - Nurse 2 - General Ulcer CM Notes Start: 06/02/23 11:32 Freq: Status: Active Protocol: Activity Type Activity Date Activity User E-sign Co-sign Detail Recorded Client Recorded Date Recorded By Document 06/02/23 14:20 [id number] 06/02/23 14:34 Document 06/09/23 13:17 [id number] 06/09/23 13:22 06/02/23 06/09/23 14:20 13:17 Wound Center Nurse 2 1. LT LAT ANKLE -Time 11:46 11:41 -Correct Patient Yes Yes -Correct Side, Site, Position Yes Yes -Correct Procedure Yes Yes -Procedure Performed Yes Yes -Type of Procedure Debridement Debridement -Clinical Debridement Subcutaneous Subcutaneous -Tissue Removed Subcutaneous Subcutaneous -Post Debridement (cm) - Length 1.2 2.7 -Post Debridement (cm) - Width 1.2 2.3 -Post Debridement (cm) - Depth 0.1 0.2 -Total Square (Post) (cm) 1.44 6.21 -Area of Debridement (cm) - Length 1.2 2.7 -Area of Debridement (cm) - Width 1.2 2.3 -Total Square (Area) (cm) 1.44 6.21 -Tunneling No No -Undermining/Tunneling No No -Circular Undermining No No -Wound/Ulcer Outcome Not Healed Not Healed -Ulcer Cleansing Rinsed/ Rinsed/ Irrigated with Irrigated with Saline Saline -Foul Odor after Cleansing No No -Bioengineered Tissue Yes No -Type of Bioengineered Tissue Epifix 18mm Disc -Expiration Date 01/27/28 -Product Lot Number [id number] -Percent Used 100 -Bleeding Controlled with Pressure Pressure -Treatment Response Procedure Procedure Tolerated Well Tolerated Well -Debridement - Subq, 1st 20sq cm No Yes -Apply Skin Sub - 1st 25 sq cm - Legs 1 -Epifix 18mm Disc 3 Pain Scale: 0-10 Numeric Is Patient Pain Free? Yes Yes - Nurse 3 - General Ulcer D/C NN Start: 06/02/23 11:32 Freq: Status: Active Protocol: Activity Type Activity Date Activity User E-sign Co-sign Detail Recorded Client Recorded Date Recorded By Document 06/02/23 12:04 [facility] [id number] 06/02/23 12:05 [facility] Document 06/09/23 11:54 [facility] [id number] 06/09/23 11:55 [facility] Document 06/16/23 11:59 DL Desktop 06/16/23 12:00 DL 06/02/23 06/09/23 06/16/23 12:04 11:54 11:59 Wound Care Center Nurse 3 1. LT LAT ANKLE -Ulcer Cleansing Rinsed/ Irrigated with Saline -Foul Odor after Cleansing No -Other Dressing EPIFIX epifix hydrogel maintained, hydrogel -Primary Dressing Covered/Secured with Dry Gauze & Dry Gauze & Dry Gauze & Roll Gauze, Roll Gauze, Roll Gauze, Secured with Secured with Secured with Tape Tape Tape Treatment Response Procedure Procedure Procedure Tolerated Well Tolerated Well Tolerated Well Pain Scale: 0-10 Numeric Is Patient Pain Free? 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9 - Systemic lupus erythematosus, unspecified (10) Hypertension: CODE(S): I10 - Essential (primary) hypertension (11) Irritable bowel syndrome: CODE(S): K58.9 - Irritable bowel syndrome without diarrhea PLAN: Plan This is a 68-year-old female of relatively normal body habitus. She presented with an ulceration overlying the left lateral malleolus. The ulceration had been present for approximately 1 month. She denied trauma, but felt as though this may be pressure related. She had been sleeping on her left side, and she indicated that pressure to the left lateral malleolus may have resulted in the ulceration. She had been treated by courses of doxycycline and clindamycin by her primary care physician, Dr. Bocanegra. Recent x-rays revealed soft tissue swelling, but no other significant abnormalities. The patient had been utilizing an antibiotic ointment topically. She is known to be on long-term steroids due to her diagnosis of systemic lupus erythematosus. The long-term use of steroids may adversely affect the patient's healing potential. The patient has been advised to elevate her lower extremities to minimize swelling. As of today's visit, there has been deterioration in the status of the patient's left lateral malleolus ulceration. There is an increasing amount of necrotic and nonviable tissue. There is aurelia-ulcer cellulitis. The satellite ulceration has enlarged in size. Swab cultures have been obtained, for aerobic and anaerobic bacterial growth. Culture results will be awaited, and antibiotics prescribed, if necessary, based upon culture results. We are to implement the use of collagenase Santyl, and the patient has been provided a prescription for the topical medication. The patient has been instructed in the appropriate means of application. Offloading measures have been discussed with the patient in detail, and are to continue. She is to avoid sleeping on her left side, which will eliminate the likelihood of pressure to the ulcerated area. The patient is to return in 1 week for reassessment. Given the deterioration of the patient's ulceration, we have obtained cultures of the ulceration, and are to obtain a noninvasive lower extremity arterial study to determine whether arterial insufficiency is a factor. Total time: 28 minutes
--- NOTE | 2023-06-17 12:44 | ART_ITS ---
Reason For Study: PVD Procedure A bilateral lower extremity continuous wave Doppler with analog waveform analysis,segmental pressures,and ankle brachial indexes without exercise. Left Segmental Pressures Left brachial= 138mmHg. Left posterior tibial artery = 114mmHg. Left dorsalis pedis artery = 139mmHg. The left posterior tibial artery waveforms are biphasic. The left dorsalis pedis waveforms are biphasic. Right Segmental Pressures Right brachial= 132mmHg. Right posterior tibial artery = 147mmHg. Right dorsalis pedis artery = 135mmHg. The right posterior tibial artery waveforms are biphasic. The right dorsalis pedis waveforms are monophasic. Indices The right ankle brachial index by the posterior tibial artery is 0.83. The right ankle brachial index by the dorsalis pedis is 1.01. The left ankle brachial index by the posterior tibial artery is 1.07. The left ankle brachial index by the dorsalis pedis is 0.98. VL/Lower Ext Art Exam w/o Exercis Interpretation Summary Biphasic Doppler waveforms are noted at ankle level on the right. Biphasic and monophasic waveforms are noted at ankle level on the left. Pulse-volume recordings appear satisfacto ry at low thigh, calf, and ankle levels bilaterally. Resting ankle-brachial indices are normal b ilaterally. There is no evidence of significant arterial occlusive disease in the lower ext remities bilaterally. Ordering Physician: Austin Atkins Referring Physician: Hector Bocanegra Chi Performed By: Eloy Sibley RVT
[2023-06-23 11:01] VITALS: BP 148/55; PULSE 69; RESP 20; TEMP 35.6; BMI 24.5
--- NOTE | 2023-06-23 11:33 | HP.PCM_ITS ---
History of Present Illness Date of Service: 06/23/23 Chief Complaint: Pressure ulceration, left lateral malleolus History of Wound: This is a 68-year-old female who presented with an ulceration on the left lateral malleolus. The ulceration had been present for approximately 4 weeks. The patient indicated her suspicion that this may be due to pressure phenomenon. She is a side sleeper, and notes restlessness in her lower extremities while sleeping. She has made effort in recent days to avoid sleeping on her left side, relieving the pressure on the ulcer site. She has been evaluated by her primary care physician, Dr. Bocanegra, who has treated the patient with 2 courses of oral antibiotics, including doxycycline and clindamycin. A culture performed on April 01, 2023, was positive for anaerobic cocci, though no sensitivities were reported. A recent x-ray of the area revealed soft tissue swelling, though no evidence of osteomyelitis. Laboratory studies were obtained on April 01, 2023, with results as follows: White blood count 1.3, hemoglobin 12.9, hematocrit 42.3, platelets 183,000, ESR 14, potassium 4.6, sodium 138, chloride 108, carbon dioxide 26.0, BUN 22, creatinine 0.88, glucose 92, calcium 9.2, total bilirubin 0.50, AST 13, ALT 11, alkaline phosphatase 44, C-reactive protein 9.94, total protein 7.6, albumin 3.7. The patient is active. Her BMI is 24.6. She denies a history of cerebrovascular accident, myocardial infarction, pulmonary disease, renal disease, and diabetes mellitus. Pre-existing medical problems are documented herein. Due to systemic lupus erythematosus, the patient has been on long-term steroid administration. [facility] Medical History B12 deficiency anemia Breast cancer Fibromyalgia Hyperlipidemia Hypertension Insomnia Irritable bowel syndrome Muscle spasm Pressure ulcer of left ankle, stage 3 Splenomegaly Systemic lupus erythematosus Home Medications doxycycline monohydrate 100 mg capsule 100 mg PO BID #20 caps 10/25/20 [Rx Last Taken Unknown] prednisone 5 mg tablet 5 mg PO DAILY 10/25/20 [History Last Taken Unknown] hydroxychloroquine 200 mg tablet (Plaquenil) 200 mg PO DAILY 05/26/22 [History Last Taken Unknown] Allergy/AdvReac Type Severity Reaction Status Date / Time Penicillins AdvReac Intermediate Rash Verified 06/16/23 14:45 Family History Daughter No problems noted. Father Diabetes Father Pancreas cancer Mother Osteoarthritis Afib Surgical History History of bilateral mastectomy History of left knee surgery Social History Smoking Status: Never smoker second hand exposure: No alcohol intake: never substance use type: does not use ford/gnosticism: None seatbelt use: always do you feel safe at home: Yes Vital Signs Vital Signs Vital Signs: 06/23/23 11:01 Temperature 96.1 F L Temperature Source Temporal Pulse Rate 69 Respiratory Rate 20 H Blood Pressure 148/55 H Blood Pressure Mean 86 Blood Pressure Source Monitor Weight Weight: 150 lb Body Mass Index (BMI) 24.5 Physical Exam Const alert, oriented x3, no apparent distress, average body habitus and no limitations General Appearance: cooperative, comfortable, well kempt, well developed and frail Orientation / Consciousness: awake, oriented to person, oriented to place and oriented to time Exam Limitations: no limitations HEENT normocephalic, head/scalp atraumatic and hearing grossly normal bilaterally Head and Scalp: normal to inspection, normocephalic and atraumatic Face and Sinus: normal facial exam External Ear: external ears normal Eyes PERRL, EOMs intact bilaterally and conjunctivae normal General Eye: normal appearance of both eyes Neck full ROM Chest Chest: symmetrical chest wall rise Resp normal respiratory effort, normal air movement, no retractions and no use of accessory muscles Effort and Inspection: able to speak in complete sentences Back/Spine Back/Spine Narrative: Kyphoscoliosis Extremity no clubbing, cyanosis or edema Skin General Skin Exam: ecchymosis Wound Narrative: No significant swelling or edema are noted in the patient's lower extremities bilaterally. The ulceration overlying the left lateral malleolus continues to worsen. There is now a significant amount of nonviable and necrotic tissue present. The satellite ulceration has now coalesced with the primary ulceration, creating 1 single ulceration. Dimensions are documented elsewhere. Significant aurelia-ulcer erythema is noted, appearing to be cellulitic in nature. Neuro oriented x3, CN's II-XII intact bilaterally, moves all extremities and no focal motor deficits Sensorium / Orientation: awake, alert, oriented to person, oriented to place and oriented to time Coordination / Balance: [id number] test normal Speech: speech normal Psych mental status grossly normal Appearance: grossly normal and appropriate Attitude: calm Activity / Motor Behavior: appropriate eye contact Speech: normal speech Mood & Affect: euthymic mood Thought Process: normal thought process Thought Content: normal thought content Attention / Concentration: attention grossly intact Debridement Note Debridement Note Wound debrided: Left lateral malleolus ulceration Laterality: Left Type of Debridement: Excisional debridement Anesthesia Used: 5% Lidocaine Gel Depth: Down to and including healthy tissue and in the subcutaneous layer Percentage of wound debrided: 100 Instrument Used: 5mm curette Severity: Fat Layer Exposed Amount of bleeding with debridement: Mild Bleeding Controlled with: Compression and gauze Patient tolerated procedure: Patient tolerated procedure well Debridement Free Text: Swab cultures have been obtained for aerobic and anaerobic bacterial growth. Post-Debridement Measurements and Additional Note: Post-Debridement Measurements/Treatment - Nurse 1 - General Ulcer Assessment Start: 06/02/23 11:32 Freq: Status: Active Protocol: JESUS Activity Type Activity Date Activity User E-sign Co-sign Detail Recorded Client Recorded Date Recorded By Document 06/02/23 11:32 [id number] 06/02/23 11:39 JF Document 06/09/23 11:32 DL [id number] 06/09/23 11:34 DL Document 06/16/23 11:32 DL Desktop 06/16/23 11:36 DL Document 06/23/23 11:01 DL Desktop 06/23/23 11:08 DL 06/02/23 06/09/23 06/16/23 11:32 11:32 11:32 - Today's Visit Information Type of service Follow-up Visit Follow-up Visit Follow-up Visit (Physician/[facility]HER [facility] CRUSHER (Physician/[facility]IGHER AND CRUSHER (Physician/WEIGHER AND CRUSHER ) ) ) Arrival Mode Ambulatory Ambulatory Ambulatory Transfer Assistance None None Patient Identification Verified (Name & Yes Yes Yes ) Patient Requires Transmission-Based No No No Precautions Height and Weight Body Mass Index (BMI) 24.5 24.5 24.5 BMI Classification Normal Normal Normal Vital Signs Temperature (97.8 F-99.1 F) 97.3 F L 97.7 F L 96.7 F L Temperature Source Temporal Temporal Temporal Pulse Rate (60-100) 79 72 69 Pulse Location Monitor Monitor Apical Respiratory Rate (12-18) 16 18 20 H Respiratory rate source Observation Observation Blood Pressure (90/60-120/80) 149/71 H 150/78 H 149/49 H Blood Pressure Mean 97 102 82 Source Monitor Monitor Position Sitting Blood Pressure Location Left Arm History Since Last Visit- (Skip if this is Patient's initial visit) Have you changed medications since your No No No last visit? Any new allergies or adverse reactions No No No Had a fall/change in ADL's that may No No No increase risk of falls Signs or symptoms of abuse and/or No No No neglect since last visit Have you been in the hospital since your No No last visit? Has dressing in place as prescribed Yes Yes Yes Has compression in place as prescribed N/A Yes N/A Has offloadiing in place as prescribed N/A N/A N/A Experienced any changes in pain level or No No No management Left Footwear Regular Shoe Right Footwear Regular Shoe Pain Scale: 0-10 Numeric Is Patient Pain Free? Yes Yes Yes 06/23/23 11:01 - Today's Visit Information Type of service Follow-up Visit (Physician/[facility] ) Arrival Mode Ambulatory Transfer Assistance None Patient Identification Verified (Name & Yes ) Patient Requires Transmission-Based No Precautions Height and Weight Body Mass Index (BMI) 24.5 BMI Classification Normal Vital Signs Temperature (97.8 F-99.1 F) 96.1 F L Temperature Source Temporal Pulse Rate (60-100) 69 Pulse Location Monitor Respiratory Rate (12-18) 20 H Respiratory rate source Observation Blood Pressure (90/60-120/80) 148/55 H Blood Pressure Mean 86 Source Monitor Position Blood Pressure Location History Since Last Visit- (Skip if this is Patient's initial visit) Have you changed medications since your No last visit? Any new allergies or adverse reactions No Had a fall/change in ADL's that may No increase risk of falls Signs or symptoms of abuse and/or No neglect since last visit Have you been in the hospital since your No last visit? Has dressing in place as prescribed Yes Has compression in place as prescribed N/A Has offloadiing in place as prescribed No Experienced any changes in pain level or No management Left Footwear Right Footwear Pain Scale: 0-10 Numeric Is Patient Pain Free? Yes WC - Nurse 1 - General Ulcer Measurement Start: 06/02/23 11:32 Freq: Status: Active Protocol: Activity Type Activity Date Activity User E-sign Co-sign Detail Recorded Client Recorded Date Recorded By Document 06/02/23 11:32 JF [id number] 06/02/23 11:39 JF Document 06/09/23 11:34 DL [id number] 06/09/23 11:38 DL Document 06/16/23 11:32 DL Desktop 06/16/23 11:36 DL Document 06/23/23 11:01 DL Desktop 06/23/23 11:08 DL 06/02/23 06/09/23 06/16/23 11:32 11:34 11:32 Wound Center Nurse 1 1. LT LAT ANKLE -Combined with other wound No -Current Size (cm) - Length 1.2 2.6 2.7 -Current Size (cm) - Width 1.2 2.2 1.7 -Current Size (cm) - Depth 0.1 0.2 0.2 -Total Square Cm 1.44 5.72 4.59 -Photo Taken Yes No Yes -Epithelialization None Present -Tunneling No -Undermining/Tunneling No -Undermining/Tunneling Starts (O'clock ) -Undermining/Tunneling Ends (O'clock) -Maximum Distance (cm) -Circular Undermining No -Exudate Amt Small Medium Small -Exudate Type Serosanguineous Serosanguineous Serosanguineous -Wound Margin Flat & Intact Distinct, Distinct, Outline Outline Attached Attached -Granulation Amt Medium (34-66%) Medium (34-66%) None Present (0 %) -Granulation Quality Red Red -Slough/Fibrin Yes -Necrosis Amt Small (1-33%) Medium (34-66%) Large (67-100%) -Necrotic Tissue Type Adherent Slough Adherent Slough Eschar -Structure Exposed N/A N/A N/A -Texture (Aurelia-wound Skin Appearance) Assessed, Scarring Scarring Fluctuance, Localized Edema -Moisture (Aurelia-wound Skin Appearance) Assessed,Dry/ No Abnormality No Abnormality Scaly -Color (Aurelia-wound Skin Appearance) Assessed Hemosiderin Erythema, Staining Hemosiderin Staining -Temperature (Aurelia-wound Skin No Abnormality No Abnormality No Abnormality Appearance) (Pt Warm) (Pt Warm) (Pt Warm) -Tenderness on Palpation (Aurelia-wound No No No Skin Appearance) -Ulcer Cleansing Wound Cleanser Soap and Water Soap and Water -Foul Odor after Cleansing No No No -Anesthetic Used 5% Lidocaine 5% Lidocaine 5% Lidocaine Gel Gel Gel Lower Limb Edema Present NA 06/23/23 11:01 Wound Center Nurse 1 1. LT LAT ANKLE -Combined with other wound -Current Size (cm) - Length 2.3 -Current Size (cm) - Width 1.9 -Current Size (cm) - Depth 0.4 -Total Square Cm 4.37 -Photo Taken -Epithelialization -Tunneling -Undermining/Tunneling -Undermining/Tunneling Starts (O'clock 4 ) -Undermining/Tunneling Ends (O'clock) 7 -Maximum Distance (cm) 0.2 -Circular Undermining -Exudate Amt Medium -Exudate Type Serosanguineous -Wound Margin Distinct, Outline Attached -Granulation Amt None Present (0 %) -Granulation Quality -Slough/Fibrin -Necrosis Amt Large (67-100%) -Necrotic Tissue Type Adherent Slough -Structure Exposed N/A -Texture (Aurelia-wound Skin Appearance) Scarring -Moisture (Aurelia-wound Skin Appearance) No Abnormality, Maceration -Color (Aurelia-wound Skin Appearance) Hemosiderin Staining -Temperature (Aurelia-wound Skin No Abnormality Appearance) (Pt Warm) -Tenderness on Palpation (Aurelia-wound No Skin Appearance) -Ulcer Cleansing Soap and Water -Foul Odor after Cleansing No -Anesthetic Used 5% Lidocaine Gel Lower Limb Edema Present WC - Nurse 2 - General Ulcer CM Notes Start: 06/02/23 11:32 Freq: Status: Active Protocol: Activity Type Activity Date Activity User E-sign Co-sign Detail Recorded Client Recorded Date Recorded By Document 06/02/23 14:20 PL [id number] 06/02/23 14:34 PL Document 06/09/23 13:17 PL [id number] 06/09/23 13:22 PL Document 06/16/23 13:33 PL [id number] 06/16/23 13:35 PL 06/02/23 06/09/23 06/16/23 14:20 13:17 13:33 Wound Center Nurse 2 1. LT LAT ANKLE -Time 11:46 11:41 11:45 -Correct Patient Yes Yes Yes -Correct Side, Site, Position Yes Yes Yes -Correct Procedure Yes Yes Yes -Procedure Performed Yes Yes Yes -Type of Procedure Debridement Debridement Debridement -Clinical Debridement Subcutaneous Subcutaneous Subcutaneous -Tissue Removed Subcutaneous Subcutaneous Subcutaneous -Post Debridement (cm) - Length 1.2 2.7 2.7 -Post Debridement (cm) - Width 1.2 2.3 1.7 -Post Debridement (cm) - Depth 0.1 0.2 0.2 -Total Square (Post) (cm) 1.44 6.21 4.59 -Area of Debridement (cm) - Length 1.2 2.7 2.7 -Area of Debridement (cm) - Width 1.2 2.3 1.7 -Total Square (Area) (cm) 1.44 6.21 4.59 -Tunneling No No No -Undermining/Tunneling No No No -Circular Undermining No No No -Wound/Ulcer Outcome Not Healed Not Healed Not Healed -Ulcer Cleansing Rinsed/ Rinsed/ Rinsed/ Irrigated with Irrigated with Irrigated with Saline Saline Saline -Foul Odor after Cleansing No No No -Bioengineered Tissue Yes No No -Type of Bioengineered Tissue Epifix 18mm Disc -Expiration Date 01/27/28 -Product Lot Number [id number] -Percent Used 100 -Bleeding Controlled with Pressure Pressure Pressure -Treatment Response Procedure Procedure Procedure Tolerated Well Tolerated Well Tolerated Well -Debridement - Subq, 1st 20sq cm No Yes Yes -Apply Skin Sub - 1st 25 sq cm - Legs 1 -Epifix 18mm Disc 3 Pain Scale: 0-10 Numeric Is Patient Pain Free? Yes Yes Yes - Nurse 3 - General Ulcer D/C NN Start: 06/02/23 11:32 Freq: Status: Active Protocol: Activity Type Activity Date Activity User E-sign Co-sign Detail Recorded Client Recorded Date Recorded By Document 06/02/23 12:04 [facility] [id number] 06/02/23 12:05 [facility] Document 06/09/23 11:54 [facility] [id number] 06/09/23 11:55 [facility] Document 06/16/23 11:59 DL Desktop 06/16/23 12:00 DL Document 06/23/23 11:24 [facility] Desktop 06/23/23 11:24 [facility] 06/02/23 06/09/23 06/16/23 12:04 11:54 11:59 Wound Care Center Nurse 3 1. LT LAT ANKLE -Ulcer Cleansing Rinsed/ Irrigated with Saline -Foul Odor after Cleansing No -Other Dressing EPIFIX epifix hydrogel maintained, hydrogel -Primary Dressing Covered/Secured with Dry Gauze & Dry Gauze & Dry Gauze & Roll Gauze, Roll Gauze, Roll Gauze, Secured with Secured with Secured with Tape Tape Tape Treatment Response Procedure Procedure Procedure Tolerated Well Tolerated Well Tolerated Well Pain Scale: 0-10 Numeric Is Patient Pain Free? Yes Yes Yes WC - Visit Discharge Discharge Condition Stable Stable Stable Ambulatory Status Ambulatory Ambulatory Ambulatory Transportation Private Auto Private Auto Private Auto Notes: Pt to start Santyl when available 06/23/23 11:24 Wound Care Center Nurse 3 1. LT LAT ANKLE -Ulcer Cleansing Rinsed/ Irrigated with Saline -Foul Odor after Cleansing No -Other Dressing SANTYL -Primary Dressing Covered/Secured with Dry Gauze & Roll Gauze, Secured with Tape Treatment Response Procedure Tolerated Well Pain Scale: 0-10 Numeric Is Patient Pain Free? 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9 - Systemic lupus erythematosus, unspecified (10) Hypertension: CODE(S): I10 - Essential (primary) hypertension (11) Irritable bowel syndrome: CODE(S): K58.9 - Irritable bowel syndrome without diarrhea PLAN: Plan This is a 68-year-old female of relatively normal body habitus. She presented with an ulceration overlying the left lateral malleolus. The ulceration had been present for approximately 1 month. She denied trauma, but felt as though this may be pressure related. She had been sleeping on her left side, and she indicated that pressure to the left lateral malleolus may have resulted in the ulceration. She had been treated by courses of doxycycline and clindamycin by her primary care physician, Dr. Bocanegra. Recent x-rays revealed soft tissue swelling, but no other significant abnormalities. The patient had been utilizing an antibiotic ointment topically. In recent weeks, the status of the patient's left lateral malleolus ulceration has worsened. The ulceration has become larger in size, and with increasing amounts of necrotic and nonviable tissue. She is known to be on long-term steroids due to her diagnosis of systemic lupus erythematosus. The long-term use of steroids may adversely affect the patient's healing potential. Due to the deteriorating nature of the patient's ulceration, the patient has been advised to speak with her other physicians regarding the possibility of temporarily discontinuing steroid treatment. The patient has been advised to elevate her lower extremities to minimize swelling. The satellite ulceration has now coalesced with the primary ulceration, creating 1 single ulceration overlying the left lateral malleolus. Swab cultures were obtained last week, and were positive for Serratia marcescens and anaerobic cocci. The patient has been started on Cipro 500 mg p.o. twice daily for 10 days and Flagyl 500 mg p.o. 3 times daily for 10 days. The patient has only been on antibiotics for several days at this juncture. We are to continue the use of collagenase Santyl, and the patient has been instructed in the appropriate means of application. Offloading measures have been discussed with the patient in detail, and are to continue. She is to avoid sleeping on her left side, which will eliminate the likelihood of pressure to the ulcerated area. The patient is to return in 1 week for reassessment. A noninvasive lower extremity arterial study, performed on June 17, 2023, revealed no evidence of significant arterial occlusive disease in the patient's lower extremities bilaterally. Furthermore, review of the patient's most recent laboratory studies, from May 25, 2023, revealed serum albumin and protein to be within normal levels. The patient is not diabetic, and has been urged to optimize her nutritional intake. Total time: 29 minutes
== END 2023-06-27 23:59 | disposition home or self-care (01) ==
LOC: WC 11:30
PROVIDERS: PCP Family Medicine Geriatric Medicine; Referring Provider Family Medicine Geriatric Medicine; Visit Provider Surgery
DX: L89.523 Pressure ulcer of left ankle, stage 3 (principal); D70.8 Other neutropenia; M32.9 Systemic lupus erythematosus, unspecified; M06.9 Rheumatoid arthritis, unspecified; M05.00 Felty's syndrome, unspecified site; E78.5 Hyperlipidemia, unspecified; Z90.13 Acquired absence of bilateral breasts and nipples; Z80.0 Family history of malignant neoplasm of digestive organs; I73.00 Raynaud's syndrome without gangrene; K58.9 Irritable bowel syndrome, unspecified; R16.1 Splenomegaly, not elsewhere classified; I10 Essential (primary) hypertension
CPT/HCPCS: 11042; 15271; 87070; 87075; 87077; 87186; 87205; 93923; Q4186

== ENCOUNTER 2023-07-16 09:11 | Outpatient (CLI) | payer MEDICARE, SELFPAY ==
[2023-07-16 09:29] VITALS: BP 113/67; PULSE 72; RESP 18; O2SAT 97; BMI 24.1
[2023-07-16 09:40] VITALS: BP 133/67; PULSE 76; RESP 18; TEMP 36.2; O2SAT 98; BMI 24.1
--- NOTE | 2023-07-16 11:11 | RAD_ITS ---
STUDY: X-RAY CHEST REASON FOR EXAM: Female, 68 years old. picc line placement TECHNIQUE: Single AP portable view of the chest. COMPARISON: Comparison is made with prior study February 28, 2012. FINDINGS: Elevation of the right hemidiaphragm. A left-sided PICC line catheter has been placed with the tip at the junction of the superior vena cava and right atrium. The lungs are clear and expanded. There is no demonstrated pleural abnormality. Normal size heart. Normal mediastinum and [place]. Normal visualized pulmonary arteries. There is atherosclerotic calcification of the aortic arch with tortuosity. There is a dextroscoliosis of the thoracic spine. Normal visualized ribs, clavicles, and shoulders. There is no demonstrated abnormality of the visualized soft tissue structures of the upper abdomen. RAD/Chest 1 View (Portable) IMPRESSION: The tip of the left-sided PIC line catheter is at the junction of the superior vena cava and right atrium. Electronically Signed: Amado Brar MD at 12:34 EDT ,
--- NOTE | 2023-07-16 11:34 | PCM.OP.PRO ---
Procedure Report Date of Procedure: 07/16/23 Assessment & Plan Assessment/Plan (1) Complicated wound infection: Procedures Radiology Radiology Access Procedures: PICC PICC Line Consent Screening tool completed:: Yes Consent obtained:: Yes Consent given by (patient or responsible libertarian):: patient Line successful (if no, document why in comments):: Yes Insertion Reason for Insertion: Mcc Medication Date of Insertion: 07/16/23 Ok to use: Yes Type of PICC inserted: Single Power PICC PICC Lot #: [id number] PICC Reference #: [id number] Microintroducer Used: Yes (in kit) Ultrasound/Equipment Used: Probe Cover Kit Trimmed Length (cm): 38 Insertion Length (cm): 38 Exposed Length (cm): 0 Tip Placement: Caval Atrial Junction Placement Confirmation: Xray Insertion Vein: Left Brachial Insertion Attempts: 1 Local Anesthesia Used: Lidocaine 1% (in kit) Dressing Applied: Tegaderm (CHG w/ Statlock) Arm Measurement above site (in cm): 32 Patient Tolerated Procedure: Well Threading Difficulties: No Comments Comment: Pt transported by to [facility] for first infusion.
[2023-07-16 11:38] VITALS: BP 133/67; PULSE 53; RESP 16; TEMP 36.1; O2SAT 100; BMI 24.1
[2023-07-16] MEDS: 0.9% NaCl PICC Flush IV ×2 (11:52→13:02)
[2023-07-16] MEDS: Ertapenem Sod 1 GM in 0.9% Normal Saline (50mL MB+) 50 ML IV (11:52)
[2023-07-16] MEDS: 0.9% NaCl IVPB Med Flush (250 mL) 15 ML IV (11:52)
[2023-07-16 13:07] VITALS: BP 127/66; PULSE 86; RESP 16; TEMP 36.3
== END 2023-07-16 09:12 | disposition home or self-care (01) ==
PROVIDERS: PCP Family Medicine Geriatric Medicine; Referring Provider Surgery; Visit Provider Surgery
DX: L89.523 Pressure ulcer of left ankle, stage 3 (principal); M01.X72 Direct infection of left ankle and foot in infectious and parasitic diseases classified elsewhere
CPT/HCPCS: 96365; 71045; J7050; A4216

== ENCOUNTER 2023-07-17 09:54 | Outpatient (CLI) | payer MEDICARE, SELFPAY ==
[2023-07-17 10:03] VITALS: BP 134/63; PULSE 71; RESP 16; TEMP 35.6; O2SAT 100
[2023-07-17] MEDS: 0.9% NaCl PICC Flush IV ×2 (10:07→11:10)
[2023-07-17] MEDS: Ertapenem Sod 1 GM in 0.9% Normal Saline (50mL MB+) 50 ML IV (10:10)
[2023-07-17] MEDS: 0.9% NaCl IVPB Med Flush (250 mL) 15 ML IV (10:51)
[2023-07-17 11:11] VITALS: BP 129/58; PULSE 64; RESP 16
== END 2023-07-17 09:55 | disposition home or self-care (01) ==
LOC: MEDOUTP 09:55
PROVIDERS: PCP Family Medicine Geriatric Medicine; Referring Provider Surgery; Visit Provider Surgery
DX: L89.523 Pressure ulcer of left ankle, stage 3 (principal); M01.X72 Direct infection of left ankle and foot in infectious and parasitic diseases classified elsewhere
CPT/HCPCS: 96365; J7050; A4216

== ENCOUNTER 2023-07-18 09:51 | Outpatient (CLI) | payer MEDICARE, SELFPAY ==
[2023-07-18] MEDS: 0.9% NaCl PICC Flush IV ×2 (10:14→11:13)
[2023-07-18] MEDS: 0.9% NaCl IVPB Med Flush (250 mL) 15 ML IV (10:14)
[2023-07-18] MEDS: Ertapenem Sod 1 GM in 0.9% Normal Saline (50mL MB+) 50 ML IV (10:18)
== END 2023-07-18 11:15 | disposition home or self-care (01) ==
LOC: MEDOUTP 09:52 → PCU 09:52
PROVIDERS: PCP Family Medicine Geriatric Medicine; Referring Provider Surgery; Visit Provider Surgery
DX: L89.523 Pressure ulcer of left ankle, stage 3 (principal); M01.X72 Direct infection of left ankle and foot in infectious and parasitic diseases classified elsewhere
CPT/HCPCS: 96365; J7050; A4216

== ENCOUNTER 2023-07-19 10:02 | Outpatient (CLI) | payer MEDICARE, SELFPAY ==
[2023-07-19] MEDS: Ertapenem Sod 1 GM in 0.9% Normal Saline (50mL MB+) 50 ML IV (10:12)
== END 2023-07-19 11:01 | disposition home or self-care (01) ==
LOC: MEDOUTP 10:02 → PCU 10:03
PROVIDERS: PCP Family Medicine Geriatric Medicine; Referring Provider Surgery; Visit Provider Surgery
DX: L89.523 Pressure ulcer of left ankle, stage 3 (principal); M01.X72 Direct infection of left ankle and foot in infectious and parasitic diseases classified elsewhere
CPT/HCPCS: 96365

== ENCOUNTER 2023-07-20 09:55 | Outpatient (CLI) | payer MEDICARE, SELFPAY ==
[2023-07-20 10:01] VITALS: BP 129/61; PULSE 69; RESP 16; TEMP 35.9; O2SAT 100; BMI 24.1
[2023-07-20] MEDS: Ertapenem Sod 1 GM in 0.9% Normal Saline (50mL MB+) 50 ML IV (10:22)
[2023-07-20] MEDS: 0.9% NaCl PICC Flush IV ×2 (10:24→11:26)
[2023-07-20] MEDS: 0.9% NaCl IVPB Med Flush (250 mL) 15 ML IV (10:24)
[2023-07-20 11:27] VITALS: BP 123/60; PULSE 56; RESP 16; TEMP 35.9; O2SAT 100
== END 2023-07-20 09:56 | disposition home or self-care (01) ==
LOC: MEDOUTP 09:55
PROVIDERS: PCP Family Medicine Geriatric Medicine; Referring Provider Surgery; Visit Provider Surgery
DX: L89.523 Pressure ulcer of left ankle, stage 3 (principal); M01.X72 Direct infection of left ankle and foot in infectious and parasitic diseases classified elsewhere
CPT/HCPCS: 96365; J7050; A4216

== ENCOUNTER 2023-07-21 09:58 | Outpatient (CLI) | payer MEDICARE, SELFPAY ==
[2023-07-21 10:10] VITALS: BP 130/56; PULSE 73; RESP 16; TEMP 36.2; O2SAT 98; BMI 24.1
[2023-07-21] MEDS: 0.9% NaCl IVPB Med Flush (250 mL) 15 ML IV (10:33)
[2023-07-21] MEDS: 0.9% NaCl PICC Flush IV ×2 (10:33→11:33)
[2023-07-21] MEDS: Ertapenem Sod 1 GM in 0.9% Normal Saline (50mL MB+) 50 ML IV (10:33)
[2023-07-21 11:34] VITALS: BP 125/62; PULSE 63; RESP 16; TEMP 35.9; O2SAT 100
== END 2023-07-21 09:59 | disposition home or self-care (01) ==
LOC: MEDOUTP 09:58
PROVIDERS: PCP Family Medicine Geriatric Medicine; Referring Provider Surgery; Visit Provider Surgery
DX: L89.523 Pressure ulcer of left ankle, stage 3 (principal); M01.X72 Direct infection of left ankle and foot in infectious and parasitic diseases classified elsewhere
CPT/HCPCS: 96365; J7050; A4216

== ENCOUNTER 2023-07-22 10:26 | Outpatient (CLI) | payer MEDICARE, SELFPAY ==
[2023-07-22 10:36] VITALS: BP 132/58; PULSE 64; RESP 16; TEMP 36; O2SAT 98; BMI 24.1
[2023-07-22] MEDS: 0.9% NaCl PICC Flush IV ×2 (10:39→11:44)
[2023-07-22] MEDS: 0.9% NaCl IVPB Med Flush (250 mL) 15 ML IV (10:39)
[2023-07-22] MEDS: Ertapenem Sod 1 GM in 0.9% Normal Saline (50mL MB+) 50 ML IV (10:39)
[2023-07-22 11:45] VITALS: BP 127/54; PULSE 60; RESP 16; TEMP 36.4; O2SAT 100
== END 2023-07-22 10:27 | disposition home or self-care (01) ==
LOC: MEDOUTP 10:26
PROVIDERS: PCP Family Medicine Geriatric Medicine; Referring Provider Surgery; Visit Provider Surgery
DX: L89.523 Pressure ulcer of left ankle, stage 3 (principal); M01.X72 Direct infection of left ankle and foot in infectious and parasitic diseases classified elsewhere
CPT/HCPCS: 96365; J7050; A4216

== ENCOUNTER 2023-07-23 10:23 | Outpatient (CLI) | payer MEDICARE, SELFPAY ==
[2023-07-23 10:40] VITALS: BP 118/60; PULSE 67; RESP 16; TEMP 36.1; O2SAT 100; BMI 24.1
[2023-07-23] MEDS: Ertapenem Sod 1 GM in 0.9% Normal Saline (50mL MB+) 50 ML IV (10:42)
[2023-07-23] MEDS: 0.9% NaCl IVPB Med Flush (250 mL) 15 ML IV (10:42)
[2023-07-23] MEDS: 0.9% NaCl PICC Flush IV (10:42)
[2023-07-23 11:45] VITALS: BP 123/58; PULSE 61; RESP 16; TEMP 36.2; O2SAT 99
== END 2023-07-23 10:24 | disposition home or self-care (01) ==
LOC: MEDOUTP 10:23
PROVIDERS: PCP Family Medicine Geriatric Medicine; Referring Provider Surgery; Visit Provider Surgery
DX: L89.523 Pressure ulcer of left ankle, stage 3 (principal); M01.X72 Direct infection of left ankle and foot in infectious and parasitic diseases classified elsewhere
CPT/HCPCS: 96365; 36592; J7050; A4216

== ENCOUNTER 2023-07-24 10:23 | Outpatient (CLI) | payer MEDICARE, SELFPAY ==
[2023-07-24 10:42] VITALS: BP 136/63; PULSE 61; RESP 16; TEMP 36.2; O2SAT 99; BMI 24.1
[2023-07-24] MEDS: Ertapenem Sod 1 GM in 0.9% Normal Saline (50mL MB+) 50 ML IV (10:49)
[2023-07-24] MEDS: 0.9% NaCl IVPB Med Flush (250 mL) 15 ML IV (10:50)
[2023-07-24] MEDS: 0.9% NaCl PICC Flush IV ×2 (10:51→12:00)
[2023-07-24 11:58] VITALS: BP 136/60; PULSE 61; RESP 16; TEMP 36.3
--- NOTE | 2023-07-24 12:45 | CASEMGMT ---
Outpatient Propagation Worker Sw met with patient briefly during treatment. Sw introduced self and explained sw role. Sw provided patient with information and education regarding feeling overwhelmed. Sw reviewed list of appropriate coping skills for patient to utilize. Patient was appreciative and receptive of information and support provided. Alisson Wesley, MARKETING CONSULTANT, ROOM SERVICE ASSOCIATE
== END 2023-07-24 10:24 | disposition home or self-care (01) ==
LOC: MEDOUTP 10:24
PROVIDERS: PCP Family Medicine Geriatric Medicine; Referring Provider Surgery; Visit Provider Surgery
DX: L89.523 Pressure ulcer of left ankle, stage 3 (principal); M01.X72 Direct infection of left ankle and foot in infectious and parasitic diseases classified elsewhere
CPT/HCPCS: 96365; J7050; A4216

== ENCOUNTER 2023-07-25 09:25 | Outpatient (CLI) | payer MEDICARE, SELFPAY ==
[2023-07-25] MEDS: 0.9% NaCl IVPB Med Flush (250 mL) 15 ML IV (09:35)
[2023-07-25] MEDS: Ertapenem Sod 1 GM in 0.9% Normal Saline (50mL MB+) 50 ML IV (09:36)
[2023-07-25] MEDS: 0.9% NaCl PICC Flush IV ×2 (09:40→10:20)
[2023-07-25 10:17] VITALS: BP 119/61; PULSE 60; RESP 18; TEMP 36.7
== END 2023-07-25 10:33 | disposition home or self-care (01) ==
LOC: MEDOUTP 09:25 → MS3 09:26
PROVIDERS: PCP Family Medicine Geriatric Medicine; Referring Provider Surgery; Visit Provider Surgery
DX: L89.523 Pressure ulcer of left ankle, stage 3 (principal); M01.X72 Direct infection of left ankle and foot in infectious and parasitic diseases classified elsewhere
CPT/HCPCS: 96365; J7050; A4216

== ENCOUNTER 2023-07-26 09:38 | Outpatient (CLI) | payer MEDICARE, SELFPAY ==
[2023-07-26] MEDS: 0.9% NaCl IVPB Med Flush (250 mL) 15 ML IV (09:44)
[2023-07-26] MEDS: 0.9% NaCl PICC Flush IV ×2 (09:44→10:24)
[2023-07-26] MEDS: Ertapenem Sod 1 GM in 0.9% Normal Saline (50mL MB+) 50 ML IV (09:46)
[2023-07-26 09:47] VITALS: BP 104/68; PULSE 83; RESP 16; TEMP 37
== END 2023-07-26 10:31 | disposition home or self-care (01) ==
LOC: MEDOUTP 09:39 → MS3 09:39
PROVIDERS: PCP Family Medicine Geriatric Medicine; Referring Provider Surgery; Visit Provider Surgery
DX: L89.523 Pressure ulcer of left ankle, stage 3 (principal); M01.X72 Direct infection of left ankle and foot in infectious and parasitic diseases classified elsewhere
CPT/HCPCS: 96365; J7050; A4216

== ENCOUNTER 2023-07-27 10:26 | Outpatient (CLI) | payer MEDICARE, SELFPAY ==
[2023-07-27 10:41] VITALS: BP 153/76; PULSE 77; RESP 16; TEMP 36; O2SAT 93; BMI 24.1
[2023-07-27] MEDS: 0.9% NaCl PICC Flush IV ×2 (10:43→11:45)
[2023-07-27] MEDS: 0.9% NaCl IVPB Med Flush (250 mL) 15 ML IV (10:44)
[2023-07-27] MEDS: Ertapenem Sod 1 GM in 0.9% Normal Saline (50mL MB+) 50 ML IV (10:46)
[2023-07-27 11:46] VITALS: BP 107/70; PULSE 61; RESP 16; TEMP 36.3; O2SAT 100
== END 2023-07-27 10:27 | disposition home or self-care (01) ==
LOC: MEDOUTP 10:26
PROVIDERS: PCP Family Medicine Geriatric Medicine; Referring Provider Surgery; Visit Provider Surgery
DX: L89.523 Pressure ulcer of left ankle, stage 3 (principal); M01.X72 Direct infection of left ankle and foot in infectious and parasitic diseases classified elsewhere
CPT/HCPCS: 96365; J7050; A4216

== ENCOUNTER 2023-07-28 10:00 | Outpatient (RCR) | payer MEDICARE, SELFPAY ==
[2023-06-28 00:42] VITALS: BP 148/55; PULSE 69; RESP 20; TEMP 35.6; BMI 24.5
[2023-06-30 11:45] VITALS: BP 145/59; PULSE 68; RESP 18; TEMP 35.8; BMI 24.5
--- NOTE | 2023-06-30 12:22 | PCM.WC.HP ---
History of Present Illness Date of Service: 06/30/23 Chief Complaint: Pressure ulceration, left lateral malleolus History of Wound: This is a 68-year-old female who presented with an ulceration on the left lateral malleolus. The ulceration had been present for approximately 4 weeks. The patient indicated her suspicion that this may be due to pressure phenomenon. She is a side sleeper, and notes restlessness in her lower extremities while sleeping. She has made effort in recent days to avoid sleeping on her left side, relieving the pressure on the ulcer site. She has been evaluated by her primary care physician, Dr. Bocanegra, who has treated the patient with 2 courses of oral antibiotics, including doxycycline and clindamycin. A culture performed on April 01, 2023, was positive for anaerobic cocci, though no sensitivities were reported. A recent x-ray of the area revealed soft tissue swelling, though no evidence of osteomyelitis. Laboratory studies were obtained on April 01, 2023, with results as follows: White blood count 1.3, hemoglobin 12.9, hematocrit 42.3, platelets 183,000, ESR 14, potassium 4.6, sodium 138, chloride 108, carbon dioxide 26.0, BUN 22, creatinine 0.88, glucose 92, calcium 9.2, total bilirubin 0.50, AST 13, ALT 11, alkaline phosphatase 44, C-reactive protein 9.94, total protein 7.6, albumin 3.7. The patient is active. Her BMI is 24.6. She denies a history of cerebrovascular accident, myocardial infarction, pulmonary disease, renal disease, and diabetes mellitus. Pre-existing medical problems are documented herein. Due to systemic lupus erythematosus, the patient has been on long-term steroid administration. [facility] Medical History B12 deficiency anemia Breast cancer Fibromyalgia Hyperlipidemia Hypertension Insomnia Irritable bowel syndrome Muscle spasm Pressure ulcer of left ankle, stage 3 Splenomegaly Systemic lupus erythematosus Home Medications doxycycline monohydrate 100 mg capsule 100 mg PO BID #20 caps 10/25/20 [Rx Last Taken Unknown] prednisone 5 mg tablet 5 mg PO DAILY 10/25/20 [History Last Taken Unknown] hydroxychloroquine 200 mg tablet (Plaquenil) 200 mg PO DAILY 05/26/22 [History Last Taken Unknown] Allergy/AdvReac Type Severity Reaction Status Date / Time Penicillins AdvReac Intermediate Rash Verified 06/23/23 14:37 Family History Daughter No problems noted. Father Diabetes Father Pancreas cancer Mother Osteoarthritis Afib Surgical History History of bilateral mastectomy History of left knee surgery Social History Smoking Status: Never smoker second hand exposure: No alcohol intake: never substance use type: does not use ford/quaker: None seatbelt use: always do you feel safe at home: Yes Vital Signs Vital Signs Vital Signs: 06/30/23 11:45 Temperature 96.5 F L Temperature Source Temporal Pulse Rate 68 Respiratory Rate 18 Blood Pressure 145/59 H Blood Pressure Mean 87 Blood Pressure Source Monitor Weight Weight: 150 lb Body Mass Index (BMI) 24.5 Physical Exam Const alert, oriented x3, no apparent distress, average body habitus and no limitations General Appearance: cooperative, comfortable, well kempt, well developed and frail Orientation / Consciousness: awake, oriented to person, oriented to place and oriented to time Exam Limitations: no limitations HEENT normocephalic, head/scalp atraumatic and hearing grossly normal bilaterally Head and Scalp: normal to inspection, normocephalic and atraumatic Face and Sinus: normal facial exam External Ear: external ears normal Eyes PERRL, EOMs intact bilaterally and conjunctivae normal General Eye: normal appearance of both eyes Neck full ROM Chest Chest: symmetrical chest wall rise Resp normal respiratory effort, normal air movement, no retractions and no use of accessory muscles Effort and Inspection: able to speak in complete sentences Back/Spine Back/Spine Narrative: Kyphoscoliosis Extremity no clubbing, cyanosis or edema Skin General Skin Exam: ecchymosis Wound Narrative: No significant swelling or edema are noted in the patient's lower extremities bilaterally. Mild hyperpigmentation is noted in the gaiter areas bilaterally. The ulceration overlying the left lateral malleolus is relatively unchanged in size, but with far less nonviable and necrotic tissue present. The satellite ulceration has now coalesced with the primary ulceration, creating 1 single ulceration. Ulcer margins are not well beveled. Dimensions are documented elsewhere. The aurelia-ulcer erythema has diminished considerably, and is now nearly abated. Neuro oriented x3, CN's II-XII intact bilaterally, moves all extremities and no focal motor deficits Sensorium / Orientation: awake, alert, oriented to person, oriented to place and oriented to time Coordination / Balance: [id number] test normal Speech: speech normal Psych mental status grossly normal Appearance: grossly normal and appropriate Attitude: calm Activity / Motor Behavior: appropriate eye contact Speech: normal speech Mood & Affect: euthymic mood Thought Process: normal thought process Thought Content: normal thought content Attention / Concentration: attention grossly intact Debridement Note Debridement Note Wound debrided: Left lateral malleolus ulceration Laterality: Left Type of Debridement: Excisional debridement Anesthesia Used: 5% Lidocaine Gel Depth: Down to and including healthy tissue and in the subcutaneous layer Percentage of wound debrided: 100 Instrument Used: 5mm curette Severity: Fat Layer Exposed Amount of bleeding with debridement: Mild Bleeding Controlled with: Compression and gauze Patient tolerated procedure: Patient tolerated procedure well Debridement Free Text: Swab cultures have been obtained for aerobic and anaerobic bacterial growth. Post-Debridement Measurements and Additional Note: Post-Debridement Measurements/Treatment - Nurse 1 - General Ulcer Assessment Start: 06/30/23 11:44 Freq: Status: Active Protocol: JESUS Activity Type Activity Date Activity User E-sign Co-sign Detail Recorded Client Recorded Date Recorded By Document 06/30/23 11:45 DL Desktop 06/30/23 11:49 DL 06/30/23 11:45 - Today's Visit Information Type of service Follow-up Visit (Physician/[employer] ) Arrival Mode Ambulatory Transfer Assistance None Patient Identification Verified (Name & Yes ) Patient Requires Transmission-Based No Precautions Height and Weight Body Mass Index (BMI) 24.5 BMI Classification Normal Vital Signs Temperature (97.8 F-99.1 F) 96.5 F L Temperature Source Temporal Pulse Rate (60-100) 68 Pulse Location Monitor Respiratory Rate (12-18) 18 Respiratory rate source Observation Blood Pressure (90/60-120/80) 145/59 H Blood Pressure Mean 87 Source Monitor History Since Last Visit- (Skip if this is Patient's initial visit) Have you changed medications since your No last visit? Any new allergies or adverse reactions No Signs or symptoms of abuse and/or No neglect since last visit Have you been in the hospital since your No last visit? Has dressing in place as prescribed Yes Has compression in place as prescribed Yes Has offloadiing in place as prescribed Yes Experienced any changes in pain level or No management Pain Scale: 0-10 Numeric Is Patient Pain Free? Yes WC - Nurse 1 - General Ulcer Measurement Start: 06/30/23 11:44 Freq: Status: Active Protocol: Activity Type Activity Date Activity User E-sign Co-sign Detail Recorded Client Recorded Date Recorded By Document 06/30/23 11:45 DL Desktop 06/30/23 11:49 DL 06/30/23 11:45 Wound Center Nurse 1 1. LT LAT ANKLE -Current Size (cm) - Length 3.2 -Current Size (cm) - Width 2.3 -Current Size (cm) - Depth 0.6 -Total Square Cm 7.36 -Photo Taken Yes -Exudate Amt Large -Exudate Type Serosanguineous -Wound Margin Thickened & Rolled Under -Granulation Amt Medium (34-66%) -Granulation Quality Red -Necrosis Amt Medium (34-66%) -Necrotic Tissue Type Adherent Slough -Structure Exposed N/A -Texture (Aurelia-wound Skin Appearance) Scarring -Moisture (Aurelia-wound Skin Appearance) Maceration -Color (Aurelia-wound Skin Appearance) Hemosiderin Staining -Temperature (Aurelia-wound Skin No Abnormality Appearance) (Pt Warm) -Tenderness on Palpation (Aurelia-wound No Skin Appearance) -Ulcer Cleansing Soap and Water -Foul Odor after Cleansing No -Anesthetic Used 5% Lidocaine Gel TIERA - Nurse 3 - General Ulcer D/C NN Start: 06/30/23 11:44 Freq: Status: Active Protocol: Activity Type Activity Date Activity User E-sign Co-sign Detail Recorded Client Recorded Date Recorded By Document 06/30/23 12:08 DL Desktop 06/30/23 12:10 DL Edit Result 06/30/23 12:08 DL (1) Desktop 06/30/23 12:11 DL (1) Notes: => Pt to resume Santyl at home. 06/30/23 12:08 Wound Care Center Nurse 3 -Ulcer Cleansing Rinsed/ Irrigated with Saline -Foul Odor after Cleansing No -Other Dressing hydrogel today in clinic -Primary Dressing Covered/Secured with Dry Gauze & Roll Gauze, Secured with Tape Right -Tubular Bandage Single Layer -Size of Tubigrip Used Size D -Size D ($) 1 Left -Tubular Bandage Single Layer -Size of Tubigrip Used Size D -Size D ($) 1 Treatment Response Procedure Tolerated Well Pain Scale: 0-10 Numeric Is Patient Pain Free? Yes WC - Visit Discharge Discharge Condition Stable Ambulatory Status Ambulatory Transportation Private Auto Notes: Pt to resume Santyl at home. 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9 - Systemic lupus erythematosus, unspecified (10) Hypertension: CODE(S): I10 - Essential (primary) hypertension (11) Irritable bowel syndrome: CODE(S): K58.9 - Irritable bowel syndrome without diarrhea PLAN: Plan This is a 68-year-old female of relatively normal body habitus. She presented with an ulceration overlying the left lateral malleolus. The ulceration had been present for approximately 1 month. She denied trauma, but felt as though this may be pressure related. She had been sleeping on her left side, and she indicated that pressure to the left lateral malleolus may have resulted in the ulceration. She had been treated by courses of doxycycline and clindamycin by her primary care physician, Dr. Bocanegra. Recent x-rays revealed soft tissue swelling, but no other significant abnormalities. The patient had been utilizing an antibiotic ointment topically. In recent weeks, the status of the patient's left lateral malleolus ulceration has worsened. The ulceration has become larger in size, and with increasing amounts of necrotic and nonviable tissue. She is known to be on long-term steroids due to her diagnosis of systemic lupus erythematosus. The long-term use of steroids may adversely affect the patient's healing potential. Due to the deteriorating nature of the patient's ulceration, the patient has been advised to speak with her other physicians regarding the possibility of temporarily discontinuing steroid treatment. The patient has been advised to elevate her lower extremities to minimize swelling. Tubigrip's are to be implemented as well in an effort to prevent swelling in the lower extremities. The satellite ulceration has now coalesced with the primary ulceration, creating 1 single ulceration overlying the left lateral malleolus. Swab cultures were obtained last week, and were positive for Serratia marcescens and anaerobic cocci. The patient has been started on Cipro 500 mg p.o. twice daily for 10 days and Flagyl 500 mg p.o. 3 times daily for 10 days. The course of antibiotics has now been completed. We are to continue the use of collagenase Santyl, and the patient has been instructed in the appropriate means of application. Offloading measures have been discussed with the patient in detail, and are to continue. She is to avoid sleeping on her left side, which will eliminate the likelihood of pressure to the ulcerated area. The patient is to return in 1 week for reassessment. A noninvasive lower extremity arterial study, performed on June 17, 2023, revealed no evidence of significant arterial occlusive disease in the patient's lower extremities bilaterally. Furthermore, review of the patient's most recent laboratory studies, from May 25, 2023, revealed serum albumin and protein to be within normal levels. A recent x-ray reveals no evidence of osteomyelitis or other deep pathology. The patient is not diabetic, and has been urged to optimize her nutritional intake. Total time: 28 minutes
--- NOTE | 2023-07-01 12:51 | VDLE_ITS ---
Reason For Study: Non healing wound RIGHT LEFT CFV is compressible, spontaneous, phasic, CFV is compressible, spontaneous, phasic, competent and demonstrates normal competent, and demonstrates normal augmentation. augmentation. FV is compressible, spontaneous, phasic, FV is compressible, spontaneous, phasic, competent and demonstrates normal competent and demonstrates normal augmentation. augmentation. POP V is compressible, phasic, and POP V is compressible, spontaneous, phasic, INCOMPETENT for greater than 1.0 second. competent and demonstrates normal T/P Trunk is compressible. augmentation. PTV is compressible. T/P Trunk is compressible. RT PerV is compressible. PTV is compressible. SFJ is competent and measures 0.65 x 0.68 cm. LT PerV is compressible. GSV proximal thigh measures 0.49 x 0.47 cm. SFJ is competent and measures 0.81 x 1.00 cm. GSV above knee is competent. GSV proximal thigh measures 0.52 x 0.57 cm. GSV at knee measures 0.57 x 0.52 cm. GSV above knee is competent. GSV below knee is INCOMPETENT for greater GSV at knee measures 0.67 x 0.70 cm. than 0.5 seconds. GSV below knee is INCOMPETENT for greater SSV at junction is competent and measures than 0.5 seconds. 0.34 x 0.36 cm. SSV at junction is competent and measures Procedure 0.31 x 0.30 cm. This is a venous duplex using B-mode, color flow and spectral Doppler. Exam performed in department. A preliminary report was called and/or faxed to . VL/Venous Duplex US - Son Extrem Interpretation Summary Deep veins of the lower extremities are bilaterally patent and compressible seg mentally. There is no evidence of deep vein thrombosis on either side. Valvular competence appears in tact within the proximal deep venous systems bilaterally. The right popliteal vein is incompete nt. The great saphenous veins appear bilaterally patent and compressible segmentally. Sapheno -femoral junctions are bilaterally competent . The right great saphenous vein appears competent ab ove the knee. The right great saphenous vein appears incompetent below the knee. The left great s aphenous vein appears competent above the knee. The left great saphenous vein appears incompetent bel ow the knee. Small saphenous veins are patent and competent bilaterally. Ordering Physician: Austin Atkins Referring Physician: Hector Bocanegra Chi Performed By: Aysha Blackman RVT
[2023-07-07 11:38] VITALS: BP 111/56; PULSE 75; RESP 18; TEMP 36.2; BMI 24.5
--- NOTE | 2023-07-07 12:43 | PCM.WC.HP ---
History of Present Illness Date of Service: 07/07/23 Chief Complaint: Pressure ulceration, left lateral malleolus History of Wound: This is a 68-year-old female who presented with an ulceration on the left lateral malleolus. The ulceration had been present for approximately 4 weeks. The patient indicated her suspicion that this may be due to pressure phenomenon. She is a side sleeper, and notes restlessness in her lower extremities while sleeping. She has made effort in recent days to avoid sleeping on her left side, relieving the pressure on the ulcer site. She has been evaluated by her primary care physician, Dr. Bocanegra, who has treated the patient with 2 courses of oral antibiotics, including doxycycline and clindamycin. A culture performed on April 01, 2023, was positive for anaerobic cocci, though no sensitivities were reported. A recent x-ray of the area revealed soft tissue swelling, though no evidence of osteomyelitis. Laboratory studies were obtained on April 01, 2023, with results as follows: White blood count 1.3, hemoglobin 12.9, hematocrit 42.3, platelets 183,000, ESR 14, potassium 4.6, sodium 138, chloride 108, carbon dioxide 26.0, BUN 22, creatinine 0.88, glucose 92, calcium 9.2, total bilirubin 0.50, AST 13, ALT 11, alkaline phosphatase 44, C-reactive protein 9.94, total protein 7.6, albumin 3.7. The patient is active. Her BMI is 24.6. She denies a history of cerebrovascular accident, myocardial infarction, pulmonary disease, renal disease, and diabetes mellitus. Pre-existing medical problems are documented herein. Due to systemic lupus erythematosus, the patient has been on long-term steroid administration. [facility] Medical History B12 deficiency anemia Breast cancer Fibromyalgia Hyperlipidemia Hypertension Insomnia Irritable bowel syndrome Muscle spasm Pressure ulcer of left ankle, stage 3 Splenomegaly Systemic lupus erythematosus Home Medications doxycycline monohydrate 100 mg capsule 100 mg PO BID #20 caps 10/25/20 [Rx Last Taken Unknown] prednisone 5 mg tablet 5 mg PO DAILY 10/25/20 [History Last Taken Unknown] hydroxychloroquine 200 mg tablet (Plaquenil) 200 mg PO DAILY 05/26/22 [History Last Taken Unknown] Allergy/AdvReac Type Severity Reaction Status Date / Time Penicillins AdvReac Intermediate Rash Verified 06/23/23 14:37 Family History Daughter No problems noted. Father Diabetes Father Pancreas cancer Mother Osteoarthritis Afib Surgical History History of bilateral mastectomy History of left knee surgery Social History Smoking Status: Never smoker second hand exposure: No alcohol intake: never substance use type: does not use ford/gnosticism: None seatbelt use: always do you feel safe at home: Yes Vital Signs Vital Signs Vital Signs: 07/07/23 11:38 Temperature 97.1 F L Temperature Source Temporal Pulse Rate 75 Respiratory Rate 18 Blood Pressure 111/56 L Blood Pressure Mean 74 Blood Pressure Source Monitor Blood Pressure Position Semi-Fowlers Blood Pressure Location Left Arm Weight Weight: 150 lb Body Mass Index (BMI) 24.5 Physical Exam Const alert, oriented x3, no apparent distress, average body habitus and no limitations General Appearance: cooperative, comfortable, well kempt, well developed and frail Orientation / Consciousness: awake, oriented to person, oriented to place and oriented to time Exam Limitations: no limitations HEENT normocephalic, head/scalp atraumatic and hearing grossly normal bilaterally Head and Scalp: normal to inspection, normocephalic and atraumatic Face and Sinus: normal facial exam External Ear: external ears normal Eyes PERRL, EOMs intact bilaterally and conjunctivae normal General Eye: normal appearance of both eyes Neck full ROM Chest Chest: symmetrical chest wall rise Resp normal respiratory effort, normal air movement, no retractions and no use of accessory muscles Effort and Inspection: able to speak in complete sentences Back/Spine Back/Spine Narrative: Kyphoscoliosis Extremity no clubbing, cyanosis or edema Skin General Skin Exam: ecchymosis Wound Narrative: No significant swelling or edema are noted in the patient's lower extremities bilaterally. Mild hyperpigmentation is noted in the gaiter areas bilaterally. The ulceration overlying the left lateral malleolus persists, though relatively unchanged in size. The base of the ulceration is generally pink and healthy in appearance. There is slight erythema surrounding the ulceration. A small amount of undermining is noted anteriorly. Ulcer margins are not well beveled. There is a moderate amount of bioburden. Neuro oriented x3, CN's II-XII intact bilaterally, moves all extremities and no focal motor deficits Sensorium / Orientation: awake, alert, oriented to person, oriented to place and oriented to time Coordination / Balance: [id number] test normal Speech: speech normal Psych mental status grossly normal Appearance: grossly normal and appropriate Attitude: calm Activity / Motor Behavior: appropriate eye contact Speech: normal speech Mood & Affect: euthymic mood Thought Process: normal thought process Thought Content: normal thought content Attention / Concentration: attention grossly intact Debridement Note Debridement Note Wound debrided: Left lateral malleolus ulceration Laterality: Left Type of Debridement: Excisional debridement Anesthesia Used: 5% Lidocaine Gel Depth: Down to and including healthy tissue and in the subcutaneous layer Percentage of wound debrided: 100 Instrument Used: 5mm curette Severity: Fat Layer Exposed Amount of bleeding with debridement: Mild Bleeding Controlled with: Compression and gauze Patient tolerated procedure: Patient tolerated procedure well Debridement Free Text: Swab cultures have been obtained for aerobic and anaerobic bacterial growth. Post-Debridement Measurements and Additional Note: Post-Debridement Measurements/Treatment - Nurse 1 - General Ulcer Assessment Start: 06/30/23 11:44 Freq: Status: Active Protocol: [email or web address] Activity Type Activity Date Activity User E-sign Co-sign Detail Recorded Client Recorded Date Recorded By Document 06/30/23 11:45 DL Desktop 06/30/23 11:49 DL Document 07/07/23 11:38 RB Desktop 07/07/23 11:40 RB 06/30/23 07/07/23 11:45 11:38 - Today's Visit Information Type of service Follow-up Visit Follow-up Visit (Physician/STREET OPENINGS INSPECTOR (Physician/STREET OPENINGS INSPECTOR ) ) Arrival Mode Ambulatory Ambulatory Transfer Assistance None None Patient Identification Verified (Name & Yes Yes ) Patient Requires Transmission-Based No No Precautions Height and Weight Body Mass Index (BMI) 24.5 24.5 BMI Classification Normal Normal Vital Signs Temperature (97.8 F-99.1 F) 96.5 F L 97.1 F L Temperature Source Temporal Temporal Pulse Rate (60-100) 68 75 Pulse Location Monitor Monitor Respiratory Rate (12-18) 18 18 Respiratory rate source Observation Observation Blood Pressure (90/60-120/80) 145/59 H 111/56 L Blood Pressure Mean 87 74 Source Monitor Monitor Position Semi-Fowlers Blood Pressure Location Left Arm History Since Last Visit- (Skip if this is Patient's initial visit) Have you changed medications since your No No last visit? Any new allergies or adverse reactions No No Had a fall/change in ADL's that may No increase risk of falls Signs or symptoms of abuse and/or No No neglect since last visit Have you been in the hospital since your No No last visit? Has dressing in place as prescribed Yes Yes Has compression in place as prescribed Yes Yes Has offloadiing in place as prescribed Yes No Experienced any changes in pain level or No No management Pain Scale: 0-10 Numeric Is Patient Pain Free? Yes No lle -Description Sharp -Intensity 5 -Duration (hours) Acute -Pain Behavior Withdrawal from Touch -Pain Aggravating Factors Exercise/ Activity -Alleviating Factors/Interventions Medication -Effectiveness of Alleviating Factor/ Minimally Intervention effective WC - Nurse 1 - General Ulcer Measurement Start: 06/30/23 11:44 Freq: Status: Active Protocol: Activity Type Activity Date Activity User E-sign Co-sign Detail Recorded Client Recorded Date Recorded By Document 06/30/23 11:45 DL Desktop 06/30/23 11:49 DL Document 07/07/23 11:38 RB Desktop 07/07/23 11:40 RB 06/30/23 07/07/23 11:45 11:38 Wound Center Nurse 1 1. LT LAT ANKLE -Combined with other wound No -Current Size (cm) - Length 3.2 2.9 -Current Size (cm) - Width 2.3 2 -Current Size (cm) - Depth 0.6 0.3 -Total Square Cm 7.36 5.8 -Photo Taken Yes Yes -Tunneling No -Undermining/Tunneling No -Circular Undermining No -Exudate Amt Large Large -Exudate Type Serosanguineous Serosanguineous -Wound Margin Thickened & Distinct, Rolled Under Outline Attached -Granulation Amt Medium (34-66%) Medium (34-66%) -Granulation Quality [place] -Slough/Fibrin Yes -Necrosis Amt Medium (34-66%) Medium (34-66%) -Necrotic Tissue Type Adherent Slough Adherent Slough -Structure Exposed N/A N/A -Texture (Aurelia-wound Skin Appearance) Scarring Assessed -Moisture ([place]urelia-wound Skin Appearance) Maceration Assessed -Color ([place]urelia-wound Skin Appearance) Hemosiderin Erythema Staining -Temperature ([place]lia-wound Skin No Abnormality No Abnormality Appearance) (Pt Warm) (Pt Warm) -Tenderness on Palpation (Aurelia-wound No No Skin Appearance) -Ulcer Cleansing Soap and Water Wound Cleanser -Foul Odor after Cleansing No No -Anesthetic Used 5% Lidocaine 5% Lidocaine Gel Gel Lower Limb Edema Present Yes Left Calf (cm) 37.5 Left Ankle (cm) 19.5 WC - Nurse 2 - General Ulcer CM Notes Start: 06/30/23 11:44 Freq: Status: Active Protocol: Activity Type Activity Date Activity User E-sign Co-sign Detail Recorded Client Recorded Date Recorded By Document 06/30/23 13:32 PL [id number] 06/30/23 13:33 PL 06/30/23 13:32 Wound Center Nurse 2 1. LT LAT ANKLE -Time 11:52 -Correct Patient Yes -Correct Side, Site, Position Yes -Correct Procedure Yes -Procedure Performed Yes -Type of Procedure Debridement -Clinical Debridement Subcutaneous -Tissue Removed Subcutaneous -Post Debridement (cm) - Length 3.3 -Post Debridement (cm) - Width 2.4 -Post Debridement (cm) - Depth 0.6 -Total Square (Post) (cm) 7.92 -Area of Debridement (cm) - Length 3.3 -Area of Debridement (cm) - Width 2.4 -Total Square (Area) (cm) 7.92 -Tunneling No -Undermining/Tunneling No -Circular Undermining No -Wound/Ulcer Outcome Not Healed -Ulcer Cleansing Rinsed/ Irrigated with Saline -Foul Odor after Cleansing No -Bioengineered Tissue No -Bleeding Controlled with Pressure -Treatment Response Procedure Tolerated Well -Debridement - Subq, 1st 20sq cm Yes Pain Scale: 0-10 Numeric Is Patient Pain Free? Yes WC - Nurse 3 - General Ulcer D/C NN Start: 06/30/23 11:44 Freq: Status: Active Protocol: Activity Type Activity Date Activity User E-sign Co-sign Detail Recorded Client Recorded Date Recorded By Document 06/30/23 12:08 DL Desktop 06/30/23 12:10 DL Edit Result 06/30/23 12:08 DL (1) Desktop 06/30/23 12:11 DL Document 07/07/23 11:56 RB Desktop 07/07/23 11:57 RB (1) Notes: => Pt to resume Santyl at home. 06/30/23 07/07/23 12:08 11:56 Wound Care Center Nurse 3 1. LT LAT ANKLE -Ulcer Cleansing Rinsed/ Irrigated with Saline -Foul Odor after Cleansing No -Other Dressing hydrogel today santyl in clinic -Primary Dressing Covered/Secured with Dry Gauze & Dry Gauze & Roll Gauze, Roll Gauze, Secured with Secured with Tape Tape Right -Tubular Bandage Single Layer Single Layer -Size of Tubigrip Used Size D Size D -Size D ($) 1 1 Left -Tubular Bandage Single Layer Single Layer -Size of Tubigrip Used Size D Size D -Size D ($) 1 1 Treatment Response Procedure Procedure Tolerated Well Tolerated Well Pain Scale: 0-10 Numeric Is Patient Pain Free? Yes Yes Teaching: Wound Center Compression Wraps & Stockings -Person Taught Patient -Teaching Method Discussion, Demonstration -Response to teaching Verbalize understanding WC - Visit Discharge Discharge Condition Stable Stable Ambulatory Status Ambulatory Ambulatory Transportation Private Auto Private Auto Medication Reconcilliation completed & No provided to patient/care provider Clinical Summary of Care Provided Yes Notes: Pt to resume Santyl at home. 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9 - Systemic lupus erythematosus, unspecified (10) Hypertension: CODE(S): I10 - Essential (primary) hypertension (11) Irritable bowel syndrome: CODE(S): K58.9 - Irritable bowel syndrome without diarrhea PLAN: Plan This is a 68-year-old female of relatively normal body habitus. She presented with an ulceration overlying the left lateral malleolus. The ulceration had been present for approximately 1 month. She denied trauma, but felt as though this may be pressure related. She had been sleeping on her left side, and she indicated that pressure to the left lateral malleolus may have resulted in the ulceration. She had been treated by courses of doxycycline and clindamycin by her primary care physician, Dr. Bocanegra. Recent x-rays revealed soft tissue swelling, but no other significant abnormalities. The patient had been utilizing an antibiotic ointment topically. The patient is known to be on long-term steroids due to her diagnosis of systemic lupus erythematosus. The long-term use of steroids may adversely affect the patient's healing potential. Due to the failure of significant progress regarding wound healing, the patient has been advised to speak with her other physicians regarding the possibility of temporarily discontinuing steroid treatment. The patient has been advised to elevate her lower extremities to minimize swelling. Tubigrip's are to be continued in an effort to prevent swelling in the lower extremities. Swab cultures were obtained today, the results of which will be awaited. Antibiotic treatment, if indicated, will be based upon the results of today's cultures. We are to continue the use of collagenase Santyl, and the patient has been instructed in the appropriate means of application. Offloading measures have been discussed with the patient in detail, and are to continue. She is to avoid sleeping on her left side, which will eliminate the likelihood of pressure to the ulcerated area. The patient is to return in 1 week for reassessment. A noninvasive lower extremity arterial study, performed on June 17, 2023, revealed no evidence of significant arterial occlusive disease in the patient's lower extremities bilaterally. Furthermore, review of the patient's most recent laboratory studies, from May 25, 2023, revealed serum albumin and protein to be within normal levels. A recent x-ray reveals no evidence of osteomyelitis or other deep pathology. The patient is not diabetic, and has been urged to optimize her nutritional intake. A venous duplex examination was performed on 07/01/2023, revealing incompetence of the great saphenous veins bilaterally below the knee. Small saphenous veins appear competent bilaterally. Therefore, superficial venous incompetence appears unlikely as a source of the patient's ulceration. We are to consider reimplementation of an EpiFix allograft in the near future. Total time: 26 minutes
[2023-07-14 11:29] VITALS: BP 140/60; PULSE 63; RESP 18; TEMP 36.6; BMI 24.5
--- NOTE | 2023-07-14 12:09 | PCM.WC.HP ---
History of Present Illness Date of Service: 07/14/23 Chief Complaint: Pressure ulceration, left lateral malleolus History of Wound: This is a 68-year-old female who presented with an ulceration on the left lateral malleolus. The ulceration had been present for approximately 4 weeks. The patient indicated her suspicion that this may be due to pressure phenomenon. She is a side sleeper, and notes restlessness in her lower extremities while sleeping. She has made effort in recent days to avoid sleeping on her left side, relieving the pressure on the ulcer site. She has been evaluated by her primary care physician, Dr. Bocanegra, who has treated the patient with 2 courses of oral antibiotics, including doxycycline and clindamycin. A culture performed on April 01, 2023, was positive for anaerobic cocci, though no sensitivities were reported. A recent x-ray of the area revealed soft tissue swelling, though no evidence of osteomyelitis. Laboratory studies were obtained on April 01, 2023, with results as follows: White blood count 1.3, hemoglobin 12.9, hematocrit 42.3, platelets 183,000, ESR 14, potassium 4.6, sodium 138, chloride 108, carbon dioxide 26.0, BUN 22, creatinine 0.88, glucose 92, calcium 9.2, total bilirubin 0.50, AST 13, ALT 11, alkaline phosphatase 44, C-reactive protein 9.94, total protein 7.6, albumin 3.7. The patient is active. Her BMI is 24.6. She denies a history of cerebrovascular accident, myocardial infarction, pulmonary disease, renal disease, and diabetes mellitus. Pre-existing medical problems are documented herein. Due to systemic lupus erythematosus, the patient has been on long-term steroid administration. [facility] Medical History (Updated 07/14/23 @ 12:[address] Austin Atkins MD) B12 deficiency anemia Breast cancer Complicated wound infection Fibromyalgia Hyperlipidemia Hypertension Insomnia Irritable bowel syndrome Muscle spasm Pressure ulcer of left ankle, stage 3 Splenomegaly Systemic lupus erythematosus Home Medications doxycycline monohydrate 100 mg capsule 100 mg PO BID #20 caps 10/25/20 [Rx Last Taken Unknown] prednisone 5 mg tablet 5 mg PO DAILY 10/25/20 [History Last Taken Unknown] hydroxychloroquine 200 mg tablet (Plaquenil) 200 mg PO DAILY 05/26/22 [History Last Taken Unknown] Allergy/AdvReac Type Severity Reaction Status Date / Time Penicillins AdvReac Intermediate Rash Verified 06/23/23 14:37 Family History Daughter No problems noted. Father Diabetes Father Pancreas cancer Mother Osteoarthritis Afib Surgical History History of bilateral mastectomy History of left knee surgery Social History Smoking Status: Never smoker second hand exposure: No alcohol intake: never substance use type: does not use ford/mormon: None seatbelt use: always do you feel safe at home: Yes Vital Signs Vital Signs Vital Signs: 07/14/23 11:29 Temperature 98 F Temperature Source Temporal Pulse Rate 63 Respiratory Rate 18 Blood Pressure 140/60 H Blood Pressure Mean 86 Blood Pressure Source Monitor Blood Pressure Position Sitting Blood Pressure Location Left Arm Oxygen Delivery Method Room Air Weight Weight: 150 lb Body Mass Index (BMI) 24.5 Physical Exam Const alert, oriented x3, no apparent distress, average body habitus and no limitations General Appearance: cooperative, comfortable, well kempt, well developed and frail Orientation / Consciousness: awake, oriented to person, oriented to place and oriented to time Exam Limitations: no limitations HEENT normocephalic, head/scalp atraumatic and hearing grossly normal bilaterally Head and Scalp: normal to inspection, normocephalic and atraumatic Face and Sinus: normal facial exam External Ear: external ears normal Eyes PERRL, EOMs intact bilaterally and conjunctivae normal General Eye: normal appearance of both eyes Neck full ROM Chest Chest: symmetrical chest wall rise Resp normal respiratory effort, normal air movement, no retractions and no use of accessory muscles Effort and Inspection: able to speak in complete sentences Back/Spine Back/Spine Narrative: Kyphoscoliosis Extremity no clubbing, cyanosis or edema Skin General Skin Exam: ecchymosis Wound Narrative: No significant swelling or edema are noted in the patient's lower extremities bilaterally. Mild hyperpigmentation is noted in the gaiter areas bilaterally. The ulceration overlying the left lateral malleolus persists. It has enlarged in size, and worsened to a significant degree. There is now a rather large amount of necrotic and nonviable tissue present. Dimensions are documented elsewhere. There is a rim of erythema, appearing to represent cellulitis. Neuro oriented x3, CN's II-XII intact bilaterally, moves all extremities and no focal motor deficits Sensorium / Orientation: awake, alert, oriented to person, oriented to place and oriented to time Coordination / Balance: [id number] test normal Speech: speech normal Psych mental status grossly normal Appearance: grossly normal and appropriate Attitude: calm Activity / Motor Behavior: appropriate eye contact Speech: normal speech Mood & Affect: euthymic mood Thought Process: normal thought process Thought Content: normal thought content Attention / Concentration: attention grossly intact Debridement Note Debridement Note Wound debrided: Left lateral malleolus ulceration Laterality: Left Type of Debridement: Excisional debridement Anesthesia Used: 5% Lidocaine Gel Depth: Down to and including healthy tissue and in the subcutaneous layer Percentage of wound debrided: 100 Instrument Used: 5mm curette Severity: Fat Layer Exposed Amount of bleeding with debridement: Mild Bleeding Controlled with: Compression and gauze Patient tolerated procedure: Patient tolerated procedure well Debridement Free Text: Despite today's excisional debridement, a large amount of frankly necrotic and nonviable tissue remain. Post-Debridement Measurements and Additional Note: Post-Debridement Measurements/Treatment - Nurse 1 - General Ulcer Assessment Start: 06/30/23 11:44 Freq: Status: Active Protocol: [email or web address] Activity Type Activity Date Activity User E-sign Co-sign Detail Recorded Client Recorded Date Recorded By Document 06/30/23 11:45 DL Desktop 06/30/23 11:49 DL Document 07/07/23 11:38 RB Desktop 07/07/23 11:40 RB Document 07/14/23 11:29 MT Desktop 07/14/23 11:35 MT 06/30/23 07/07/23 07/14/23 11:45 11:38 11:29 - Today's Visit Information Type of service Follow-up Visit Follow-up Visit Follow-up Visit (Physician/RECONDITIONER (Physician/RECONDITIONER (Physician/RECONDITIONER ) ) ) Arrival Mode Ambulatory Ambulatory Ambulatory Transfer Assistance None None Accompanied by self Patient Identification Verified (Name & Yes Yes Yes ) Patient Requires Transmission-Based No No Precautions Safety Precautions Fall Prevention Height and Weight Body Mass Index (BMI) 24.5 24.5 24.5 BMI Classification Normal Normal Normal Vital Signs Temperature (97.8 F-99.1 F) 96.5 F L 97.1 F L 98 F Temperature Source Temporal Temporal Temporal Pulse Rate (60-100) 68 75 63 Pulse Location Monitor Monitor Monitor Respiratory Rate (12-18) 18 18 18 Respiratory rate source Observation Observation Observation Oxygen Delivery Method Room Air Blood Pressure (90/60-120/80) 145/59 H 111/56 L 140/60 H Blood Pressure Mean 87 74 86 Source Monitor Monitor Monitor Position Semi-Fowlers Sitting Blood Pressure Location Left Arm Left Arm History Since Last Visit- (Skip if this is Patient's initial visit) Have you changed medications since your No No last visit? Any new allergies or adverse reactions No No Had a fall/change in ADL's that may No increase risk of falls Signs or symptoms of abuse and/or No No neglect since last visit Have you been in the hospital since your No No last visit? Has dressing in place as prescribed Yes Yes Yes Has compression in place as prescribed Yes Yes Yes Has offloadiing in place as prescribed Yes No Yes Experienced any changes in pain level or No No No management Left Footwear Regular Shoe Right Footwear Regular Shoe Pain Scale: 0-10 Numeric Is Patient Pain Free? Yes No Yes lle -Description Sharp -Intensity 5 -Duration (hours) Acute -Pain Behavior Withdrawal from Touch -Pain Aggravating Factors Exercise/ Activity -Alleviating Factors/Interventions Medication -Effectiveness of Alleviating Factor/ Minimally Intervention effective WC - Nurse 1 - General Ulcer Measurement Start: 06/30/23 11:44 Freq: Status: Active Protocol: Activity Type Activity Date Activity User E-sign Co-sign Detail Recorded Client Recorded Date Recorded By Document 06/30/23 11:45 DL Desktop 06/30/23 11:49 DL Document 07/07/23 11:38 RB Desktop 07/07/23 11:40 RB Document 07/14/23 11:29 MT Desktop 07/14/23 11:35 MT 06/30/23 07/07/23 07/14/23 11:45 11:38 11:29 Wound Center Nurse 1 1. LT LAT ANKLE -Combined with other wound No -Current Size (cm) - Length 3.2 2.9 2.5 -Current Size (cm) - Width 2.3 2 2.8 -Current Size (cm) - Depth 0.6 0.3 0.1 -Total Square Cm 7.36 5.8 7.00 -Photo Taken Yes Yes No -Tunneling No No -Undermining/Tunneling No Yes -Undermining/Tunneling Starts (O'clock 12 ) -Undermining/Tunneling Ends (O'clock) 6 -Maximum Distance (cm) 0.4 -Circular Undermining No No -Exudate Amt Large Large Small -Exudate Type Serosanguineous Serosanguineous Sanguineous -Wound Margin Thickened & Distinct, Thickened Rolled Under Outline Attached -Granulation Amt Medium (34-66%) Medium (34-66%) None Present (0 %) -Granulation Quality [place] -Slough/Fibrin Yes -Necrosis Amt Medium (34-66%) Medium (34-66%) Large (67-100%) -Necrotic Tissue Type Adherent Slough Adherent Slough Eschar -Structure Exposed N/A N/A Fat Layer Exposed -Texture (Aurelia-wound Skin Appearance) Scarring Assessed Assessed -Moisture (Aurelia-wound Skin Appearance) Maceration Assessed Assessed -Color (Aurelia-wound Skin Appearance) Hemosiderin Erythema Assessed Staining -Temperature (Aurelia-wound Skin No Abnormality No Abnormality No Abnormality Appearance) (Pt Warm) (Pt Warm) (Pt Warm) -Tenderness on Palpation (Aurelia-wound No No No Skin Appearance) -Ulcer Cleansing Soap and Water Wound Cleanser Soap and Water -Foul Odor after Cleansing No No No -Anesthetic Used 5% Lidocaine 5% Lidocaine 5% Lidocaine Gel Gel Gel -Wound Comment(s) pt wound has poor color. pt wound base is brown in color. circular undermining from 12-6 Lower Limb Edema Present Yes NA Left Calf (cm) 37.5 Left Ankle (cm) 19.5 WC - Nurse 2 - General Ulcer CM Notes Start: 06/30/23 11:44 Freq: Status: Active Protocol: Activity Type Activity Date Activity User E-sign Co-sign Detail Recorded Client Recorded Date Recorded By Document 06/30/23 13:32 PL [id number] 06/30/23 13:33 PL Document 07/07/23 13:24 PL [id number] 07/07/23 13:26 PL 06/30/23 07/07/23 13:32 13:24 Wound Center Nurse 2 1. LT LAT ANKLE -Time 11:52 11:46 -Correct Patient Yes Yes -Correct Side, Site, Position Yes Yes -Correct Procedure Yes Yes -Procedure Performed Yes Yes -Type of Procedure Debridement Debridement -Clinical Debridement Subcutaneous Subcutaneous -Tissue Removed Subcutaneous Subcutaneous -Post Debridement (cm) - Length 3.3 2.9 -Post Debridement (cm) - Width 2.4 2.0 -Post Debridement (cm) - Depth 0.6 0.3 -Total Square (Post) (cm) 7.92 5.80 -Area of Debridement (cm) - Length 3.3 2.9 -Area of Debridement (cm) - Width 2.4 2.0 -Total Square (Area) (cm) 7.92 5.80 -Tunneling No No -Undermining/Tunneling No No -Circular Undermining No No -Wound/Ulcer Outcome Not Healed Healed- Surgical Closure -Ulcer Cleansing Rinsed/ Rinsed/ Irrigated with Irrigated with Saline Saline -Foul Odor after Cleansing No No -Bioengineered Tissue No No -Bleeding Controlled with Pressure Pressure -Treatment Response Procedure Procedure Tolerated Well Tolerated Well -Debridement - Subq, 1st 20sq cm Yes Yes Pain Scale: 0-10 Numeric Is Patient Pain Free? Yes Yes WC - Nurse 3 - General Ulcer D/C NN Start: 06/30/23 11:44 Freq: Status: Active Protocol: Activity Type Activity Date Activity User E-sign Co-sign Detail Recorded Client Recorded Date Recorded By Document 06/30/23 12:08 DL Desktop 06/30/23 12:10 DL Edit Result 06/30/23 12:08 DL (1) Desktop 06/30/23 12:11 DL Document 07/07/23 11:56 RB Desktop 07/07/23 11:57 RB (1) Notes: => Pt to resume Santyl at home. 06/30/23 07/07/23 12:08 11:56 Wound Care Center Nurse 3 1. LT LAT ANKLE -Ulcer Cleansing Rinsed/ Irrigated with Saline -Foul Odor after Cleansing No -Other Dressing hydrogel today santyl in clinic -Primary Dressing Covered/Secured with Dry Gauze & Dry Gauze & Roll Gauze, Roll Gauze, Secured with Secured with Tape Tape Right -Tubular Bandage Single Layer Single Layer -Size of Tubigrip Used Size D Size D -Size D ($) 1 1 Left -Tubular Bandage Single Layer Single Layer -Size of Tubigrip Used Size D Size D -Size D ($) 1 1 Treatment Response Procedure Procedure Tolerated Well Tolerated Well Pain Scale: 0-10 Numeric Is Patient Pain Free? Yes Yes Teaching: Wound Center Compression Wraps & Stockings -Person Taught Patient -Teaching Method Discussion, Demonstration -Response to teaching Verbalize understanding WC - Visit Discharge Discharge Condition Stable Stable Ambulatory Status Ambulatory Ambulatory Transportation Private Auto Private Auto Medication Reconcilliation completed & No provided to patient/care provider Clinical Summary of Care Provided Yes Notes: Pt to resume Santyl at home. 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, unspecified site (4) Leukopenia: CODE(S): D72.819 - Decreased white blood cell count, unspecified QUALIFIERS: Leukopenia type: neutropenia Neutropenia type: other Qualified Code(s): D70.8 - Other neutropenia (5) Splenomegaly: CODE(S): R16.1 - Splenomegaly, not elsewhere classified (6) Status post bilateral mastectomy: CODE(S): Z90.13 - Acquired absence of bilateral breasts and nipples (7) RA (rheumatoid arthritis): CODE(S): M06.9 - Rheumatoid arthritis, unspecified (8) Long-term current use of steroids: CODE(S): NQN2083 - (9) Raynauds syndrome: (10) Systemic lupus erythematosus: CODE(S): M32.9 - Systemic lupus erythematosus, unspecified (11) Hypertension: CODE(S): I10 - Essential (primary) hypertension (12) Irritable bowel syndrome: CODE(S): K58.9 - Irritable bowel syndrome without diarrhea PLAN: Plan This is a 68-year-old female of relatively normal body habitus. She presented with an ulceration overlying the left lateral malleolus. The ulceration had been present for approximately 1 month. She denied trauma, but felt as though this may be pressure related. She had been sleeping on her left side, and she indicated that pressure to the left lateral malleolus may have resulted in the ulceration. She had been treated by courses of doxycycline and clindamycin by her primary care physician, Dr. Bocanegra. Recent x-rays revealed soft tissue swelling, but no other significant abnormalities. The patient had been utilizing an antibiotic ointment topically. The patient is known to be on long-term steroids due to her diagnosis of systemic lupus erythematosus. The long-term use of steroids may adversely affect the patient's healing potential. Due to the failure of significant progress regarding wound healing, the patient has been advised to speak with her other physicians regarding the possibility of temporarily discontinuing steroid treatment. The patient has been advised to elevate her lower extremities to minimize swelling. Tubigrip's are to be continued in an effort to prevent swelling in the lower extremities. Swab cultures were obtained last week, the results of which revealed the presence of Serratia marcescens, ESBL E. coli, Proteus mirabilis, and a lactobacillus anaerobe. Because of the complicated nature and multi-organism infection, we are to seek consultation with the Infectious Disease service, Dr. Bruno. Arrangements are to be made for the patient to be evaluated by Dr. Bruno as soon as possible, so that an antibiotic protocol can be initiated appropriate to the patient's recent cultures. It should be noted that the patient has recently had a multi-organism infection at the site within the last 6 to 8 weeks, which was treated with a course of oral antibiotics, with only short-term improvement. We are to implement the use of Dakin's solution?moistened gauze topically to the ulceration on a daily basis. The patient has been instructed in the appropriate means of application. It is anticipated that this will assist in the mechanical debridement of the nonviable tissue at the site. Offloading measures have been discussed with the patient in detail, and are to continue. She is to avoid sleeping on her left side, which will eliminate the likelihood of pressure to the ulcerated area. The patient is to return in 1 week for reassessment. A noninvasive lower extremity arterial study, performed on June 17, 2023, revealed no evidence of significant arterial occlusive disease in the patient's lower extremities bilaterally. Furthermore, review of the patient's most recent laboratory studies, from May 25, 2023, revealed serum albumin and protein to be within normal levels. A recent x-ray reveals no evidence of osteomyelitis or other deep pathology. The patient is not diabetic, and has been urged to optimize her nutritional intake. A venous duplex examination was performed on 07/01/2023, revealing incompetence of the great saphenous veins bilaterally below the knee. Small saphenous veins appear competent bilaterally. Therefore, superficial venous incompetence appears unlikely as a source of the patient's ulceration. Total time: 25 minutes
[2023-07-21 11:48] VITALS: BP 157/56; PULSE 71; RESP 16; TEMP 36; BMI 24.5
--- NOTE | 2023-07-21 12:24 | HP.PCM_ITS ---
History of Present Illness Date of Service: 07/21/23 Chief Complaint: Pressure ulceration, left lateral malleolus History of Wound: This is a 68-year-old female who presented with an ulceration on the left lateral malleolus. The ulceration had been present for approximately 4 weeks. The patient indicated her suspicion that this may be due to pressure phenomenon. She is a side sleeper, and notes restlessness in her lower extremities while sleeping. She has made effort in recent days to avoid sleeping on her left side, relieving the pressure on the ulcer site. She has been evaluated by her primary care physician, Dr. Bocanegra, who has treated the patient with 2 courses of oral antibiotics, including doxycycline and clindamycin. A culture performed on April 01, 2023, was positive for anaerobic cocci, though no sensitivities were reported. A recent x-ray of the area revealed soft tissue swelling, though no evidence of osteomyelitis. Laboratory studies were obtained on April 01, 2023, with results as follows: White blood count 1.3, hemoglobin 12.9, hematocrit 42.3, platelets 183,000, ESR 14, potassium 4.6, sodium 138, chloride 108, carbon dioxide 26.0, BUN 22, creatinine 0.88, glucose 92, calcium 9.2, total bilirubin 0.50, AST 13, ALT 11, alkaline phosphatase 44, C-reactive protein 9.94, total protein 7.6, albumin 3.7. The patient is active. Her BMI is 24.6. She denies a history of cerebrovascular accident, myocardial infarction, pulmonary disease, renal disease, and diabetes mellitus. Pre-existing medical problems are documented herein. Due to systemic lupus erythematosus, the patient has been on long-term steroid administration. [facility] Medical History B12 deficiency anemia Breast cancer Complicated wound infection Fibromyalgia Hyperlipidemia Hypertension Insomnia Irritable bowel syndrome Muscle spasm Pressure ulcer of left ankle, stage 3 Splenomegaly Systemic lupus erythematosus Home Medications doxycycline monohydrate 100 mg capsule 100 mg PO BID #20 caps 10/25/20 [Rx Last Taken Unknown] prednisone 5 mg tablet 5 mg PO DAILY 10/25/20 [History Last Taken Unknown] hydroxychloroquine 200 mg tablet (Plaquenil) 200 mg PO DAILY 05/26/22 [History Last Taken Unknown] Allergy/AdvReac Type Severity Reaction Status Date / Time Penicillins AdvReac Intermediate Rash Verified 07/16/23 11:31 Family History Daughter No problems noted. Father Diabetes Father Pancreas cancer Mother Osteoarthritis Afib Surgical History History of bilateral mastectomy History of left knee surgery Social History Smoking Status: Never smoker second hand exposure: No alcohol intake: never substance use type: does not use ford/yazidism: None seatbelt use: always do you feel safe at home: Yes Vital Signs Vital Signs Vital Signs: 07/21/23 11:48 Temperature 96.8 F L Temperature Source Temporal Pulse Rate 71 Respiratory Rate 16 Blood Pressure 157/56 H Blood Pressure Mean 89 Blood Pressure Source Monitor Blood Pressure Position Sitting Blood Pressure Location Left Arm Oxygen Delivery Method Room Air Weight Weight: 150 lb Body Mass Index (BMI) 24.5 Physical Exam Const alert, oriented x3, no apparent distress, average body habitus and no limitations General Appearance: cooperative, comfortable, well kempt, well developed and frail Orientation / Consciousness: awake, oriented to person, oriented to place and oriented to time Exam Limitations: no limitations HEENT normocephalic, head/scalp atraumatic and hearing grossly normal bilaterally Head and Scalp: normal to inspection, normocephalic and atraumatic Face and Sinus: normal facial exam External Ear: external ears normal Eyes PERRL, EOMs intact bilaterally and conjunctivae normal General Eye: normal appearance of both eyes Neck full ROM Chest Chest: symmetrical chest wall rise Resp normal respiratory effort, normal air movement, no retractions and no use of accessory muscles Effort and Inspection: able to speak in complete sentences Back/Spine Back/Spine Narrative: Kyphoscoliosis Extremity no clubbing, cyanosis or edema Skin General Skin Exam: ecchymosis Wound Narrative: No significant swelling or edema are noted in the patient's lower extremities bilaterally. Mild hyperpigmentation is noted in the gaiter areas bilaterally. The ulceration overlying the left lateral malleolus persists. It had recently deteriorated, enlarging in size, and demonstrating increasing areas of necrosis and nonviable tissue. Furthermore, significant cellulitis had developed about the ulceration. However, since the patient's last visit, and having been started on intravenous antibiotic, the ulceration has shown some improvement. The amount of frankly necrotic tissue has decreased. The surrounding cellulitis has also diminished. A moderate amount of necrotic and nonviable tissue persists. Dimensions are documented elsewhere. Neuro oriented x3, CN's II-XII intact bilaterally, moves all extremities and no focal motor deficits Sensorium / Orientation: awake, alert, oriented to person, oriented to place and oriented to time Coordination / Balance: [id number] test normal Speech: speech normal Psych mental status grossly normal Appearance: grossly normal and appropriate Attitude: calm Activity / Motor Behavior: appropriate eye contact Speech: normal speech Mood & Affect: euthymic mood Thought Process: normal thought process Thought Content: normal thought content Attention / Concentration: attention grossly intact Debridement Note Debridement Note Wound debrided: Left lateral malleolus ulceration Laterality: Left Type of Debridement: Excisional debridement Anesthesia Used: 5% Lidocaine Gel Depth: Down to and including healthy tissue and in the subcutaneous layer Percentage of wound debrided: 100 Instrument Used: 5mm curette Tissue Removed: Bioburden and necrotic/nonviable material Severity: Fat Layer Exposed Amount of bleeding with debridement: Mild Bleeding Controlled with: Compression and gauze Patient tolerated procedure: Patient tolerated procedure well Post-Debridement Measurements and Additional Note: Post-Debridement Measurements/Treatment - Nurse 1 - General Ulcer Assessment Start: 06/30/23 11:44 Freq: Status: Active Protocol: JESUS Activity Type Activity Date Activity User E-sign Co-sign Detail Recorded Client Recorded Date Recorded By Document 06/30/23 11:45 DL Desktop 06/30/23 11:49 DL Document 07/07/23 11:38 RB Desktop 07/07/23 11:40 RB Document 07/14/23 11:29 MT Desktop 07/14/23 11:35 MT Document 07/21/23 11:48 MW Desktop 07/21/23 11:49 MW 06/30/23 07/07/23 07/14/23 11:45 11:38 11:29 - Today's Visit Information Type of service Follow-up Visit Follow-up Visit Follow-up Visit (Physician/AIR TRAFFIC SUPERVISOR (Physician/AIR TRAFFIC SUPERVISOR (Physician/AIR TRAFFIC SUPERVISOR ) ) ) Arrival Mode Ambulatory Ambulatory Ambulatory Transfer Assistance None None Accompanied by self Patient Identification Verified (Name & Yes Yes Yes ) Patient Requires Transmission-Based No No Precautions Safety Precautions Fall Prevention Height and Weight Body Mass Index (BMI) 24.5 24.5 24.5 BMI Classification Normal Normal Normal Vital Signs Temperature (97.8 F-99.1 F) 96.5 F L 97.1 F L 98 F Temperature Source Temporal Temporal Temporal Pulse Rate (60-100) 68 75 63 Pulse Location Monitor Monitor Monitor Respiratory Rate (12-18) 18 18 18 Respiratory rate source Observation Observation Observation Oxygen Delivery Method Room Air Blood Pressure (90/60-120/80) 145/59 H 111/56 L 140/60 H Blood Pressure Mean 87 74 86 Source Monitor Monitor Monitor Position Semi-Fowlers Sitting Blood Pressure Location Left Arm Left Arm History Since Last Visit- (Skip if this is Patient's initial visit) Have you changed medications since your No No last visit? Any new allergies or adverse reactions No No Had a fall/change in ADL's that may No increase risk of falls Signs or symptoms of abuse and/or No No neglect since last visit Have you been in the hospital since your No No last visit? Has dressing in place as prescribed Yes Yes Yes Has compression in place as prescribed Yes Yes Yes Has offloadiing in place as prescribed Yes No Yes Experienced any changes in pain level or No No No management Left Footwear Regular Shoe Right Footwear Regular Shoe Pain Scale: 0-10 Numeric Is Patient Pain Free? Yes No Yes lle -Description Sharp -Intensity 5 -Duration (hours) Acute -Pain Behavior Withdrawal from Touch -Pain Aggravating Factors Exercise/ Activity -Alleviating Factors/Interventions Medication -Effectiveness of Alleviating Factor/ Minimally Intervention effective 07/21/23 11:48 WC - Today's Visit Information Type of service Follow-up Visit (Physician/AIR TRAFFIC SUPERVISOR ) Arrival Mode Ambulatory,Cane Transfer Assistance None Accompanied by self Patient Identification Verified (Name & Yes ) Patient Requires Transmission-Based No Precautions Safety Precautions Height and Weight Body Mass Index (BMI) 24.5 BMI Classification Normal Vital Signs Temperature (97.8 F-99.1 F) 96.8 F L Temperature Source Temporal Pulse Rate (60-100) 71 Pulse Location Monitor Respiratory Rate (12-18) 16 Respiratory rate source Observation Oxygen Delivery Method Room Air Blood Pressure (90/60-120/80) 157/56 H Blood Pressure Mean 89 Source Monitor Position Sitting Blood Pressure Location Left Arm History Since Last Visit- (Skip if this is Patient's initial visit) Have you changed medications since your No last visit? Any new allergies or adverse reactions No Had a fall/change in ADL's that may No increase risk of falls Signs or symptoms of abuse and/or No neglect since last visit Have you been in the hospital since your No last visit? Has dressing in place as prescribed Yes Has compression in place as prescribed Yes Has offloadiing in place as prescribed N/A Experienced any changes in pain level or No management Left Footwear Regular Shoe Right Footwear Regular Shoe Pain Scale: 0-10 Numeric Is Patient Pain Free? Yes lle -Description -Intensity -Duration (hours) -Pain Behavior -Pain Aggravating Factors -Alleviating Factors/Interventions -Effectiveness of Alleviating Factor/ Intervention WC - Nurse 1 - General Ulcer Measurement Start: 06/30/23 11:44 Freq: Status: Active Protocol: Activity Type Activity Date Activity User E-sign Co-sign Detail Recorded Client Recorded Date Recorded By Document 06/30/23 11:45 DL Desktop 06/30/23 11:49 DL Document 07/07/23 11:38 RB Desktop 07/07/23 11:40 RB Document 07/14/23 11:29 MT Desktop 07/14/23 11:35 MT Document 07/21/23 11:48 MW Desktop 07/21/23 11:49 MW 06/30/23 07/07/23 07/14/23 11:45 11:38 11:29 Wound Center Nurse 1 1. LT LAT ANKLE -Combined with other wound No -Current Size (cm) - Length 3.2 2.9 2.5 -Current Size (cm) - Width 2.3 2 2.8 -Current Size (cm) - Depth 0.6 0.3 0.1 -Total Square Cm 7.36 5.8 7.00 -Photo Taken Yes Yes No -Epithelialization -Tunneling No No -Undermining/Tunneling No Yes -Undermining/Tunneling Starts (O'clock 12 ) -Undermining/Tunneling Ends (O'clock) 6 -Maximum Distance (cm) 0.4 -Circular Undermining No No -Exudate Amt Large Large Small -Exudate Type Serosanguineous Serosanguineous Sanguineous -Wound Margin Thickened & Distinct, Thickened Rolled Under Outline Attached -Granulation Amt Medium (34-66%) Medium (34-66%) None Present (0 %) -Granulation Quality [place] -Slough/Fibrin Yes -Necrosis Amt Medium (34-66%) Medium (34-66%) Large (67-100%) -Necrotic Tissue Type Adherent Slough Adherent Slough Eschar -Structure Exposed N/A N/A Fat Layer Exposed -Texture (Aurelia-wound Skin Appearance) Scarring Assessed Assessed -Moisture (Aurelia-wound Skin Appearance) Maceration Assessed Assessed -Color (Aurelia-wound Skin Appearance) Hemosiderin Erythema Assessed Staining -Temperature (Aurelia-wound Skin No Abnormality No Abnormality No Abnormality Appearance) (Pt Warm) (Pt Warm) (Pt Warm) -Tenderness on Palpation (Aurelia-wound No No No Skin Appearance) -Ulcer Cleansing Soap and Water Wound Cleanser Soap and Water -Foul Odor after Cleansing No No No -Anesthetic Used 5% Lidocaine 5% Lidocaine 5% Lidocaine Gel Gel Gel -Wound Comment(s) pt wound has poor color. pt wound base is brown in color. circular undermining from 12-6 Lower Limb Edema Present Yes NA Left Calf (cm) 37.5 Left Ankle (cm) 19.5 07/21/23 11:48 Wound Center Nurse 1 1. LT LAT ANKLE -Combined with other wound No -Current Size (cm) - Length 2.2 -Current Size (cm) - Width 2.9 -Current Size (cm) - Depth 0.1 -Total Square Cm 6.38 -Photo Taken No -Epithelialization Small 1-33% -Tunneling No -Undermining/Tunneling No -Undermining/Tunneling Starts (O'clock ) -Undermining/Tunneling Ends (O'clock) -Maximum Distance (cm) -Circular Undermining No -Exudate Amt Medium -Exudate Type Serosanguineous -Wound Margin Distinct, Outline Attached -Granulation Amt None Present (0 %) -Granulation Quality N/A -Slough/Fibrin -Necrosis Amt Large (67-100%) -Necrotic Tissue Type -Structure Exposed N/A -Texture (Aurelia-wound Skin Appearance) Assessed, Localized Edema -Moisture (Aurelia-wound Skin Appearance) Assessed,Dry/ Scaly -Color (Aurelia-wound Skin Appearance) Assessed -Temperature (Aurelia-wound Skin No Abnormality Appearance) (Pt Warm) -Tenderness on Palpation (Aurelia-wound No Skin Appearance) -Ulcer Cleansing Rinsed/ Irrigated with Saline -Foul Odor after Cleansing No -Anesthetic Used 5% Lidocaine Gel -Wound Comment(s) Lower Limb Edema Present No Left Calf (cm) Left Ankle (cm) WC - Nurse 2 - General Ulcer CM Notes Start: 06/30/23 11:44 Freq: Status: Active Protocol: Activity Type Activity Date Activity User E-sign Co-sign Detail Recorded Client Recorded Date Recorded By Document 06/30/23 13:32 PL [id number] 06/30/23 13:33 PL Document 07/07/23 13:24 PL [id number] 07/07/23 13:26 PL Document 07/14/23 13:55 PL [id number] 07/14/23 13:57 PL 06/30/23 07/07/23 07/14/23 13:32 13:24 13:55 Wound Center Nurse 2 1. LT LAT ANKLE -Time 11:52 11:46 11:57 -Correct Patient Yes Yes Yes -Correct Side, Site, Position Yes Yes Yes -Correct Procedure Yes Yes Yes -Procedure Performed Yes Yes Yes -Type of Procedure Debridement Debridement Debridement -Clinical Debridement Subcutaneous Subcutaneous Subcutaneous -Tissue Removed Subcutaneous Subcutaneous Subcutaneous -Post Debridement (cm) - Length 3.3 2.9 2.5 -Post Debridement (cm) - Width 2.4 2.0 2.8 -Post Debridement (cm) - Depth 0.6 0.3 0.2 -Total Square (Post) (cm) 7.92 5.80 7.00 -Area of Debridement (cm) - Length 3.3 2.9 2.5 -Area of Debridement (cm) - Width 2.4 2.0 2.8 -Total Square (Area) (cm) 7.92 5.80 7.00 -Tunneling No No No -Undermining/Tunneling No No No -Circular Undermining No No No -Wound/Ulcer Outcome Not Healed Healed- Not Healed Surgical Closure -Ulcer Cleansing Rinsed/ Rinsed/ Rinsed/ Irrigated with Irrigated with Irrigated with Saline Saline Saline -Foul Odor after Cleansing No No No -Bioengineered Tissue No No No -Bleeding Controlled with Pressure Pressure Pressure -Treatment Response Procedure Procedure Procedure Tolerated Well Tolerated Well Tolerated Well -Debridement - Subq, 1st 20sq cm Yes Yes Yes Pain Scale: 0-10 Numeric Is Patient Pain Free? Yes Yes Yes - Nurse 3 - General Ulcer D/C NN Start: 06/30/23 11:44 Freq: Status: Active Protocol: Activity Type Activity Date Activity User E-sign Co-sign Detail Recorded Client Recorded Date Recorded By Document 06/30/23 12:08 DL Desktop 06/30/23 12:10 DL Edit Result 06/30/23 12:08 DL (1) Desktop 06/30/23 12:11 DL Document 07/07/23 11:56 RB Desktop 07/07/23 11:57 RB Document 07/14/23 12:19 RB [id number] 07/14/23 12:20 RB Document 07/21/23 12:00 RB Desktop 07/21/23 12:02 RB (1) Notes: => Pt to resume Santyl at home. 06/30/23 07/07/23 07/14/23 12:08 11:56 12:19 Wound Care Center Nurse 3 1. LT LAT ANKLE -Ulcer Cleansing Rinsed/ Wound Cleanser Irrigated with Saline -Foul Odor after Cleansing No -Primary Dressing Applied Hysept ($) -Other Dressing hydrogel today santyl in clinic -Primary Dressing Covered/Secured with Dry Gauze & Dry Gauze & Dry Gauze,Dry Roll Gauze, Roll Gauze, Gauze & Roll Secured with Secured with Gauze,Secured Tape Tape with Tape Right -Tubular Bandage Single Layer Single Layer Single Layer -Size of Tubigrip Used Size D Size D Size D -Size D ($) 1 1 1 -Other Left -Tubular Bandage Single Layer Single Layer Single Layer -Size of Tubigrip Used Size D Size D Size D -Size D ($) 1 1 1 -Other Treatment Response Procedure Procedure Procedure Tolerated Well Tolerated Well Tolerated Well Pain Scale: 0-10 Numeric Is Patient Pain Free? Yes Yes Yes Teaching: Wound Center Dressing Your Wound -Person Taught -Teaching Method -Response to teaching Compression Wraps & Stockings -Person Taught Patient -Teaching Method Discussion, Demonstration -Response to teaching Verbalize understanding WC - Visit Discharge Discharge Condition Stable Stable Stable Ambulatory Status Ambulatory Ambulatory Ambulatory Transportation Private Auto Private Auto Private Auto Medication Reconcilliation completed & No No provided to patient/care provider Clinical Summary of Care Provided Yes Yes Notes: Pt to resume Santyl at home. 07/21/23 12:00 Wound Care Center Nurse 3 1. LT LAT ANKLE -Ulcer Cleansing Rinsed/ Irrigated with Saline -Foul Odor after Cleansing -Primary Dressing Applied -Other Dressing dakins solution moistened gauze -Primary Dressing Covered/Secured with Dry Gauze & Roll Gauze, Secured with Tape Right -Tubular Bandage -Size of Tubigrip Used -Size D ($) -Other single layer tubigrip Left -Tubular Bandage -Size of Tubigrip Used -Size D ($) -Other single layer tubigrip Treatment Response Procedure Tolerated Well Pain Scale: 0-10 Numeric Is Patient Pain Free? Yes Teaching: Wound Center Dressing Your Wound -Person Taught Patient -Teaching Method Discussion, Demonstration -Response to teaching Verbalize understanding Compression Wraps & Stockings -Person Taught -Teaching Method -Response to teaching WC - Visit Discharge Discharge Condition Stable Ambulatory Status Ambulatory,Cane Transportation Private Auto Medication Reconcilliation completed & No provided to patient/care provider Clinical Summary of Care Provided Yes Notes: 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, unspecified site (4) Leukopenia: CODE(S): D72.819 - Decreased white blood cell count, unspecified QUALIFIERS: Leukopenia type: neutropenia Neutropenia type: other Qualified Code(s): D70.8 - Other neutropenia (5) Splenomegaly: CODE(S): R16.1 - Splenomegaly, not elsewhere classified (6) Status post bilateral mastectomy: CODE(S): Z90.13 - Acquired absence of bilateral breasts and nipples (7) RA (rheumatoid arthritis): CODE(S): M06.9 - Rheumatoid arthritis, unspecified (8) Long-term current use of steroids: CODE(S): LFY9973 - (9) Raynauds syndrome: (10) Systemic lupus erythematosus: CODE(S): M32.9 - Systemic lupus erythematosus, unspecified (11) Hypertension: CODE(S): I10 - Essential (primary) hypertension (12) Irritable bowel syndrome: CODE(S): K58.9 - Irritable bowel syndrome without diarrhea PLAN: Plan This is a 68-year-old female of relatively normal body habitus. She presented with an ulceration overlying the left lateral malleolus. The ulceration had been present for approximately 1 month. She denied trauma, but felt as though this may be pressure related. She had been sleeping on her left side, and she indicated that pressure to the left lateral malleolus may have resulted in the ulceration. She had been treated by courses of doxycycline and clindamycin by her primary care physician, Dr. Bocanegra. Recent x-rays revealed soft tissue swelling, but no other significant abnormalities. The patient had been utilizing an antibiotic ointment topically. The patient is known to be on long- term steroids due to her diagnosis of systemic lupus erythematosus. The long- term use of steroids may adversely affect the patient's healing potential. Due to the failure of significant progress regarding wound healing, the patient has been advised to speak with her other physicians regarding the possibility of temporarily discontinuing steroid treatment. The patient has been advised to elevate her lower extremities to minimize swelling. Tubigrip's are to be contin ued in an effort to prevent swelling in the lower extremities. Swab cultures were recently obtained, the results of which revealed the presence of Serratia marcescens, ESBL E. coli, Proteus mirabilis, and a lactobacillus anaerobe. Because of the complicated nature and multi-organism infection, we attempted to seek consultation with the Infectious Disease service, Dr. Bruno. However, Dr. Bruno was not available for 2 more weeks, and the decision was made to proceed with intravenous antibiotics as appropriate based upon recent culture and sensitivity results. The patient was started on Invanz 1 g intravenously on a daily basis, for a total of 10 days. As a prelude to the initiation of intravenous Invanz, a PICC catheter was placed in the patient's left upper extremity. As of today, the patient has received 6 doses of Invanz. Her left lateral malleolus ulceration has shown improvement, appearing attributable to the recent initiation of intravenous antibiotics. We are to make efforts to extend IV antibiotics for total of 2 weeks. We are to continue the use of Dakin's solution?moistened gauze topically to the ulceration on a daily basis. The patient has been instructed in the appropriate means of application. It is anticipated that this will assist in the mechanical debridement of the nonviable tissue at the site. Offloading measures have been discussed with the patient in detail, and are to continue. She is to avoid sleeping on her left side, which will eliminate the likelihood of pressure to the ulcerated area. The patient is to return in 1 week for reassessment. A noninvasive lower extremity arterial study, performed on June 17, 2023, revealed no evidence of significant arterial occlusive disease in the patient's lower extremities bilaterally. Furthermore, review of the patient's most recent laboratory studies, from May 25, 2023, revealed serum albumin and protein to be within normal levels. A recent x-ray reveals no evidence of osteomyelitis or other deep pathology. The patient is not diabetic, and has been urged to optimize her nutritional intake. A venous duplex examination was performed on 07/01/2023, revealing incompetence of the great saphenous veins bilaterally below the knee. Small saphenous veins appear competent bilaterally. Therefore, superficial venous incompetence appears unlikely as a source of the patient's ulceration. Total time: 26 minutes
[2023-07-28 10:03] VITALS: BP 151/46; PULSE 76; RESP 18; TEMP 36; BMI 24.5
== END 2023-07-28 23:59 | disposition home or self-care (01) ==
LOC: WC 10:00
PROVIDERS: PCP Family Medicine Geriatric Medicine; Referring Provider Family Medicine Geriatric Medicine; Visit Provider Surgery
DX: L89.523 Pressure ulcer of left ankle, stage 3 (principal); D70.8 Other neutropenia; M32.9 Systemic lupus erythematosus, unspecified; M06.9 Rheumatoid arthritis, unspecified; I73.00 Raynaud's syndrome without gangrene; R16.1 Splenomegaly, not elsewhere classified; Z80.0 Family history of malignant neoplasm of digestive organs; R60.0 Localized edema; I10 Essential (primary) hypertension; L08.9 Local infection of the skin and subcutaneous tissue, unspecified; Z90.13 Acquired absence of bilateral breasts and nipples; E78.5 Hyperlipidemia, unspecified; K58.9 Irritable bowel syndrome, unspecified; T14.8XXA Other injury of unspecified body region, initial encounter; Z85.3 Personal history of malignant neoplasm of breast
CPT/HCPCS: 11042; 87070; 87075; 87077; 87186; 87205; 93970

== ENCOUNTER 2023-07-28 11:54 | Outpatient (CLI) | payer MEDICARE, SELFPAY ==
--- NOTE | 2023-07-28 10:58 | PCM.WC.HP ---
History of Present Illness Date of Service: 07/28/23 Chief Complaint: Pressure ulceration, left lateral malleolus History of Wound: This is a 68-year-old female who presented with an ulceration on the left lateral malleolus. The ulceration had been present for approximately 4 weeks. The patient indicated her suspicion that this may be due to pressure phenomenon. She is a side sleeper, and notes restlessness in her lower extremities while sleeping. She has made effort in recent days to avoid sleeping on her left side, relieving the pressure on the ulcer site. She has been evaluated by her primary care physician, Dr. Bocanegra, who has treated the patient with 2 courses of oral antibiotics, including doxycycline and clindamycin. A culture performed on April 01, 2023, was positive for anaerobic cocci, though no sensitivities were reported. A recent x-ray of the area revealed soft tissue swelling, though no evidence of osteomyelitis. Laboratory studies were obtained on April 01, 2023, with results as follows: White blood count 1.3, hemoglobin 12.9, hematocrit 42.3, platelets 183,000, ESR 14, potassium 4.6, sodium 138, chloride 108, carbon dioxide 26.0, BUN 22, creatinine 0.88, glucose 92, calcium 9.2, total bilirubin 0.50, AST 13, ALT 11, alkaline phosphatase 44, C-reactive protein 9.94, total protein 7.6, albumin 3.7. The patient is active. Her BMI is 24.6. She denies a history of cerebrovascular accident, myocardial infarction, pulmonary disease, renal disease, and diabetes mellitus. Pre-existing medical problems are documented herein. Due to systemic lupus erythematosus, the patient has been on long-term steroid administration. [facility] Medical History B12 deficiency anemia Breast cancer Complicated wound infection Fibromyalgia Hyperlipidemia Hypertension Insomnia Irritable bowel syndrome Muscle spasm Pressure ulcer of left ankle, stage 3 Splenomegaly Systemic lupus erythematosus Home Medications doxycycline monohydrate 100 mg capsule 100 mg PO BID #20 caps 10/25/20 [Rx Last Taken Unknown] prednisone 5 mg tablet 5 mg PO DAILY 10/25/20 [History Last Taken Unknown] hydroxychloroquine 200 mg tablet (Plaquenil) 200 mg PO DAILY 05/26/22 [History Last Taken Unknown] Allergy/AdvReac Type Severity Reaction Status Date / Time Penicillins AdvReac Intermediate Rash Verified 07/27/23 10:36 Family History Daughter No problems noted. Father Diabetes Father Pancreas cancer Mother Osteoarthritis Afib Surgical History History of bilateral mastectomy History of left knee surgery Social History Smoking Status: Never smoker second hand exposure: No alcohol intake: never substance use type: does not use ford/mu-ism: None seatbelt use: always do you feel safe at home: Yes Physical Exam Const alert, oriented x3, no apparent distress, average body habitus and no limitations General Appearance: cooperative, comfortable, well kempt, well developed and frail Orientation / Consciousness: awake, oriented to person, oriented to place and oriented to time Exam Limitations: no limitations HEENT normocephalic, head/scalp atraumatic and hearing grossly normal bilaterally Head and Scalp: normal to inspection, normocephalic and atraumatic Face and Sinus: normal facial exam External Ear: external ears normal Eyes PERRL, EOMs intact bilaterally and conjunctivae normal General Eye: normal appearance of both eyes Neck full ROM Chest Chest: symmetrical chest wall rise Resp normal respiratory effort, normal air movement, no retractions and no use of accessory muscles Effort and Inspection: able to speak in complete sentences Back/Spine Back/Spine Narrative: Kyphoscoliosis Extremity full ROM and no clubbing, cyanosis or edema Skin General Skin Exam: ecchymosis Wound Narrative: No significant swelling or edema are noted in the patient's lower extremities bilaterally. Mild hyperpigmentation is noted in the gaiter areas bilaterally. The ulceration overlying the left lateral malleolus persists. It had recently deteriorated, enlarging in size, and demonstrating increasing areas of necrosis and nonviable tissue. Furthermore, significant cellulitis had developed about the ulceration. However, since the initiation of intravenous antibiotic, the ulceration has shown some improvement. The amount of frankly necrotic tissue has decreased. The surrounding cellulitis has also diminished, and has nearly resolved. A moderate amount of necrotic and nonviable tissue persists. Dimensions are documented elsewhere. Neuro oriented x3, CN's II-XII intact bilaterally, moves all extremities and no focal motor deficits Sensorium / Orientation: awake, alert, oriented to person, oriented to place and oriented to time Coordination / Balance: [id number] test normal Speech: speech normal Psych mental status grossly normal Appearance: grossly normal and appropriate Attitude: calm Activity / Motor Behavior: appropriate eye contact Speech: normal speech Mood & Affect: euthymic mood Thought Process: normal thought process Thought Content: normal thought content Attention / Concentration: attention grossly intact Debridement Note Debridement Note Wound debrided: Left lateral malleolus ulceration Laterality: Left Type of Debridement: Excisional debridement Anesthesia Used: 5% Lidocaine Gel Depth: Down to and including healthy tissue and in the subcutaneous layer Percentage of wound debrided: 100 Instrument Used: 5mm curette Tissue Removed: Bioburden and necrotic/nonviable material Severity: Fat Layer Exposed Amount of bleeding with debridement: Mild Bleeding Controlled with: Compression and gauze Patient tolerated procedure: Patient tolerated procedure well Post-Debridement Measurements and Additional Note: Post-Debridement Measurements/Treatment TIERA - Nurse 1 - General Ulcer Assessment Start: 06/30/23 11:44 Freq: Status: Active Protocol: JESUS Activity Type Activity Date Activity User E-sign Co-sign Detail Recorded Client Recorded Date Recorded By Document 06/30/23 11:45 DL Desktop 06/30/23 11:49 DL Document 07/07/23 11:38 RB Desktop 07/07/23 11:40 RB Document 07/14/23 11:29 MT Desktop 07/14/23 11:35 MT Document 07/21/23 11:48 MW Desktop 07/21/23 11:49 MW 06/30/23 07/07/23 07/14/23 11:45 11:38 11:29 - Today's Visit Information Type of service Follow-up Visit Follow-up Visit Follow-up Visit (Physician/[employer] (Physician/[employer] (Physician/[employer] ) ) ) Arrival Mode Ambulatory Ambulatory Ambulatory Transfer Assistance None None Accompanied by self Patient Identification Verified (Name & Yes Yes Yes ) Patient Requires Transmission-Based No No Precautions Safety Precautions Fall Prevention Height and Weight Body Mass Index (BMI) 24.5 24.5 24.5 BMI Classification Normal Normal Normal Vital Signs Temperature (97.8 F-99.1 F) 96.5 F L 97.1 F L 98 F Temperature Source Temporal Temporal Temporal Pulse Rate (60-100) 68 75 63 Pulse Location Monitor Monitor Monitor Respiratory Rate (12-18) 18 18 18 Respiratory rate source Observation Observation Observation Oxygen Delivery Method Room Air Blood Pressure (90/60-120/80) 145/59 H 111/56 L 140/60 H Blood Pressure Mean 87 74 86 Source Monitor Monitor Monitor Position Semi-Fowlers Sitting Blood Pressure Location Left Arm Left Arm History Since Last Visit- (Skip if this is Patient's initial visit) Have you changed medications since your No No last visit? Any new allergies or adverse reactions No No Had a fall/change in ADL's that may No increase risk of falls Signs or symptoms of abuse and/or No No neglect since last visit Have you been in the hospital since your No No last visit? Has dressing in place as prescribed Yes Yes Yes Has compression in place as prescribed Yes Yes Yes Has offloadiing in place as prescribed Yes No Yes Experienced any changes in pain level or No No No management Left Footwear Regular Shoe Right Footwear Regular Shoe Pain Scale: 0-10 Numeric Is Patient Pain Free? Yes No Yes lle -Description Sharp -Intensity 5 -Duration (hours) Acute -Pain Behavior Withdrawal from Touch -Pain Aggravating Factors Exercise/ Activity -Alleviating Factors/Interventions Medication -Effectiveness of Alleviating Factor/ Minimally Intervention effective 07/21/23 11:48 WC - Today's Visit Information Type of service Follow-up Visit (Physician/[employer] ) Arrival Mode Ambulatory,Cane Transfer Assistance None Accompanied by self Patient Identification Verified (Name & Yes ) Patient Requires Transmission-Based No Precautions Safety Precautions Height and Weight Body Mass Index (BMI) 24.5 BMI Classification Normal Vital Signs Temperature (97.8 F-99.1 F) 96.8 F L Temperature Source Temporal Pulse Rate (60-100) 71 Pulse Location Monitor Respiratory Rate (12-18) 16 Respiratory rate source Observation Oxygen Delivery Method Room Air Blood Pressure (90/60-120/80) 157/56 H Blood Pressure Mean 89 Source Monitor Position Sitting Blood Pressure Location Left Arm History Since Last Visit- (Skip if this is Patient's initial visit) Have you changed medications since your No last visit? Any new allergies or adverse reactions No Had a fall/change in ADL's that may No increase risk of falls Signs or symptoms of abuse and/or No neglect since last visit Have you been in the hospital since your No last visit? Has dressing in place as prescribed Yes Has compression in place as prescribed Yes Has offloadiing in place as prescribed N/A Experienced any changes in pain level or No management Left Footwear Regular Shoe Right Footwear Regular Shoe Pain Scale: 0-10 Numeric Is Patient Pain Free? Yes lle -Description -Intensity -Duration (hours) -Pain Behavior -Pain Aggravating Factors -Alleviating Factors/Interventions -Effectiveness of Alleviating Factor/ Intervention WC - Nurse 1 - General Ulcer Measurement Start: 06/30/23 11:44 Freq: Status: Active Protocol: Activity Type Activity Date Activity User E-sign Co-sign Detail Recorded Client Recorded Date Recorded By Document 06/30/23 11:45 DL Desktop 06/30/23 11:49 DL Document 07/07/23 11:38 RB Desktop 07/07/23 11:40 RB Document 07/14/23 11:29 MT Desktop 07/14/23 11:35 MT Document 07/21/23 11:48 MW Desktop 07/21/23 11:49 MW 06/30/23 07/07/23 07/14/23 11:45 11:38 11:29 Wound Center Nurse 1 1. LT LAT ANKLE -Combined with other wound No -Current Size (cm) - Length 3.2 2.9 2.5 -Current Size (cm) - Width 2.3 2 2.8 -Current Size (cm) - Depth 0.6 0.3 0.1 -Total Square Cm 7.36 5.8 7.00 -Photo Taken Yes Yes No -Epithelialization -Tunneling No No -Undermining/Tunneling No Yes -Undermining/Tunneling Starts (O'clock 12 ) -Undermining/Tunneling Ends (O'clock) 6 -Maximum Distance (cm) 0.4 -Circular Undermining No No -Exudate Amt Large Large Small -Exudate Type Serosanguineous Serosanguineous Sanguineous -Wound Margin Thickened & Distinct, Thickened Rolled Under Outline Attached -Granulation Amt Medium (34-66%) Medium (34-66%) None Present (0 %) -Granulation Quality Red [place] -Slough/Fibrin Yes -Necrosis Amt Medium (34-66%) Medium (34-66%) Large (67-100%) -Necrotic Tissue Type Adherent Slough Adherent Slough Eschar -Structure Exposed N/A N/A Fat Layer Exposed -Texture (Aurelia-wound Skin Appearance) Scarring Assessed Assessed -Moisture (Aurelia-wound Skin Appearance) Maceration Assessed Assessed -Color (Aurelia-wound Skin Appearance) Hemosiderin Erythema Assessed Staining -Temperature (Aurelia-wound Skin No Abnormality No Abnormality No Abnormality Appearance) (Pt Warm) (Pt Warm) (Pt Warm) -Tenderness on Palpation (Aurelia-wound No No No Skin Appearance) -Ulcer Cleansing Soap and Water Wound Cleanser Soap and Water -Foul Odor after Cleansing No No No -Anesthetic Used 5% Lidocaine 5% Lidocaine 5% Lidocaine Gel Gel Gel -Wound Comment(s) pt wound has poor color. pt wound base is brown in color. circular undermining from 12-6 Lower Limb Edema Present Yes NA Left Calf (cm) 37.5 Left Ankle (cm) 19.5 07/21/23 11:48 Wound Center Nurse 1 1. LT LAT ANKLE -Combined with other wound No -Current Size (cm) - Length 2.2 -Current Size (cm) - Width 2.9 -Current Size (cm) - Depth 0.1 -Total Square Cm 6.38 -Photo Taken No -Epithelialization Small 1-33% -Tunneling No -Undermining/Tunneling No -Undermining/Tunneling Starts (O'clock ) -Undermining/Tunneling Ends (O'clock) -Maximum Distance (cm) -Circular Undermining No -Exudate Amt Medium -Exudate Type Serosanguineous -Wound Margin Distinct, Outline Attached -Granulation Amt None Present (0 %) -Granulation Quality N/A -Slough/Fibrin -Necrosis Amt Large (67-100%) -Necrotic Tissue Type -Structure Exposed N/A -Texture (Aurelia-wound Skin Appearance) Assessed, Localized Edema -Moisture (Aurelia-wound Skin Appearance) Assessed,Dry/ Scaly -Color (Aurelia-wound Skin Appearance) Assessed -Temperature (Aurelia-wound Skin No Abnormality Appearance) (Pt Warm) -Tenderness on Palpation (Aurelia-wound No Skin Appearance) -Ulcer Cleansing Rinsed/ Irrigated with Saline -Foul Odor after Cleansing No -Anesthetic Used 5% Lidocaine Gel -Wound Comment(s) Lower Limb Edema Present No Left Calf (cm) Left Ankle (cm) WC - Nurse 2 - General Ulcer CM Notes Start: 06/30/23 11:44 Freq: Status: Active Protocol: Activity Type Activity Date Activity User E-sign Co-sign Detail Recorded Client Recorded Date Recorded By Document 06/30/23 13:32 PL [id number] 06/30/23 13:33 PL Document 07/07/23 13:24 PL [id number] 07/07/23 13:26 PL Document 07/14/23 13:55 PL [id number] 07/14/23 13:57 PL 06/30/23 07/07/23 07/14/23 13:32 13:24 13:55 Wound Center Nurse 2 1. LT LAT ANKLE -Time 11:52 11:46 11:57 -Correct Patient Yes Yes Yes -Correct Side, Site, Position Yes Yes Yes -Correct Procedure Yes Yes Yes -Procedure Performed Yes Yes Yes -Type of Procedure Debridement Debridement Debridement -Clinical Debridement Subcutaneous Subcutaneous Subcutaneous -Tissue Removed Subcutaneous Subcutaneous Subcutaneous -Post Debridement (cm) - Length 3.3 2.9 2.5 -Post Debridement (cm) - Width 2.4 2.0 2.8 -Post Debridement (cm) - Depth 0.6 0.3 0.2 -Total Square (Post) (cm) 7.92 5.80 7.00 -Area of Debridement (cm) - Length 3.3 2.9 2.5 -Area of Debridement (cm) - Width 2.4 2.0 2.8 -Total Square (Area) (cm) 7.92 5.80 7.00 -Tunneling No No No -Undermining/Tunneling No No No -Circular Undermining No No No -Wound/Ulcer Outcome Not Healed Healed- Not Healed Surgical Closure -Ulcer Cleansing Rinsed/ Rinsed/ Rinsed/ Irrigated with Irrigated with Irrigated with Saline Saline Saline -Foul Odor after Cleansing No No No -Bioengineered Tissue No No No -Bleeding Controlled with Pressure Pressure Pressure -Treatment Response Procedure Procedure Procedure Tolerated Well Tolerated Well Tolerated Well -Debridement - Subq, 1st 20sq cm Yes Yes Yes Pain Scale: 0-10 Numeric Is Patient Pain Free? Yes Yes Yes WC - Nurse 3 - General Ulcer D/C NN Start: 06/30/23 11:44 Freq: Status: Active Protocol: Activity Type Activity Date Activity User E-sign Co-sign Detail Recorded Client Recorded Date Recorded By Document 06/30/23 12:08 DL Desktop 06/30/23 12:10 DL Edit Result 06/30/23 12:08 DL (1) Desktop 06/30/23 12:11 DL Document 07/07/23 11:56 RB Desktop 07/07/23 11:57 RB Document 07/14/23 12:19 RB [id number] 07/14/23 12:20 RB Document 07/21/23 12:00 RB Desktop 07/21/23 12:02 RB (1) Notes: => Pt to resume Santyl at home. 06/30/23 07/07/23 07/14/23 12:08 11:56 12:19 Wound Care Center Nurse 3 1. LT LAT ANKLE -Ulcer Cleansing Rinsed/ Wound Cleanser Irrigated with Saline -Foul Odor after Cleansing No -Primary Dressing Applied Hysept ($) -Other Dressing hydrogel today santyl in clinic -Primary Dressing Covered/Secured with Dry Gauze & Dry Gauze & Dry Gauze,Dry Roll Gauze, Roll Gauze, Gauze & Roll Secured with Secured with Gauze,Secured Tape Tape with Tape Right -Tubular Bandage Single Layer Single Layer Single Layer -Size of Tubigrip Used Size D Size D Size D -Size D ($) 1 1 1 -Other Left -Tubular Bandage Single Layer Single Layer Single Layer -Size of Tubigrip Used Size D Size D Size D -Size D ($) 1 1 1 -Other Treatment Response Procedure Procedure Procedure Tolerated Well Tolerated Well Tolerated Well Pain Scale: 0-10 Numeric Is Patient Pain Free? Yes Yes Yes Teaching: Wound Center Dressing Your Wound -Person Taught -Teaching Method -Response to teaching Compression Wraps & Stockings -Person Taught Patient -Teaching Method Discussion, Demonstration -Response to teaching Verbalize understanding WC - Visit Discharge Discharge Condition Stable Stable Stable Ambulatory Status Ambulatory Ambulatory Ambulatory Transportation Private Auto Private Auto Private Auto Medication Reconcilliation completed & No No provided to patient/care provider Clinical Summary of Care Provided Yes Yes Notes: Pt to resume Santyl at home. 07/21/23 12:00 Wound Care Center Nurse 3 1. LT LAT ANKLE -Ulcer Cleansing Rinsed/ Irrigated with Saline -Foul Odor after Cleansing -Primary Dressing Applied -Other Dressing dakins solution moistened gauze -Primary Dressing Covered/Secured with Dry Gauze & Roll Gauze, Secured with Tape Right -Tubular Bandage -Size of Tubigrip Used -Size D ($) -Other single layer tubigrip Left -Tubular Bandage -Size of Tubigrip Used -Size D ($) -Other single layer tubigrip Treatment Response Procedure Tolerated Well Pain Scale: 0-10 Numeric Is Patient Pain Free? Yes Teaching: Wound Center Dressing Your Wound -Person Taught Patient -Teaching Method Discussion, Demonstration -Response to teaching Verbalize understanding Compression Wraps & Stockings -Person Taught -Teaching Method -Response to teaching WC - Visit Discharge Discharge Condition Stable Ambulatory Status Ambulatory,Cane Transportation Private Auto Medication Reconcilliation completed & No provided to patient/care provider Clinical Summary of Care Provided Yes Notes: 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, unspecified site (4) Leukopenia: CODE(S): D72.819 - Decreased white blood cell count, unspecified QUALIFIERS: Leukopenia type: neutropenia Neutropenia type: other Qualified Code(s): D70.8 - Other neutropenia (5) Splenomegaly: CODE(S): R16.1 - Splenomegaly, not elsewhere classified (6) Status post bilateral mastectomy: CODE(S): Z90.13 - Acquired absence of bilateral breasts and nipples (7) RA (rheumatoid arthritis): CODE(S): M06.9 - Rheumatoid arthritis, unspecified (8) Long-term current use of steroids: CODE(S): KZT0066 - (9) Raynauds syndrome: (10) Systemic lupus erythematosus: CODE(S): M32.9 - Systemic lupus erythematosus, unspecified (11) Hypertension: CODE(S): I10 - Essential (primary) hypertension (12) Irritable bowel syndrome: CODE(S): K58.9 - Irritable bowel syndrome without diarrhea PLAN: Plan This is a 68-year-old female of relatively normal body habitus. She presented with an ulceration overlying the left lateral malleolus. The ulceration had been present for approximately 1 month. She denied trauma, but felt as though this may be pressure related. She had been sleeping on her left side, and she indicated that pressure to the left lateral malleolus may have resulted in the ulceration. She had been treated by courses of doxycycline and clindamycin by her primary care physician, Dr. Bocanegra. Recent x-rays revealed soft tissue swelling, but no other significant abnormalities. The patient had been utilizing an antibiotic ointment topically. The patient is known to be on long-term steroids due to her diagnosis of systemic lupus erythematosus. The long-term use of steroids may adversely affect the patient's healing potential. Due to the failure of significant progress regarding wound healing, the patient has been advised to speak with her other physicians regarding the possibility of temporarily discontinuing steroid treatment. The patient has been advised to elevate her lower extremities to minimize swelling. Tubigrip's are to be continued in an effort to prevent swelling in the lower extremities. Swab cultures were recently obtained, the results of which revealed the presence of Serratia marcescens, ESBL E. coli, Proteus mirabilis, and a lactobacillus anaerobe. Because of the complicated nature and multi-organism infection, we attempted to seek consultation with the Infectious Disease service, Dr. Burno. However, Dr. Bruno was not available for 2 more weeks, and the decision was made to proceed with intravenous antibiotics as appropriate based upon recent culture and sensitivity results. The patient was started on Invanz 1 g intravenously on a daily basis, for a total of 14 days. As a prelude to the initiation of intravenous Invanz, a PICC catheter was placed in the patient's left upper extremity. As of today, the patient has several days of advance intravenously remaining. Her left lateral malleolus ulceration has shown improvement, appearing attributable to the recent initiation of intravenous antibiotics. There appears to be less necrotic tissue at the ulcer site, and the surrounding cellulitis appears to be nearly resolved. We are to transition to the use of Medihoney, which will be applied topically by the patient on a daily basis. The patient has been instructed in the appropriate means of application. Offloading measures have been discussed with the patient in detail, and are to continue. She is to avoid sleeping on her left side, which will eliminate the likelihood of pressure to the ulcerated area. The patient is to return in 1 week for reassessment. It is anticipated that we may repeat a culture of the patient's ulceration once Invanz has been completed, to be sure that her PICC catheter will no longer be required for the administration of intravenous antibiotics. A noninvasive lower extremity arterial study, performed on June 17, 2023, revealed no evidence of significant arterial occlusive disease in the patient's lower extremities bilaterally. Furthermore, review of the patient's most recent laboratory studies, from May 25, 2023, revealed serum albumin and protein to be within normal levels. A recent x-ray reveals no evidence of osteomyelitis or other deep pathology. The patient is not diabetic, and has been urged to optimize her nutritional intake. A venous duplex examination was performed on 07/01/2023, revealing incompetence of the great saphenous veins bilaterally below the knee. Small saphenous veins appear competent bilaterally. Therefore, superficial venous incompetence appears unlikely as a source of the patient's ulceration. Total time: 28 minutes
[2023-07-28] MEDS: 0.9% NaCl IVPB Med Flush (250 mL) 15 ML IV (12:06)
[2023-07-28] MEDS: Ertapenem Sod 1 GM in 0.9% Normal Saline (50mL MB+) 50 ML IV (12:06)
[2023-07-28] MEDS: 0.9% NaCl PICC Flush IV ×2 (12:06→13:07)
[2023-07-28 12:08] VITALS: BP 126/54; PULSE 66; RESP 16; TEMP 36.6; O2SAT 100; BMI 24.1
[2023-07-28 13:08] VITALS: BP 130/58; PULSE 62; RESP 16; TEMP 36.1
== END 2023-07-28 11:55 | disposition home or self-care (01) ==
LOC: MEDOUTP 11:55
PROVIDERS: PCP Family Medicine Geriatric Medicine; Referring Provider Surgery; Visit Provider Surgery
DX: L89.523 Pressure ulcer of left ankle, stage 3 (principal); M01.X72 Direct infection of left ankle and foot in infectious and parasitic diseases classified elsewhere
CPT/HCPCS: 96365; J7050; A4216

== ENCOUNTER 2023-07-29 10:22 | Outpatient (CLI) | payer MEDICARE, SELFPAY ==
[2023-07-29] MEDS: 0.9% NaCl PICC Flush IV ×2 (10:31→11:38)
[2023-07-29] MEDS: 0.9% NaCl IVPB Med Flush (250 mL) 15 ML IV (10:31)
[2023-07-29] MEDS: Ertapenem Sod 1 GM in 0.9% Normal Saline (50mL MB+) 50 ML IV (10:34)
[2023-07-29 10:38] VITALS: BP 127/79; PULSE 71; RESP 16; TEMP 36.3; BMI 24.1
[2023-07-29 11:49] VITALS: BP 117/53; PULSE 63; RESP 16; TEMP 36.4; O2SAT 94
== END 2023-07-29 10:23 | disposition home or self-care (01) ==
LOC: MEDOUTP 10:22
PROVIDERS: PCP Family Medicine Geriatric Medicine; Referring Provider Surgery; Visit Provider Surgery
DX: L89.523 Pressure ulcer of left ankle, stage 3 (principal); M01.X72 Direct infection of left ankle and foot in infectious and parasitic diseases classified elsewhere
CPT/HCPCS: 96365; 36569; J7050; A4216

== ENCOUNTER 2023-08-11 11:30 | Outpatient (RCR) | payer MEDICARE, SELFPAY ==
[2023-07-29 00:49] VITALS: BP 151/46; PULSE 76; RESP 18; TEMP 36; BMI 24.5
[2023-08-04 11:01] VITALS: BP 147/61; PULSE 78; TEMP 36.3; BMI 24.5
--- NOTE | 2023-08-04 12:12 | HP.PCM_ITS ---
History of Present Illness Date of Service: 08/04/23 Chief Complaint: Pressure ulceration, left lateral malleolus History of Wound: This is a 68-year-old female who presented with an ulceration on the left lateral malleolus. The ulceration had been present for approximately 4 weeks. The patient indicated her suspicion that this may be due to pressure phenomenon. She is a side sleeper, and notes restlessness in her lower extremities while sleeping. She has made effort in recent days to avoid sleeping on her left side, relieving the pressure on the ulcer site. She has been evaluated by her primary care physician, Dr. Bocanegra, who has treated the patient with 2 courses of oral antibiotics, including doxycycline and clindamycin. A culture performed on April 01, 2023, was positive for anaerobic cocci, though no sensitivities were reported. A recent x-ray of the area revealed soft tissue swelling, though no evidence of osteomyelitis. Laboratory studies were obtained on April 01, 2023, with results as follows: White blood count 1.3, hemoglobin 12.9, hematocrit 42.3, platelets 183,000, ESR 14, potassium 4.6, sodium 138, chloride 108, carbon dioxide 26.0, BUN 22, creatinine 0.88, glucose 92, calcium 9.2, total bilirubin 0.50, AST 13, ALT 11, alkaline phosphatase 44, C-reactive protein 9.94, total protein 7.6, albumin 3.7. The patient is active. Her BMI is 24.6. She denies a history of cerebrovascular accident, myocardial infarction, pulmonary disease, renal disease, and diabetes mellitus. Pre-existing medical problems are documented herein. Due to systemic lupus erythematosus, the patient has been on long-term steroid administration. [facility] Medical History B12 deficiency anemia Breast cancer Complicated wound infection Fibromyalgia Hyperlipidemia Hypertension Insomnia Irritable bowel syndrome Muscle spasm Pressure ulcer of left ankle, stage 3 Splenomegaly Systemic lupus erythematosus Home Medications doxycycline monohydrate 100 mg capsule 100 mg PO BID #20 caps 10/25/20 [Rx Last Taken Unknown] prednisone 5 mg tablet 5 mg PO DAILY 10/25/20 [History Last Taken Unknown] hydroxychloroquine 200 mg tablet (Plaquenil) 200 mg PO DAILY 05/26/22 [History Last Taken Unknown] Allergy/AdvReac Type Severity Reaction Status Date / Time Penicillins AdvReac Intermediate Rash Verified 10/31/23 12:07 Family History Daughter No problems noted. Father Diabetes Father Pancreas cancer Mother Osteoarthritis Afib Surgical History History of bilateral mastectomy History of left knee surgery Social History Smoking Status: Never smoker second hand exposure: No alcohol intake: never substance use type: does not use ford/scientology: None seatbelt use: always do you feel safe at home: Yes Vital Signs Vital Signs Vital Signs: 08/04/23 11:01 Temperature 97.3 F L Temperature Source Temporal Pulse Rate 78 Blood Pressure 147/61 H Blood Pressure Mean 89 Blood Pressure Source Monitor Blood Pressure Position Sitting Blood Pressure Location Right Arm Oxygen Delivery Method Room Air Weight Weight: 150 lb Body Mass Index (BMI) 24.5 Physical Exam Const alert, oriented x3, no apparent distress, average body habitus and no limitations General Appearance: cooperative, comfortable, well kempt, well developed and frail Orientation / Consciousness: awake, oriented to person, oriented to place and oriented to time Exam Limitations: no limitations HEENT normocephalic, head/scalp atraumatic and hearing grossly normal bilaterally Head and Scalp: normal to inspection, normocephalic and atraumatic Face and Sinus: normal facial exam External Ear: external ears normal Eyes PERRL, EOMs intact bilaterally and conjunctivae normal General Eye: normal appearance of both eyes Neck full ROM Chest Chest: symmetrical chest wall rise Resp normal respiratory effort, normal air movement, no retractions and no use of accessory muscles Effort and Inspection: able to speak in complete sentences Back/Spine Back/Spine Narrative: Kyphoscoliosis Extremity full ROM and no clubbing, cyanosis or edema Skin General Skin Exam: ecchymosis Wound Narrative: No significant swelling or edema are noted in the patient's lower extremities bilaterally. Mild hyperpigmentation is noted in the gaiter areas bilaterally. The ulceration overlying the left lateral malleolus persists. There is a moderate amount of bioburden. The ulceration appears somewhat desiccated in appearance. It is little changed in size. Dimensions are documented elsewhere. The aurelia-ulcer erythema appears to have diminished, and is nearly abated. The base of the ulceration is generally pink, but not healthy in appearance. Ulcer margins are not well beveled; rather punched-out in appearance. Neuro oriented x3, CN's II-XII intact bilaterally, moves all extremities and no focal motor deficits Sensorium / Orientation: awake, alert, oriented to person, oriented to place and oriented to time Coordination / Balance: pofpan-vr-omab test normal Speech: speech normal Psych mental status grossly normal Appearance: grossly normal and appropriate Attitude: calm Activity / Motor Behavior: appropriate eye contact Speech: normal speech Mood & Affect: euthymic mood Thought Process: normal thought process Thought Content: normal thought content Attention / Concentration: attention grossly intact Debridement Note Debridement Note Wound debrided: Left lateral malleolus ulceration Laterality: Left Type of Debridement: Excisional debridement Anesthesia Used: 5% Lidocaine Gel Depth: Down to and including healthy tissue and in the subcutaneous layer Percentage of wound debrided: 100 Instrument Used: 5mm curette Tissue Removed: Bioburden and necrotic/nonviable material Severity: Fat Layer Exposed Amount of bleeding with debridement: Mild Bleeding Controlled with: Compression and gauze Patient tolerated procedure: Patient tolerated procedure well Post-Debridement Measurements and Additional Note: Post-Debridement Measurements/Treatment - Nurse 1 - General Ulcer Assessment Start: 08/04/23 11:01 Freq: Status: Active Protocol: JESUS Activity Type Activity Date Activity User E-sign Co-sign Detail Recorded Client Recorded Date Recorded By Document 08/04/23 11:01 Desktop 08/04/23 11:04 08/04/23 11:01 - Today's Visit Information Type of service Follow-up Visit (Physician/CLINICAL ATHLETIC INSTRUCTOR ) Arrival Mode Ambulatory Transfer Assistance None Patient Identification Verified (Name & Yes ) Patient Requires Transmission-Based No Precautions Safety Precautions Fall Prevention Height and Weight Body Mass Index (BMI) 24.5 BMI Classification Normal Vital Signs Temperature (97.8 F-99.1 F) 97.3 F L Temperature Source Temporal Pulse Rate (60-100) 78 Pulse Location Monitor Oxygen Delivery Method Room Air Blood Pressure (90/60-120/80) 147/61 H Blood Pressure Mean 89 Source Monitor Position Sitting Blood Pressure Location Right Arm History Since Last Visit- (Skip if this is Patient's initial visit) Have you changed medications since your No last visit? Any new allergies or adverse reactions No Signs or symptoms of abuse and/or No neglect since last visit Have you been in the hospital since your No last visit? Has dressing in place as prescribed Yes Has compression in place as prescribed N/A Has offloadiing in place as prescribed N/A Left Footwear Regular Shoe Right Footwear Regular Shoe Pain Scale: 0-10 Numeric Is Patient Pain Free? Yes - Nurse 1 - General Ulcer Measurement Start: 08/04/23 11:01 Freq: Status: Active Protocol: Activity Type Activity Date Activity User E-sign Co-sign Detail Recorded Client Recorded Date Recorded By Document 08/04/23 11:01 [email or web address] 08/04/23 11:04 08/04/23 11:01 Wound Center Nurse 1 1. LT LAT ANKLE -Combined with other wound No -Current Size (cm) - Length 2.9 -Current Size (cm) - Width 2.6 -Current Size (cm) - Depth 0.2 -Total Square Cm 7.54 -Photo Taken No -Epithelialization Small 1-33% -Tunneling No -Undermining/Tunneling No -Circular Undermining No -Exudate Amt Medium -Exudate Type Serosanguineous -Wound Margin Distinct, Outline Attached -Granulation Amt Medium (34-66%) -Granulation Quality Red -Necrosis Amt Small (1-33%) -Necrotic Tissue Type Adherent Slough -Structure Exposed N/A -Texture (Aurelia-wound Skin Appearance) Assessed -Moisture (Aurelia-wound Skin Appearance) Assessed -Color (Aurelia-wound Skin Appearance) Assessed -Temperature (Aurelia-wound Skin No Abnormality Appearance) (Pt Warm) -Ulcer Cleansing Rinsed/ Irrigated with Saline -Foul Odor after Cleansing No -Anesthetic Used 5% Lidocaine Gel - Nurse 3 - General Ulcer D/C NN Start: 08/04/23 11:01 Freq: Status: Active Protocol: Activity Type Activity Date Activity User E-sign Co-sign Detail Recorded Client Recorded Date Recorded By Document 08/04/23 11:40 [email or web address] 08/04/23 11:41 08/04/23 11:40 Wound Care Center Nurse 3 -Ulcer Cleansing Not Cleansed -Negative Pressure Wound Therapy N/A -Primary Dressing Covered/Secured with Dry Gauze & Roll Gauze, Secured with Tape Right -Lotion applied to leg before No compression wrap -Tubular Bandage Single Layer -Size of Tubigrip Used Size D -Size D ($) 1 Left -Lotion applied to leg before No compression wrap -Tubular Bandage Single Layer -Size of Tubigrip Used Size D -Size D ($) 1 Pain Scale: 0-10 Numeric Is Patient Pain Free? Yes Teaching: Wound Center Dressing Your Wound -Person Taught Patient -Teaching Method Discussion, Demonstration -Response to teaching Verbalize understanding Compression Wraps & Stockings -Person Taught Patient -Teaching Method Discussion -Response to teaching Verbalize understanding WC - Visit Discharge Discharge Condition Stable Ambulatory Status Ambulatory Transportation Private Auto Medication Reconcilliation completed & Yes provided to patient/care provider Clinical Summary of Care Provided Yes 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, unspecified site (4) Leukopenia: CODE(S): D72.819 - Decreased white blood cell count, unspecified QUALIFIERS: Leukopenia type: neutropenia Neutropenia type: other Qualified Code(s): D70.8 - Other neutropenia (5) Splenomegaly: CODE(S): R16.1 - Splenomegaly, not elsewhere classified (6) Status post bilateral mastectomy: CODE(S): Z90.13 - Acquired absence of bilateral breasts and nipples (7) RA (rheumatoid arthritis): CODE(S): M06.9 - Rheumatoid arthritis, unspecified (8) Long-term current use of steroids: CODE(S): FEI9239 - (9) Raynauds syndrome: (10) Systemic lupus erythematosus: CODE(S): M32.9 - Systemic lupus erythematosus, unspecified (11) Hypertension: CODE(S): I10 - Essential (primary) hypertension (12) Irritable bowel syndrome: CODE(S): K58.9 - Irritable bowel syndrome without diarrhea PLAN: Plan This is a 68-year-old female of relatively normal body habitus. She presented with an ulceration overlying the left lateral malleolus. The ulceration had been present for approximately 1 month. She denied trauma, but felt as though this may be pressure related. She had been sleeping on her left side, and she indicated that pressure to the left lateral malleolus may have resulted in the ulceration. She had been treated by courses of doxycycline and clindamycin by her primary care physician, Dr. Bocanegra. Recent x-rays revealed soft tissue swelling, but no other significant abnormalities. The patient had been utilizing an antibiotic ointment topically. The patient is known to be on long- term steroids due to her diagnosis of systemic lupus erythematosus. The long- term use of steroids may adversely affect the patient's healing potential. Due to the failure of significant progress regarding wound healing, the patient has been advised to speak with her other physicians regarding the possibility of temporarily discontinuing steroid treatment. The patient has been advised to elevate her lower extremities to minimize swelling. Tubigrip's are to be continued in an effort to prevent swelling in the lower extremities. Swab cultures were recently obtained, the results of which revealed the presence of Serratia marcescens, ESBL E. coli, Proteus mirabilis, and a lactobacillus anaerobe. Because of the complicated nature and multi-organism infection, we attempted to seek consultation with the Infectious Disease service, Dr. Bruno. However, Dr. Bruno was not available for 2 more weeks, and the decision was made to proceed with intravenous antibiotics as appropriate based upon recent culture and sensitivity results. The patient was started on Invanz 1 g intravenously on a daily basis, for a total of 14 days. As a prelude to the initiation of intravenous Invanz, a PICC catheter was placed in the patient's left upper extremity. As of today, the patient has completed a 2-week course of IV Invanz. Although the ulceration does not appear frankly infected, there has been a failure to progress over recent weeks. Therefore, swab cultures have been obtained today for aerobic and anaerobic bacterial growth. The status of these cultures will be awaited prior to the removal of the intravenous PICC line. This is desired in the event that additional intravenous antibiotics may be required in the near future. We are to continue the use of Medihoney, which will be applied topically by the patient on a daily basis. The patient has been instructed in the appropriate means of application. Offloading measures have been discussed with the patient in detail, and are to continue. She is to avoid sleeping on her left side, which will eliminate the likelihood of pressure to the ulcerated area. The patient is to return in 1 week for reassessment. A noninvasive lower extremity arterial study, performed on June 17, 2023, revealed no evidence of significant arterial occlusive disease in the patient's lower extremities bilaterally. Furthermore, review of the patient's most recent laboratory studies, from May 25, 2023, revealed serum albumin and protein to be within normal levels. A recent x-ray reveals no evidence of osteomyelitis or other deep pathology. The patient is not diabetic, and has been urged to optimize her nutritional intake. A venous duplex examination was performed on 07/01/2023, revealing incompetence of the great saphenous veins bilaterally below the knee. Small saphenous veins appear competent bilaterally. Therefore, superficial venous incompetence appears unlikely as a source of the patient's ulceration. Consideration may be given to a biopsy of the patient's ulceration in the near future. Total time: 29 minutes
[2023-08-11 11:30] VITALS: BP 127/49; PULSE 71; RESP 18; TEMP 35.8; BMI 24.5
--- NOTE | 2023-08-11 11:47 | HP.PCM_ITS ---
History of Present Illness Date of Service: 08/11/23 Chief Complaint: Pressure ulceration, left lateral malleolus History of Wound: This is a 68-year-old female who presented with an ulceration on the left lateral malleolus. The ulceration had been present for approximately 4 weeks. The patient indicated her suspicion that this may be due to pressure phenomenon. She is a side sleeper, and notes restlessness in her lower extremities while sleeping. She has made effort in recent days to avoid sleeping on her left side, relieving the pressure on the ulcer site. She has been evaluated by her primary care physician, Dr. Bocanerga, who has treated the patient with 2 courses of oral antibiotics, including doxycycline and clindamycin. A culture performed on April 01, 2023, was positive for anaerobic cocci, though no sensitivities were reported. A recent x-ray of the area revealed soft tissue swelling, though no evidence of osteomyelitis. Laboratory studies were obtained on April 01, 2023, with results as follows: White blood count 1.3, hemoglobin 12.9, hematocrit 42.3, platelets 183,000, ESR 14, potassium 4.6, sodium 138, chloride 108, carbon dioxide 26.0, BUN 22, creatinine 0.88, glucose 92, calcium 9.2, total bilirubin 0.50, AST 13, ALT 11, alkaline phosphatase 44, C-reactive protein 9.94, total protein 7.6, albumin 3.7. The patient is active. Her BMI is 24.6. She denies a history of cerebrovascular accident, myocardial infarction, pulmonary disease, renal disease, and diabetes mellitus. Pre-existing medical problems are documented herein. Due to systemic lupus erythematosus, the patient has been on long-term steroid administration. [facility] Medical History B12 deficiency anemia Breast cancer Complicated wound infection Fibromyalgia Hyperlipidemia Hypertension Insomnia Irritable bowel syndrome Muscle spasm Pressure ulcer of left ankle, stage 3 Splenomegaly Systemic lupus erythematosus Home Medications doxycycline monohydrate 100 mg capsule 100 mg PO BID #20 caps 10/25/20 [Rx Last Taken Unknown] prednisone 5 mg tablet 5 mg PO DAILY 10/25/20 [History Last Taken Unknown] hydroxychloroquine 200 mg tablet (Plaquenil) 200 mg PO DAILY 05/26/22 [History Last Taken Unknown] Allergy/AdvReac Type Severity Reaction Status Date / Time Penicillins AdvReac Intermediate Rash Verified 10/31/23 12:07 Family History Daughter No problems noted. Father Diabetes Father Pancreas cancer Mother Osteoarthritis Afib Surgical History History of bilateral mastectomy History of left knee surgery Social History Smoking Status: Never smoker second hand exposure: No alcohol intake: never substance use type: does not use ford/alevism: None seatbelt use: always do you feel safe at home: Yes Vital Signs Vital Signs Vital Signs: 08/11/23 11:30 Temperature 96.4 F L Temperature Source Temporal Pulse Rate 71 Respiratory Rate 18 Blood Pressure 127/49 H Blood Pressure Mean 75 Blood Pressure Source Manual Blood Pressure Position Semi-Fowlers Blood Pressure Location Left Arm Weight Weight: 150 lb Body Mass Index (BMI) 24.5 Physical Exam Const alert, oriented x3, no apparent distress, average body habitus and no limitations General Appearance: cooperative, comfortable, well kempt, well developed and frail Orientation / Consciousness: awake, oriented to person, oriented to place and oriented to time Exam Limitations: no limitations HEENT normocephalic, head/scalp atraumatic and hearing grossly normal bilaterally Head and Scalp: normal to inspection, normocephalic and atraumatic Face and Sinus: normal facial exam External Ear: external ears normal Eyes PERRL, EOMs intact bilaterally and conjunctivae normal General Eye: normal appearance of both eyes Neck full ROM Chest Chest: symmetrical chest wall rise Resp normal respiratory effort, normal air movement, no retractions and no use of accessory muscles Effort and Inspection: able to speak in complete sentences Back/Spine Back/Spine Narrative: Kyphoscoliosis Extremity full ROM and no clubbing, cyanosis or edema Skin General Skin Exam: ecchymosis Wound Narrative: No significant swelling or edema are noted in the patient's lower extremities bilaterally. Mild hyperpigmentation is noted in the gaiter areas bilaterally. The ulceration overlying the left lateral malleolus persists. There is a moderate amount of bioburden. The ulceration appears somewhat desiccated in appearance. Epibole is noted at the wound margins, with a slight amount of undermining superiorly. It is little changed in size. Dimensions are documented elsewhere. The aurelia-ulcer erythema is minimal. The base of the ulceration is generally pink, but not healthy in appearance. Neuro oriented x3, CN's II-XII intact bilaterally, moves all extremities and no focal motor deficits Sensorium / Orientation: awake, alert, oriented to person, oriented to place and oriented to time Coordination / Balance: [id number] test normal Speech: speech normal Psych mental status grossly normal Appearance: grossly normal and appropriate Attitude: calm Activity / Motor Behavior: appropriate eye contact Speech: normal speech Mood & Affect: euthymic mood Thought Process: normal thought process Thought Content: normal thought content Attention / Concentration: attention grossly intact Debridement Note Debridement Note Wound debrided: Left lateral malleolus ulceration Laterality: Left Type of Debridement: Excisional debridement Anesthesia Used: 5% Lidocaine Gel Depth: Down to and including healthy tissue and in the subcutaneous layer Percentage of wound debrided: 100 Instrument Used: 5mm curette Tissue Removed: Bioburden and necrotic/nonviable material Severity: Fat Layer Exposed Amount of bleeding with debridement: Mild Bleeding Controlled with: Compression and gauze Patient tolerated procedure: Patient tolerated procedure well Post-Debridement Measurements and Additional Note: Post-Debridement Measurements/Treatment - Nurse 1 - General Ulcer Assessment Start: 08/04/23 11:01 Freq: Status: Active Protocol: JESUS Activity Type Activity Date Activity User E-sign Co-sign Detail Recorded Client Recorded Date Recorded By Document 08/04/23 11:01 Desktop 08/04/23 11:04 Document 08/11/23 11:30 Desktop 08/11/23 11:32 08/04/23 08/11/23 11:01 11:30 - Today's Visit Information Type of service Follow-up Visit Follow-up Visit (Physician/CLIP LOADING MACHINE FEEDER (Physician/CLIP LOADING MACHINE FEEDER ) ) Arrival Mode Ambulatory Ambulatory Transfer Assistance None None Patient Identification Verified (Name & Yes Yes ) Patient Requires Transmission-Based No No Precautions Safety Precautions Fall Prevention Height and Weight Body Mass Index (BMI) 24.5 24.5 BMI Classification Normal Normal Vital Signs Temperature (97.8 F-99.1 F) 97.3 F L 96.4 F L Temperature Source Temporal Temporal Pulse Rate (60-100) 78 71 Pulse Location Monitor Monitor Respiratory Rate (12-18) 18 Respiratory rate source Observation Oxygen Delivery Method Room Air Blood Pressure (90/60-120/80) 147/61 H 127/49 H Blood Pressure Mean 89 75 Source Monitor Manual Position Sitting Semi-Fowlers Blood Pressure Location Right Arm Left Arm History Since Last Visit- (Skip if this is Patient's initial visit) Have you changed medications since your No No last visit? Any new allergies or adverse reactions No No Had a fall/change in ADL's that may No increase risk of falls Signs or symptoms of abuse and/or No No neglect since last visit Have you been in the hospital since your No No last visit? Has dressing in place as prescribed Yes Yes Has compression in place as prescribed N/A Yes Has offloadiing in place as prescribed N/A No Experienced any changes in pain level or No management Left Footwear Regular Shoe Right Footwear Regular Shoe Pain Scale: 0-10 Numeric Is Patient Pain Free? Yes Yes WC - Nurse 1 - General Ulcer Measurement Start: 08/04/23 11:01 Freq: Status: Active Protocol: Activity Type Activity Date Activity User E-sign Co-sign Detail Recorded Client Recorded Date Recorded By Document 08/04/23 11:01 GM Desktop 08/04/23 11:04 GM Document 08/11/23 11:30 RB Desktop 08/11/23 11:32 RB 08/04/23 08/11/23 11:01 11:30 Wound Center Nurse 1 1. LT LAT ANKLE -Combined with other wound No No -Current Size (cm) - Length 2.9 2.7 -Current Size (cm) - Width 2.6 72.1 -Current Size (cm) - Depth 0.2 0.3 -Total Square Cm 7.54 194.67 -Photo Taken No -Epithelialization Small 1-33% -Tunneling No No -Undermining/Tunneling No No -Circular Undermining No No -Exudate Amt Medium Medium -Exudate Type Serosanguineous Serosanguineous -Wound Margin Distinct, Thickened & Outline Rolled Under Attached -Granulation Amt Medium (34-66%) Medium (34-66%) -Granulation Quality [place] -Slough/Fibrin Yes -Necrosis Amt Small (1-33%) Large (67-100%) -Necrotic Tissue Type Adherent Slough Adherent Slough -Structure Exposed N/A N/A -Texture (Aurelia-wound Skin Appearance) Assessed Assessed -Moisture (Aurelia-wound Skin Appearance) Assessed Assessed -Color (Aurelia-wound Skin Appearance) Assessed Assessed, Erythema -Temperature (Aurelia-wound Skin No Abnormality No Abnormality Appearance) (Pt Warm) (Pt Warm) -Tenderness on Palpation (Aurelia-wound No Skin Appearance) -Ulcer Cleansing Rinsed/ Wound Cleanser Irrigated with Saline -Foul Odor after Cleansing No No -Anesthetic Used 5% Lidocaine 5% Lidocaine Gel Gel Lower Limb Edema Present Yes Left Calf (cm) 35.5 Left Ankle (cm) 19.5 WC - Nurse 2 - General Ulcer CM Notes Start: 08/04/23 11:01 Freq: Status: Active Protocol: Activity Type Activity Date Activity User E-sign Co-sign Detail Recorded Client Recorded Date Recorded By Document 08/04/23 13:47 PL [id number] 08/04/23 13:48 PL 08/04/23 13:47 Wound Center Nurse 2 1. LT LAT ANKLE -Time 11:13 -Correct Patient Yes -Correct Side, Site, Position Yes -Correct Procedure Yes -Procedure Performed Yes -Type of Procedure Debridement -Clinical Debridement Subcutaneous -Tissue Removed Subcutaneous -Post Debridement (cm) - Length 2.9 -Post Debridement (cm) - Width 2.6 -Post Debridement (cm) - Depth 0.2 -Total Square (Post) (cm) 7.54 -Area of Debridement (cm) - Length 2.9 -Area of Debridement (cm) - Width 2.6 -Total Square (Area) (cm) 7.54 -Tunneling No -Undermining/Tunneling No -Circular Undermining No -Wound/Ulcer Outcome Not Healed -Ulcer Cleansing Rinsed/ Irrigated with Saline -Foul Odor after Cleansing No -Bioengineered Tissue No -Bleeding Controlled with Pressure -Treatment Response Procedure Tolerated Well -Debridement - Subq, 1st 20sq cm Yes Pain Scale: 0-10 Numeric Is Patient Pain Free? Yes WC - Nurse 3 - General Ulcer D/C NN Start: 08/04/23 11:01 Freq: Status: Active Protocol: Activity Type Activity Date Activity User E-sign Co-sign Detail Recorded Client Recorded Date Recorded By Document 08/04/23 11:40 GM Desktop 08/04/23 11:41 GM Document 08/11/23 11:44 RB Desktop 08/11/23 11:46 RB 08/04/23 08/11/23 11:40 11:44 Wound Care Center Nurse 3 1. LT LAT ANKLE -Ulcer Cleansing Not Cleansed Wound Cleanser -Negative Pressure Wound Therapy N/A -Other Dressing medihoney -Primary Dressing Covered/Secured with Dry Gauze & Dry Gauze & Roll Gauze, Roll Gauze, Secured with Secured with Tape Tape Right -Lotion applied to leg before No compression wrap -Tubular Bandage Single Layer Single Layer -Size of Tubigrip Used Size D Size C -Size C ($) 1 -Size D ($) 1 Left -Lotion applied to leg before No compression wrap -Tubular Bandage Single Layer Single Layer -Size of Tubigrip Used Size D Size C -Size C ($) 1 -Size D ($) 1 Treatment Response Procedure Tolerated Well Pain Scale: 0-10 Numeric Is Patient Pain Free? Yes Yes Teaching: Wound Center Dressing Your Wound -Person Taught Patient -Teaching Method Discussion, Demonstration -Response to teaching Verbalize understanding Compression Wraps & Stockings -Person Taught Patient Patient -Teaching Method Discussion Discussion, Demonstration -Response to teaching Verbalize Verbalize understanding understanding WC - Visit Discharge Discharge Condition Stable Stable Ambulatory Status Ambulatory Ambulatory Transportation Private Auto Private Auto Medication Reconcilliation completed & Yes No provided to patient/care provider Clinical Summary of Care Provided Yes Yes 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, unspecified site (4) Leukopenia: CODE(S): D72.819 - Decreased white blood cell count, unspecified QUALIFIERS: Leukopenia type: neutropenia Neutropenia type: other Qualified Code(s): D70.8 - Other neutropenia (5) Splenomegaly: CODE(S): R16.1 - Splenomegaly, not elsewhere classified (6) Status post bilateral mastectomy: CODE(S): Z90.13 - Acquired absence of bilateral breasts and nipples (7) RA (rheumatoid arthritis): CODE(S): M06.9 - Rheumatoid arthritis, unspecified (8) Long-term current use of steroids: CODE(S): EVD1665 - (9) Raynauds syndrome: (10) Systemic lupus erythematosus: CODE(S): M32.9 - Systemic lupus erythematosus, unspecified (11) Hypertension: CODE(S): I10 - Essential (primary) hypertension (12) Irritable bowel syndrome: CODE(S): K58.9 - Irritable bowel syndrome without diarrhea PLAN: Plan This is a 68-year-old female of relatively normal body habitus. She presented with an ulceration overlying the left lateral malleolus. The ulceration had been present for approximately 1 month. She denied trauma, but felt as though this may be pressure related. She had been sleeping on her left side, and she indicated that pressure to the left lateral malleolus may have resulted in the ulceration. She had been treated by courses of doxycycline and clindamycin by her primary care physician, Dr. Bocanegra. Recent x-rays revealed soft tissue swelling, but no other significant abnormalities. The patient had been utilizing an antibiotic ointment topically. The patient is known to be on long- term steroids due to her diagnosis of systemic lupus erythematosus. The long- term use of steroids may adversely affect the patient's healing potential. Due to the failure of significant progress regarding wound healing, the patient has been advised to speak with her other physicians regarding the possibility of temporarily discontinuing steroid treatment. The patient has been advised to elevate her lower extremities to minimize swelling. Tubigrip's are to be continued in an effort to prevent swelling in the lower extremities. Swab cultures were recently obtained, the results of which revealed the presence of Serratia marcescens, ESBL E. coli, Proteus mirabilis, and a lactobacillus anaerobe. Because of the complicated nature and multi-organism infection, we attempted to seek consultation with the Infectious Disease service, Dr. Bruno. However, Dr. Bruno was not available for 2 more weeks, and the decision was made to proceed with intravenous antibiotics as appropriate based upon recent culture and sensitivity results. The patient was started on Invanz 1 g intravenously on a daily basis, for a total of 14 days. As a prelude to the initiation of intravenous Invanz, a PICC catheter was placed in the patient's left upper extremity. The patient has completed a 2-week course of IV Invanz. Because of the lack of apparent improvement in the patient's wound, cultures were again obtained, which were positive for Staphylococcus hemolyticus. This is not normal skin ayad, but clinical factors prompted the initiation of additional antibiotic therapy. Based upon sensitivity results, linezolid 600 mg p.o. twice daily for 7 days has been prescribed, and the patient has started this course of oral antibiotics within the last 24 hours. At this juncture, her PICC catheter does not appear needed, and instructions are to be forwarded for removal of the PICC catheter which would otherwise be a risk for venous thrombosis or infection. We are to await the results of the patient's course of oral linezolid. However, it is likely that we will consider a biopsy of the wound next week, due to concerns regarding a failure to demonstrate significant improvement. We to continue the use of Medihoney, which will be applied topically by the patient on a daily basis. The patient has been instructed in the appropriate means of application. Offloading measures have been discussed with the patient in detail, and are to continue. She is to avoid sleeping on her left side, which will eliminate the likelihood of pressure to the ulcerated area. The patient is to return in 1 week for reassessment. A noninvasive lower extremity arterial study, performed on June 17, 2023, revealed no evidence of significant arterial occlusive disease in the patient's lower extremities bilaterally. Furthermore, review of the patient's most recent laboratory studies, from May 25, 2023, revealed serum albumin and protein to be within normal levels. A recent x-ray reveals no evidence of osteomyelitis or other deep pathology. The patient is not diabetic, and has been urged to optimize her nutritional intake. A venous duplex examination was performed on 07/01/2023, revealing incompetence of the great saphenous veins bilaterally below the knee. Small saphenous veins appear competent bilaterally. Therefore, superficial venous incompetence appears unlikely as a source of the patient's ulceration. Consideration may be given to a biopsy of the patient's ulceration in the near future. She will return in 1 week. Total time: 28 minutes
--- NOTE | 2023-08-21 13:26 | PCM.OP.PRO ---
Procedure Report Date of Procedure: 08/21/[address] Atkins for removal of PICC line. Patient was brought back to the radiology holding bay and positioned supine on the cot. Patient was provided education as to process of removal of PICC line. Patient has had no difficulty with PICC line and there are no signs of infection at the insertion site. Patient was then reclined to a reverse Trendelenburg. Using sterile gloves, the PICC line dressing was removed with an alcohol swab to loosen. The site was then cleaned with chlorhexidine swab. New sterile gloves were donned and patient was given instruction to hold breath on withdrawal. The PICC was steadily removed without difficulty and completely intact. Vaseline dressing and OpSite was applied. Patient denied any complaints and was ambulatory to the elevator.
== END 2023-08-27 23:59 | disposition home or self-care (01) ==
LOC: WC 11:30
PROVIDERS: PCP Family Medicine Geriatric Medicine; Referring Provider Family Medicine Geriatric Medicine; Visit Provider Surgery
DX: L89.523 Pressure ulcer of left ankle, stage 3 (principal); D70.9 Neutropenia, unspecified; M06.9 Rheumatoid arthritis, unspecified; M32.9 Systemic lupus erythematosus, unspecified; M05.00 Felty's syndrome, unspecified site; Z90.13 Acquired absence of bilateral breasts and nipples; L08.9 Local infection of the skin and subcutaneous tissue, unspecified; I73.00 Raynaud's syndrome without gangrene; E78.5 Hyperlipidemia, unspecified; I10 Essential (primary) hypertension; Z80.0 Family history of malignant neoplasm of digestive organs; R16.1 Splenomegaly, not elsewhere classified; K58.9 Irritable bowel syndrome, unspecified; T14.8XXA Other injury of unspecified body region, initial encounter
CPT/HCPCS: 11042; 87070; 87075; 87077; 87186; 87205

== ENCOUNTER 2023-09-03 12:15 | Emergency (ER) | payer MEDICARE, SELFPAY ==
[2023-09-03 12:16] VITALS: BP 148/83; PULSE 89; RESP 16; TEMP 36.8; O2SAT 93; BMI 24.9
--- NOTE | 2023-09-03 16:08 | VDLE_ITS ---
Reason For Study: swelling RIGHT LEFT GSV is normal. GSV is normal. CFV is compressible, spontaneous, phasic, CFV is compressible, spontaneous, phasic, competent and demonstrates normal competent, and demonstrates normal augmentation. augmentation. FV is compressible, spontaneous, phasic, FV is compressible, spontaneous, phasic, competent and demonstrates normal competent and demonstrates normal augmentation. augmentation. POP V is compressible, spontaneous, phasic, POP V is compressible, spontaneous, phasic, competent and demonstrates normal competent and demonstrates normal augmentation. augmentation. T/P Trunk is compressible. T/P Trunk is compressible. PTV is compressible. PTV is compressible. RT PerV is compressible. LT PerV is compressible. Procedure This is a venous duplex using B-mode, color flow and spectral Doppler. Exam performed portable in ED. The exam was diagnostic. A preliminary report was called and/or faxed to Dr. Astorga. VL/Venous Duplex US - Son Extrem Interpretation Summary Deep veins of the bilateral lower extremities are patent and compressible segme ntally. There is no evidence of bilateral lower extremity deep vein thrombosis. The bilateral great saphenous veins appear patent and compressible segmentally. Ordering Physician: Tacho Astorga Performed By: Jake Rockwell RVT
--- NOTE | 2023-09-03 16:18 | ED.VIS.LOWEX ---
HPI History of Present Illness Chief Complaint: Edema Informant: patient Narrative Narrative: Patient comes lanes of swelling of both calves. Patient states she has had this several times before. They have never been able to find the cause of this. She has never had DVT. She has never had CHF. 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 She has a wound on her left lateral malleolus for which she has been seeing wound care for a while. She is now seeing Dr. Marie who sent her in today to have this swelling checked. It has been going on again for few weeks to a month and a half. She is not at all short of breath. She is not overall gaining weight. No coughing. No fevers or chills. She states the wound is getting better. Nothing really makes the symptoms better or worse. PFSH [facility] Medical History B12 deficiency anemia Breast cancer Complicated wound infection Fibromyalgia Hyperlipidemia Hypertension Insomnia Irritable bowel syndrome Muscle spasm Pressure ulcer of left ankle, stage 3 Splenomegaly Systemic lupus erythematosus Home Medications doxycycline monohydrate 100 mg capsule 100 mg PO BID #20 caps 10/25/20 [Rx Last Taken Unknown] prednisone 5 mg tablet 5 mg PO DAILY 10/25/20 [History Last Taken Unknown] hydroxychloroquine 200 mg tablet (Plaquenil) 200 mg PO DAILY 05/26/22 [History Last Taken Unknown] hydrocodone-acetaminophen 5-325mg 5mg-325mg 1 tab PO Q6H PRN PRN Pain 3 days #10 TABLETS 09/03/23 [Rx Last Taken Unknown] prednisone 5 mg tablet 5 mg PO DAILY #65 tabs 09/03/23 [Rx Last Taken Unknown] Allergy/AdvReac Type Severity Reaction Status Date / Time Penicillins AdvReac Intermediate Rash Verified 09/03/23 12:16 Family History Daughter No problems noted. Father Diabetes Father Pancreas cancer Mother Osteoarthritis Afib Surgical History History of bilateral mastectomy History of left knee surgery Social History Smoking Status: Never smoker second hand exposure: No alcohol intake: never substance use type: does not use ford/alevism: None seatbelt use: always do you feel safe at home: Yes ROS ROS ED Constitutional Constitutional ED: Denies chills, fever(s) or sweats Cardiovascular Cardiovascular: Denies chest pain, palpitations or racing heartbeat Respiratory/Chest Respiratory/Chest: Denies cough, dyspnea or sputum Gastrointestinal Gastrointestinal: Denies abdominal pain, nausea or vomiting Genitourinary Genitourinary ED: Denies hematuria Musculoskeletal Musculoskeletal: Reports other Details: Swelling as in history of present illness. ; Denies arthralgias, back pain, myalgias or neck pain Integumentary Reports other Details: Healing ulcer left lateral malleolus. Hematologic/Lymphatic Hematologic/Lymphatic: Denies easy bleeding or easy bruising Allergic/Immunologic Allergic/Immunologic ED: Denies urticaria EXAM Physical Exam Narrative Exam Narrative: General: Patient awake alert no acute distress sitting comfortably in bed. HEENT shows no trauma. I see no petechia in her mouth at all. Neck is supple no JVD. Lungs are completely clear. No dyspnea. No rales. Saturations were registered 93% on room air but she is currently 96% on room air in the monitor. Heart is regular. I hear no murmur. Peripheral pulses are normal x 4. Abdomen soft nontender Extremities she does have dressing and Band-Aid on the lateral malleolus. She would prefer I not remove this as it was just packed earlier today by Dr. Marie. She has some slight almost petechiae looking structures on both lower extremities. But she has been on prednisone. I see these nowhere else in her body. She has had these before. She has some slight fullness of her calfs. But there is no edema of her ankles at all. I feel no cord. Legs are not hot. They are not tender. No sign of infection. Const Vital Signs: 09/03/23 12:16 09/03/23 16:20 Temperature 98.2 F Temperature Source Temporal Pulse Rate 89 Respiratory Rate 16 Respiratory Effort Normal Non-Labored Respiratory Pattern Normal Blood Pressure 148/83 H Blood Pressure Mean 104 Pulse Ox 93 Oxygen Delivery Method Room Air MDM MDM MDM Narrative Medical decision making narrative: Patient's ultrasound shows no DVT. Patient CBC shows significantly low white count but this is a chronic issue for her. Hemoglobin is okay and her platelets are also normal. Patient's electrolytes show no acute abnormality. Patient's glucose is normal. I discussed this with the patient. This looks like vasculitis. When I say that she tells me she has had vasculitis before it acts like this and she responds well to prednisone. She normally starts off at 25 mg a day and tapers down. We will do that. I will also start meds for pain she has tolerated hydrocodone before. 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 Lab Data Attestation: I reviewed the patient's lab results. Labs: Laboratory Results - last 24 hr 09/03/23 15:52 WBC 1.0 L* RBC 5.01 Hgb 12.0 Hct 39.4 MCV 78.6 L MCH 24.0 L MCHC 30.5 L RDW Std Deviation 44.3 H RDW Coeff of Mira 15.9 H Plt Count 206 MPV 9.7 Immature Gran % (Auto) 1.000 H Neut % (Auto) 44.1 L Lymph % (Auto) 35.3 Ferry % (Auto) 19.6 H Eos % (Auto) 0.0 Baso % (Auto) 0.0 Absolute Neuts (auto) 0.5 L Absolute Lymphs (auto) 0.36 L Nucleated RBC % 0 Sodium 139 Potassium 4.0 Chloride 106 Carbon Dioxide 26.0 Anion Gap 7 BUN 32 H Creatinine 0.77 Estim Creat Clear Calc 47.10 Est GFR (MDRD) Af Amer 95 Est GFR (MDRD) Non-Af 79 BUN/Creatinine Ratio 41.6 H Glucose 86 Calcium 9.3 Radiography Diagnostic Testing: Clinical Impression(s) from Imaging Studies Venous Doppler Study 09/03/23 16:08 Interpretation Summary Deep veins of the bilateral lower extremities are patent and compressible segmentally. There is no evidence of bilateral lower extremity deep vein thrombosis. The bilateral great saphenous veins appear patent and compressible segmentally. Ordering Physician: Tacho Astorga Performed By: Jake Rockwell RVT Discharge Plan Triage Chief Complaint: Edema ED Provider: Tacho Astorga Dx/Rx/DC Orders Clinical Impression: Vasculitic ulcer of right lower extremity, Vasculitis Instructions: Understanding Vasculitis Prescriptions: New prednisone 5 mg tablet 5 mg PO DAILY Qty: 65 0RF Rx Instructions: 25mg (five tablets) daily for 5 days, 20 mg (4 tablets) daily for 4 days, 15 mg (3 tablets) daily for 4 days, 10 mg (2 tablets) daily for 4 days, 1 tablet daily for 4 days. hydrocodone-acetaminophen [hydrocodone-acetaminophen] 5-325 mg tablet 1 tab PO Q6H PRN PRN (Reason: Pain) 3 Days Qty: 10 0RF No Action hydroxychloroquine [Plaquenil] 200 mg tablet 200 mg PO DAILY prednisone 5 MG tablet 5 mg PO DAILY doxycycline monohydrate 100 MG capsule 100 mg PO BID Qty: 20 0RF Primary Care Provider: Hector Bocanegra Chi Referrals: Hector Bocanegra Chi, MD [Primary Care Provider] - As soon as possible Disposition Disposition: Home, Self Care
[2023-09-03 16:21] LABS: Absolute Lymphocyte Count 0.36 X10^3/uL (0.83-4.51); Absolute Neutrophil Count 0.5 X10^3/uL (2.0-7.7); Hematocrit 39.4 % (37-47); Lymphocyte # 0.36 X10^3/ul (0.83-4.51); Lymphocyte % 35.3 % (19-41); Mean Corp Hgb Conc 30.5 g/dL (32-36); Mean Corpuscular Volume 78.6 fL (81-99); Mean Platelet Vol. 9.7 fl (6.2-12.0); Monocyte% 19.6 % (0-10); NRBC Flagged by Analyzer 0 % (0-5); Neutrophil # 0.45 X10^3/uL (2.7-7.7); Neutrophil % 44.1 % (47-70); POSITIVE COUNT YES; POSITIVE DIFFERENTIAL YES; Platelet Count 206 K/mm3 (150-450); RBC Distribution Width CV 15.9 % (11.6-14.6); RBC Distribution Width SD 44.3 fl (35.1-43.9); Red Blood Count 5.01 M/mm3 (4.2-5.4)
[2023-09-03 16:30] LABS: Differential Indicated SCAN CRITERIA MET
[2023-09-03 16:36] LABS: Anion Gap 7 (5-15); BUN 32 mg/dL (7-18); BUN/Creat Ratio 41.6 RATIO (10-20); Calcium,Total 9.3 mg/dL (8.5-10.1); Chloride 106 mmol/L (98-107); Creatinine, Serum 0.77 mg/dL (0.55-1.02); EST Glomerular Filtration Rate 79 mL/min (>60); Est Glom Filt Rate - Afr Amer 95 mL/min (>60); Glucose 86 mg/dL (74-106); Sodium Level 139 mmol/L (136-145)
[2023-09-03] MEDS: HYDROcodone Bitartrate/Apap 5/325 Tablet PO (17:20)
[2023-09-03] MEDS: predniSONE 20 MG Tablet 30 MG PO (17:21)
[2023-09-03 17:26] LABS: Anisocytosis 1+; Differential Comment SEE COMMENTS; Microcytosis 1+; Platelet Estimate ADEQUATE (ADEQ); Red Cell Morphology N CHROM NORMAL (NORM C&C)
[2023-09-04 13:15] LABS: Pathologist Review Reviewed
== END 2023-09-03 17:49 | disposition home or self-care (01) ==
PROVIDERS: Emergency Provider Emergency Medicine; PCP Family Medicine Geriatric Medicine; Visit Provider Emergency Medicine
DX: L97.919 Non-pressure chronic ulcer of unspecified part of right lower leg with unspecified severity (principal); M06.9 Rheumatoid arthritis, unspecified; I77.6 Arteritis, unspecified; M79.7 Fibromyalgia; I10 Essential (primary) hypertension; E78.5 Hyperlipidemia, unspecified; Z79.52 Long term (current) use of systemic steroids
CPT/HCPCS: 80048; 85025; 93970; 99283; A4216

== ENCOUNTER 2023-09-10 16:19 | Outpatient (CLI) | payer MEDICARE, SELFPAY | END 2023-09-10 23:59 | disposition home or self-care (01) | LOC: LABSPEC 16:23 | PROVIDERS: PCP Family Medicine Geriatric Medicine; Visit Provider Podiatrist | DX: L97.329 Non-pressure chronic ulcer of left ankle with unspecified severity (principal) | CPT/HCPCS: 87070; 87077; 87186; 87205 ==

== ENCOUNTER 2023-09-23 11:00 | Outpatient (RCR) | payer MEDICARE, SELFPAY ==
[2023-08-28 00:20] VITALS: BP 127/49; PULSE 71; RESP 18; TEMP 35.8; BMI 24.5
[2023-09-16 10:14] VITALS: BP 157/78; PULSE 72; RESP 16; BMI 24.5
--- NOTE | 2023-09-16 11:52 | PCM.WC.PN ---
History of Present Illness Date of Service: 09/16/23 Chief Complaint: Pressure ulceration, left lateral malleolus History of Wound: This is a 68-year-old female who presented with an ulceration on the left lateral malleolus. The ulceration had been present for approximately 4 weeks. The patient indicated her suspicion that this may be due to pressure phenomenon. She is a side sleeper, and notes restlessness in her lower extremities while sleeping. She has made effort in recent days to avoid sleeping on her left side, relieving the pressure on the ulcer site. She has been evaluated by her primary care physician, Dr. Bocanegra, who has treated the patient with 2 courses of oral antibiotics, including doxycycline and clindamycin. A culture performed on April 01, 2023, was positive for anaerobic cocci, though no sensitivities were reported. A recent x-ray of the area revealed soft tissue swelling, though no evidence of osteomyelitis. Laboratory studies were obtained on April 01, 2023, with results as follows: White blood count 1.3, hemoglobin 12.9, hematocrit 42.3, platelets 183,000, ESR 14, potassium 4.6, sodium 138, chloride 108, carbon dioxide 26.0, BUN 22, creatinine 0.88, glucose 92, calcium 9.2, total bilirubin 0.50, AST 13, ALT 11, alkaline phosphatase 44, C-reactive protein 9.94, total protein 7.6, albumin 3.7. The patient is active. Her BMI is 24.6. She denies a history of cerebrovascular accident, myocardial infarction, pulmonary disease, renal disease, and diabetes mellitus. Pre-existing medical problems are documented herein. Due to systemic lupus erythematosus, the patient has been on long-term steroid administration. Subjective Subjective Mrs. Stewart is a 68-year-old female presenting to wound care center today for follow-up and evaluation of bilateral lower extremity ulcerations. Patient was really seen by Dr. Atkins as well as Dr. Marie in private office. Dr. Marie referred the patient to the wound care center due to the increase in wound size to the right lower extremity. Patient was being seen by Dr. Marie in private office for the left lateral ulceration. During the time of visit in the office the patient showed evidence of worsening vasculitis was seen in the emergency department and put on steroid but still has pain to the bilateral lower extremity. Patient has been doing her own wound care at home for the last week. She is currently taking her antibiotic, Bactrim as tolerated. She admits to improvement to the redness of her bilateral legs. She denies trauma. Denies constitutional symptoms. No other pedal complaints at this time. Objective Data Objective Data Vital Signs: Vital Signs Temp Pulse Resp BP O2 Del Method 96.4 F L 72 16 157/78 H Room Air 08/28/23 00:20 09/16/23 10:14 09/16/23 10:14 09/16/23 10:14 09/16/23 10:14 Oxygen Delivery Method Room Air Weight: 68.039 kg Body Mass Index (BMI) 24.5 Physical Exam Narrative Vascular: DP and PT pulses are palpable. +1 pitting edema appreciated to bilateral lower extremity. Blanchable erythema appreciated bilateral lower extremity without proximal streaking. No sign of infection. Neurological: Light touch intact. Patient response to painful stimuli. Dermatological: Bilaterally the patient has 11 ulcerations. Ulcerations are stable with no sign of infection nor is there drainage. There is pain on palpation to all 11 ulcerations to the bilateral lower extremity. Selective debridement of the left lateral ankle with a #15 blade without incident. Predebridement measurement is 2.7 x 3.0 x 0.2 cm. Postdebridement measurement is 2.8 x 3.1 x 0.2 cm. Muscle skeletal: Muscle strength is 5 out of 5 in all quadrants. Mild pain on palpation to all 11 ulcerations bilateral. No pain with calf compression. Debridement Note Debridement Note Debridement Free Text: Selective debridement of the left lateral ankle with a #15 blade without incident. Predebridement measurement is 2.7 x 3.0 x 0.2 cm. Postdebridement measurement is 2.8 x 3.1 x 0.2 cm. Post-Debridement Measurements and Additional Note: Post-Debridement Measurements/Treatment - Nurse 1 - General Ulcer Assessment Start: 09/16/23 10:09 Freq: Status: Active Protocol: JASWANTEXPhil Activity Type Activity Date Activity User E-sign Co-sign Detail Recorded Client Recorded Date Recorded By Document 09/16/23 10:14 [facility] Desktop 09/16/23 10:41 [facility] 09/16/23 10:14 - Today's Visit Information Type of service Initial Visit Arrival Mode Cane,Wheelchair Transfer Assistance Other Transfer Assist (Other) 1 stand by Patient Identification Verified (Name & Yes ) Patient Requires Transmission-Based No Precautions Height and Weight Body Mass Index (BMI) 24.5 BMI Classification Normal Vital Signs Pulse Rate (60-100) 72 Pulse Location Monitor Respiratory Rate (12-18) 16 Respiratory rate source Observation Oxygen Delivery Method Room Air Blood Pressure (90/60-120/80) 157/78 H Blood Pressure Mean (mm Hg) 104 Source Monitor Position Sitting Blood Pressure Location Left Arm History Since Last Visit- (Skip if this is Patient's initial visit) Left Footwear Slipper Right Footwear Slipper Pain Scale: 0-10 Numeric Is Patient Pain Free? Yes WC - Nurse 1 - General Ulcer Measurement Start: 09/16/23 10:09 Freq: Status: Active Protocol: Activity Type Activity Date Activity User E-sign Co-sign Detail Recorded Client Recorded Date Recorded By Document 09/16/23 10:14 [facility] Desktop 09/16/23 10:41 [facility] 09/16/23 10:14 Wound Center Nurse 1 #11- R MED FOOT/ANKLE -Combined with other wound No -Current Size (cm) - Length 5.3 -Current Size (cm) - Width 2.6 -Current Size (cm) - Depth 0.1 -Total Square Cm 13.78 -Date of Last Picture (Recall this 09/16/23 field) -Photo Taken Yes -Epithelialization None Present -Tunneling No -Undermining/Tunneling No -Circular Undermining No -Exudate Amt Medium -Exudate Type Serosanguineous -Wound Margin Distinct, Outline Attached -Granulation Amt None Present (0 %) -Slough/Fibrin Yes -Necrosis Amt Large (67-100%) -Necrotic Tissue Type Adherent Slough -Texture (Aurelia-wound Skin Appearance) Assessed, Scarring -Moisture (Aurelia-wound Skin Appearance) Maceration,Dry/ Scaly -Color (Aurelia-wound Skin Appearance) Assessed, Erythema -Temperature (Aurelia-wound Skin No Abnormality Appearance) (Pt Warm) -Tenderness on Palpation (Aurelia-wound Yes Skin Appearance) -Ulcer Cleansing Soap and Water -Foul Odor after Cleansing No -Anesthetic Used 5% Lidocaine Gel -Wound Comment(s) BLISTERED #10- R MED LE CLUSTER -Combined with other wound No -Current Size (cm) - Length 1.9 -Current Size (cm) - Width 2.5 -Current Size (cm) - Depth 0.1 -Total Square Cm 4.75 -Date of Last Picture (Recall this 09/16/23 field) -Photo Taken Yes -Epithelialization None Present -Tunneling No -Undermining/Tunneling No -Circular Undermining No -Exudate Amt Medium -Exudate Type Serosanguineous -Wound Margin Distinct, Outline Attached -Granulation Amt None Present (0 %) -Slough/Fibrin Yes -Necrosis Amt Large (67-100%) -Necrotic Tissue Type Eschar -Texture (Aurelia-wound Skin Appearance) Assessed, Scarring -Moisture (Aurelia-wound Skin Appearance) Assessed,Dry/ Scaly -Color (Aurelia-wound Skin Appearance) Assessed, Erythema -Temperature (Aurelia-wound Skin No Abnormality Appearance) (Pt Warm) -Tenderness on Palpation (Aurelia-wound Yes Skin Appearance) -Ulcer Cleansing Soap and Water -Foul Odor after Cleansing No -Anesthetic Used 5% Lidocaine Gel #9- R ACHILLES -Combined with other wound No -Current Size (cm) - Length 2 -Current Size (cm) - Width 2.7 -Current Size (cm) - Depth 0.2 -Total Square Cm 5.4 -Date of Last Picture (Recall this 09/16/23 field) -Photo Taken Yes -Epithelialization None Present -Tunneling No -Undermining/Tunneling No -Circular Undermining No -Exudate Amt Medium -Exudate Type Serosanguineous -Wound Margin Distinct, Outline Attached -Granulation Amt None Present (0 %) -Slough/Fibrin Yes -Necrosis Amt Large (67-100%) -Necrotic Tissue Type Eschar -Texture (Aurelia-wound Skin Appearance) Assessed, Scarring -Moisture (Aurelia-wound Skin Appearance) Assessed -Color (Aurelia-wound Skin Appearance) Assessed, Erythema -Temperature (Aurelia-wound Skin No Abnormality Appearance) (Pt Warm) -Tenderness on Palpation (Aurelia-wound No Skin Appearance) -Ulcer Cleansing Soap and Water -Foul Odor after Cleansing No -Anesthetic Used 5% Lidocaine Gel #8- R CALF CLUSTER -Combined with other wound No -Current Size (cm) - Length 3.5 -Current Size (cm) - Width 0.5 -Current Size (cm) - Depth 0.1 -Total Square Cm 1.75 -Date of Last Picture (Recall this 09/16/23 field) -Photo Taken Yes -Epithelialization None Present -Tunneling No -Undermining/Tunneling No -Circular Undermining No -Exudate Amt Medium -Exudate Type Serosanguineous -Wound Margin Distinct, Outline Attached -Granulation Amt Medium (34-66%) -Granulation Quality Red -Necrosis Amt Medium (34-66%) -Necrotic Tissue Type Eschar -Texture (Aurelia-wound Skin Appearance) Assessed, Scarring -Moisture (Aurelia-wound Skin Appearance) Assessed,Dry/ Scaly -Color (Aurelia-wound Skin Appearance) Assessed, Erythema -Temperature (Aurelia-wound Skin No Abnormality Appearance) (Pt Warm) -Tenderness on Palpation (Aurelia-wound Yes Skin Appearance) -Ulcer Cleansing Soap and Water -Anesthetic Used 5% Lidocaine Gel #7- R GOLD -Combined with other wound No -Current Size (cm) - Length 1.9 -Current Size (cm) - Width 1.9 -Current Size (cm) - Depth 0.2 -Total Square Cm 3.61 -Date of Last Picture (Recall this 09/16/23 field) -Photo Taken Yes -Epithelialization None Present -Tunneling No -Undermining/Tunneling No -Circular Undermining No -Exudate Amt Large -Exudate Type Serosanguineous -Wound Margin Distinct, Outline Attached -Granulation Amt None Present (0 %) -Slough/Fibrin Yes -Necrosis Amt Large (67-100%) -Texture (Aurelia-wound Skin Appearance) Assessed, Scarring -Moisture (Aurelia-wound Skin Appearance) Assessed,Dry/ Scaly -Color (Aurelia-wound Skin Appearance) Assessed, Erythema -Temperature (Aurelia-wound Skin No Abnormality Appearance) (Pt Warm) -Tenderness on Palpation (Aurelia-wound Yes Skin Appearance) -Ulcer Cleansing Soap and Water -Foul Odor after Cleansing No -Anesthetic Used 5% Lidocaine Gel #5- L GOLD -Combined with other wound No -Current Size (cm) - Length 0.5 -Current Size (cm) - Width 0.5 -Current Size (cm) - Depth 0.2 -Total Square Cm 0.25 -Date of Last Picture (Recall this 09/16/23 field) -Photo Taken Yes -Epithelialization None Present -Tunneling No -Undermining/Tunneling No -Circular Undermining No -Exudate Amt Medium -Exudate Type Serosanguineous -Wound Margin Distinct, Outline Attached -Granulation Amt Medium (34-66%) -Granulation Quality Red -Necrosis Amt Medium (34-66%) -Necrotic Tissue Type Adherent Slough -Texture (Aurelia-wound Skin Appearance) Assessed, Scarring -Moisture (Aurelia-wound Skin Appearance) Assessed,Dry/ Scaly -Color (Aurelia-wound Skin Appearance) Assessed, Erythema -Temperature (Aurelia-wound Skin No Abnormality Appearance) (Pt Warm) -Tenderness on Palpation (Aurelia-wound Yes Skin Appearance) -Ulcer Cleansing Soap and Water -Foul Odor after Cleansing No -Anesthetic Used 5% Lidocaine Gel #4- L MED ANKLE CLUSTER -Combined with other wound No -Current Size (cm) - Length 2.2 -Current Size (cm) - Width 2 -Current Size (cm) - Depth 0.2 -Total Square Cm 4.4 -Date of Last Picture (Recall this 09/16/23 field) -Photo Taken Yes -Epithelialization None Present -Tunneling No -Undermining/Tunneling No -Circular Undermining No -Exudate Amt Medium -Exudate Type Serosanguineous -Wound Margin Distinct, Outline Attached -Granulation Amt Medium (34-66%) -Granulation Quality Red -Slough/Fibrin Yes -Necrosis Amt Medium (34-66%) -Necrotic Tissue Type Adherent Slough -Texture (Aurelia-wound Skin Appearance) Assessed, Scarring -Moisture (Aurelia-wound Skin Appearance) Assessed,Dry/ Scaly -Color (Aurelia-wound Skin Appearance) Assessed, Erythema -Temperature (Aurelia-wound Skin No Abnormality Appearance) (Pt Warm) -Tenderness on Palpation (Aurelia-wound Yes Skin Appearance) -Ulcer Cleansing Soap and Water -Foul Odor after Cleansing No -Anesthetic Used 5% Lidocaine Gel #3- L LAT ANKLE SUPERIOR -Combined with other wound No -Current Size (cm) - Length 4.9 -Current Size (cm) - Width 2.6 -Current Size (cm) - Depth 0.1 -Total Square Cm 12.74 -Date of Last Picture (Recall this 09/16/23 field) -Photo Taken Yes -Epithelialization None Present -Tunneling No -Undermining/Tunneling No -Circular Undermining No -Exudate Amt Medium -Exudate Type Serosanguineous -Wound Margin Distinct, Outline Attached -Granulation Amt None Present (0 %) -Slough/Fibrin Yes -Necrosis Amt Large (67-100%) -Necrotic Tissue Type Adherent Slough -Texture (Aurelia-wound Skin Appearance) Assessed, Scarring -Moisture (Aurelia-wound Skin Appearance) Assessed,Dry/ Scaly -Color (Aurelia-wound Skin Appearance) Assessed, Erythema -Temperature (Aurelia-wound Skin No Abnormality Appearance) (Pt Warm) -Tenderness on Palpation (Aurelia-wound Yes Skin Appearance) -Ulcer Cleansing Soap and Water -Foul Odor after Cleansing No -Anesthetic Used 5% Lidocaine Gel #2- L LAT ANKLE INFERIOR -Combined with other wound No -Current Size (cm) - Length 2.7 -Current Size (cm) - Width 3 -Current Size (cm) - Depth 0.2 -Total Square Cm 8.1 -Date of Last Picture (Recall this 09/16/23 field) -Photo Taken Yes -Tunneling No -Undermining/Tunneling No -Circular Undermining No -Exudate Amt Medium -Exudate Type Serosanguineous -Wound Margin Distinct, Outline Attached -Granulation Amt None Present (0 %) -Slough/Fibrin Yes -Necrosis Amt Large (67-100%) -Necrotic Tissue Type Eschar -Texture (Aurelia-wound Skin Appearance) Assessed, Scarring -Moisture (Aurelia-wound Skin Appearance) Assessed,Dry/ Scaly -Color (Aurelia-wound Skin Appearance) Assessed, Erythema -Temperature (Aurelia-wound Skin No Abnormality Appearance) (Pt Warm) -Tenderness on Palpation (Aurelia-wound Yes Skin Appearance) -Ulcer Cleansing Soap and Water -Foul Odor after Cleansing No -Anesthetic Used 5% Lidocaine Gel Lower Limb Edema Present Yes Right Calf (cm) 41.5 Right Ankle (cm) 20.2 Left Calf (cm) 43.8 Left Ankle (cm) 19.7 WC - Nurse 2 - General Ulcer CM Notes Start: 09/16/23 10:09 Freq: Status: Active Protocol: Activity Type Activity Date Activity User E-sign Co-sign Detail Recorded Client Recorded Date Recorded By Document 09/16/23 10:58 Laptop 09/16/23 11:03 09/16/23 10:58 Wound Center Nurse 2 #11- R MED FOOT/ANKLE -Correct Patient No -Correct Side, Site, Position No -Correct Procedure No -Procedure Performed No -Wound/Ulcer Outcome Not Healed #10- R MED LE CLUSTER -Correct Patient No -Correct Side, Site, Position No -Correct Procedure No -Procedure Performed No -Wound/Ulcer Outcome Not Healed #9- R ACHILLES -Correct Patient No -Correct Side, Site, Position No -Correct Procedure No -Procedure Performed No -Wound/Ulcer Outcome Not Healed #8- R CALF CLUSTER -Correct Patient No -Correct Side, Site, Position No -Correct Procedure No -Procedure Performed No -Wound/Ulcer Outcome Not Healed #7- R GOLD -Correct Patient No -Correct Side, Site, Position No -Correct Procedure No -Procedure Performed No -Wound/Ulcer Outcome Not Healed #5- L GOLD -Correct Patient No -Correct Side, Site, Position No -Correct Procedure No -Procedure Performed No -Wound/Ulcer Outcome Not Healed #4- L MED ANKLE CLUSTER -Correct Patient No -Correct Side, Site, Position No -Correct Procedure No -Procedure Performed No -Wound/Ulcer Outcome Not Healed #3- L LAT ANKLE SUPERIOR -Time 11:01 -Correct Patient Yes -Correct Side, Site, Position Yes -Correct Procedure Yes -Procedure Performed Yes -Type of Procedure Debridement -Clinical Debridement Epidermis / Dermis -Tissue Removed Epidermis, Dermis -Tunneling No -Undermining/Tunneling No -Circular Undermining No -Wound/Ulcer Outcome Not Healed -Ulcer Cleansing Rinsed/ Irrigated with Saline -Foul Odor after Cleansing No -Bioengineered Tissue No -Bleeding Controlled with Pressure -Treatment Response Procedure Tolerated Well -Offloading No -Debridement - Open, 1st 20sq cm Yes #2- L LAT ANKLE INFERIOR -Correct Patient No -Correct Side, Site, Position No -Correct Procedure No -Procedure Performed No -Wound/Ulcer Outcome Not Healed Pain Scale: 0-10 Numeric Is Patient Pain Free? Yes WC - Nurse 3 - General Ulcer D/C NN Start: 09/16/23 10:09 Freq: Status: Active Protocol: Activity Type Activity Date Activity User E-sign Co-sign Detail Recorded Client Recorded Date Recorded By Document 09/16/23 11:27 [facility] Desktop 09/16/23 11:29 [facility] 09/16/23 11:27 Wound Care Center Nurse 3 #11- R MED FOOT/ANKLE -Ulcer Cleansing Rinsed/ Irrigated with Saline -Foul Odor after Cleansing No -Other Dressing BETADINE -Primary Dressing Covered/Secured with Dry Gauze & Roll Gauze, Secured with Tape -Other Covering ABD #10- R MED LE CLUSTER -Ulcer Cleansing Rinsed/ Irrigated with Saline -Foul Odor after Cleansing No -Other Dressing ATB OINT -Primary Dressing Covered/Secured with Dry Gauze & Roll Gauze, Secured with Tape #9- R ACHILLES -Ulcer Cleansing Rinsed/ Irrigated with Saline -Foul Odor after Cleansing No -Other Dressing ATB OINT -Primary Dressing Covered/Secured with Dry Gauze & Roll Gauze, Secured with Tape #8- R CALF CLUSTER -Ulcer Cleansing Rinsed/ Irrigated with Saline -Foul Odor after Cleansing No -Other Dressing ATB OINT -Primary Dressing Covered/Secured with Dry Gauze & Roll Gauze, Secured with Tape #7- R GOLD -Ulcer Cleansing Rinsed/ Irrigated with Saline -Foul Odor after Cleansing No -Other Dressing ATB OINT -Primary Dressing Covered/Secured with Dry Gauze & Roll Gauze, Secured with Tape #5- L GOLD -Ulcer Cleansing Rinsed/ Irrigated with Saline -Foul Odor after Cleansing No -Other Dressing ATB OINT -Primary Dressing Covered/Secured with Dry Gauze & Roll Gauze, Secured with Tape #4- L MED ANKLE CLUSTER -Ulcer Cleansing Rinsed/ Irrigated with Saline -Foul Odor after Cleansing No -Other Dressing ATB OINT -Primary Dressing Covered/Secured with Dry Gauze & Roll Gauze, Secured with Tape #3- L LAT ANKLE SUPERIOR -Ulcer Cleansing Rinsed/ Irrigated with Saline -Foul Odor after Cleansing No -Other Dressing ATB OINT -Primary Dressing Covered/Secured with Dry Gauze & Roll Gauze, Secured with Tape #2- L LAT ANKLE INFERIOR -Ulcer Cleansing Rinsed/ Irrigated with Saline -Foul Odor after Cleansing No -Other Dressing ATB OINT -Primary Dressing Covered/Secured with Dry Gauze & Roll Gauze, Secured with Tape BLE -Multi-Layered Wrap Application Multi-Layer Comp - Bilat ($ ) Treatment Response Procedure Tolerated Well Pain Scale: 0-10 Numeric Is Patient Pain Free? Yes WC - Visit Discharge Discharge Condition Stable Ambulatory Status Wheelchair Transportation Private Auto Assessment/Plan Assessment/Plan (1) Non-pressure ulcer of left lower extremity with fat layer exposed: CODE(S): L97.922 - Non-pressure chronic ulcer of unspecified part of left lower leg with fat layer exposed PLAN: Patient was examined evaluated. All findings were discussed with the patient. All questions were answered to the patient's satisfaction. Selective debridement of the left lateral ankle with a #15 blade without incident. Predebridement measurement is 2.7 x 3.0 x 0.2 cm. Postdebridement measurement is 2.8 x 3.1 x 0.2 cm. The patient's bilateral ulcerations were dressed with triple ointment antibiotic and a 3M double layer wrap was applied to the bilateral lower extremity. Patient was instructed to keep them clean dry and intact do not remove. She is to take her Bactrim as written. She is to use her pain medication when needed. She is to continue at rest and elevate her bilateral lower extremity. She will follow-up Thursday for nursing visit to reapply the 3M wraps if they become loose. She will follow-up in 1 week. We begin authorization for graft to the left lateral ankle through my med[facility] for EpiFix mesh. 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
[2023-09-18 09:45] VITALS: BP 155/75; PULSE 70; RESP 16; TEMP 36.4; BMI 24.5
[2023-09-23 11:17] VITALS: BP 146/74; PULSE 75; RESP 18; TEMP 36.3; BMI 24.5
--- NOTE | 2023-09-23 13:13 | PN.PCM_ITS ---
History of Present Illness Date of Service: 09/23/23 Chief Complaint: Pressure ulceration, left lateral malleolus History of Wound: This is a 68-year-old female who presented with an ulceration on the left lateral malleolus. The ulceration had been present for approximately 4 weeks. The patient indicated her suspicion that this may be due to pressure phenomenon. She is a side sleeper, and notes restlessness in her lower extremities while sleeping. She has made effort in recent days to avoid sleeping on her left side, relieving the pressure on the ulcer site. She has been evaluated by her primary care physician, Dr. Bocanegra, who has treated the patient with 2 courses of oral antibiotics, including doxycycline and clindamycin. A culture performed on April 01, 2023, was positive for anaerobic cocci, though no sensitivities were reported. A recent x-ray of the area revealed soft tissue swelling, though no evidence of osteomyelitis. Laboratory studies were obtained on April 01, 2023, with results as follows: White blood count 1.3, hemoglobin 12.9, hematocrit 42.3, platelets 183,000, ESR 14, potassium 4.6, sodium 138, chloride 108, carbon dioxide 26.0, BUN 22, creatinine 0.88, glucose 92, calcium 9.2, total bilirubin 0.50, AST 13, ALT 11, alkaline phosphatase 44, C-reactive protein 9.94, total protein 7.6, albumin 3.7. The patient is active. Her BMI is 24.6. She denies a history of cerebrovascular accident, myocardial infarction, pulmonary disease, renal disease, and diabetes mellitus. Pre-existing medical problems are documented herein. Due to systemic lupus erythematosus, the patient has been on long-term steroid administration. Subjective Subjective Mrs. Stewart is a 68-year-old female presenting to the wound care center today for follow-up evaluation of bilateral lower extremity ulcerations. Patient has been compliant with her compression dressing is left clean dry and intact. She states that her pain is improved as well as her swelling. She states her wounds are stable. She is taking all antibiotics as written. She denies trauma. Denies constitutional symptoms. No other pedal complaints at this time. Objective Data Objective Data Vital Signs: Vital Signs Temp Pulse Resp BP O2 Del Method 97.4 F L 75 18 146/74 H Room Air 09/23/23 11:17 09/23/23 11:17 09/23/23 11:17 09/23/23 11:17 09/23/23 11:17 Oxygen Delivery Method Room Air Weight: 68.039 kg Body Mass Index (BMI) 24.5 Physical Exam Narrative Vascular: DP and PT pulses are palpable. +1 pitting edema appreciated to bilateral lower extremity. Blanchable erythema appreciated bilateral lower extremity without proximal streaking. No sign of infection. Neurological: Light touch intact. Patient response to painful stimuli. Dermatological: Full-thickness ulcerations appreciated bilateral lower extremity. Left lateral ulceration measures 8.5 x 8.5 x 0.2 cm. Left medial ulceration measures 8.0 x 7.5 x 0.1 cm. Right lateral ulceration measures 10.0 x 15.0 x 0.2 cm. Right medial ulceration measures 8.0 x 7.0 x 0.2 cm. Excisional debridement down to and including subcutaneous tissue of the left lateral ulceration with a #15 blade without incident. Predebridement measurement was 8.2 x 8.2 x 0.1 cm. Postdebridement measurement is 8.5 x 8.5 x 0.2 cm. Excision debridement down to and including subcutaneous tissue of the left medial ulceration with a #15 blade without incident. Predebridement measurement was 7.8 x 7.3 x 0.1 cm. Postdebridement measurement is 8.0 x 7.5 x 0.1 cm. Excisional debridement down to and including subcutaneous tissue of the right lateral ulceration with a #15 blade without incident. Predebridement measurement was 9.5 x 14.5 x 0.1 cm. Postdebridement measurement is 10.0 x 15.0 x 0.2 cm. Excisional debridement down to and including subcutaneous tissue of the right medial ulceration with a #15 blade without incident. Predebridement measurement was 7.8 x 6.8 x 0.1 cm. Postdebridement measurement is 8.0 x 7.0 x 0.2 cm. Muscle skeletal: Muscle strength is 5 out of 5 in all quadrants. Mild pain on palpation to all 11 ulcerations bilateral. No pain with calf compression. Debridement Note Debridement Note Debridement Free Text: Excisional debridement down to and including subcutaneous tissue of the left lateral ulceration with a #15 blade without incident. P redebridement measurement was 8.2 x 8.2 x 0.1 cm. Postdebridement measurement is 8.5 x 8.5 x 0.2 cm. Excision debridement down to and including subcutaneous tissue of the left medial ulceration with a #15 blade without incident. Predebridement measurement was 7.8 x 7.3 x 0.1 cm. Postdebridement measurement is 8.0 x 7.5 x 0.1 cm. Excisional debridement down to and including subcutaneous tissue of the right lateral ulceration with a #15 blade without incident. Predebridement measurement was 9.5 x 14.5 x 0.1 cm. Postdebridement measurement is 10.0 x 15.0 x 0.2 cm. Excisional debridement down to and including subcutaneous tissue of the right medial ulceration with a #15 blade without incident. Predebridement measurement was 7.8 x 6.8 x 0.1 cm. Postdebridement measurement is 8.0 x 7.0 x 0.2 cm. Post-Debridement Measurements and Additional Note: Post-Debridement Measurements/Treatment - Nurse 1 - General Ulcer Assessment Start: 09/16/23 10:09 Freq: Status: Active Protocol: JESUS Activity Type Activity Date Activity User E-sign Co-sign Detail Recorded Client Recorded Date Recorded By Document 09/16/23 10:14 [facility] Desktop 09/16/23 10:41 [facility] Document 09/18/23 09:45 PL Tablet 09/18/23 09:47 PL Document 09/23/23 11:17 KW Desktop 09/23/23 11:34 KW 09/16/23 09/18/23 09/23/23 10:14 09:45 11:17 - Today's Visit Information Type of service Initial Visit Nurse-only Follow-up Visit Visit (Physician/SURGICAL SCRUB TECH ) Arrival Mode Cane,Wheelchair Wheelchair Wheelchair Transfer Assistance Other None Transfer Assist (Other) 1 stand by Patient Identification Verified (Name & Yes Yes Yes ) Patient Requires Transmission-Based No No Precautions Height and Weight Body Mass Index (BMI) 24.5 24.5 24.5 BMI Classification Normal Normal Normal Vital Signs Temperature (97.8 F-99.1 F) 97.6 F L 97.4 F L Temperature Source Temporal Temporal Pulse Rate (60-100) 72 70 75 Pulse Location Monitor Monitor Respiratory Rate (12-18) 16 16 18 Respiratory rate source Observation Observation Oxygen Delivery Method Room Air Room Air Blood Pressure (90/60-120/80) 157/78 H 155/75 H 146/74 H Blood Pressure Mean (mm Hg) 104 101 98 Source Monitor Monitor Position Sitting Semi-Fowlers Blood Pressure Location Left Arm Left Arm History Since Last Visit- (Skip if this is Patient's initial visit) Have you changed medications since your No No last visit? Any new allergies or adverse reactions No No Had a fall/change in ADL's that may No No increase risk of falls Signs or symptoms of abuse and/or No No neglect since last visit Have you been in the hospital since your No No last visit? Has dressing in place as prescribed Yes Yes Has compression in place as prescribed Yes Yes Has offloadiing in place as prescribed N/A No Experienced any changes in pain level or No No management Left Footwear Slipper Regular Shoe Right Footwear Slipper Regular Shoe Pain Scale: 0-10 Numeric Is Patient Pain Free? Yes Yes No BLE -Description Sharp,Burning -Intensity 9 -Radiation Location post leg to knee -Pain Behavior Facial Grimacing -Pain Aggravating Factors Standing, Walking -Alleviating Factors/Interventions None WC - Nurse 1 - General Ulcer Measurement Start: 09/16/23 10:09 Freq: Status: Active Protocol: Activity Type Activity Date Activity User E-sign Co-sign Detail Recorded Client Recorded Date Recorded By Document 09/16/23 10:14 [facility] Desktop 09/16/23 10:41 [facility] Document 09/23/23 11:17 KW Desktop 09/23/23 11:34 KW 09/16/23 09/23/23 10:14 11:17 Wound Center Nurse 1 14. LT PLANTAR -Texture (Aurelia-wound Skin Appearance) Assessed -Color (Aurelia-wound Skin Appearance) Assessed -Temperature (Aurelia-wound Skin No Abnormality Appearance) (Pt Warm) -Ulcer Cleansing Soap and Water -Anesthetic Used 4% Lidocaine Solution 13 RT FOOT TOES -Granulation Amt Small (1-33%) -Granulation Quality Shelley -Necrosis Amt Large (67-100%) -Necrotic Tissue Type Adherent Slough -Moisture (Aurelia-wound Skin Appearance) Maceration -Ulcer Cleansing Soap and Water -Anesthetic Used 4% Lidocaine Solution 12. RT PLANTAR -Necrotic Tissue Type Adherent Slough -Texture (Aurelia-wound Skin Appearance) Assessed -Moisture (Aurelia-wound Skin Appearance) Assessed -Color (Aurelia-wound Skin Appearance) Assessed -Ulcer Cleansing Soap and Water -Anesthetic Used 4% Lidocaine Solution #11- R MED FOOT/ANKLE -Combined with other wound No -Current Size (cm) - Length 5.3 -Current Size (cm) - Width 2.6 -Current Size (cm) - Depth 0.1 -Total Square Cm 13.78 -Date of Last Picture (Recall this 09/16/23 field) -Photo Taken Yes -Epithelialization None Present -Tunneling No -Undermining/Tunneling No -Circular Undermining No -Exudate Amt Medium Large -Exudate Type Serosanguineous Serosanguineous -Wound Margin Distinct, Thickened Outline Attached -Granulation Amt None Present (0 Small (1-33%) %) -Granulation Quality Red -Slough/Fibrin Yes -Necrosis Amt Large (67-100%) Large (67-100%) -Necrotic Tissue Type Adherent Slough Adherent Slough -Texture (Aurelia-wound Skin Appearance) Assessed, Localized Edema Scarring -Moisture (Aurelia-wound Skin Appearance) Maceration,Dry/ Assessed Scaly -Color (Aurelia-wound Skin Appearance) Assessed, Erythema Erythema -Temperature (Aurelia-wound Skin No Abnormality Appearance) (Pt Warm) -Tenderness on Palpation (Aurelia-wound Yes Skin Appearance) -Ulcer Cleansing Soap and Water Soap and Water -Foul Odor after Cleansing No -Anesthetic Used 5% Lidocaine 4% Lidocaine Gel Solution -Wound Comment(s) BLISTERED #5- L GOLD -Combined with other wound No -Current Size (cm) - Length 0.5 -Current Size (cm) - Width 0.5 -Current Size (cm) - Depth 0.2 -Total Square Cm 0.25 -Date of Last Picture (Recall this 09/16/23 field) -Photo Taken Yes -Epithelialization None Present -Tunneling No -Undermining/Tunneling No -Circular Undermining No -Exudate Amt Medium Medium -Exudate Type Serosanguineous Serosanguineous -Wound Margin Distinct, Thickened Outline Attached -Granulation Amt Medium (34-66%) Small (1-33%) -Granulation Quality Red Shelley -Necrosis Amt Medium (34-66%) Large (67-100%) -Necrotic Tissue Type Adherent Slough Eschar -Texture (Aurelia-wound Skin Appearance) Assessed, Assessed Scarring -Moisture (Aurelia-wound Skin Appearance) Assessed,Dry/ Assessed Scaly -Color (Aurelai-wound Skin Appearance) Assessed, Assessed Erythema -Temperature (Aurelia-wound Skin No Abnormality No Abnormality Appearance) (Pt Warm) (Pt Warm) -Tenderness on Palpation (Aurelia-wound Yes Skin Appearance) -Ulcer Cleansing Soap and Water Soap and Water -Foul Odor after Cleansing No -Anesthetic Used 5% Lidocaine 4% Lidocaine Gel Solution #2- L LAT ANKLE INFERIOR -Combined with other wound No -Current Size (cm) - Length 2.7 -Current Size (cm) - Width 3 -Current Size (cm) - Depth 0.2 -Total Square Cm 8.1 -Date of Last Picture (Recall this 09/16/23 field) -Photo Taken Yes -Tunneling No -Undermining/Tunneling No -Circular Undermining No -Exudate Amt Medium -Exudate Type Serosanguineous Serosanguineous -Wound Margin Distinct, Thickened Outline Attached -Granulation Amt None Present (0 %) -Slough/Fibrin Yes -Necrosis Amt Large (67-100%) -Necrotic Tissue Type Eschar -Texture (Aurelia-wound Skin Appearance) Assessed, Assessed Scarring -Moisture (Aurelia-wound Skin Appearance) Assessed,Dry/ Assessed Scaly -Color (Aurleia-wound Skin Appearance) Assessed, Assessed Erythema -Temperature (Aurelia-wound Skin No Abnormality No Abnormality Appearance) (Pt Warm) (Pt Warm) -Tenderness on Palpation (Aurelia-wound Yes Skin Appearance) -Ulcer Cleansing Soap and Water Soap and Water -Foul Odor after Cleansing No -Anesthetic Used 5% Lidocaine 4% Lidocaine Gel Solution #10- R MED LE CLUSTER -Combined with other wound No -Current Size (cm) - Length 1.9 -Current Size (cm) - Width 2.5 -Current Size (cm) - Depth 0.1 -Total Square Cm 4.75 -Date of Last Picture (Recall this 09/16/23 field) -Photo Taken Yes -Epithelialization None Present -Tunneling No -Undermining/Tunneling No -Circular Undermining No -Exudate Amt Medium -Exudate Type Serosanguineous -Wound Margin Distinct, Thickened Outline Attached -Granulation Amt None Present (0 Small (1-33%) %) -Granulation Quality Shelley -Slough/Fibrin Yes -Necrosis Amt Large (67-100%) Large (67-100%) -Necrotic Tissue Type Eschar Eschar -Texture (Aurelia-wound Skin Appearance) Assessed, Assessed, Scarring Localized Edema -Moisture (Aurelia-wound Skin Appearance) Assessed,Dry/ Assessed Scaly -Color (Aurelia-wound Skin Appearance) Assessed, Assessed Erythema -Temperature (Aurelia-wound Skin No Abnormality No Abnormality Appearance) (Pt Warm) (Pt Warm) -Tenderness on Palpation (Aurelia-wound Yes Skin Appearance) -Ulcer Cleansing Soap and Water Soap and Water -Foul Odor after Cleansing No -Anesthetic Used 5% Lidocaine 4% Lidocaine Gel Solution #9- R ACHILLES -Combined with other wound No -Current Size (cm) - Length 2 -Current Size (cm) - Width 2.7 -Current Size (cm) - Depth 0.2 -Total Square Cm 5.4 -Date of Last Picture (Recall this 09/16/23 field) -Photo Taken Yes -Epithelialization None Present -Tunneling No -Undermining/Tunneling No -Circular Undermining No -Exudate Amt Medium -Exudate Type Serosanguineous -Wound Margin Distinct, Outline Attached -Granulation Amt None Present (0 %) -Slough/Fibrin Yes -Necrosis Amt Large (67-100%) -Necrotic Tissue Type Eschar -Texture (Aurelia-wound Skin Appearance) Assessed, Assessed Scarring -Moisture (Aurelia-wound Skin Appearance) Assessed Assessed -Color (Aurelia-wound Skin Appearance) Assessed, Assessed Erythema -Temperature (Aurelia-wound Skin No Abnormality No Abnormality Appearance) (Pt Warm) (Pt Warm) -Tenderness on Palpation (Aurelia-wound No Skin Appearance) -Ulcer Cleansing Soap and Water Soap and Water -Foul Odor after Cleansing No -Anesthetic Used 5% Lidocaine 4% Lidocaine Gel Solution #8- R CALF CLUSTER -Combined with other wound No -Current Size (cm) - Length 3.5 -Current Size (cm) - Width 0.5 -Current Size (cm) - Depth 0.1 -Total Square Cm 1.75 -Date of Last Picture (Recall this 09/16/23 field) -Photo Taken Yes -Epithelialization None Present -Tunneling No -Undermining/Tunneling No -Circular Undermining No -Exudate Amt Medium -Exudate Type Serosanguineous -Wound Margin Distinct, Outline Attached -Granulation Amt Medium (34-66%) -Granulation Quality Red -Necrosis Amt Medium (34-66%) -Necrotic Tissue Type Eschar -Texture (Aurelia-wound Skin Appearance) Assessed, Assessed Scarring -Moisture (Aurelia-wound Skin Appearance) Assessed,Dry/ Assessed Scaly -Color (Aurelia-wound Skin Appearance) Assessed, Assessed Erythema -Temperature (Aurelia-wound Skin No Abnormality No Abnormality Appearance) (Pt Warm) (Pt Warm) -Tenderness on Palpation (Aurelia-wound Yes Skin Appearance) -Ulcer Cleansing Soap and Water Soap and Water -Anesthetic Used 5% Lidocaine 4% Lidocaine Gel Solution #7- R lateral leg -Combined with other wound No -Current Size (cm) - Length 1.9 -Current Size (cm) - Width 1.9 -Current Size (cm) - Depth 0.2 -Total Square Cm 3.61 -Date of Last Picture (Recall this 09/16/23 field) -Photo Taken Yes -Epithelialization None Present -Tunneling No -Undermining/Tunneling No -Circular Undermining No -Exudate Amt Large Medium -Exudate Type Serosanguineous Serosanguineous -Wound Margin Distinct, Thickened Outline Attached -Granulation Amt None Present (0 Small (1-33%) %) -Granulation Quality Shelley -Slough/Fibrin Yes -Necrosis Amt Large (67-100%) Large (67-100%) -Necrotic Tissue Type Eschar -Texture (Aurelia-wound Skin Appearance) Assessed, Assessed Scarring -Moisture (Aurelia-wound Skin Appearance) Assessed,Dry/ Assessed Scaly -Color (Aurelia-wound Skin Appearance) Assessed, Assessed Erythema -Temperature (Aurelia-wound Skin No Abnormality Appearance) (Pt Warm) -Tenderness on Palpation (Aurelia-wound Yes Skin Appearance) -Ulcer Cleansing Soap and Water Soap and Water -Foul Odor after Cleansing No -Anesthetic Used 5% Lidocaine 4% Lidocaine Gel Solution #4- L MED leg CLUSTER -Combined with other wound No -Current Size (cm) - Length 2.2 -Current Size (cm) - Width 2 -Current Size (cm) - Depth 0.2 -Total Square Cm 4.4 -Date of Last Picture (Recall this 09/16/23 field) -Photo Taken Yes -Epithelialization None Present -Tunneling No -Undermining/Tunneling No -Circular Undermining No -Exudate Amt Medium Medium -Exudate Type Serosanguineous Serosanguineous -Wound Margin Distinct, Thickened Outline Attached -Granulation Amt Medium (34-66%) Small (1-33%) -Granulation Quality Red Red -Slough/Fibrin Yes -Necrosis Amt Medium (34-66%) Large (67-100%) -Necrotic Tissue Type Adherent Slough Adherent Slough -Texture (Aurelia-wound Skin Appearance) Assessed, Assessed Scarring -Moisture (Aurelia-wound Skin Appearance) Assessed,Dry/ Assessed Scaly -Color (Aurelia-wound Skin Appearance) Assessed, Assessed Erythema -Temperature (Aurelia-wound Skin No Abnormality No Abnormality Appearance) (Pt Warm) (Pt Warm) -Tenderness on Palpation (Aurelia-wound Yes Skin Appearance) -Ulcer Cleansing Soap and Water Soap and Water -Foul Odor after Cleansing No -Anesthetic Used 5% Lidocaine 4% Lidocaine Gel Solution #3- L LAT leg -Combined with other wound No -Current Size (cm) - Length 4.9 -Current Size (cm) - Width 2.6 -Current Size (cm) - Depth 0.1 -Total Square Cm 12.74 -Date of Last Picture (Recall this 09/16/23 field) -Photo Taken Yes -Epithelialization None Present -Tunneling No -Undermining/Tunneling No -Circular Undermining No -Exudate Amt Medium -Exudate Type Serosanguineous -Wound Margin Distinct, Outline Attached -Granulation Amt None Present (0 Small (1-33%) %) -Granulation Quality Red -Slough/Fibrin Yes -Necrosis Amt Large (67-100%) Large (67-100%) -Necrotic Tissue Type Adherent Slough Eschar -Texture (Aurelia-wound Skin Appearance) Assessed, Assessed Scarring -Moisture (Aurelia-wound Skin Appearance) Assessed,Dry/ Assessed Scaly -Color (Aurelia-wound Skin Appearance) Assessed, Assessed Erythema -Temperature (Aurelia-wound Skin No Abnormality No Abnormality Appearance) (Pt Warm) (Pt Warm) -Tenderness on Palpation (Aurelia-wound Yes Skin Appearance) -Ulcer Cleansing Soap and Water Soap and Water -Foul Odor after Cleansing No -Anesthetic Used 5% Lidocaine 4% Lidocaine Gel Solution Lower Limb Edema Present Yes Right Calf (cm) 41.5 44.5 Right Ankle (cm) 20.2 23 Left Calf (cm) 43.8 45.2 Left Ankle (cm) 19.7 19.4 - Nurse 2 - General Ulcer CM Notes Start: 09/16/23 10:09 Freq: Status: Active Protocol: Activity Type Activity Date Activity User E-sign Co-sign Detail Recorded Client Recorded Date Recorded By Document 09/16/23 10:58 Laptop 09/16/23 11:03 Document 09/23/23 11:45 Laptop 09/23/23 11:59 09/16/23 09/23/23 10:58 11:45 Wound Center Nurse 2 14. LT PLANTAR -Correct Patient No -Correct Side, Site, Position No -Correct Procedure No -Procedure Performed No -Wound/Ulcer Outcome Not Healed 13 RT FOOT TOES -Correct Patient No -Correct Side, Site, Position No -Correct Procedure No -Procedure Performed No -Wound/Ulcer Outcome Not Healed 12. RT PLANTAR -Correct Patient No -Correct Side, Site, Position No -Correct Procedure No -Procedure Performed No -Wound/Ulcer Outcome Not Healed #11- R MED FOOT/ANKLE -Time 11:51 -Correct Patient No No -Correct Side, Site, Position No No -Correct Procedure No No -Procedure Performed No No -Wound/Ulcer Outcome Not Healed Not Healed -Debridement - Subq, 1st 20sq cm No #5- L GOLD -Time 11:54 -Correct Patient No No -Correct Side, Site, Position No No -Correct Procedure No No -Procedure Performed No No -Post Debridement (cm) - Length 8.5 -Post Debridement (cm) - Width 8.5 -Post Debridement (cm) - Depth 0.2 -Total Square (Post) (cm) 72.25 -Area of Debridement (cm) - Length 8.5 -Area of Debridement (cm) - Width 8.5 -Total Square (Area) (cm) 72.25 -Tunneling No -Undermining/Tunneling No -Circular Undermining No -Wound/Ulcer Outcome Not Healed -Ulcer Cleansing Rinsed/ Irrigated with Saline -Foul Odor after Cleansing No -Bioengineered Tissue No -Bleeding Controlled with Pressure -Treatment Response Procedure Tolerated Well -Offloading No -Debridement - Subq, 1st 20sq cm No #2- L LAT ANKLE INFERIOR -Correct Patient No No -Correct Side, Site, Position No No -Correct Procedure No No -Procedure Performed No No -Wound/Ulcer Outcome Not Healed #10- R MED LE CLUSTER -Time 11:51 -Correct Patient No Yes -Correct Side, Site, Position No Yes -Correct Procedure No Yes -Procedure Performed No Yes -Type of Procedure Debridement -Clinical Debridement Subcutaneous -Tissue Removed Subcutaneous -Post Debridement (cm) - Length 8 -Post Debridement (cm) - Width 7 -Post Debridement (cm) - Depth 0.2 -Total Square (Post) (cm) 56 -Area of Debridement (cm) - Length 8 -Area of Debridement (cm) - Width 7 -Total Square (Area) (cm) 56 -Tunneling No -Undermining/Tunneling No -Circular Undermining No -Wound/Ulcer Outcome Not Healed Not Healed -Ulcer Cleansing Rinsed/ Irrigated with Saline -Foul Odor after Cleansing No -Bioengineered Tissue No -Bleeding Controlled with Pressure -Treatment Response Procedure Tolerated Well -Offloading No -Debridement - Subq, 1st 20sq cm No #9- R ACHILLES -Correct Patient No No -Correct Side, Site, Position No No -Correct Procedure No No -Procedure Performed No No -Wound/Ulcer Outcome Not Healed Not Healed #8- R CALF CLUSTER -Correct Patient No No -Correct Side, Site, Position No No -Correct Procedure No No -Procedure Performed No No -Wound/Ulcer Outcome Not Healed Not Healed #7- R lateral leg -Time 11:52 -Correct Patient No Yes -Correct Side, Site, Position No Yes -Correct Procedure No Yes -Procedure Performed No Yes -Type of Procedure Debridement -Clinical Debridement Subcutaneous -Tissue Removed Subcutaneous -Post Debridement (cm) - Length 10 -Post Debridement (cm) - Width 15 -Post Debridement (cm) - Depth 0.2 -Total Square (Post) (cm) 150 -Area of Debridement (cm) - Length 10 -Area of Debridement (cm) - Width 15 -Total Square (Area) (cm) 150 -Tunneling No -Undermining/Tunneling No -Circular Undermining No -Wound/Ulcer Outcome Not Healed Not Healed -Ulcer Cleansing Rinsed/ Irrigated with Saline -Foul Odor after Cleansing No -Bioengineered Tissue No -Bleeding Controlled with Pressure -Treatment Response Procedure Tolerated Well -Offloading No -Debridement - Subq, 1st 20sq cm No #4- L MED leg CLUSTER -Time 11:54 -Correct Patient No Yes -Correct Side, Site, Position No Yes -Correct Procedure No Yes -Procedure Performed No Yes -Type of Procedure Debridement -Clinical Debridement Subcutaneous -Tissue Removed Subcutaneous -Post Debridement (cm) - Length 8 -Post Debridement (cm) - Width 7.5 -Post Debridement (cm) - Depth 0.1 -Total Square (Post) (cm) 60.0 -Area of Debridement (cm) - Length 8 -Area of Debridement (cm) - Width 7.5 -Total Square (Area) (cm) 60.0 -Tunneling No -Undermining/Tunneling No -Circular Undermining No -Wound/Ulcer Outcome Not Healed Not Healed -Ulcer Cleansing Rinsed/ Irrigated with Saline -Foul Odor after Cleansing No -Bioengineered Tissue No -Bleeding Controlled with Pressure -Treatment Response Procedure Tolerated Well -Offloading No -Debridement - Subq, 1st 20sq cm No #3- L LAT leg -Time 11:01 11:55 -Correct Patient Yes Yes -Correct Side, Site, Position Yes Yes -Correct Procedure Yes Yes -Procedure Performed Yes Yes -Type of Procedure Debridement Debridement -Clinical Debridement Epidermis / Subcutaneous Dermis -Tissue Removed Epidermis, Subcutaneous Dermis -Post Debridement (cm) - Length 8.5 -Post Debridement (cm) - Width 8.5 -Post Debridement (cm) - Depth 0.2 -Total Square (Post) (cm) 72.25 -Area of Debridement (cm) - Length 0.5 -Area of Debridement (cm) - Width 8.5 -Total Square (Area) (cm) 4.25 -Tunneling No No -Undermining/Tunneling No No -Circular Undermining No No -Wound/Ulcer Outcome Not Healed Not Healed -Ulcer Cleansing Rinsed/ Rinsed/ Irrigated with Irrigated with Saline Saline -Foul Odor after Cleansing No No -Bioengineered Tissue No No -Bleeding Controlled with Pressure Pressure -Treatment Response Procedure Procedure Tolerated Well Tolerated Well -Offloading No No -Debridement - Open, 1st 20sq cm Yes -Debridement - Subq, 1st 20sq cm Yes -Debridement, SubQ, ea addt'l 20sq cm 16 or part thereof Pain Scale: 0-10 Numeric Is Patient Pain Free? Yes Yes WC - Nurse 3 - General Ulcer D/C NN Start: 09/16/23 10:09 Freq: Status: Active Protocol: Activity Type Activity Date Activity User E-sign Co-sign Detail Recorded Client Recorded Date Recorded By Document 09/16/23 11:27 BMF Desktop 09/16/23 11:29 BMF Document 09/18/23 09:45 PL Tablet 09/18/23 09:47 PL Document 09/23/23 12:00 BMF [id number] 09/23/23 12:02 BMF Edit Result 09/23/23 12:00 BMF (1) [id number] 09/23/23 12:03 BMF (1) #10- R MED LE CLUSTER - Primary Dressing Applied => C Hydrogel ($) 09/16/23 09/18/23 09/23/23 11:27 09:45 12:00 [facility] Nurse 3 #11- R MED FOOT/ANKLE -Ulcer Cleansing Rinsed/ Irrigated with Saline -Foul Odor after Cleansing No -Other Dressing BETADINE -Primary Dressing Covered/Secured with Dry Gauze & Roll Gauze, Secured with Tape -Other Covering ABD #5- L GOLD -Ulcer Cleansing Rinsed/ Irrigated with Saline -Foul Odor after Cleansing No -Other Dressing ATB OINT -Primary Dressing Covered/Secured with Dry Gauze & Roll Gauze, Secured with Tape #2- L LAT ANKLE INFERIOR -Ulcer Cleansing Rinsed/ Irrigated with Saline -Foul Odor after Cleansing No -Other Dressing ATB OINT -Primary Dressing Covered/Secured with Dry Gauze & Roll Gauze, Secured with Tape #10- R MED LE CLUSTER -Ulcer Cleansing Rinsed/ Rinsed/ Irrigated with Irrigated with Saline Saline -Foul Odor after Cleansing No No -Primary Dressing Applied C Hydrogel ($) -Other Dressing ATB OINT hydrogel; per kw egg processor -Primary Dressing Covered/Secured with Dry Gauze & Dry Gauze & Roll Gauze, Roll Gauze, Secured with Secured with Tape Tape #9- R ACHILLES -Ulcer Cleansing Rinsed/ Rinsed/ Irrigated with Irrigated with Saline Saline -Foul Odor after Cleansing No No -Other Dressing ATB OINT hydrogel; per kw egg processor -Primary Dressing Covered/Secured with Dry Gauze & Dry Gauze & Roll Gauze, Roll Gauze, Secured with Secured with Tape Tape #8- R CALF CLUSTER -Ulcer Cleansing Rinsed/ Rinsed/ Irrigated with Irrigated with Saline Saline -Foul Odor after Cleansing No No -Other Dressing ATB OINT hydrogel; per kw egg processor -Primary Dressing Covered/Secured with Dry Gauze & Dry Gauze & Roll Gauze, Roll Gauze, Secured with Secured with Tape Tape #7- R lateral leg -Ulcer Cleansing Rinsed/ Rinsed/ Irrigated with Irrigated with Saline Saline -Foul Odor after Cleansing No No -Other Dressing ATB OINT hydrogel; per kw egg processor -Primary Dressing Covered/Secured with Dry Gauze & Dry Gauze & Roll Gauze, Roll Gauze, Secured with Secured with Tape Tape #4- L MED leg CLUSTER -Ulcer Cleansing Rinsed/ Rinsed/ Irrigated with Irrigated with Saline Saline -Foul Odor after Cleansing No No -Other Dressing ATB OINT hydrogel; per kw egg processor -Primary Dressing Covered/Secured with Dry Gauze & Dry Gauze & Roll Gauze, Roll Gauze, Secured with Secured with Tape Tape #3- L LAT leg -Ulcer Cleansing Rinsed/ Rinsed/ Irrigated with Irrigated with Saline Saline -Foul Odor after Cleansing No No -Other Dressing ATB OINT hydrogel; per kw egg processor -Primary Dressing Covered/Secured with Dry Gauze & Dry Gauze & Roll Gauze, Roll Gauze, Secured with Secured with Tape Tape BLE -Multi-Layered Wrap Application Multi-Layer Multi-Layer Comp - Bilat ($ Comp - Bilat ($ ) ) -Tubular Bandage Double Layer -Size of Tubigrip Used Size E -Size E ($) 2 Treatment Response Procedure Procedure Tolerated Well Tolerated Well Vital Signs Temperature (97.8 F-99.1 F) 97.6 F L Temperature Source Temporal Pulse Rate (60-100) 70 Respiratory Rate (12-18) 16 Blood Pressure (90/60-120/80) 155/75 H Blood Pressure Mean (mm Hg) 101 Pain Scale: 0-10 Numeric Is Patient Pain Free? Yes Yes Yes WC - Visit Discharge Discharge Condition Stable Stable Stable Ambulatory Status Wheelchair Wheelchair Transportation Private Auto Private Auto Private Auto Other hh to be arranged Assessment/Plan Assessment/Plan (1) Non-pressure chronic ulcer of unspecified part of right lower leg with fat layer exposed: CODE(S): L97.912 - Non-pressure chronic ulcer of unspecified part of right lower leg with fat layer exposed PLAN: Patient was examined and evaluated. All findings were discussed with the patient. All questions were answered to the patient's satisfaction. Excisional debridement down to and including subcutaneous tissue of the left lateral ulceration with a #15 blade without incident. Predebridement measurement was 8.2 x 8.2 x 0.1 cm. Postdebridement measurement is 8.5 x 8.5 x 0.2 cm. Excision debridement down to and including subcutaneous tissue of the left medial ulceration with a #15 blade without incident. Predebridement measurement was 7.8 x 7.3 x 0.1 cm. Postdebridement measurement is 8.0 x 7.5 x 0.1 cm. Excisional debridement down to and including subcutaneous tissue of the right lateral ulceration with a #15 blade without incident. Predebridement measurement was 9.5 x 14.5 x 0.1 cm. Postdebridement measurement is 10.0 x 15.0 x 0.2 cm. Excisional debridement down to and including subcutaneous tissue of the right medial ulceration with a #15 blade without incident. Predebridement measurement was 7.8 x 6.8 x 0.1 cm. Postdebridement measurement is 8.0 x 7.0 x 0.2 cm. Bilateral lower extremity ulceration dressed with Santyl nickel thick with swelling made gauze and dry sterile dressing with double layer Tubigrip applied. We begin authorization from home health care so the patient can be seen for dressing changes at home as well as providing her own wound care. The patient will be placed on a small amount of Percocet, #21 pills to be taken 3 times per day for 7 days along with Motrin 800 mg to be taken 3 times a day for 10 days. Patient will continue to take the antibiotic as written. The patient will be booked for operative debridement with Misonix to help speed up her wound healing capabilities. Follow-up at the wound care center with Dr. Marie in 1 week. (2) Non-pressure ulcer of left lower extremity with fat layer exposed: CODE(S): L97.922 - Non-pressure chronic ulcer of unspecified part of left lower leg with fat layer exposed (3) Localized edema: CODE(S): R60.0 - Localized edema (4) Pain in right foot: CODE(S): M79.671 - Pain in right foot
== END 2023-09-27 23:59 | disposition home or self-care (01) ==
LOC: WC 11:00
PROVIDERS: PCP Family Medicine Geriatric Medicine; Referring Provider Family Medicine Geriatric Medicine; Visit Provider Podiatrist Foot & Ankle Surgery
DX: L97.912 Non-pressure chronic ulcer of unspecified part of right lower leg with fat layer exposed (principal); M32.9 Systemic lupus erythematosus, unspecified; I77.6 Arteritis, unspecified; R60.0 Localized edema
CPT/HCPCS: 11042; 11045; 29581; 97597; 99214; G0463

== ENCOUNTER 2023-09-27 16:18 | Inpatient (IN) | payer MEDICARE, SELFPAY ==
--- NOTE | 2023-09-27 12:33 | LES_PTH ---
PATHOLOGY RESULTS PATIENT: KAREN DE LA GARZA LOC: MS3 U#:[id number] AGE/SX: 68/F ROOM: [facility] [place] RE09/27/[address]: Dr. Estella Jackson DO : 1955 BED: 1 DIS: 10/03/2023 SPEC #: [id number] RECD: 09/29/23 13:42 STATUS: AMPARO REQ #: [id number] JAYLON: 09/27/23 12:[address]: Monserrat Schmid DEPT: SURGICAL PATHOLOGY RECD BY: Radha Matthews ENTERED: 09/29/23 13:43 SP TYPE: Lesion OTHR DR: MD Dr. Bear York, DPM DO Dr. Luis Dao MD Dr. Tai Chi Kwok, MD Tissues: Skin of lower extremity and hip Procedures: Surgery Specimen Level IV Comments: @ Ordering doctor for SUIV edited from to @ by DOROTA at 09/29/23 1545 @ Submitting doctor edited from to @ by DOROTA at 09/29/23 1545 @ Ordering doctor for SUIV edited from to @ by DOROTA at 09/29/23 1546 @ Submitting doctor edited from to @ by DOROTA at 09/29/23 1546 HEADER OPERATION: Right lower extremity punch biopsy of skin lesion PRE-OP DIAGNOSIS: Rule out vasculitis TISSUE SUBMITTED: Right lower extremity punch biopsy skin lesion MICROSCOPIC DIAGNOSIS Right lower extremity skin lesion, punch biopsy: Consistent with cutaneous leukocytoclastic vasculitis. AM:rosalba 09/30/2023 COMMENT Infectious etiologies such as hepatitis C,B and HIV should be ruled out. In addition, specifics tests for immunoglobulin levels C3 and C4 complement levels, NAIMA, RF, antineutrophilic cytoplasmic antibodies, cryoglobulins and anti-CCP are recommended amongst others. Direct immunofluorescence may be needed to arrive at a definitive diagnosis. Clinical correlation is necessary. Specials stains (Iron, elastin and mucin along with matched controls) were used in the evaluation of this case. Case has been reviewed in consultation with Dr. Roche who concurs with the above diagnosis. IDC:SJ MICROSCOPIC DESCRIPTION Slides are reviewed. GROSS DESCRIPTION Received in fixative is one container labeled with the patient's name and designated right lower extremity. The specimen consists of a punch biopsy of khan-white skin measuring 0.5 cm in diameter and 0.6 cm in length. The entire specimen is submitted in one cassette. / SJ:rg 09/29/2023 TC:2 CPT: 82376
[2023-09-27 16:20] VITALS: BP 149/80; PULSE 76; RESP 16; TEMP 36.6; O2SAT 99; BMI 27.3
--- NOTE | 2023-09-27 16:39 | EDS_ITS ---
HPI History of Present Illness Chief Complaint: Lower Extremity Injury Informant: patient Narrative Narrative: Patient comes in with inability to walk or stand up. She states both of her feet and ankles hurt. She tried to get up and just could not. She denies generalized weakness though. She states is because she cannot stand on her feet. She does have significant history of rheumatoid arthritis is on chronic steroids. She also has chronic ulcers of the feet. She just had these debrided about [address] Marie. He felt they were getting better. Evidently they do plan to do surgery on these soon. He wants to see if he can clean these ulcers up more with her sleep. She is on Bactrim currently for these. She denies any trauma. She denies fevers or chills. She states she does not feel sick. No coughing or trouble breathing. [facility] Medical History B12 deficiency anemia Breast cancer Complicated wound infection Fibromyalgia Hyperlipidemia Hypertension Insomnia Irritable bowel syndrome Muscle spasm Pressure ulcer of left ankle, stage 3 Splenomegaly Systemic lupus erythematosus Vasculitis Home Medications prednisone 5 mg tablet 1 mg PO DAILY 10/25/20 [History Last Taken Unknown] hydroxychloroquine 200 mg tablet (Plaquenil) 200 mg PO DAILY 05/26/22 [History Last Taken Unknown] prednisone 5 mg tablet 5 mg PO DAILY #65 tabs 09/03/23 [Rx Last Taken Unknown] sulfamethoxazole 800 mg-trimethoprim 160 mg tablet (Bactrim DS) 1 tab PO BID 2 weeks #28 tabs 09/15/23 [Rx Last Taken Unknown] ascorbic acid (vitamin C) PO DAILY 09/16/23 [History Last Taken Unknown] cholecalciferol (vitamin D3) 50 mcg (2,000 unit) capsule (Vitamin D3) 2,000 unit PO DAILY 09/16/23 [History Last Taken Unknown] ibuprofen 800 mg tablet 800 mg PO Q8H 10 days #30 tabs 09/23/23 [Rx Last Taken Unknown] oxycodone-acetaminophen 5 mg-325 mg tablet (Percocet) 1 tab PO Q8H PRN pain 7 days #21 tabs 09/23/23 [Rx Last Taken Unknown] Allergy/AdvReac Type Severity Reaction Status Date / Time Penicillins AdvReac Intermediate Rash Verified 09/27/23 16:25 Family History (Updated 09/27/23 @ 18:[address] Elda Grayson MD) Father No problems noted. Father Pancreas cancer Diabetes Mother Osteoarthritis Afib Surgical History History of bilateral mastectomy History of left knee surgery Social History Smoking Status: Never smoker second hand exposure: No alcohol intake: never substance use type: does not use ford/sikh: None seatbelt use: always do you feel safe at home: Yes ROS ROS ED Constitutional Constitutional ED: Denies chills, fever(s) or sweats ENT ENT ED: Denies rhinorrhea Cardiovascular Cardiovascular: Denies chest pain or palpitations Respiratory/Chest Respiratory/Chest: Denies cough Gastrointestinal Gastrointestinal: Denies abdominal pain, nausea or vomiting Genitourinary Genitourinary ED: Denies dysuria Musculoskeletal Musculoskeletal: Reports arthralgias; Denies myalgias Integumentary Reports other Details: Chronic ulcers at ankle Neurologic Neurologic: Denies headache(s) Psychiatric Psychiatric: Denies anxiety Endocrine Endocrinology: Denies polydipsia or polyuria Hematologic/Lymphatic Hematologic/Lymphatic: Denies easy bleeding or easy bruising Allergic/Immunologic Allergic/Immunologic ED: Denies urticaria EXAM Physical Exam Narrative Exam Narrative: General: Patient awake alert sitting in bed. No acute distress. HEENT: Mildly dry mucous membranes. No sign of trauma. Neck is supple. Heart is regular. It sounds like there may be a 1 out of 6 systolic murmur Lungs: Clear to auscultation saturations are normal at 99% on room air showing no hypoxia Abdomen is soft nontender. Extremities are fully dressed and wrapped with wrappings. We will have to get assistance to get her out of her long pants, leggings and wrapping so we can get a better detailed look at these areas of discomfort. Const Vital Signs: 09/27/23 16:20 09/27/23 17:55 Temperature 97.9 F Temperature Source Oral Pulse Rate 76 72 Respiratory Rate 16 16 Blood Pressure 149/80 H 117/73 Blood Pressure Mean 103 87 Pulse Ox 99 98 Oxygen Delivery Method Room Air Room Air MDM MDM MDM Narrative Medical decision making narrative: My independent interpretation of her 6 view x-rays of both feet shows significant osteopenia in all areas. He did note concern for osteomyelitis of the second distal phalanx. There is a lot of inflammation in this area and a little bit of dry gangrene. The patient's white count is quite low at 0.9 but she does have a history of Fe lty syndrome and this is chronic for her. She has mild thrombocytopenia. Electrolytes do show an acute kidney injury. Her creatinine is 1.62 and this is a doubling of her baseline. Lactic acid is normal at 1.5. Urine shows no convincing evidence of infection. Patient has low white count, chronic steroid use, worsening of legs. I unwrapped these all. She has multiple areas of dry skin breakdown both legs. She also has a few purpura. She has a few of these purpura on her knuckles on her hands 2. I think there is a component of vasculitis. Her left ankle has chronic ulcer but the right one has a moisture area and the toes look a little moist. I was able to send a culture but there is very little fluid I could express from these toes. I discussed case with hospitalist and Dr. Marshall. Lab Data Attestation: I reviewed the patient's lab results. Labs: Laboratory Results - last 24 hr 09/27/23 09/27/23 17:10 17:53 WBC 0.9 L* RBC 4.48 Hgb 10.9 L Hct 35.6 L MCV 79.5 L MCH 24.3 L MCHC 30.6 L RDW Std Deviation 48.3 H RDW Coeff of Mira 16.7 H Plt Count 213 MPV 8.6 Immature Gran % (Auto) 2.200 H Neut % (Auto) 57.8 Lymph % (Auto) 26.7 [place] % (Auto) 12.2 H Eos % (Auto) 0.0 Baso % (Auto) 1.1 H Absolute Neuts (auto) 0.5 L Absolute Lymphs (auto) 0.24 L Nucleated RBC % 0 Diff Path Review May foll Platelet Estimate ADEQUATE Hypochromasia RARE Anisocytosis RARE Sodium 138 Potassium 4.2 Chloride 107 Carbon Dioxide 23.0 Anion Gap 8 BUN 42 H Creatinine 1.62 H Estim Creat Clear Calc 29.08 Est GFR (MDRD) Af Amer 40 L Est GFR (MDRD) Non-Af 33 L BUN/Creatinine Ratio 25.9 H Glucose 104 Lactic Acid 1.5 Calcium 8.8 Urine Color Yellow Urine Clarity Sl. Cloudy Urine pH 5.0 Ur Specific [place] 1.025 Urine Protein 30 H Urine Glucose (UA) Normal Urine Ketones 5 H Urine Occult Blood 250 H Urine Nitrite Negative Urine Bilirubin 1 H Urine Urobilinogen 1 H Ur Leukocyte Esterase 25 H Urine RBC 5-10 SEEN Urine WBC 0-5 SEEN Ur Squamous Epith Cells 0-5 SEEN Urine Bacteria 0 SEEN Urine Mucus 0 SEEN Radiography Diagnostic Testing: Clinical Impression(s) from Imaging Studies Foot X-Ray 09/27/23 17:40 IMPRESSION: No radiographic evidence of osteomyelitis. Electronically Signed: Augusto Manzano MD at 18:49 EST Reading Location ID and State: [id number] / [employer] Tel , Service support , Foot X-Ray 09/27/23 17:40 IMPRESSION: Possible osteomyelitis of the second distal phalanx. Clinical correlation is recommended. Electronically Signed: Augusto Manzano MD at 18:54 EST Reading Location ID and State: [id number] / [employer] Tel , Service support , Management Discussion w/another healthcare provider: Hospitalist and Workshop Manager Discharge Plan Triage Chief Complaint: Lower Extremity Injury ED Provider: Tacho Astorga Dx/Rx/DC Orders Clinical Impression: Cellulitis of both lower extremities, Leukopenia, Acute osteomyelitis of phalanx of right foot, Acute kidney injury Primary Care Provider: Hector Bocanegra Chi Disposition Disposition: Acute Care [facility]
--- OUTSIDE RECORDS SUMMARY | 2023-09-27 16:50 | XMS RPT_ITS | CCD ---
Author Name Unknown Address [address] [place] [address] Organization [facility] Care Team Providers Care Tile Ditcher Name Role Phone LEONCIO BETO Unavailable Unavailable LEONCIO BETO Unavailable Unavailable LILIANA HERNANDEZ [facility] Unavailable Unavailable BETO FANG Unavailable Unavailable Marcelo Camarena Unavailable Unavailable PROVIDER, UNKNOWN Unavailable Unavailable No, PCP Unavailable Unavailable Allergies Allergy Classification Reported Allergen(s) Allergy Type Date of Onset Reaction(s) Facility (1 source) acetaminophen / oxyCODONE; Translations: [OXYCODONE-ACETAM INOPHEN] Drug Allergy 9 [facility] Repository (1 source) Penicillins; Translations: [PENICILLINS] Propensity to adverse reactions to drug (disorder) 5 AOF [facility] Rep[facility] Problems Active Problems Problem Classification Problem Date Documented Da te Episodic/Chronic Diseases of white blood cells (1 source) Decreased white blood cell count, unspecified; Translations: [Decreased white blood cell count, unspecified] Onset: 02-21-2015 Chronic Systemic lupus erythematosus and connective tissue disorders (2 sources) Systemic lupus erythematosus, unspecified; Translations: [Systemic lupus erythematosus, unspecified] Onset: 07-05-2018 Chronic Past or Other Problems Problem Classification Problem Date Documented Da te Episodic/Chronic Other gastrointestinal disorders (1 source) Splenomegaly, not elsewhere classified; Translations: [Splenomegaly, not elsewhere classified] Onset: 02-21-2015 Episodic Results Test Name Value Interpretation Reference Range Facil ity Encounters Encounter Date Encounter Type Care Provider Facility Start: 07-05-2018 Patient encounter Marcelo Camarena [facility] Start: 10-20-2017 End: 10-22-2017 Ambulatory SUSANSHERIDAN LEONCIO [facility] Payers Date Payer Category Payer Unknown [id number] Medicare Summary Purpose Family History No Family History Records FoundNo Family History Records FoundNo Family History Records Found Advance Directives No Advanced Directives Records FoundNo Advanced Directives Records FoundNo Advanced Directives Records Found Additional Source Comments INFORMATION SOURCE (unrecogn ized section and content) DATE CREATED AUTHOR AUTHOR'S ORGANIZ ATION 08/05/2018 [facility] Fwd: [employer] DATE CREATED AUTHOR AUTHOR'S ORGANIZ ATION 08/20/2018 [facility] Fwd: [employer] FOR RECORDS PERTAINING TO PATIENTS WHO ARE OR HAVE BEEN ENROLLED IN A CHEMICAL DEPENDENCY/SUBSTANCEABUSE PROGRAM, SOME INFORMATION MAY BE OMITTED. This clinical summary was aggregated from multiple sources. Caution should be exercised in using it in the provision of clinical care. This summary normalizes information from multiple sources, and as a consequence, information in this document may materially change the coding, format and clinical context of patient data. In addition, data may be omitted in some cases. CLINICAL DECISIONS SHOULD BE BASED ON THE PRIMARY CLINICAL RECORDS. [facility]. provides no warranty or guarantee of the accuracy or completeness of information in this document.
[2023-09-27 17:22] LABS: Absolute Lymphocyte Count 0.24 X10^3/uL (0.83-4.51); Absolute Neutrophil Count 0.5 X10^3/uL (2.0-7.7); Basophil# 0.01 X10^3/uL; Basophil% 1.1 % (0-1); Hematocrit 35.6 % (37-47); Hemoglobin 10.9 g/dL (12.0-15.0); Lymphocyte # 0.24 X10^3/ul (0.83-4.51); Lymphocyte % 26.7 % (19-41); Mean Corp Hgb Conc 30.6 g/dL (32-36); Mean Corpuscular Hgb 24.3 pg (27.0-32.0); Mean Corpuscular Volume 79.5 fL (81-99); Mean Platelet Vol. 8.6 fl (6.2-12.0); Monocyte# 0.11 X10^3/uL; Monocyte% 12.2 % (0-10); NRBC Flagged by Analyzer 0 % (0-5); Neutrophil # 0.52 X10^3/uL (2.7-7.7); Neutrophil % 57.8 % (47-70); POSITIVE COUNT YES; POSITIVE DIFFERENTIAL YES; POSITIVE MORPHOLOGY YES; Platelet Count 213 K/mm3 (150-450); RBC Distribution Width CV 16.7 % (11.6-14.6); RBC Distribution Width SD 48.3 fl (35.1-43.9); Red Blood Count 4.48 M/mm3 (4.2-5.4)
[2023-09-27 17:35] LABS: Differential Indicated SCAN CRITERIA MET; White Blood Count 0.9 K/mm3 (4.4-11.0)
[2023-09-27 17:36] LABS: Anion Gap 8 (5-15); BUN 42 mg/dL (7-18); BUN/Creat Ratio 25.9 RATIO (10-20); Calcium,Total 8.8 mg/dL (8.5-10.1); Chloride 107 mmol/L (98-107); Creatinine, Serum 1.62 mg/dL (0.55-1.02); EST Glomerular Filtration Rate 33 mL/min (>60); Est Glom Filt Rate - Afr Amer 40 mL/min (>60); Estimated Creatinine Clearance 29.08 ml/min; Glucose 104 mg/dL (74-106); Potassium 4.2 mmol/L (3.5-5.1); Sodium Level 138 mmol/L (136-145)
--- NOTE | 2023-09-27 17:40 | RAD_ITS ---
STUDY: X-RAY - LEFT FOOT CLINICAL: Female, 68 years old. pain, ulcer TECHNIQUE: 3 view(s) of the foot. COMPARISON: None. FINDINGS: Normal talus, calcaneus, and tarsal bones. Normal visualized subtalar, talonavicular, calcaneocuboid, tarsal and tarsometatarsal articulations. Normal metatarsi. Normal metatarsophalangeal joint of the great toe. Normal tibial and fibular sesamoid bones. Normal interphalangeal joint of the great toe. Normal phalanges of the great toe. Normal second through fifth metatarsophalangeal joints. There is Hammer toe deformity of the second through fifth toes. The soft tissue structures are unremarkable. No bone destruction to suggest osteomyelitis. RAD/Foot min 3 Views IMPRESSION: No radiographic evidence of osteomyelitis. Electronically Signed: Augusto Manzano MD at 18:49 EST ,
--- NOTE | 2023-09-27 17:40 | RAD_ITS ---
STUDY: X-RAY - RIGHT FOOT CLINICAL: Female, 68 years old. PAIN, ULCER TECHNIQUE: 3 view(s) of the foot. COMPARISON: 10/25/2020 FINDINGS: Normal talus, calcaneus, and tarsal bones. Normal visualized subtalar, talonavicular, calcaneocuboid, tarsal and tarsometatarsal articulations. Normal metatarsi. Normal metatarsophalangeal joint of the great toe. Normal tibial and fibular sesamoid bones. Normal interphalangeal joint of the great toe. Normal phalanges of the great toe. Normal second through fifth metatarsophalangeal joints. There is Hammer toe deformity of the second through fifth toes. Radiolucency of the second distal phalanx may represent osteomyelitis. The soft tissue structures are unremarkable. RAD/Foot min 3 Views IMPRESSION: Possible osteomyelitis of the second distal phalanx. Clinical correlation is recommended. Electronically Signed: Augusto Manzano MD at 18:54 EST ,
[2023-09-27 17:41] LABS: Anisocytosis RARE; Hypochromasia RARE; Platelet Estimate ADEQUATE (ADEQ)
[2023-09-27] MEDS: 0.9% Normal Saline (1000mL) 1,000 ML 999 ML IV (17:46)
[2023-09-27 17:52] LABS: Lactic Acid 1.5 mmol/L (0.4-1.9)
[2023-09-27 17:55] VITALS: BP 117/73; PULSE 72; RESP 16; O2SAT 98
[2023-09-27 18:01] LABS: Bacteria 0 SEEN /hpf (None Seen); Mucous, Urine 0 SEEN /hpf (<or=2+)
[2023-09-27 18:02] LABS: Color, Urine Yellow (Yellow); Glucose, Dipstick Normal (Normal); Ketone-Dipstick 5 mg/dl (Negative); Leukocyte Esterase-Dipstick 25 /ul (Negative); Nitrite-Dipstick Negative (Negative); Occult Blood-Urine 250 /ul (Negative); Protein-Dipstick 30 mg/dl (Negative); Specific Gravity, Urine 1.025 (1.002-1.030); Urine Clarity Sl. Cloudy (Clear); Urine Urobilinogen 1 mg/dl (Normal)
[2023-09-27 18:19] LABS: Urine Bilirubin Dipstick 1 mg/dL (Negative)
[2023-09-27 18:26] LABS: Red Blood Cells-Urine 5-10 SEEN /hpf (0-5); White Blood Cells 0-5 SEEN /hpf (0-5)
[2023-09-27 18:27] LABS: Squamous Epithelial Cells - UA 0-5 SEEN /hpf (5-10)
--- NOTE | 2023-09-27 18:42 | PCM.HP.STD ---
HPI - General General Date of Admission: 09/27/23 Date of Service: 09/27/23 Chief Complaint: BL LE foot pain, inability to walk, wounds. HPI Narrative The patient is a 68 y/o F w/ PMHx: Chronic anemia/B12 deficiency, HTN, HLD, Stage III pressure ulcer L ankle, Known Splenomegaly, Rheumatoid arthritis/SLE/Vasculitis, Felty's Syndrome, IBS, Fibromyalgia, Hx Breast s/p BL mastectomy, BL LE pressure ulcers following outpatient with Michele Marie with most recent evaluation 09/23/2023 with excisional debridements performed at that time as well as bilateral lower extremity ulceration dressed with Santyl nickel thick with swelling made gauze and dry sterile dressing with double layer Tubigrip 5 with continued oral antibiotic therapy with planned operative debridement in the future who presents to the [facility] ED on 09/27/23 with difficulty walking and inability to stand up secondary to bilateral ankle and foot pain on chronic steroids for rheumatoid arthritis as well as chronic ulcers most recently debrided ~ 4 days prior to current presentation initially felt as though they were improving but worsened recently on bactrim with no fever or chills prompting ED evaluation. She notes the pain is constant dull aching but with activity attempts is worsened and more severe sharp, chronically 4-5 out of 10 in severity, worse with any palpation or activity as noted attempts 6-8 out of 10. Workup in the ED included T97.9, heart rate 76, BP 149/80, respiratory rate 16, 99% on room air, CBC with WBC 0.9, hemoglobin 10.9, MCV 79.5, platelet 213 with increased immature granulocytes with ANC 0.5, and lymphopenia, BMP with BUN/creatinine 42/1.62, lactic acid 1.5, urinalysis without obvious UTI, plain film BL foot with right foot with possible osteomyelitis of the second distal phalanx. In the ED patient ministered normal saline and discussed antibiotics with ED physician with agreement of meropenem and IV vancomycin. ED physician is contacting Dr. Marshall who is on-call for Dr. Marie. [facility] Medical History B12 deficiency anemia Breast cancer Complicated wound infection Fibromyalgia Hyperlipidemia Hypertension Insomnia Irritable bowel syndrome Muscle spasm Pressure ulcer of left ankle, stage 3 Splenomegaly Systemic lupus erythematosus Vasculitis Home Medications prednisone 5 mg tablet 1 mg PO DAILY 10/25/20 [History Last Taken Unknown] hydroxychloroquine 200 mg tablet (Plaquenil) 200 mg PO DAILY 05/26/22 [History Last Taken Unknown] prednisone 5 mg tablet 5 mg PO DAILY #65 tabs 09/03/23 [Rx Last Taken Unknown] sulfamethoxazole 800 mg-trimethoprim 160 mg tablet (Bactrim DS) 1 tab PO BID 2 weeks #28 tabs 09/15/23 [Rx Last Taken Unknown] ascorbic acid (vitamin C) PO DAILY 09/16/23 [History Last Taken Unknown] cholecalciferol (vitamin D3) 50 mcg (2,000 unit) capsule (Vitamin D3) 2,000 unit PO DAILY 09/16/23 [History Last Taken Unknown] ibuprofen 800 mg tablet 800 mg PO Q8H 10 days #30 tabs 09/23/23 [Rx Last Taken Unknown] oxycodone-acetaminophen 5 mg-325 mg tablet (Percocet) 1 tab PO Q8H PRN pain 7 days #21 tabs 09/23/23 [Rx Last Taken Unknown] Allergy/AdvReac Type Severity Reaction Status Date / Time Penicillins AdvReac Intermediate Rash Verified 09/27/23 16:25 Family History Father No problems noted. Father Pancreas cancer Diabetes Mother Osteoarthritis Afib Surgical History History of bilateral mastectomy History of left knee surgery Social History Smoking Status: Never smoker second hand exposure: No alcohol intake: never substance use type: does not use ford/baptism: None seatbelt use: always do you feel safe at home: Yes ROS ROS Narrative Admission Review of Systems: CONSTITUTIONAL: No weight loss, fever, chills, + weakness or fatigue. HEENT: Eyes: No visual loss, blurred vision, double vision or yellow sclerae. Ears, Nose, Throat: No hearing loss, sneezing, congestion, runny nose or sore throat. SKIN: + Significant bilateral lower extremity wounds, ulcers, periwound erythema. CARDIOVASCULAR: + Edema. No chest pain, chest pressure or chest discomfort, palpitations, orthopnea, syncopal events. RESPIRATORY: No shortness of breath, cough or sputum, wheezing, hemoptysis. GASTROINTESTINAL: + anorexia. No nausea, vomiting or diarrhea, abdominal pain, melena, BRBPR. GENITOURINARY: No dysuria, frequency, urgency or retention. NEUROLOGICAL: No headache, dizziness, syncope, paralysis, ataxia, numbness or tingling in the extremities, focal weakness, change in bowel or bladder control, seizure. MUSCULOSKELETAL: + muscle, back pain, joint pain or stiffness. HEMATOLOGIC: + Anemia, easy bruising/bleeding. LYMPHATICS: No enlarged nodes. No history of splenectomy. PSYCHIATRIC: No history of depression or anxiety. ENDOCRINOLOGIC: No reports of sweating, cold or heat intolerance. No polyuria or polydipsia. ALLERGIES: No history of asthma, hives, eczema or rhinitis. Vital Signs Vital Signs Vital Signs: 09/27/23 16:20 09/27/23 17:55 Temperature 97.9 F Temperature Source Oral Pulse Rate 76 72 Respiratory Rate 16 16 Blood Pressure 149/80 H 117/73 Blood Pressure Mean 103 87 Pulse Ox 99 98 Oxygen Delivery Method Room Air Room Air Weight Weight: 164 lb 7.437 oz Body Mass Index (BMI) 27.3 Physical Exam Narrative Physical Examination: General: Awake, alert, oriented x 3 and cooperative, seated upright in the ED bed, fatigued, notes discomfort of bilateral lower extremities. Skin: Normal color, normal turgor, no icterus, no cyanosis except for significant bilateral lower extremity diffuse areas of ulcers some covered with eschar's with periwound erythema, no marked drainage. HEENT: AT/NC, EOMI, PERRLA, mildly dry MM, no carotid bruits or JVD noted. Lungs: Mildly diminished, greater bases, appropriate effort, no rales, ronchi or wheezing. Heart: Currently regular rate and rhythm; no gallop, rub audible. Abdomen: Soft, NTTP, ND, hyperactive BS, no HSM. Extremities: No cyanosis, no clubbing, see skin, significant deformities with underlying rheumatoid arthritis. Neurological: Patient awake, alert, oriented as noted, cognitive function intact; pupils equally reactive to light and accommodation, cranial nerves II-XII grossly normal, moving all 4 extremities, strength moderately to severely globally decreased. Psychiatric: Affect appears mildly flat, fatigued, no acute evidence of depressive or anxiety feelings. Results Lab / Micro Data 09/27/23 17:10 09/27/23 17:10 Labs: Laboratory Results - last 24 hr 09/27/23 17:10: WBC 0.9 L*, RBC 4.48, Hgb 10.9 L, Hct 35.6 L, MCV 79.5 L, MCH 24.3 L, MCHC 30.6 L, RDW Std Deviation 48.3 H, RDW Coeff of Mira 16.7 H, Plt Count 213, MPV 8.6, Immature Gran % (Auto) 2.200 H, Neut % (Auto) 57.8, Lymph % (Auto) 26.7, Charlton % (Auto) 12.2 H, Eos % (Auto) 0.0, Baso % (Auto) 1.1 H, Absolute Neuts (auto) 0.5 L, Absolute Lymphs (auto) 0.24 L, Nucleated RBC % 0, Diff Path Review January, Platelet Estimate ADEQUATE, Hypochromasia RARE, Anisocytosis RARE, Sodium 138, Potassium 4.2, Chloride 107, Carbon Dioxide 23.0, Anion Gap 8, BUN 42 H, Creatinine 1.62 H, Estim Creat Clear Calc 29.08, Est GFR (MDRD) Af Amer 40 L, Est GFR (MDRD) Non-Af 33 L, BUN/Creatinine Ratio 25.9 H, Glucose 104, Lactic Acid 1.5, Calcium 8.8 09/27/23 17:53: Urine Color Yellow, Urine Clarity Sl. Cloudy, Urine pH 5.0, Ur Specific [place] 1.025, Urine Protein 30 H, Urine Glucose (UA) Normal, Urine Ketones 5 H, Urine Occult Blood 250 H, Urine Nitrite Negative, Urine Bilirubin 1 H, Urine Urobilinogen 1 H, Ur Leukocyte Esterase 25 H, Urine RBC 5-10 SEEN, Urine WBC 0-5 SEEN, Ur Squamous Epith Cells 0-5 SEEN, Urine Bacteria 0 SEEN, Urine Mucus 0 SEEN Assessment & Plan Assessment/Plan (1) Acute osteomyelitis of phalanx of right foot: (2) Acute kidney injury: PLAN: Plan The patient is a 68 y/o F w/ PMHx: Chronic anemia/B12 deficiency, HTN, HLD, Stage III pressure ulcer L ankle, Known Splenomegaly, Rheumatoid arthritis/SLE/Vasculitis, Felty's Syndrome, IBS, Fibromyalgia, Hx Breast s/p BL mastectomy, BL LE pressure ulcers following outpatient with Michele Marie with most recent evaluation 09/23/2023 with excisional debridements performed at that time as well as bilateral lower extremity ulceration dressed with Santyl nickel thick with swelling made gauze and dry sterile dressing with double layer Tubigrip 5 with continued oral antibiotic therapy with planned operative debridement in the future who presents to the [facility] ED on 09/27/23 with difficulty walking and inability to stand up secondary to bilateral ankle and foot pain on chronic steroids for rheumatoid arthritis as well as chronic ulcers most recently debrided ~ 4 days prior to current presentation initially felt as though they were improving but worsened recently on bactrim with no fever or chills prompting ED evaluation. #1. Adult FTT, multifactorial, Acute noted Bilateral lower extremity pressure ulcer, infected with failed outpatient abx therapy, possible acute osteomyelitis right second distal phalanx compounded by #2: Will admit to [facility], maintain on IV vanc and narinder given allergy history, will obtain Wound Cx, will obtain Wound MRSA PCR, plan repeat CBC in AM, continue affected extremity elevation above heart when seated and in bed, monitor erythema outline with VS checks, offloading, elevation, Wound RN, podiatry and infectious disease both consulted, NPO status after midnight in case of OR needs, CRP and ESR requested. #2. Acute kidney injury: Secondary to acute presentation as noted. Admission BUN/Cr 42/1.62, prior baseline creatinine noted to be primarily 0.70.8. Will hydrate, hold nephrotoxic medications and repeat chemistry in AM. If no improvement would plan renal ultrasound and FeNa assessment. #3. Felty syndrome: Following with oncology with most recent evaluation in system noted 05/26/[address] Mishra, chronic leukopenia, neutropenia and splenomegaly previously on methotrexate however it never improved her WBC or ANC of note, CBC upon current presentation consistent, will continue to trend CBC and noted from most recent oncology note that if it was indicated she may be considered for Rituxan plus or minus oral weekly methotrexate, encourage continued outpatient oncology follow-up. #4. Chronic microcytic anemia/vitamin B12 deficiency: Admission hemoglobin 10.9, MCV 79.5, baseline hemoglobin ranges primarily 11-12, most recently prior to current presentation 09/03/2023 hemoglobin 12 however prior to this 05/25/2023 hemoglobin 10.7, will continue to trend. Clarifying any does not appear to be on B12 supplementation. #5. History of breast cancer: Unclear specific type, bilateral mastectomy with radiation therapy as well as 5 years of tamoxifen noted, encourage continued outpatient follow-up as previously arranged. #6. Rheumatoid arthritis, SLE, Vasculitis unclear specifics: Will continue low-dose prednisone therapy however if decompensates may require stress dosing, currently will continue to monitor renal function but if worsens further may necessitate hold of hydroxychloroquine. #7. Hypertension: Noted in history however not on any regimen, BP not markedly elevated, will have as needed IV hydralazine if needed. #8. Hyperlipidemia: Not on statin therapy, defer to outpatient. #9. DVT prophylaxis: Heparin. #10. CODE status: Patient LIT is her Sister Hayley Mayo and living will is currently in place. Discussed CODE status at length including difference between FULL code, DNR-CCA and DNR-CC status. Following discussions about the differences in these status, requested Full Code status. Advanced Care Planning Face to Face Time: 16 minutes. Charges/Coding Visit Charges Inpatient E&M: 25149 Init Hosp L3 Procedures Hospitalists Procedures: 55717 Advncd Care Plan 30 Min
[2023-09-27 19:08] VITALS: BP 130/73; PULSE 80; RESP 16; O2SAT 99
--- OUTSIDE RECORDS SUMMARY | 2023-09-27 19:27 | XMS RPT_ITS | CCD ---
Author Name Unknown Address [address] [place] [address] Organization [facility] Care Team Providers Care Sales Support Representative Name Role Phone LEONCIO BETO Unavailable Unavailable LEONCIO BETO Unavailable Unavailable LILIANA HERNANDEZ [facility] Unavailable Unavailable BETO FANG Unavailable Unavailable Marcelo Camarena Unavailable Unavailable PROVIDER, UNKNOWN Unavailable Unavailable No, PCP Unavailable Unavailable Allergies Allergy Classification Reported Allergen(s) Allergy Type Date of Onset Reaction(s) Facility (1 source) acetaminophen / oxyCODONE; Translations: [OXYCODONE-ACETAM INOPHEN] Drug Allergy 9 [facility] Repository (1 source) Penicillins; Translations: [PENICILLINS] Propensity to adverse reactions to drug (disorder) 5 [facility] Repository Problems Active Problems Problem Classification [...] Facility Start: 07-05-2018 Patient encounter Marcelo Camarena [facility] Start: 10-20-2017 End: 10-22-2017 Ambulatory [facility] [facility] Payers Date Payer Category Payer Unknown [id number] Medicare Summary Purpose Family History No Family History Records FoundNo Family History Records FoundNo Family History Records Found Advance Directives No Advanced Directives Records FoundNo Advanced Directives Records FoundNo Advanced Directives Records Found Additional Source Comments INFORMATION SOURCE (unrecogn ized section and content) DATE CREATED AUTHOR AUTHOR'S ORGANIZ ATION 08/05/2018 [facility] [employer] DATE CREATED AUTHOR AUTHOR'S ORGANIZ ATION 08/20/2018 [facility] [employer] FOR RECORDS PERTAINING TO PATIENTS [...] BE BASED ON THE PRIMARY CLINICAL RECORDS. [facility] [employer] [facility]. provides no warranty or guarantee of the accuracy or completeness of information in this document.
[2023-09-27 20:27] VITALS: BMI 26.6
[2023-09-27 20:30] LABS: Magnesium 2.1 mg/dL (1.6-2.6); Phosphorus 3.6 mg/dL (2.5-4.9)
[2023-09-27 20:40] LABS: Procalcitonin 0.31 ng/mL (0.00-0.09)
[2023-09-27 20:44] LABS: Erythrocyte Sedimentation Rate 13 mm/hr (0-30)
[2023-09-27 20:51] VITALS: BMI 26.6
[2023-09-27] MEDS: oxyCODONE 5 MG Tablet PO (20:56)
[2023-09-27] MEDS: Acetaminophen 325 MG Tablet 650 MG PO (20:56)
[2023-09-27] MEDS: 0.9% Normal Saline (1000mL) 1,000 ML 100 ML IV (20:57)
[2023-09-27 21:28] VITALS: BP 140/65; PULSE 69; RESP 16; TEMP 36.6; O2SAT 100
[2023-09-27] MEDS: Vancomycin HCl 2,000 MG in 0.9% Normal Saline (500mL Bag) 500 ML 250 MG IV (21:37)
[2023-09-27] MEDS: Menthol/Lanolin/Calamine/Znox 113 GM Tube 1 APPLIC TOPICAL (21:38)
[2023-09-27] MEDS: Ensure Plus High Protein 120 ML LIQUID PO (21:49)
[2023-09-27] MEDS: Heparin Injection (Vial) 5,000 UNIT/ML VIAL 5000 UNIT SC (21:50)
[2023-09-27] MEDS: Meropenem 1 GM in 0.9% Normal Saline (100mL MB+) 100 ML IV (21:51)
--- NOTE | 2023-09-27 22:15 | PCM.RX.CS ---
Consult Antibiotic Management Pharmacy has been consulted to manage selected antibiotic: Vancomycin Type of Intervention Type of Consult: New start Labs Labs: Sodium 138 mmol/L (136-145) 09/27/23 17:10 Potassium 4.2 mmol/L (3.5-5.1) 09/27/23 17:10 Chloride 107 mmol/L (98-107) 09/27/23 17:10 Carbon Dioxide 23.0 mmol/L (21.0-32.0) 09/27/23 17:10 Anion Gap 8 (5-15) 09/27/23 17:10 BUN 42 mg/dL (7-18) H 09/27/23 17:10 Creatinine 1.62 mg/dL (0.55-1.02) H 09/27/23 17:10 Est GFR (MDRD) Af Amer 40 mL/min (>60) L 09/27/23 17:10 Est GFR (MDRD) Non-Af 33 mL/min (>60) L 09/27/23 17:10 BUN/Creatinine Ratio 25.9 RATIO (10-20) H 09/27/23 17:10 Glucose 104 mg/dL (74-106) 09/27/23 17:10 Dosing Weight Weight used for dosin kg Estimated Creatinine Clearance Estimated Creatinine Clearance: 28.8 Goal Trough Goal Trough: 15-20 mcg/mL Pharmacy Plan for Drug Dosing Pharmacy Plan for Drug Dosing: Pharmacy Service will continue to monitor and adjust dosing as required. Follow-Up Labs Follow-Up Labs: Trough: Vancomycin Date/Time Labs Ordered Labs to be done on [date and time ordered]: 09/29 @ 2100
[2023-09-28] MEDS: Morphine 2 MG/ML Syringe IV ×3 (00:29→08:08)
[2023-09-28 00:51] LABS: M R Staph aureus DNA By PCR Negative (Negative); Staph aureus DNA By PCR NEGATIVE (Negative)
[2023-09-28 00:52] LABS: Probe Check PASS; Specimen Processing Control PASS
[2023-09-28] MEDS: oxyCODONE 5 MG Tablet PO ×2 (03:02→14:47)
[2023-09-28] MEDS: Acetaminophen 325 MG Tablet 650 MG PO (03:02)
[2023-09-28 03:04] VITALS: BP 123/64; PULSE 72; RESP 18; TEMP 37; O2SAT 96
[2023-09-28 03:14] VITALS: BMI 26.6
[2023-09-28 05:17] LABS: Absolute Neutrophil Count 0.4 X10^3/uL (2.0-7.7); Eosinophil# 0.01 X10^3/uL; Eosinophils% 1.3 % (0-5); Hematocrit 28.8 % (37-47); Hemoglobin 8.6 g/dL (12.0-15.0); Lymphocyte % 38.5 % (19-41); Mean Corp Hgb Conc 29.9 g/dL (32-36); Mean Corpuscular Hgb 24.2 pg (27.0-32.0); Mean Corpuscular Volume 80.9 fL (81-99); Mean Platelet Vol. 8.3 fl (6.2-12.0); Monocyte# 0.12 X10^3/uL; Monocyte% 15.4 % (0-10); NRBC Flagged by Analyzer 0 % (0-5); Neutrophil # 0.35 X10^3/uL (2.7-7.7); Neutrophil % 44.8 % (47-70); POSITIVE COUNT YES; POSITIVE DIFFERENTIAL YES; POSITIVE MORPHOLOGY YES; Platelet Count 167 K/mm3 (150-450); RBC Distribution Width SD 49.8 fl (35.1-43.9); Red Blood Count 3.56 M/mm3 (4.2-5.4)
[2023-09-28 05:30] LABS: Differential Indicated SCAN CRITERIA MET; RBC Distribution Width CV 16.8 % (11.6-14.6); White Blood Count 0.8 K/mm3 (4.4-11.0)
[2023-09-28 05:37] LABS: International Normalized Ratio 1.3; Prothrombin Time (Protime)PT. 16.6 SECONDS (11.7-14.9)
[2023-09-28 05:38] LABS: Partial Thromboplast Time 33.7 Seconds (24.1-36.2)
[2023-09-28 05:50] LABS: ALB/GLOB Ratio 1.3 RATIO (0.9-2.4); AST(SGOT) 26 U/L (15-37); Alanine Aminotransfer ALT/SGPT 12 U/L (13-56); Albumin, Serum 2.4 g/dL (3.2-5.0); Alkaline Phosphatase 24 U/L (45-117); Anion Gap 6 (5-15); BUN 34 mg/dL (7-18); BUN/Creat Ratio 30.6 RATIO (10-20); Calcium,Total 7.6 mg/dL (8.5-10.1); Chloride 112 mmol/L (98-107); Creatinine, Serum 1.11 mg/dL (0.55-1.02); EST Glomerular Filtration Rate 52 mL/min (>60); Est Glom Filt Rate - Afr Amer 62 mL/min (>60); Globulin 1.9 g/dL (2.2-4.2); Glucose 82 mg/dL (74-106); Potassium 4.2 mmol/L (3.5-5.1); Protein, Total 4.3 g/dL (6.4-8.2); Sodium Level 139 mmol/L (136-145)
[2023-09-28 07:48] LABS: Differential Comment SCANNED
[2023-09-28 08:05] VITALS: O2SAT 93
[2023-09-28] MEDS: predniSONE 5 MG Tablet 25 MG PO (08:09)
[2023-09-28] MEDS: Menthol/Lanolin/Calamine/Znox 113 GM Tube 1 APPLIC TOPICAL ×4 (08:10→21:30)
[2023-09-28 08:35] LABS: Bilirubin, Direct 0.13 mg/dL (0.00-0.30)
[2023-09-28 08:44] VITALS: BP 126/55; PULSE 76; RESP 16; TEMP 36.9; O2SAT 97
--- NOTE | 2023-09-28 08:59 | PCM.PN.HOSP ---
Reason for Visit Reason for Visit: Foot pain/wounds Subjective Subjective Patient is a 68-year-old female with history of stage III pressure ulcer on her left ankle and bilateral lower extremity pressure ulcers who follows as an outpatient with Dr. Michele Marie from podiatry who presented to the emergency department at [facility] on 09/27/2023 with difficulty walking and inability to stand up secondary to bilateral ankle and foot pain. On 09/23/2023 she had excisional debridements performed by Dr. Marie to her bilateral lower extremities and the ulcerations were dressed with Santyl and a dry sterile dressing with double layer Tubigrip and she was continue on oral antibiotics with planned operative debridement in the future. About 4 days prior to presentation she felt like she was improving however in the last day or so she feels worse. She has been compliant with her Bactrim. She has had no fever or chills. She noted pain that was constant and dull and aching but with activity attempts the pain is worsened to sharp and severe. Vitals in the emergency department showed temperature of 97.9, heart rate 76, blood pressure 149/80, respiratory was 18 and oxygen saturation was 99% on room air. CBC showed a leukopenia with a white count of 0.9, hemoglobin of 10.9, platelet count of 213,000 with an ANC of 0.5 and lymphopenia. BMP showed normal electrolytes however she did have an elevated serum creatinine and BUN at 1.62 and 42 respectively. Baseline numbers on 09/03/2023 were 32 and 0.77. Glucose was 104. CRP was 74.4 with an ESR of 13. Lactic acid was 1.5. Urinalysis was unremarkable. Bilateral plain films of her feet showed possible osteomyelitis of the second distal phalanx on the right foot. In the emergency department she was given IV fluids and IV antibiotics. ED consulted Dr. Maurer who was on-call for Dr. Marie. She was admitted to the medical floor and maintained on IV antibiotics with meropenem and vancomycin with consultation to infectious disease and podiatry. States this is slowly worsening on her legs despite treatment. Has history of vasculitis but unable to elaborate further. Used to follow with [facility] armature connector but he retired and she is followed up with a new armature connector but only seen her twice at [facility]. She has not been seen since her worsening leg wounds. Is taking prednisone chronically and currently on 40 mg daily. Objective Data Objective Data Vital Signs: Vital Signs Temp Pulse Resp BP Pulse Ox O2 Del Method 98.4 F 76 16 126/55 H 97 Room Air 09/28/23 08:44 09/28/23 08:44 09/28/23 08:44 09/28/23 08:44 09/28/23 08:44 09/28/23 08:44 Oxygen Delivery Method Room Air Weight: 66 kg Body Mass Index (BMI) 26.6 Intake & Output: Intake and Output for Last 24 Hours 09/26/23 09/27/23 09/28/23 23:59 23:59 23:59 Intake Total 1540 / 1540 1420 / 1420 Output Total 250 / 250 Balance 1540 / 1540 1170 / 1170 Lab / Micro Data 09/28/23 04:42 09/28/23 04:42 Labs: Laboratory Results - last 24 hr 09/27/23 17:10: WBC 0.9 L*, RBC 4.48, Hgb 10.9 L, Hct 35.6 L, MCV 79.5 L, MCH 24.3 L, MCHC 30.6 L, RDW Std Deviation 48.3 H, RDW Coeff of Mira 16.7 H, Plt Count 213, MPV 8.6, Immature Gran % (Auto) 2.200 H, Neut % (Auto) 57.8, Lymph % (Auto) 26.7, [place] % (Auto) 12.2 H, Eos % (Auto) 0.0, Baso % (Auto) 1.1 H, Absolute Neuts (auto) 0.5 L, Absolute Lymphs (auto) 0.24 L, Nucleated RBC % 0, Diff Path Review May foll, Platelet Estimate ADEQUATE, Hypochromasia RARE, Anisocytosis RARE, ESR 13, Sodium 138, Potassium 4.2, Chloride 107, Carbon Dioxide 23.0, Anion Gap 8, BUN 42 H, Creatinine 1.62 H, Estim Creat Clear Calc 29.08, Est GFR (MDRD) Af Amer 40 L, Est GFR (MDRD) Non-Af 33 L, BUN/Creatinine Ratio 25.9 H, Glucose 104, Lactic Acid 1.5, Calcium 8.8, Phosphorus 3.6, Magnesium 2.1, C-React Prot Ext Range 74.40 H, Procalcitonin 0.31 H 09/27/23 17:53: Urine Color Yellow, Urine Clarity Sl. Cloudy, Urine pH 5.0, Ur Specific [place] 1.025, Urine Protein 30 H, Urine Glucose (UA) Normal, Urine Ketones 5 H, Urine Occult Blood 250 H, Urine Nitrite Negative, Urine Bilirubin 1 H, Urine Urobilinogen 1 H, Ur Leukocyte Esterase 25 H, Urine RBC 5-10 SEEN, Urine WBC 0-5 SEEN, Ur Squamous Epith Cells 0-5 SEEN, Urine Bacteria 0 SEEN, Urine Mucus 0 SEEN 09/27/23 21:45: S.aureus Protein A PCR NEGATIVE, MRSA (PCR) Negative 09/28/23 04:42: WBC 0.8 L*, RBC 3.56 L, Hgb 8.6 L, Hct 28.8 L, MCV 80.9 L, MCH 24.2 L, MCHC 29.9 L, RDW Std Deviation 49.8 H, RDW Coeff of Mira 16.8 H, Plt Count 167, MPV 8.3, Immature Gran % (Auto) 0.000, Neut % (Auto) 44.8 L, Lymph % (Auto) 38.5, [place] % (Auto) 15.4 H, Eos % (Auto) 1.3, Baso % (Auto) 0.0, Absolute Neuts (auto) 0.4 L, Absolute Lymphs (auto) 0.30 L, Nucleated RBC % 0, Differential Comment SCANNED, Diff Path Review January, PT 16.6 H, INR 1.3, APTT 33.7, Sodium 139, Potassium 4.2, Chloride 112 H, Carbon Dioxide 21.0, Anion Gap 6, BUN 34 H, Creatinine 1.11 H, Estim Creat Clear Calc 37.30, Est GFR (MDRD) Af Amer 62, Est GFR (MDRD) Non-Af 52 L, BUN/Creatinine Ratio 30.6 H, Glucose 82, Calcium 7.6 L, Total Bilirubin 0.50 09/28/23 04:42: Total Bilirubin Cancelled, Direct Bilirubin 0.13 09/28/23 04:42: Direct Bilirubin Cancelled, AST 26 09/28/23 04:42: AST Cancelled, ALT 12 L 09/28/23 04:42: ALT Cancelled, Alkaline Phosphatase 24 L 09/28/23 04:42: Alkaline Phosphatase Cancelled, Total Protein 4.3 L 09/28/23 04:42: Total Protein Cancelled, Albumin 2.4 L 09/28/23 04:42: Albumin Cancelled, Globulin 1.9 L 09/28/23 04:42: Globulin Cancelled, Albumin/Globulin Ratio 1.3 Radiography Diagnostic Testing: Radiology Impression Foot X-Ray 09/27/23 17:40 IMPRESSION: No radiographic evidence of osteomyelitis. Electronically Signed: Augusto Manzano MD at 18:49 EST Reading Location ID and State: [employer] / [place] [employer] , Service support , Foot X-Ray 09/27/23 17:40 IMPRESSION: Possible osteomyelitis of the second distal phalanx. Clinical correlation is recommended. Electronically Signed: Augusto Manzano MD at 18:54 EST Reading Location ID and State: [employer] , Service support , Physical Exam Const alert, oriented x3, no apparent distress and average body habitus; Negative for healthy appearing or well nourished Constitutional Narrative: Older white female, sitting up in bed with therapy services at bedside, appears somewhat uncomfortable with her wounds but very pleasant and nontoxic-appearing, appears chronically ill HEENT head/scalp atraumatic and moist oral mucous membranes HEENT Narrative: dentition is fair, Mallampati is 2 Eyes PERRL and EOMs intact bilaterally; Negative for conjunctivae normal Eyes Narrative: Conjunctiva are pale bilaterally, no scleral icterus Neck no lymphadenopathy and supple Neck Narrative: Trachea midline no thyroid enlarged Resp normal respiratory effort, no retractions, no use of accessory muscles and clear to auscultation bilaterally Auscultation: Negative for rales, rhonchi or wheezes Cardio regular rate, regular rhythm, S1 normal heart sound, S2 normal heart sound, no murmurs, no rub, no gallops and no clicks GI normal to inspection, nondistended, normoactive bowel sounds, soft to palpation and non-tender Extremity Extremity Narrative: Severe bilateral lower extremity wounds with vasculitis appearing changes both on her legs and her hands, patient also has an area on her right nares medially which is somewhat eschar appearing, all of her wounds appear like they have eschar involvement with no severe marked drainage Skin No no rashes or lesions noted, No no wounds, skin turgor normal, no jaundice and no mottling Skin Narrative: See above, multiple skin changes with rash consistent with vasculitides Neuro oriented x3, CN's II-XII intact bilaterally, moves all extremities and no focal motor deficits Neuro Narrative: Pain with movement of bilateral lower extremities Speech: speech normal Psych affect normal Psych Narrative: Very pleasant, interacts appropriately Assessment & Plan Assessment/Plan (1) Acute kidney injury: (2) Acute osteomyelitis of phalanx of right foot: (3) Cellulitis of both lower extremities: (4) Leukopenia: (5) Debility: PLAN: Plan Bilateral lower extremity foot ulcerations/osteomyelitis of the second distal phalanx of the right foot -Highly suspect all of these lesions are related to a vasculitides -Check NAIMA with reflex panel/P ANCA/c-ANCA/C3/C4/cryoglobulins/acute hepatitis panel -Consult for punch biopsy of lesions -I did review clinic think and cannot find any information related to her rheumatology appointments however she indicates her armature connector has not seen her since her leg wounds have started -Patient did states she had previous issues with vasculitis but unable to elaborate further -Start prednisone 40 mg daily now -Cultures are pending -Previous cultures with ESBL E. coli, Serratia, Proteus, and staph hemolyticus from June and July and mid August -Continue meropenem and vancomycin with history of antibiotic allergies -Wound MRSA PCR is pending -ESR is normal but CRP is markedly elevated -Infectious disease consulted and anticipate them to evaluate her tomorrow -Podiatry is consulted and patient is n.p.o. for possible surgical intervention later today -Wound care consultation KATYH -Baseline serum creatinine is between 0.7 and 0.9 -1.62 on admission -Resolving with IV fluids Debility/failure to thrive -PT/OT consultation -Suspect patient may need placement at discharge depending on functional status especially with probable surgical intervention required and ongoing wound care needs -Case management/social work consulted for discharge planning Leukopenia -This is chronic and related to her medications -Ongoing outpatient follow-up Chronic microcytic anemia -Hemoglobin on admission is stable when compared to previous -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 with most recent office visit 05/26/2022 -Patient from suffers from chronic leukopenia, neutropenia, and splenomegaly -Previously had been on methotrexate however it was not efficacious so it was discontinued -Encourage ongoing outpatient follow-up Rheumatoid arthritis/SLE/vasculitis -Continue hydroxychloroquine -Continue home prednisone -Monitor for need for stress dose steroids however currently does not appear to require History of hypertension -Noted in her history however patient is not on any antihypertensives -Continue to monitor blood pressure -As needed hydralazine History of hyperlipidemia -Patient does not take a statin -Recommend outpatient follow-up History of breast cancer History of bilateral mastectomy and radiation therapy -Patient took tamoxifen x 5 years -Ongoing outpatient follow-up as needed DVT prophylaxis -Subcu heparin CODE STATUS -Full code is verified on admission Charges/Coding Visit Charges Inpatient E&M: 72567 Subs Hosp L2
[2023-09-28] MEDS: Meropenem 1 GM in 0.9% Normal Saline (100mL MB+) 100 ML IV ×2 (10:02→21:29)
--- NOTE | 2023-09-28 11:19 | PCM.CONS.GEN ---
Assessment & Plan Assessment/Plan (1) Cellulitis of both lower extremities: (2) Non-pressure chronic ulcer of unspecified part of right lower leg with fat layer exposed: (3) Non-pressure ulcer of left lower extremity with fat layer exposed: (4) Long-term current use of steroids: (5) Systemic lupus erythematosus: (6) RA (rheumatoid arthritis): (7) Vasculitic ulcer of right lower extremity: (8) Vasculitic ulcer of left lower extremity: PLAN: Plan Evaluation performed. Reviewed diagnostic data. Reviewed bilateral foot xrays. Appears wounds are secondary to acute vasculitis episode. She is in process of further vasculitis workup. There is no noted drainable abscess or emergent foot/ankle surgery needed at this time. Eventually wounds may benefit from surgical debridement, but recommend awaiting until resolution of acute vasculitis flare. In meantime use santyl topically to wounds for enzymatic debridement, cover with gauze, kerlix and wilman dressing changes daily. A culture has been obtained and result is pending - she is on IV antibiotic Meropenem and Vanc. Keep wounds offloaded. Podiatry will continue to follow, thank you for consultation. Discussed with Dr. Jackson. HPI Consult Data Date of Consult: 09/28/23 HPI Narrative Reason for Consultation: Lower extremity wounds HPI Narrative: KAREN DE LA GARZA, is a 68 F who presents for worsening lower extremity wounds. She has history of RA, SLE, and relates to hx of vasculitis. She has lower extremity wounds which have recently worsened and she went to ER yesterday. She was admitted for further workup and management. It appears she is having acute vasculitis issues, as she also has developed some wounds on her hands as well. She follows with rheumatology as outpatient, she is on chronic prednisone. She has been following with the wound center here at [place] for the lower extremity wounds. She has chronically low WBC. She is resting in bed, she does relate legs and feeling better since being admitted. [facility] Medical History (Updated 09/28/23 @ 17:[address] Bear Marshall DPM) B12 deficiency anemia Breast cancer Cancer Chronic pain Complicated wound infection Depression Fibromyalgia History of steroid therapy Hyperlipidemia Hypertension Insomnia Irritable bowel syndrome Kidney disease Muscle spasm Post-menopausal Pressure ulcer of left ankle, stage 3 Raynaud disease Restless legs Rheumatoid arthritis Splenomegaly Systemic lupus erythematosus Vasculitis Home Medications prednisone 5 mg tablet 1 mg PO DAILY 10/25/20 [History Last Taken Unknown] hydroxychloroquine 200 mg tablet (Plaquenil) 200 mg PO DAILY 05/26/22 [History Last Taken Unknown] prednisone 5 mg tablet 5 mg PO DAILY #65 tabs 09/03/23 [Rx Last Taken Unknown] sulfamethoxazole 800 mg-trimethoprim 160 mg tablet (Bactrim DS) 1 tab PO BID 2 weeks #28 tabs 09/15/23 [Rx Last Taken Unknown] ascorbic acid (vitamin C) PO DAILY 09/16/23 [History Last Taken Unknown] cholecalciferol (vitamin D3) 50 mcg (2,000 unit) capsule (Vitamin D3) 2,000 unit PO DAILY 09/16/23 [History Last Taken Unknown] ibuprofen 800 mg tablet 800 mg PO Q8H 10 days #30 tabs 09/23/23 [Rx Last Taken Unknown] oxycodone-acetaminophen 5 mg-325 mg tablet (Percocet) 1 tab PO Q8H PRN pain 7 days #21 tabs 09/23/23 [Rx Last Taken Unknown] Allergy/AdvReac Type Severity Reaction Status Date / Time Penicillins AdvReac Intermediate Rash Verified 09/27/23 16:25 Family History Father No problems noted. Father Pancreas cancer Diabetes Mother Osteoarthritis Afib Surgical History History of bilateral mastectomy History of left knee surgery Social History Smoking Status: Never smoker second hand exposure: No alcohol intake: never substance use type: does not use ford/samaritan: None seatbelt use: always do you feel safe at home: Yes Physical Exam Narrative Diffuse lower extremity ulcerations down to subc tissue, with dry eschars, also some granular tissue as well, there is diffuse LE erythema, no evidence of acute ischemia bilateral. No visible abscesses, no crepitus, no fluctuance, no probe or exposed bone bilateral. Const alert, oriented x3 and no apparent distress Lab / Micro Data 09/28/23 04:42 09/28/23 04:42 Labs: Laboratory Results - last 24 hr 09/27/23 17:10: WBC 0.9 L*, RBC 4.48, Hgb 10.9 L, Hct 35.6 L, MCV 79.5 L, MCH 24.3 L, MCHC 30.6 L, RDW Std Deviation 48.3 H, RDW Coeff of Mira 16.7 H, Plt Count 213, MPV 8.6, Immature Gran % (Auto) 2.200 H, Neut % (Auto) 57.8, Lymph % (Auto) 26.7, [place] % (Auto) 12.2 H, Eos % (Auto) 0.0, Baso % (Auto) 1.1 H, Absolute Neuts (auto) 0.5 L, Absolute Lymphs (auto) 0.24 L, Nucleated RBC % 0, Diff Path Review January, Platelet Estimate ADEQUATE, Hypochromasia RARE, Anisocytosis RARE, ESR 13, Sodium 138, Potassium 4.2, Chloride 107, Carbon Dioxide 23.0, Anion Gap 8, BUN 42 H, Creatinine 1.62 H, Estim Creat Clear Calc 29.08, Est GFR (MDRD) Af Amer 40 L, Est GFR (MDRD) Non-Af 33 L, BUN/Creatinine Ratio 25.9 H, Glucose 104, Lactic Acid 1.5, Calcium 8.8, Phosphorus 3.6, Magnesium 2.1, C-React Prot Ext Range 74.40 H, Procalcitonin 0.31 H 09/27/23 17:53: Urine Color Yellow, Urine Clarity Sl. Cloudy, Urine pH 5.0, Ur Specific [place] 1.025, Urine Protein 30 H, Urine Glucose (UA) Normal, Urine Ketones 5 H, Urine Occult Blood 250 H, Urine Nitrite Negative, Urine Bilirubin 1 H, Urine Urobilinogen 1 H, Ur Leukocyte Esterase 25 H, Urine RBC 5-10 SEEN, Urine WBC 0-5 SEEN, Ur Squamous Epith Cells 0-5 SEEN, Urine Bacteria 0 SEEN, Urine Mucus 0 SEEN 09/27/23 21:45: S.aureus Protein A PCR NEGATIVE, MRSA (PCR) Negative 09/28/23 04:42: WBC 0.8 L*, RBC 3.56 L, Hgb 8.6 L, Hct 28.8 L, MCV 80.9 L, MCH 24.2 L, MCHC 29.9 L, RDW Std Deviation 49.8 H, RDW Coeff of Mira 16.8 H, Plt Count 167, MPV 8.3, Immature Gran % (Auto) 0.000, Neut % (Auto) 44.8 L, Lymph % (Auto) 38.5, [place] % (Auto) 15.4 H, Eos % (Auto) 1.3, Baso % (Auto) 0.0, Absolute Neuts (auto) 0.4 L, Absolute Lymphs (auto) 0.30 L, Nucleated RBC % 0, Differential Comment SCANNED, Diff Path Review January, PT 16.6 H, INR 1.3, APTT 33.7, Sodium 139, Potassium 4.2, Chloride 112 H, Carbon Dioxide 21.0, Anion Gap 6, BUN 34 H, Creatinine 1.11 H, Estim Creat Clear Calc 37.30, Est GFR (MDRD) Af Amer 62, Est GFR (MDRD) Non-Af 52 L, BUN/Creatinine Ratio 30.6 H, Glucose 82, Calcium 7.6 L, Total Bilirubin 0.50 09/28/23 04:42: Total Bilirubin Cancelled, Direct Bilirubin 0.13 09/28/23 04:42: Direct Bilirubin Cancelled, AST 26 09/28/23 04:42: AST Cancelled, ALT 12 L 09/28/23 04:42: ALT Cancelled, Alkaline Phosphatase 24 L 09/28/23 04:42: Alkaline Phosphatase Cancelled, Total Protein 4.3 L 09/28/23 04:42: Total Protein Cancelled, Albumin 2.4 L 09/28/23 04:42: Albumin Cancelled, Globulin 1.9 L 09/28/23 04:42: Globulin Cancelled, Albumin/Globulin Ratio 1.3 Imagaing Radiology Impression Foot X-Ray 09/27/23 17:40 IMPRESSION: No radiographic evidence of osteomyelitis. Electronically Signed: Augusto Manzano MD at 18:49 EST Reading Location ID and State: [id number] / [employer] , Service support , Foot X-Ray 09/27/23 17:40 IMPRESSION: Possible osteomyelitis of the second distal phalanx. Clinical correlation is recommended. Electronically Signed: Augusto Manzano MD at 18:54 EST Reading Location ID and State: [id number] / [employer] , Service support ,
[2023-09-28 11:36] VITALS: BP 131/61; PULSE 70; RESP 16; TEMP 36.6; O2SAT 99
[2023-09-28] MEDS: predniSONE 20 MG Tablet 60 MG PO (12:47)
[2023-09-28] MEDS: Ensure Plus High Protein 120 ML LIQUID PO ×3 (12:49→21:28)
[2023-09-28 14:58] VITALS: BP 119/69; PULSE 67; RESP 16; TEMP 37.1; O2SAT 100
[2023-09-28] MEDS: Vancomycin IV 1,000 MG/200 ML BAG 200 MG IV (21:26)
[2023-09-28] MEDS: Heparin Injection (Vial) 5,000 UNIT/ML VIAL 5000 UNIT SC (21:30)
[2023-09-28 21:38] VITALS: BP 122/60; PULSE 66; RESP 16; TEMP 36.6; O2SAT 100
[2023-09-29 04:45] VITALS: BP 105/57; PULSE 55; RESP 16; TEMP 36.7; O2SAT 100
[2023-09-29] MEDS: Acetaminophen 325 MG Tablet 650 MG PO ×4 (04:56→21:15)
[2023-09-29 05:51] VITALS: BMI 26.9
[2023-09-29 06:31] LABS: Absolute Lymphocyte Count 0.26 X10^3/uL (0.83-4.51); Absolute Neutrophil Count 0.4 X10^3/uL (2.0-7.7); Hematocrit 29.6 % (37-47); Hemoglobin 8.8 g/dL (12.0-15.0); Lymphocyte # 0.26 X10^3/ul (0.83-4.51); Lymphocyte % 30.6 % (19-41); Mean Corp Hgb Conc 29.7 g/dL (32-36); Mean Corpuscular Hgb 23.9 pg (27.0-32.0); Mean Corpuscular Volume 80.4 fL (81-99); Mean Platelet Vol. 10.5 fl (6.2-12.0); Monocyte# 0.18 X10^3/uL; Monocyte% 21.2 % (0-10); NRBC Flagged by Analyzer 0 % (0-5); POSITIVE COUNT YES; POSITIVE DIFFERENTIAL YES; POSITIVE MORPHOLOGY YES; Platelet Count 91 K/mm3 (150-450); RBC Distribution Width CV 16.4 % (11.6-14.6); RBC Distribution Width SD 48.5 fl (35.1-43.9); Red Blood Count 3.68 M/mm3 (4.2-5.4)
[2023-09-29 06:38] LABS: Differential Indicated SCAN CRITERIA MET; White Blood Count 0.9 K/mm3 (4.4-11.0)
[2023-09-29 07:01] VITALS: O2SAT 94
[2023-09-29] MEDS: Morphine 2 MG/ML Syringe IV ×2 (07:03→17:34)
[2023-09-29 07:15] LABS: ALB/GLOB Ratio 0.8 RATIO (0.9-2.4); AST(SGOT) 17 U/L (15-37); Alanine Aminotransfer ALT/SGPT 12 U/L (13-56); Alkaline Phosphatase 23 U/L (45-117); Anion Gap 3 (5-15); BUN 44 mg/dL (7-18); Calcium,Total 8.2 mg/dL (8.5-10.1); Chloride 111 mmol/L (98-107); EST Glomerular Filtration Rate 75 mL/min (>60); Est Glom Filt Rate - Afr Amer 91 mL/min (>60); Estimated Creatinine Clearance 51.75 ml/min; Globulin 2.5 g/dL (2.2-4.2); Glucose 130 mg/dL (74-106); Magnesium 2.1 mg/dL (1.6-2.6); Phosphorus 3.3 mg/dL (2.5-4.9); Potassium 4.6 mmol/L (3.5-5.1); Protein, Total 4.5 g/dL (6.4-8.2); Sodium Level 136 mmol/L (136-145); Thyroid Stim Hormone (TSH) 1.39 uIU/mL (0.358-3.74)
[2023-09-29 07:22] LABS: Differential Comment SCANNED; Platelet Estimate MOD DEC (ADEQ)
[2023-09-29] MEDS: predniSONE 20 MG Tablet 60 MG PO (08:28)
[2023-09-29] MEDS: Multivitamins,Ther W-Minerals Tablet 1 TABLET PO (08:28)
[2023-09-29 10:00] VITALS: BP 126/67; PULSE 60; RESP 16; TEMP 37; O2SAT 100
[2023-09-29] MEDS: Collagenase 30gm Tube 1 APPLIC TOPICAL (10:06)
--- NOTE | 2023-09-29 10:23 | WOUNDNOTE ---
wound photo: right lateral lower leg/ankle
--- NOTE | 2023-09-29 10:24 | WOUNDNOTE ---
wound photo: right lower leg
--- NOTE | 2023-09-29 10:25 | WOUNDNOTE ---
wound photo: right posterior lower leg
--- NOTE | 2023-09-29 10:26 | WOUNDNOTE ---
wound photo: right foot
--- NOTE | 2023-09-29 10:27 | WOUNDNOTE ---
wound photo: right plantar foot
--- NOTE | 2023-09-29 10:28 | WOUNDNOTE ---
wound photo: right medial ankle/lower leg
--- NOTE | 2023-09-29 10:28 | WOUNDNOTE ---
wound photo: left lower leg
--- NOTE | 2023-09-29 10:29 | WOUNDNOTE ---
wound photo: left lateral ankle
--- NOTE | 2023-09-29 10:30 | WOUNDNOTE ---
wound photo: left lower leg
[2023-09-29] MEDS: Menthol/Lanolin/Calamine/Znox 113 GM Tube 1 APPLIC TOPICAL ×2 (11:07→21:07)
[2023-09-29] MEDS: oxyCODONE 5 MG Tablet PO ×3 (11:12→21:15)
[2023-09-29] MEDS: Ensure Plus High Protein 120 ML LIQUID PO ×2 (11:12→21:07)
--- NOTE | 2023-09-29 11:12 | PN.HOSP_ITS ---
Reason for Visit Reason for Visit: Bilateral lower extremity wounds Subjective Subjective Patient states the 1 wound on her hand is getting worse as far as pain goes however the pain medicine we are giving her seems to be controlling her pain. I am trying to obtain records from [facility] rheumatology with her last office visit as well as her most recent lab work with them. Autoimmune studies have been sent off and we are planning on biopsy later today. Objective Data Objective Data Vital Signs: Vital Signs Temp Pulse Resp BP Pulse Ox O2 Del Method 98.6 F 60 16 126/67 H 100 Room Air 09/29/23 10:00 09/29/23 10:00 09/29/23 10:00 09/29/23 10:00 09/29/23 10:00 09/29/23 10:00 Oxygen Delivery Method Room Air Weight: 66.2 kg Body Mass Index (BMI) 26.9 Intake & Output: Intake and Output for Last 24 Hours 09/27/23 09/28/23 09/29/23 23:59 23:59 23:59 Intake Total 1540 / 1540 2040 / 2240 370 / 370 Output Total 400 / 775 515 / 515 Balance 1540 / 1540 1640 / 1465 -145 / -145 Lab / Micro Data 09/29/23 06:10 09/29/23 06:10 Labs: Laboratory Results - last 24 hr 09/29/23 06:10: WBC 0.9 L*, RBC 3.68 L, Hgb 8.8 L, Hct 29.6 L, MCV 80.4 L, MCH 23.9 L, MCHC 29.7 L, RDW Std Deviation 48.5 H, RDW Coeff of Mira 16.4 H, Plt Count 91 L, MPV 10.5, Immature Gran % (Auto) 1.200 H, Neut % (Auto) 47.0, Lymph % (Auto) 30.6, Jackson % (Auto) 21.2 H, Eos % (Auto) 0.0, Baso % (Auto) 0.0, Absolute Neuts (auto) 0.4 L, Absolute Lymphs (auto) 0.26 L, Nucleated RBC % 0, Differential Comment SCANNED, Diff Path Review May , Platelet Estimate MOD DEC, Sodium 136, Potassium 4.6, Chloride 111 H, Carbon Dioxide 22.0, Anion Gap 3 L, BUN 44 H, Creatinine 0.80, Estim Creat Clear Calc 51.75, Est GFR (MDRD) Af Amer 91, Est GFR (MDRD) Non-Af 75, BUN/Creatinine Ratio 55.0 H, Glucose 130 H, Calcium 8.2 L, Phosphorus 3.3, Magnesium 2.1, Total Bilirubin 0.40, AST 17, ALT 12 L, Alkaline Phosphatase 23 L, Total Protein 4.5 L, Albumin 2.0 L, Globulin 2.5, Albumin/Globulin Ratio 0.8 L, TSH 1.39 Micro: Microbiology 09/28/23 03:14 Ulcer, Decubitus - Leg, Right Gram Stain - Final 09/28/23 03:14 Ulcer, Decubitus - Leg, Right Wound Culture - Preliminary Gram negative jimmy Physical Exam Const alert, oriented x3, no apparent distress and average body habitus; Negative for healthy appearing or well nourished Constitutional Narrative: Older white female, sitting up in bed with nursing informatics analyst at the bedside getting cleaned up and putting a new gown on, appears comfortable at this time, nontoxic-appearing, does appear chronically ill and older than stated age HEENT head/scalp atraumatic and moist oral mucous membranes HEENT Narrative: Mallampati 2, no thrush Resp normal respiratory effort, no retractions, no use of accessory muscles and clear to auscultation bilaterally Auscultation: Negative for rales, rhonchi or wheezes Cardio regular rate, regular rhythm, S1 normal heart sound, S2 normal heart sound, no murmurs, no rub, no gallops and no clicks GI normal to inspection, nondistended, normoactive bowel sounds, soft to palpation and non-tender Extremity Extremity Narrative: Severe bilateral lower extremity wounds with vasculitis appearing changes both on her legs and her hands, patient also has an area on her right nares medially which is somewhat eschar appearing, all of her wounds appear like they have eschar involvement with no severe marked drainage Skin No no rashes or lesions noted, No no wounds, skin turgor normal, no jaundice and no mottling Skin Narrative: See above, multiple skin changes with rash consistent with vasculitides Neuro oriented x3, moves all extremities and no focal motor deficits Neuro Narrative: Pain with movement of bilateral lower extremities Speech: speech normal Psych affect normal Psych Narrative: Very pleasant, interacts appropriately Assessment & Plan Assessment/Plan (1) Acute kidney injury: (2) Acute osteomyelitis of phalanx of right foot: (3) Cellulitis of both lower extremities: (4) Leukopenia: (5) Debility: (6) Thrombocytopenia: PLAN: Plan Bilateral lower extremity foot ulcerations/osteomyelitis of the second distal phalanx of the right foot -Highly suspect all of these lesions are related to a vasculitides -NAIMA with reflex panel/P ANCA/c-ANCA/C3/C4/cryoglobulins/acute hepatitis panel--> labs are all pending -Consult for punch biopsy of lesions--> to be done later today -Cath may be obscured as patient is on chronic steroids however still seems to be significantly flared -I did review clinic think and cannot find any information related to her rheumatology appointments however she indicates her training personnel supervisor has not seen her since her leg wounds have started -I have requested records from [facility] and her most recent office visit as well as her most recent lab work -Continue prednisone 60 mg daily -Cultures thus far showing gram-negative jimmy-highly suspect it will be an ESBL E. coli -Previous cultures with ESBL E. coli, Serratia, Proteus, and staph hemolyticus from June and July and mid August -Continue meropenem and vancomycin with history of antibiotic allergies -Wound MRSA PCR is pending -ESR is normal but CRP is markedly elevated -Infectious disease consultation and recommendations are pending -Podiatry is following and have made no surgical recommendations at this time with ongoing medical care and workup for suspected vasculitis -Will have to discuss further is her second digit on her right toe x-ray was suggestive of osteomyelitis -Wound care following-appreciate care KATHY -Baseline serum creatinine is between 0.7 and 0.9 - serum creatinine is now at baseline at 0.8 -Okay to discontinue IV fluids Thrombocytopenia -This is new -Does have splenomegaly so sequestration could be however I suspect it is most likely related to antibiotic use and infection -Repeat CBC in a.m. 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 Chronic microcytic anemia -Hemoglobin on admission is stable when compared to previous -Likely due to her chronic disease and Felty's -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 with most recent office visit 05/26/2022 -Patient from suffers from chronic leukopenia, neutropenia, and splenomegaly -Previously had been on methotrexate however it was not efficacious so it was discontinued -Encourage ongoing outpatient follow-up Rheumatoid arthritis/SLE/vasculitis -Continue hydroxychloroquine -Continue home prednisone -Monitor for need for stress dose steroids however currently does not appear to require History of hypertension -Noted in her history however patient is not on any antihypertensives -Continue to monitor blood pressure -As needed hydralazine History of hyperlipidemia -Patient does not take a statin -Recommend outpatient follow-up History of breast cancer -History of bilateral mastectomy and radiation therapy -Patient took tamoxifen x 5 years -Ongoing outpatient follow-up as needed DVT prophylaxis -Subcu heparin CODE STATUS -Full code is verified on admission Charges/Coding Visit Charges Inpatient E&M: 71937 Subs Hosp L2
--- NOTE | 2023-09-29 12:01 | EX.PCM.CON.S ---
Assessment & Plan Assessment/Plan (1) Vasculitis: PLAN: Plan Discussed the procedure of punch biopsy due to the right lower extremity with patient to help evaluate for possible vasculitis. Discussed risks not limited to bleeding, infection, need for further biopsies. Patient was agreeable to proceed. Monserrat Schmid M.D. Pager: [phone] [facility] [address] [place] [address], [facility], [address] [place] [address] Office: [phone] HPI Consult Data Date of Consult: 09/29/23 HPI Narrative Reason for Consultation: Punch biopsy of lower extremities rule out vasculitis HPI Narrative: KAREN DE LA GARZA, is a 68 F who presents due to chronic bilateral lower extremity skin lesions for about the last 4 weeks and weakness. Patient has a history of vasculitis, as well as rheumatoid arthritis and lupus. Patient is on chronic steroids. Consult requested for a punch biopsy of the lower extremities to help evaluate for vasculitis. [facility] Medical History (Updated 09/29/23 @ 11:[address] Estella Jackson, ) B12 deficiency anemia Breast cancer Cancer Chronic pain Complicated wound infection Depression Fibromyalgia History of steroid therapy Hyperlipidemia Hypertension Insomnia Irritable bowel syndrome Kidney disease Muscle spasm Post-menopausal Pressure ulcer of left ankle, stage 3 Raynaud disease Restless legs Rheumatoid arthritis Splenomegaly Systemic lupus erythematosus Vasculitis Home Medications prednisone 5 mg tablet 1 mg PO DAILY 10/25/20 [History Last Taken Unknown] hydroxychloroquine 200 mg tablet (Plaquenil) 200 mg PO DAILY 05/26/22 [History Last Taken Unknown] prednisone 5 mg tablet 5 mg PO DAILY #65 tabs 09/03/23 [Rx Last Taken Unknown] sulfamethoxazole 800 mg-trimethoprim 160 mg tablet (Bactrim DS) 1 tab PO BID 2 weeks #28 tabs 09/15/23 [Rx Last Taken Unknown] ascorbic acid (vitamin C) PO DAILY 09/16/23 [History Last Taken Unknown] cholecalciferol (vitamin D3) 50 mcg (2,000 unit) capsule (Vitamin D3) 2,000 unit PO DAILY 09/16/23 [History Last Taken Unknown] ibuprofen 800 mg tablet 800 mg PO Q8H 10 days #30 tabs 09/23/23 [Rx Last Taken Unknown] oxycodone-acetaminophen 5 mg-325 mg tablet (Percocet) 1 tab PO Q8H PRN pain 7 days #21 tabs 09/23/23 [Rx Last Taken Unknown] Allergy/AdvReac Type Severity Reaction Status Date / Time Penicillins AdvReac Intermediate Rash Verified 09/27/23 16:25 Family History Father No problems noted. Father Pancreas cancer Diabetes Mother Osteoarthritis Afib Surgical History History of bilateral mastectomy History of left knee surgery Social History Smoking Status: Never smoker second hand exposure: No alcohol intake: never substance use type: does not use ford/evangelical: None seatbelt use: always do you feel safe at home: Yes ROS Constitutional Constitutional: Denies fever(s) Eyes Eyes: Denies loss of central vision ENT HEENT: Denies dysphagia Cardiovascular Cardiovascular: Denies chest pain at rest Respiratory/Chest Respiratory/Chest: Denies productive cough Gastrointestinal Gastrointestinal: Denies abdominal pain or vomiting Genitourinary Genitourinary: Denies dysuria Musculoskeletal Musculoskeletal: Reports muscle weakness Integumentary Integumentary: Denies jaundice Neurologic Neurologic: Denies dizziness Psychiatric Psychiatric: Denies anxiety Endocrine Endocrinology: Denies palpitations Hematologic/Lymphatic Hematologic/Lymphatic: Denies easy bleeding Physical Exam Const alert, oriented x3 and no apparent distress HEENT normocephalic and head/scalp atraumatic Resp normal respiratory effort Cardio regular rate GI soft to palpation; Negative for non-distended Palpation: Negative for guarding Extremity Extremity Narrative: Lower extremities wrapped with Kerlix and Andrew wraps, bilateral knees that show purple macule skin lesions Neuro CN's II-XII intact bilaterally Psych mental status grossly normal Lab / Micro Data 09/29/23 06:10 09/29/23 06:10 Labs: Laboratory Results - last 24 hr 09/29/23 06:10: WBC 0.9 L*, RBC 3.68 L, Hgb 8.8 L, Hct 29.6 L, MCV 80.4 L, MCH 23.9 L, MCHC 29.7 L, RDW Std Deviation 48.5 H, RDW Coeff of Mira 16.4 H, Plt Count 91 L, MPV 10.5, Immature Gran % (Auto) 1.200 H, Neut % (Auto) 47.0, Lymph % (Auto) 30.6, [place] % (Auto) 21.2 H, Eos % (Auto) 0.0, Baso % (Auto) 0.0, Absolute Neuts (auto) 0.4 L, Absolute Lymphs (auto) 0.26 L, Nucleated RBC % 0, Differential Comment SCANNED, Diff Path Review January foll, Platelet Estimate MOD DEC, Sodium 136, Potassium 4.6, Chloride 111 H, Carbon Dioxide 22.0, Anion Gap 3 L, BUN 44 H, Creatinine 0.80, Estim Creat Clear Calc 51.75, Est GFR (MDRD) Af Amer 91, Est GFR (MDRD) Non-Af 75, BUN/Creatinine Ratio 55.0 H, Glucose 130 H, Calcium 8.2 L, Phosphorus 3.3, Magnesium 2.1, Total Bilirubin 0.40, AST 17, ALT 12 L, Alkaline Phosphatase 23 L, Total Protein 4.5 L, Albumin 2.0 L, Globulin 2.5, Albumin/Globulin Ratio 0.8 L, TSH 1.39 Micro: Microbiology 09/28/23 03:14 Ulcer, Decubitus - Leg, Right Gram Stain - Final 09/28/23 03:14 Ulcer, Decubitus - Leg, Right Wound Culture - Preliminary Gram negative jimmy Charges/Coding Visit Charges Inpatient E&M: 59995 Init Hosp L2
--- NOTE | 2023-09-29 12:44 | OP.PCM_ITS ---
Report of Operation Date of Procedure: 09/29/23 Pre-Operative Diagnosis: Bilateral lower extremity skin lesions, rule out vascu litis Post-Operative Diagnosis: Same Surgery/Procedure Performed:: 5 mm skin punch biopsy to right lower extremity skin lesion Surgeon: Monserrat Schmid Type of Anesthesia: Local Specimen's removed: 1. Right lower extremity skin lesion Estimated Blood Loss (mL): < 2 cc Description of Procedure: Timeout was completed verifying correct patient, procedure, site, positioning, special corn prior to beginning procedure. Informed consent was obtained. The right knee was prepped draped in usual sterile fashion. Local anesthesia 1% lidocaine with epinephrine was used at the border of the skin lesion. 5 mm punch biopsy was used. Specimen was sent fresh to pathology on saline soaked Telfa. 4-0 nylon was used to close the skin. Hemostasis was achieved with pressure. Telfa and tape were placed over the incision. Patient tolerated procedure well. Complications none Procedures Integumentary [id number]: [id number] Punch bx skin single lesion
[2023-09-29] MEDS: Lidocaine 1% /Epi 1:100 (20ml) 20 ML Vial INFILT (12:46)
--- NOTE | 2023-09-29 13:04 | CASEMGMT ---
JOCELYN CANELA Assessment Face to Face with patient for initial transition planning/care coordination assessment. JOCELYN CANELA introduced self and role at [facility], pt voices understanding. Pt is A&Ox4 and is resting comfortably in bed and is calm. Care providers, pharmacy, and demographics verified. Admitting dx:BL LE Ulcers, KATHY LACE Strata: 3 PCP: Daljit Specialists: [facility]. Dr. Marie (Podiatry). Tad (Oncologist) Preferred Pharmacy: [facility] Insurance: [facility] Prescription Benefit: Yes LNOK: Sister - Hayley Mayo Living Arrangements: Pt lives in a single story apartment alone. Flat entrance. ADLs/IADLs: Pt states that she is normally independent but is requiring more help now. Transportation: Pt states that she drives and that she knows other people that can drive her if need be. DME: States having and using a walker and cane at home. Raised toilet seat. Toilet side rails at home. HHC/SNF: Denies SNF history. Pt states that nursing HH was supposed to see her but she had to come to the hospital before the care could get started. Pt was unable to recall the name of the agency. Pt states she was going to the wound center once per week for dressing changes. Pt states she was also changing them per self at home. Plan: Pt has a NWB order in at this time. JOCELYN CANELA to follow therapy and pt weight bearing restrictions. Pt states that she is not stable enough to go home at this time and would be willing to go to a SNF at time of DC. Taylor Mayo RN, CM
--- NOTE | 2023-09-29 13:31 | PCM.CONS.GEN ---
Assessment & Plan Assessment/Plan (1) Vasculitic ulcer of right lower extremity: PLAN: Extensive ulcerations secondary to ongoing vasculitis of her lower extremities. There is a possibility of bacterial superinfection given the extensive nature of her necrotic disease. Reasonable to continue meropenem for now. Okay to discontinue vancomycin. HPI Consult Data Date of Consult: 09/29/23 HPI Narrative Reason for Consultation: Lower extremity necrotic ulcers and concern of infection HPI Narrative: KAREN DE LA GARZA, is a 68 F who presents progression of her lower extremity necrotic ulcers and continued pain of her legs. Patient has an extensive past medical history of bilateral breast carcinoma status post mastectomies, SLE vasculitis who presents with extensive ulcers of the lower extremities mainly necrotic in nature over the past 6 months. Patient does have chronic leukopenia. No fevers or chills. Currently on vancomycin plus meropenem. No cardiopulmonary distress. No significant gastrointestinal distress. [facility] Medical History (Updated 09/29/23 @ 11:[address] Estella Jackson, DO) B12 deficiency anemia Breast cancer Cancer Chronic pain Complicated wound infection Depression Fibromyalgia History of steroid therapy Hyperlipidemia Hypertension Insomnia Irritable bowel syndrome Kidney disease Muscle spasm Post-menopausal Pressure ulcer of left ankle, stage 3 Raynaud disease Restless legs Rheumatoid arthritis Splenomegaly Systemic lupus erythematosus Vasculitis Home Medications prednisone 5 mg tablet 1 mg PO DAILY 10/25/20 [History Last Taken Unknown] hydroxychloroquine 200 mg tablet (Plaquenil) 200 mg PO DAILY 05/26/22 [History Last Taken Unknown] prednisone 5 mg tablet 5 mg PO DAILY #65 tabs 09/03/23 [Rx Last Taken Unknown] sulfamethoxazole 800 mg-trimethoprim 160 mg tablet (Bactrim DS) 1 tab PO BID 2 weeks #28 tabs 09/15/23 [Rx Last Taken Unknown] ascorbic acid (vitamin C) PO DAILY 09/16/23 [History Last Taken Unknown] cholecalciferol (vitamin D3) 50 mcg (2,000 unit) capsule (Vitamin D3) 2,000 unit PO DAILY 09/16/23 [History Last Taken Unknown] ibuprofen 800 mg tablet 800 mg PO Q8H 10 days #30 tabs 09/23/23 [Rx Last Taken Unknown] oxycodone-acetaminophen 5 mg-325 mg tablet (Percocet) 1 tab PO Q8H PRN pain 7 days #21 tabs 09/23/23 [Rx Last Taken Unknown] Allergy/AdvReac Type Severity Reaction Status Date / Time Penicillins AdvReac Intermediate Rash Verified 09/27/23 16:25 Family History Father No problems noted. Father Pancreas cancer Diabetes Mother Osteoarthritis Afib Surgical History History of bilateral mastectomy History of left knee surgery Social History Smoking Status: Never smoker second hand exposure: No alcohol intake: never substance use type: does not use ford/buddhist: None seatbelt use: always do you feel safe at home: Yes ROS ROS Narrative As stated in history of present illness others negative Physical Exam Narrative Alert and responsive does not appear acutely ill patient does have ulnar deviation of her upper extremities lungs are clear heart exam S1-S2 abdomen soft nontender. Both legs are dressed with extensive wrapping. I did look at multiple pictures of her lower extremity from this morning by the wound nurse. Lab / Micro Data 09/29/23 06:10 09/29/23 06:10 Labs: Laboratory Results - last 24 hr 09/29/23 06:10: WBC 0.9 L*, RBC 3.68 L, Hgb 8.8 L, Hct 29.6 L, MCV 80.4 L, MCH 23.9 L, MCHC 29.7 L, RDW Std Deviation 48.5 H, RDW Coeff of Mira 16.4 H, Plt Count 91 L, MPV 10.5, Immature Gran % (Auto) 1.200 H, Neut % (Auto) 47.0, Lymph % (Auto) 30.6, [place] % (Auto) 21.2 H, Eos % (Auto) 0.0, Baso % (Auto) 0.0, Absolute Neuts (auto) 0.4 L, Absolute Lymphs (auto) 0.26 L, Nucleated RBC % 0, Differential Comment SCANNED, Diff Path Review May foll, Platelet Estimate MOD DEC, Sodium 136, Potassium 4.6, Chloride 111 H, Carbon Dioxide 22.0, Anion Gap 3 L, BUN 44 H, Creatinine 0.80, Estim Creat Clear Calc 51.75, Est GFR (MDRD) Af Amer 91, Est GFR (MDRD) Non-Af 75, BUN/Creatinine Ratio 55.0 H, Glucose 130 H, Calcium 8.2 L, Phosphorus 3.3, Magnesium 2.1, Total Bilirubin 0.40, AST 17, ALT 12 L, Alkaline Phosphatase 23 L, Total Protein 4.5 L, Albumin 2.0 L, Globulin 2.5, Albumin/Globulin Ratio 0.8 L, TSH 1.39 Micro: Microbiology 09/28/23 03:14 Ulcer, Decubitus - Leg, Right Gram Stain - Final 09/28/23 03:14 Ulcer, Decubitus - Leg, Right Wound Culture - Preliminary Gram negative jimmy
--- NOTE | 2023-09-29 13:50 | PCM.PROGNOTE ---
Subjective Subjective Patient was seen today for follow up. She relates LE are feeling better and she was able to sleep good overnight. No new complaints. She had punch biopsy completed by general surgery. Objective Data Objective Data Vital Signs: Vital Signs Temp Pulse Resp BP Pulse Ox O2 Del Method 98.6 F 60 16 126/67 H 100 Room Air 09/29/23 10:00 09/29/23 10:00 09/29/23 10:00 09/29/23 10:00 09/29/23 10:00 09/29/23 10:00 Oxygen Delivery Method Room Air Weight: 66.2 kg Body Mass Index (BMI) 26.9 Intake & Output: Intake and Output for Last 24 Hours 09/27/23 09/28/23 09/29/23 23:59 23:59 23:59 Intake Total 1540 / 1540 2040 / 2240 670 / 670 Output Total 400 / 775 515 / 515 Balance 1540 / 1540 1640 / 1465 155 / 155 Lab / Micro Data 09/29/23 06:10 09/29/23 06:10 Labs: Laboratory Results - last 24 hr 09/29/23 06:10: WBC 0.9 L*, RBC 3.68 L, Hgb 8.8 L, Hct 29.6 L, MCV 80.4 L, MCH 23.9 L, MCHC 29.7 L, RDW Std Deviation 48.5 H, RDW Coeff of Mira 16.4 H, Plt Count 91 L, MPV 10.5, Immature Gran % (Auto) 1.200 H, Neut % (Auto) 47.0, Lymph % (Auto) 30.6, [place] % (Auto) 21.2 H, Eos % (Auto) 0.0, Baso % (Auto) 0.0, Absolute Neuts (auto) 0.4 L, Absolute Lymphs (auto) 0.26 L, Nucleated RBC % 0, Differential Comment SCANNED, Diff Path Review January, Platelet Estimate MOD DEC, Sodium 136, Potassium 4.6, Chloride 111 H, Carbon Dioxide 22.0, Anion Gap 3 L, BUN 44 H, Creatinine 0.80, Estim Creat Clear Calc 51.75, Est GFR (MDRD) Af Amer 91, Est GFR (MDRD) Non-Af 75, BUN/Creatinine Ratio 55.0 H, Glucose 130 H, Calcium 8.2 L, Phosphorus 3.3, Magnesium 2.1, Total Bilirubin 0.40, AST 17, ALT 12 L, Alkaline Phosphatase 23 L, Total Protein 4.5 L, Albumin 2.0 L, Globulin 2.5, Albumin/Globulin Ratio 0.8 L, TSH 1.39 Micro: Microbiology 09/28/23 03:14 Ulcer, Decubitus - Leg, Right Gram Stain - Final 09/28/23 03:14 Ulcer, Decubitus - Leg, Right Wound Culture - Preliminary Gram negative jimmy Physical Exam Narrative Diffuse lower extremity ulcerations down to subc tissue, with dry eschars, also some granular tissue as well, vasculitis skin changes, skin thin and atrophic bilateral, there is diffuse LE erythema. No visible abscesses, no crepitus, no fluctuance. Const alert, oriented x3 and no apparent distress Assessment & Plan Assessment/Plan (1) Cellulitis of both lower extremities: (2) Non-pressure chronic ulcer of unspecified part of right lower leg with fat layer exposed: (3) Non-pressure ulcer of left lower extremity with fat layer exposed: (4) Long-term current use of steroids: (5) Systemic lupus erythematosus: (6) RA (rheumatoid arthritis): (7) Vasculitic ulcer of right lower extremity: (8) Vasculitic ulcer of left lower extremity: PLAN: Plan Evaluation performed. Reviewed diagnostic data. Reviewed bilateral foot xrays. Spoke with Dr. Jackson and bilateral MRIs will be ordered for further evaluation. Appears wounds are secondary to acute vasculitis episode. She is in process of further vasculitis workup. There is no noted drainable abscess or emergent foot/ankle surgery needed at this time. Eventually wounds may benefit from surgical debridement, but recommend awaiting until resolution of acute vasculitis flare. In meantime use santyl topically to wounds for enzymatic debridement, cover with gauze, kerlix and wilman dressing changes daily. A culture has been obtained and result is pending - she is on IV antibiotic Meropenem and Vanc. Keep wounds offloaded. Per review of chart patient has vascular specialist Dr. Atkins and had noninvasive LE artieral studies in May and per review of results no significant arterial disease noted. Podiatry will continue to follow.
[2023-09-29] MEDS: 0.9% Normal Saline (250mL Bag) 250 ML 15 ML IV (14:17)
[2023-09-29] MEDS: Meropenem 1 GM in 0.9% Normal Saline (100mL MB+) 100 ML IV ×2 (14:17→21:08)
--- NOTE | 2023-09-29 14:21 | MRI_ITS ---
PROCEDURE: MRI LOWER EXTREMITY LEFT TIBIA/FIBULA REASON FOR EXAM: Female, 68 years old. 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 COMPARISON: MRI of the right tibia and fibula dated September 29, 2023. Bilateral foot x-rays dated September 27, 2023 FINDINGS: Normal tibia and fibula, without a periosteal, cortical or cancellous marrow abnormality. No marrow edema or cortical erosion or intramedullary erosions or lysis is present that would indicate osteomyelitis. No occult fractures are seen. There is hardware fixation of the tibial tuberosity and proximal one third shaft region, resulting in metallic artifact in the surrounding regions. Mild subcutaneous edema is present throughout the left calf with a few trace areas of deep prefascial layering fluid, which does not represent an abscess. The intramuscular compartment is within normal limits other than some fatty atrophy, likely age related. There is no evidence of necrotizing fasciitis. There is no solid, cystic or lipomatous mass lesion of the subcutis adipose space. LEFT TIBIA/FIBULA MRI/Lower Ext/No Jt/w/o IMPRESSION: 1. Mild subcutaneous edema of the left calf, these findings could be related to dependent edema, lymphedema, cellulitis, or other nonspecified processes. 2. No evidence of osteomyelitis or soft tissue abscess Electronically Signed: Chris Daigle MD at 10:19 EST ,
[2023-09-29 14:22] LABS: Pathologist Review Reviewed
--- NOTE | 2023-09-29 14:22 | PCM.HOSP.N ---
Hospitalist Note Discussed case with podiatry. I did ask him whether or not he thought we should do MRIs of both lower extremities given the fact that they are calling possible osteomyelitis of her second digit toe on the right. He agreed and we plan to do MRIs of both lower extremities from her knees to her feet. He did in case if there is osteomyelitis and is extensive he may recommend transfer to tertiary center.
[2023-09-29 15:03] VITALS: BP 124/62; PULSE 60; RESP 16; TEMP 36.7; O2SAT 98
--- NOTE | 2023-09-29 15:55 | CASEMGMT ---
Discharge Planning A list of?SNF providers including quality and resource use data and consistent with the patient's preferred geographic region, medical needs, and insurance network was created in CarePort Guide.? This list was provided to the SW. Leatha Oliveros Discharge Planning Asst.
--- NOTE | 2023-09-29 16:00 | MRI_ITS ---
PROCEDURE: MRI LOWER EXTREMITY RIGHT TIBIA/FIBULA REASON FOR EXAM: Female, 68 years old. OM multiple wounds bilat legs and feet secondary to vasculitis TECHNIQUE: Standardized fat and water weighted pulse sequences were obtained in all 3 orthogonal planes. The left tibia and fibula is included in the [id number]. COMPARISON: X-rays of the bilateral feet dated September 27, 2023 FINDINGS: Mild to moderate subcutaneous edema is present in the bilateral lower extremities, more prominent on the right than left. A small amount of deep subcutaneous prefascial layering fluid is also present in the middle one third aspect of the right calf on the fibular side, but this does not represent an abscess. There is no demonstrated subcutaneous or intramuscular abscess. No intramuscular edema or other significant abnormalities are present. There is no evidence of necrotizing fasciitis. No marrow edema or cortical erosion or intramedullary lysis is present that would indicate osteomyelitis. No occult fractures are seen. There is mild to moderate fatty atrophy of the muscle fibers of the bilateral lower extremities. Normal tibia and fibula, without a periosteal, cortical or cancellous marrow abnormality. There is no solid, cystic or lipomatous mass lesion of the subcutis adipose space. MRI/Lower Ext/No Jt/w/o IMPRESSION: 1. Mild to moderate bilateral subcutaneous edema, findings could be related to dependent edema, lymphedema, cellulitis, or other nonspecified processes. 2. No evidence of a soft tissue abscess 3. No evidence of osteomyelitis Electronically Signed: Chris Daigle MD at 8:16 EST ,
[2023-09-29] MEDS: 0.9% Saline Lock 10 ML Syringe IV ×2 (17:35→18:44)
--- NOTE | 2023-09-29 18:16 | CASEMGMT ---
Social Work - Advanced Directive Validation/Discharge Planning Advanced directives-found old advanced directives in the patient's Echart, dating back to 2006. Patient's parents are listed as the power of employment law attorney for healthcare. Checked in with patient on the validity of these advanced directives. Patient reports both of her parents and has done no further advance care planning. Patient reports would like to complete new advance directives and to name patient sister as the power of employment law attorney for healthcare. Discharge planning-this tech writer received handoff from JOCELYN CANELA ? as patient feels now, patient is not feeling able to return home alone and care for self. Patient is open to short-term halfway facility. Discussed discharge planning with patient, who acknowledges being open to short-term halfway facility. Provide the patient a list of choices as generated from care port including patient's geographical region and Medicare*/quality data. Patient asked for some time to review the information to determine preferences. Patient reports [facility] not [facility] to [facility] to [facility] as this is where patient's mother was prior to passing away. Plan: anticipate short-term halfway facility. Social work to follow backup with preferences and also assist with advance directive completion as able. -MARCELLE Thomas, PRODUCT LEAD
[2023-09-29 18:50] VITALS: BP 124/60; PULSE 66; RESP 16; TEMP 37.1; O2SAT 100
[2023-09-29 20:55] VITALS: BP 140/64; PULSE 64; RESP 16; TEMP 36.7; O2SAT 97
[2023-09-29] MEDS: Heparin Injection (Vial) 5,000 UNIT/ML VIAL 5000 UNIT SC (21:07)
[2023-09-30 04:26] VITALS: BP 134/68; PULSE 61; RESP 16; TEMP 36.6; O2SAT 100
[2023-09-30] MEDS: Meropenem 1 GM in 0.9% Normal Saline (100mL MB+) 100 ML IV ×3 (05:24→20:58)
[2023-09-30 05:46] VITALS: BMI 26.9
[2023-09-30 07:08] LABS: HEPATITIS B SURFACE AG Negative (Negative); Hep C Antibodies Non Reactive (Non Reactive); Hepatitis A IgM Antibody Negative (Negative); Hepatitis B Core AB IgM Negative (Negative)
[2023-09-30 07:11] VITALS: O2SAT 93
[2023-09-30 07:51] LABS: Absolute Lymphocyte Count 0.57 X10^3/uL (0.83-4.51); Absolute Neutrophil Count 0.6 X10^3/uL (2.0-7.7); Basophil# 0.01 X10^3/uL; Basophil% 0.7 % (0-1); Hematocrit 31.4 % (37-47); Hemoglobin 9.4 g/dL (12.0-15.0); Lymphocyte # 0.57 X10^3/ul (0.83-4.51); Lymphocyte % 37.3 % (19-41); Mean Corp Hgb Conc 29.9 g/dL (32-36); Mean Corpuscular Hgb 24.1 pg (27.0-32.0); Mean Corpuscular Volume 80.5 fL (81-99); Mean Platelet Vol. 9.8 fl (6.2-12.0); Monocyte# 0.34 X10^3/uL; Monocyte% 22.2 % (0-10); NRBC Flagged by Analyzer 0 % (0-5); Neutrophil # 0.55 X10^3/uL (2.7-7.7); Neutrophil % 35.9 % (47-70); POSITIVE DIFFERENTIAL YES; POSITIVE MORPHOLOGY YES; Platelet Count 189 K/mm3 (150-450); RBC Distribution Width CV 16.2 % (11.6-14.6); RBC Distribution Width SD 47.7 fl (35.1-43.9)
[2023-09-30 07:56] VITALS: BP 135/66; PULSE 66; RESP 18; TEMP 36.4; O2SAT 100
[2023-09-30 08:05] LABS: Differential Indicated SCAN CRITERIA MET; White Blood Count 1.5 K/mm3 (4.4-11.0)
[2023-09-30] MEDS: Multivitamins,Ther W-Minerals Tablet 1 TABLET PO (08:14)
[2023-09-30] MEDS: predniSONE 20 MG Tablet 60 MG PO (08:14)
[2023-09-30] MEDS: Ensure Plus High Protein 120 ML LIQUID PO (08:16)
--- NOTE | 2023-09-30 08:19 | NURSING ---
text send to dr clayton about pt's low wbc count
[2023-09-30 08:32] LABS: Anion Gap 2 (5-15); BUN 46 mg/dL (7-18); BUN/Creat Ratio 77.1 RATIO (10-20); Calcium,Total 8.5 mg/dL (8.5-10.1); Chloride 110 mmol/L (98-107); EST Glomerular Filtration Rate 106 mL/min (>60); Est Glom Filt Rate - Afr Amer 128 mL/min (>60); Glucose 82 mg/dL (74-106); Potassium 4.7 mmol/L (3.5-5.1); Sodium Level 136 mmol/L (136-145)
[2023-09-30 09:00] LABS: Differential Comment SCANNED; Reactive Lymphocyte 1+
[2023-09-30] MEDS: 0.9% Saline Lock 10 ML Syringe IV ×3 (09:16→20:57)
[2023-09-30] MEDS: Morphine 2 MG/ML Syringe IV ×2 (09:16→20:57)
--- NOTE | 2023-09-30 09:30 | MRI_ITS ---
STUDY: MRI LEFT FOOT REASON FOR EXAM: Female, 68 years old. Osteomyelitis, multiple wounds lower legs, feet and ankles. TECHNIQUE: Standardized fat and water weighted pulse sequences were obtained in all 3 orthogonal planes. COMPARISON: Left foot radiographs dated 09/27/2023. FINDINGS: Normal bone marrow of the tarsals, metatarsals, phalanges and visualized distal tibia/fibula, without osteomyelitis, fracture, periostitis, erosions or reactive bone edema. Normal sesamoids without sesamoiditis, fracture or avascular necrosis. Normal joint spaces, without effusions. Normal capsular structures and plantar plates. There are no extraarticular fluid collections. Normal visualized Chopart and Lisfranc joints and normal Lisfranc ligament. Normal intermetatarsal spaces without intermetatarsal (Rodríguez) neuroma or bursitis. Normal visualized distal posterior tibialis tendon. Normal visualized distal anterior tibialis tendon. Normal visualized distal peroneus longus and brevis tendons. Normal visualized extensor digitorum longus, extensor hallucis longus, flexor digitorum brevis and flexor hallucis longus tendons. Normal visualized plantar fascia without fasciitis, fibromatosis or tear. There is mild atrophy and edema of the intrinsic muscles of the foot. There is mild to moderate subcutaneous soft tissue edema along the dorsum of the foot. MRI/Lower Ext/No Jt/w/o IMPRESSION: Mild to moderate subcutaneous soft tissue edema along the dorsum of the foot. Mild atrophy and edema of the intrinsic muscles of the foot. No evidence of osteomyelitis. Electronically Signed: Tha Jackson MD at 11:29 EST ,
[2023-09-30 10:15] LABS: Pathologist Review Reviewed
--- NOTE | 2023-09-30 10:15 | MRI_ITS ---
STUDY: MRI RIGHT FOOT REASON FOR EXAM: Female, 68 years old. Osteomyelitis, multiple wounds lower legs, feet and ankles. TECHNIQUE: Standardized fat and water weighted pulse sequences were obtained in all 3 orthogonal planes. COMPARISON: Right foot radiographs dated 09/27/2023. FINDINGS: Normal bone marrow of the tarsals, metatarsals, phalanges and visualized distal tibia/fibula, without osteomyelitis, fracture, periostitis, erosions or reactive bone edema. Normal sesamoids without sesamoiditis, fracture or avascular necrosis. Normal joint spaces, without effusions. There are no extraarticular fluid collections. Normal visualized Chopart and Lisfranc joints and normal Lisfranc ligament. Normal intermetatarsal spaces without intermetatarsal (Rodríguez) neuroma or bursitis. Normal Achilles tendon. Normal visualized distal posterior tibialis tendon. Normal visualized distal anterior tibialis tendon. Normal visualized distal peroneus longus and brevis tendons. Normal visualized extensor digitorum longus, extensor hallucis longus, flexor digitorum brevis and flexor hallucis longus tendons. Normal visualized plantar fascia without fasciitis, fibromatosis or tear. There is mild edema and atrophy of the intrinsic muscles of the foot. There is moderate subcutaneous soft tissue edema along the dorsum of the foot. MRI/Lower Ext/No Jt/w/o IMPRESSION: Moderate subcutaneous soft tissue edema along the dorsum of the foot. Mild edema and atrophy of the intrinsic muscles of the foot. No evidence of osteomyelitis. Electronically Signed: Tha Jackson MD at 11:24 EST ,
[2023-09-30 10:20] LABS: Pathologist Review Reviewed
[2023-09-30 11:08] LABS: Anti-Centromere B Ab <0.2 AI (0.0-0.9); Anti-Chromatin 1.1 AI (0.0-0.9); Anti-Jo <0.2 AI (0.0-0.9); Anti-Scleroderma-70 AB <0.2 AI (0.0-0.9); Anti-dsDNA Ab <1 IU/mL (0-9); RNP Ab 3.8 AI (0.0-0.9); SJOGREN'S Anti-SS-A test < 0.2 AI (0.0-0.9); SJOGREN'S Anti-SS-B test < 0.2 AI (0.0-0.9); Smith Ab <0.2 AI (0.0-0.9)
[2023-09-30 11:17] VITALS: BP 127/68; PULSE 68; RESP 18; TEMP 36.7; O2SAT 98
[2023-09-30] MEDS: Menthol/Lanolin/Calamine/Znox 113 GM Tube 1 APPLIC TOPICAL ×3 (11:20→20:56)
[2023-09-30] MEDS: Heparin Injection (Vial) 5,000 UNIT/ML VIAL 5000 UNIT SC ×2 (11:21→20:56)
[2023-09-30] MEDS: Acetaminophen 325 MG Tablet 650 MG PO ×2 (11:22→17:45)
[2023-09-30] MEDS: oxyCODONE 5 MG Tablet PO ×2 (11:23→17:46)
[2023-09-30] MEDS: Collagenase 30gm Tube 1 APPLIC TOPICAL (11:35)
--- NOTE | 2023-09-30 12:05 | PN.HOSP_ITS ---
Reason for Visit Reason for Visit: Bilateral lower extremity wounds Subjective Subjective Patient states she feels about the same today as far as the pain goes however she feels the redness is less intense since starting the high-dose steroids. Still awaiting records from her field cane scaler. Objective Data Objective Data Vital Signs: Vital Signs Temp Pulse Resp BP Pulse Ox O2 Del Method 98.1 F 68 18 127/68 H 98 Room Air 09/30/23 11:17 09/30/23 11:17 09/30/23 11:17 09/30/23 11:17 09/30/23 11:17 09/30/23 11:17 Oxygen Delivery Method Room Air Weight: 66.2 kg Body Mass Index (BMI) 26.9 Intake & Output: Intake and Output for Last 24 Hours 09/28/23 09/29/23 09/30/23 23:59 23:59 23:59 Intake Total 2040 / 2240 990.00 / 1390.00 1590 / 1590 Output Total 400 / 775 815 / 1115 1200 / 1200 Balance 1640 / 1465 175.00 / 275.00 390 / 390 Lab / Micro Data 09/30/23 07:20 09/30/23 07:20 Labs: Laboratory Results - last 24 hr 09/27/23 17:10: Diff Path Review Reviewed 09/28/23 04:42: Diff Path Review Reviewed 09/29/23 00:00: FRANCESCO-1 Antibody <0.2, SS-A/Ro IgG Antibody < 0.2, SS-B/La IgG Antibody < 0.2, Sm (Umaña) Antibody <0.2, HEALTH SCREENER Antibody 3.8 H, Scl-70 Scleroderma Ab <0.2, Double Strand DNA Ab <1, Centromere B Antibody <0.2 09/29/23 06:10: Diff Path Review Reviewed, Hepatitis A IgM Ab Negative, Hep Bs Antigen Negative, Hep B Core IgM Ab Negative, Hepatitis C Ab (EIA) Non Reactive, Hep C Ab Comment Comment 09/30/23 07:20: WBC 1.5 L*, RBC 3.90 L, Hgb 9.4 L, Hct 31.4 L, MCV 80.5 L, MCH 24.1 L, MCHC 29.9 L, RDW Std Deviation 47.7 H, RDW Coeff of Mira 16.2 H, Plt Count 189, MPV 9.8, Immature Gran % (Auto) 3.900 H, Neut % (Auto) 35.9 L, Lymph % (Auto) 37.3, Yates % (Auto) 22.2 H, Eos % (Auto) 0.0, Baso % (Auto) 0.7, Absolute Neuts (auto) 0.6 L, Absolute Lymphs (auto) 0.57 L, Nucleated RBC % 0, Differential Comment SCANNED, Diff Path Review May foll, Reactive Lymphocytes 1+, Sodium 136, Potassium 4.7, Chloride 110 H, Carbon Dioxide 24.0, Anion Gap 2 L, BUN 46 H, Creatinine 0.60, Estim Creat Clear Calc 41.40, Est GFR (MDRD) Af Amer 128, Est GFR (MDRD) Non-Af 106, BUN/Creatinine Ratio 77.1 H, Glucose 82, Calcium 8.5 Micro: Microbiology 09/27/23 20:56 Blood Culture (Wb) - Right Hand Blood Culture - Preliminary No growth in 48 hours. 09/27/23 20:56 Blood Culture (Wb) - Anticubital Right Blood Culture - Preliminary No growth in 48 hours. 09/28/23 03:14 Ulcer, Decubitus - Leg, Right Gram Stain - Final 09/28/23 03:14 Ulcer, Decubitus - Leg, Right Wound Culture - Preliminary Pseudomonas putida Coag Negative Staph Radiography Diagnostic Testing: Radiology Impression Lower Extremity MRI 09/29/23 14:21 IMPRESSION: 1. Mild subcutaneous edema of the left calf, these findings could be related to dependent edema, lymphedema, cellulitis, or other nonspecified processes. 2. No evidence of osteomyelitis or soft tissue abscess Electronically Signed: Chris Daigle MD at 10:19 EST , Lower Extremity MRI 09/29/23 16:00 IMPRESSION: 1. Mild to moderate bilateral subcutaneous edema, findings could be related to dependent edema, lymphedema, cellulitis, or other nonspecified processes. 2. No evidence of a soft tissue abscess 3. No evidence of osteomyelitis Electronically Signed: Chris Daigle MD at 8:16 EST Reading Location ID and State: [facility] / [place] , Service support , Lower Extremity MRI 09/30/23 09:30 IMPRESSION: Mild to moderate subcutaneous soft tissue edema along the dorsum of the foot. Mild atrophy and edema of the intrinsic muscles of the foot. No evidence of osteomyelitis. Electronically Signed: Tha Jackson MD at 11:29 EST Reading Location ID and State: [facility] / [place] , Service support , Lower Extremity MRI 09/30/23 10:15 IMPRESSION: Moderate subcutaneous soft tissue edema along the dorsum of the foot. Mild edema and atrophy of the intrinsic muscles of the foot. No evidence of osteomyelitis. Electronically Signed: Tha Jackson MD at 11:24 EST Reading Location ID and State: [facility] / [place] , Service support , Physical Exam Const alert, oriented x3, no apparent distress and average body habitus; Negative for healthy appearing or well nourished Constitutional Narrative: Older white female, lying in bed, in wound nurse at bedside redressing wounds, [id number] at bedside,, appears comfortable at this time, nontoxic-appearing, does appear chronically ill and older than stated age HEENT head/scalp atraumatic and moist oral mucous membranes HEENT Narrative: Mallampati is 2, no thrush Resp normal respiratory effort, no retractions, no use of accessory muscles and clear to auscultation bilaterally Auscultation: Negative for rales, rhonchi or wheezes Cardio regular rate, regular rhythm, S1 normal heart sound, S2 normal heart sound, no murmurs, no rub, no gallops and no clicks GI normal to inspection, nondistended, normoactive bowel sounds, soft to palpation and non-tender Extremity Extremity Narrative: Severe bilateral lower extremity wounds with vasculitis appearing changes both on her legs and her hands, patient also has an area on her right nares medially which is somewhat eschar appearing, all of her wounds appear like they have es tan involvement with no severe marked drainage, bilateral hands with decreased redness and wounds on her lower extremity and purpura with much less erythema Skin Skin Narrative: See above, multiple skin changes with rash consistent with vasculitides Neuro oriented x3, moves all extremities and no focal motor deficits Neuro Narrative: Pain with movement of bilateral lower extremities, generalized weakness due to decreased mobility from pain Speech: speech normal Psych affect normal Psych Narrative: Very pleasant, interacts appropriately Assessment & Plan Assessment/Plan (1) Acute kidney injury: (2) Acute osteomyelitis of phalanx of right foot: (3) Cellulitis of both lower extremities: (4) Leukopenia: (5) Debility: (6) Thrombocytopenia: PLAN: Plan Bilateral lower extremity foot ulcerations/osteomyelitis of the second distal phalanx of the right foot -Highly suspect all of these lesions are related to a vasculitides -NAIMA with reflex panel/P ANCA/c-ANCA/C3/C4/cryoglobulins/acute hepatitis panel--> labs are all pending -Punch biopsy performed and pending -Pathology may be obscured as patient is on chronic steroids however still seems to be significantly flared -Records request from [facility] is still pending -Continue prednisone 60 mg daily -Cultures thus far showing gram-negative jimmy-highly suspect it will be an ESBL E. coli, coag negative staph, and Pseudomonas putida -Previous cultures with ESBL E. coli, Serratia, Proteus, and staph hemolyticus from June and July and mid August -Continue meropenem per ID -Wound MRSA PCR was negative -ESR is normal but CRP is markedly elevated -Repeat CRP tomorrow after 48 hours of steroids -Infectious disease following-appreciate input -Podiatry is following and have made no surgical recommendations at this time with ongoing medical care and workup for suspected vasculitis -Awaiting MRIs to ascertain whether or not any surgical procedures need to be performed and whether or not they can be handled here or if the patient required transfer -Wound care following-appreciate care KATHY -Resolved -I do anticipate that her BUN will rise independently of her serum creatinine with high-dose steroid use Thrombocytopenia -Resolved -Platelet count is 189,000 Debility/failure to thrive -PT/OT following -Suspect patient may need placement at discharge depending on functional status especially with probable surgical intervention required and ongoing wound care needs -Case management/social work consulted for discharge planning--> anticipate placement at discharge and patient will need pre-CERT 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 Chronic microcytic anemia -Hemoglobin on admission is stable when compared to previous -Likely due to her chronic disease and Felty's -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 with most recent office visit 05/26/2022 -Patient from suffers from chronic leukopenia, neutropenia, and splenomegaly -Previously had been on methotrexate however it was not efficacious so it was discontinued -Encourage ongoing outpatient follow-up Rheumatoid arthritis/SLE/vasculitis -Continue hydroxychloroquine -Continue home prednisone at higher 60 mg dose History of hypertension -Noted in her history however patient is not on any antihypertensives -Continue to monitor blood pressure -As needed hydralazine History of hyperlipidemia -Patient does not take a statin -Recommend outpatient follow-up History of breast cancer -History of bilateral mastectomy and radiation therapy -Patient took tamoxifen x 5 years -Ongoing outpatient follow-up as needed DVT prophylaxis -Subcu heparin CODE STATUS -Full code is verified on admission Charges/Coding Visit Charges Inpatient E&M: 86507 Subs Hosp L2
--- NOTE | 2023-09-30 12:11 | PCM.PROGNOTE ---
Subjective Subjective Patient was seen today for follow up on LE wounds. She relates to less pain. She has no new complaints.No f/c/n/v. Objective Data Objective Data Vital Signs: Vital Signs Temp Pulse Resp BP Pulse Ox O2 Del Method 98.1 F 68 18 127/68 H 98 Room Air 09/30/23 11:17 09/30/23 11:17 09/30/23 11:17 09/30/23 11:17 09/30/23 11:17 09/30/23 11:17 Oxygen Delivery Method Room Air Weight: 66.2 kg Body Mass Index (BMI) 26.9 Intake & Output: Intake and Output for Last 24 Hours 09/28/23 09/29/23 09/30/23 23:59 23:59 23:59 Intake Total 2040 / 2240 990.00 / 1390.00 1590 / 1590 Output Total 400 / 775 815 / 1115 1200 / 1200 Balance 1640 / 1465 175.00 / 275.00 390 / 390 Lab / Micro Data 09/30/23 07:20 09/30/23 07:20 Labs: Laboratory Results - last 24 hr 09/27/23 17:10: Diff Path Review Reviewed 09/28/23 04:42: Diff Path Review Reviewed 09/29/23 00:00: FRANCESCO-1 Antibody <0.2, SS-A/Ro IgG Antibody < 0.2, SS-B/La IgG Antibody < 0.2, Sm (Umaña) Antibody <0.2, ELECTRONIC PAGINATION SYSTEM OPERATOR Antibody 3.8 H, Scl-70 Scleroderma Ab <0.2, Double Strand DNA Ab <1, Centromere B Antibody <0.2 09/29/23 06:10: Diff Path Review Reviewed, Hepatitis A IgM Ab Negative, Hep Bs Antigen Negative, Hep B Core IgM Ab Negative, Hepatitis C Ab (EIA) Non Reactive, Hep C Ab Comment Comment 09/30/23 07:20: WBC 1.5 L*, RBC 3.90 L, Hgb 9.4 L, Hct 31.4 L, MCV 80.5 L, MCH 24.1 L, MCHC 29.9 L, RDW Std Deviation 47.7 H, RDW Coeff of Mira 16.2 H, Plt Count 189, MPV 9.8, Immature Gran % (Auto) 3.900 H, Neut % (Auto) 35.9 L, Lymph % (Auto) 37.3, [place] % (Auto) 22.2 H, Eos % (Auto) 0.0, Baso % (Auto) 0.7, Absolute Neuts (auto) 0.6 L, Absolute Lymphs (auto) 0.57 L, Nucleated RBC % 0, Differential Comment SCANNED, Diff Path Review May foll, Reactive Lymphocytes 1+, Sodium 136, Potassium 4.7, Chloride 110 H, Carbon Dioxide 24.0, Anion Gap 2 L, BUN 46 H, Creatinine 0.60, Estim Creat Clear Calc 41.40, Est GFR (MDRD) Af Amer 128, Est GFR (MDRD) Non-Af 106, BUN/Creatinine Ratio 77.1 H, Glucose 82, Calcium 8.5 Micro: Microbiology 09/27/23 20:56 Blood Culture (Wb) - Right Hand Blood Culture - Preliminary No growth in 48 hours. 09/27/23 20:56 Blood Culture (Wb) - Anticubital Right Blood Culture - Preliminary No growth in 48 hours. 09/28/23 03:14 Ulcer, Decubitus - Leg, Right Gram Stain - Final 09/28/23 03:14 Ulcer, Decubitus - Leg, Right Wound Culture - Preliminary Pseudomonas putida Coag Negative Staph Radiography Diagnostic Testing: Radiology Impression Lower Extremity MRI 09/29/23 14:21 IMPRESSION: 1. Mild subcutaneous edema of the left calf, these findings could be related to dependent edema, lymphedema, cellulitis, or other nonspecified processes. 2. No evidence of osteomyelitis or soft tissue abscess Electronically Signed: Chris Daigle MD at 10:19 EST Reading Location ID and State: [address] [place] [address] , Service support , Lower Extremity MRI 09/29/23 16:00 IMPRESSION: 1. Mild to moderate bilateral subcutaneous edema, findings could be related to dependent edema, lymphedema, cellulitis, or other nonspecified processes. 2. No evidence of a soft tissue abscess 3. No evidence of osteomyelitis Electronically Signed: Chris Daigle MD at 8:16 EST Reading Location ID and State: [facility] / [place] , Service support , Lower Extremity MRI 09/30/23 09:30 IMPRESSION: Mild to moderate subcutaneous soft tissue edema along the dorsum of the foot. Mild atrophy and edema of the intrinsic muscles of the foot. No evidence of osteomyelitis. Electronically Signed: Tha Jackson MD at 11:29 EST , Lower Extremity MRI 09/30/23 10:15 IMPRESSION: Moderate subcutaneous soft tissue edema along the dorsum of the foot. Mild edema and atrophy of the intrinsic muscles of the foot. No evidence of osteomyelitis. Electronically Signed: Tha Jackson MD at 11:24 EST , Physical Exam Narrative Multiple diffuse lower extremity ulcerations down to subc tissue, with dry eschars, also some granular tissue as well, vasculitis skin changes, skin thin and atrophic bilateral, erythema much improved. No visible abscesses, no crepitus, no fluctuance. Const alert, oriented x3 and no apparent distress Assessment & Plan Assessment/Plan (1) Cellulitis of both lower extremities: (2) Non-pressure chronic ulcer of unspecified part of right lower leg with fat layer exposed: (3) Non-pressure ulcer of left lower extremity with fat layer exposed: (4) Long-term current use of steroids: (5) Systemic lupus erythematosus: (6) RA (rheumatoid arthritis): (7) Vasculitic ulcer of right lower extremity: (8) Vasculitic ulcer of left lower extremity: PLAN: Plan Evaluation performed. Reviewed diagnostic data. Reviewed bilateral foot xrays. Bilateral MRIs have been completed - no evidence of abscess, no osteomyelitis. Appears wounds are secondary to acute vasculitis episode. She is in process of further vasculitis workup. Per review of chart patient has vascular specialist Dr. Atkins and had noninvasive LE artieral studies in May and per review of results no significant arterial disease noted. Vascular surgery/Dr. Stern consulted for further recommendations on vascular status/healing potential. Wound care: Santyl topically to wounds for enzymatic debridement, cover with gauze, kerlix and wilman dressing changes daily. A culture has been obtained and reviewed, ID on consult - she is on IV antibiotic Meropenem. Keep wounds offloaded. Podiatry will continue to follow.
--- NOTE | 2023-09-30 16:03 | CASEMGMT ---
Social Work SW met with pt and introduced self and role of SW. SW spoke with pt regarding discharge plan. Pt is agreeable that SNF if needed at time of discharge and preferences are 1. [facility] 2. [place] [facility]. [facility]. Referral made to TCU, will await determination of acceptance. SW assisted pt in completing living will and health care Power of Editor Index naming her sister Hayley Mayo. Originals given to pt and copy placed on pt chart. Plan: TCU, pending acceptanc and precert [facility]
--- NOTE | 2023-09-30 16:30 | ART_ITS ---
Reason For Study: Ulcer Procedure A bilateral lower extremity continuous wave Doppler with analog waveform analysis,segmental pressures,and ankle brachial indexes without exercise. Left Segmental Pressures Left calf = 130mmHg. Left dorsalis pedis artery = 96mmHg. The left dorsalis pedis waveforms are monophasic. Right Segmental Pressures Right brachial= 127mmHg. Right dorsalis pedis artery = 130mmHg. The right dorsalis pedis waveforms are monophasic. Indices The right ankle brachial index by the dorsalis pedis is 1.02. The left ankle brachial index by the dorsalis pedis is 0.76. VL/Lower Ext Art Exam w/o Exercis Interpretation Summary Right NAM 1.02, may be artificially elevated. Doppler/PVR waveforms of the righ t leg moderately diminished throughout. Left NAM 0.76, moderate arterial insufficiency. Doppler/PVR waveforms of the le ft leg normal moderately diminished throughout. Ordering Physician: Mily Manuel Referring Physician: Hector Bocanegra Chi Performed By: Aysha Blackman RVT
[2023-09-30 17:30] VITALS: BP 139/70; PULSE 68; RESP 18; TEMP 36.7; O2SAT 100
[2023-09-30 20:53] VITALS: BP 133/68; PULSE 62; RESP 18; TEMP 36.4; O2SAT 99
[2023-09-30] MEDS: Senna/Docusate Sodium 1 Tablet 2 TABLET PO (20:56)
[2023-10-01 04:00] VITALS: BP 122/65; PULSE 62; RESP 18; TEMP 36.8; O2SAT 99
[2023-10-01] MEDS: Meropenem 1 GM in 0.9% Normal Saline (100mL MB+) 100 ML IV ×2 (04:39→21:04)
[2023-10-01] MEDS: oxyCODONE 5 MG Tablet PO ×4 (04:39→21:09)
[2023-10-01] MEDS: Senna/Docusate Sodium 1 Tablet 2 TABLET PO ×2 (04:39→21:09)
[2023-10-01 06:00] VITALS: BMI 26.9
[2023-10-01 06:27] LABS: Absolute Lymphocyte Count 0.55 X10^3/uL (0.83-4.51); Absolute Neutrophil Count 0.5 X10^3/uL (2.0-7.7); Basophil# 0.01 X10^3/uL; Basophil% 0.7 % (0-1); Hematocrit 32.9 % (37-47); Hemoglobin 9.7 g/dL (12.0-15.0); Lymphocyte # 0.55 X10^3/ul (0.83-4.51); Lymphocyte % 36.7 % (19-41); Mean Corp Hgb Conc 29.5 g/dL (32-36); Mean Corpuscular Hgb 23.6 pg (27.0-32.0); Monocyte# 0.33 X10^3/uL; NRBC Flagged by Analyzer 0 % (0-5); Neutrophil # 0.54 X10^3/uL (2.7-7.7); Neutrophil % 35.9 % (47-70); POSITIVE DIFFERENTIAL YES; POSITIVE MORPHOLOGY YES; Platelet Count 163 K/mm3 (150-450); RBC Distribution Width CV 15.6 % (11.6-14.6); RBC Distribution Width SD 45.3 fl (35.1-43.9); Red Blood Count 4.11 M/mm3 (4.2-5.4)
[2023-10-01 06:32] LABS: Differential Indicated SCAN CRITERIA MET; White Blood Count 1.5 K/mm3 (4.4-11.0)
[2023-10-01 07:11] LABS: ALB/GLOB Ratio 0.9 RATIO (0.9-2.4); AST(SGOT) 15 U/L (15-37); Alanine Aminotransfer ALT/SGPT 15 U/L (13-56); Albumin, Serum 2.1 g/dL (3.2-5.0); Alkaline Phosphatase 23 U/L (45-117); Anion Gap 6 (5-15); BUN 43 mg/dL (7-18); BUN/Creat Ratio 69.7 RATIO (10-20); Calcium,Total 8.4 mg/dL (8.5-10.1); Chloride 106 mmol/L (98-107); Creatinine, Serum 0.62 mg/dL (0.55-1.02); EST Glomerular Filtration Rate 102 mL/min (>60); Est Glom Filt Rate - Afr Amer 123 mL/min (>60); Globulin 2.4 g/dL (2.2-4.2); Glucose 82 mg/dL (74-106); Potassium 4.7 mmol/L (3.5-5.1); Protein, Total 4.5 g/dL (6.4-8.2); Sodium Level 138 mmol/L (136-145)
[2023-10-01 07:13] LABS: Differential Comment SCANNED
[2023-10-01 07:16] VITALS: O2SAT 95
[2023-10-01 08:32] VITALS: BP 133/71; PULSE 78; RESP 18; TEMP 37; O2SAT 95
[2023-10-01] MEDS: predniSONE 20 MG Tablet 60 MG PO (08:44)
[2023-10-01] MEDS: Multivitamins,Ther W-Minerals Tablet 1 TABLET PO (08:45)
[2023-10-01] MEDS: Menthol/Lanolin/Calamine/Znox 113 GM Tube 1 APPLIC TOPICAL ×3 (08:45→21:09)
[2023-10-01] MEDS: Ensure Plus High Protein 120 ML LIQUID PO ×3 (08:45→17:00)
[2023-10-01] MEDS: Heparin Injection (Vial) 5,000 UNIT/ML VIAL 5000 UNIT SC ×2 (08:45→21:08)
--- NOTE | 2023-10-01 09:09 | CASEMGMT ---
Addendum entered by Leatha Oliveros 10/02/23 12:43: Auth has been obtained by [facility]. SW and physician updated. Leatha Oliveros, Discharge Planning Asst. Addendum entered by Leatha Oliveros 10/01/23 12:18: Patient has been accepted by [facility]. SW updated. Asked that precert not be started just yet. Leatha Oliveros, Discharge Planning Asst. Addendum entered by Leatha Oliveros 10/01/23 10:15: [facility] declined referral d/t no bed availability. Referral sent via [facility] to [facility]. Leatha Oliveros, Discharge Planning Asst. Original Note: Discharge Planning Referral sent via [facility] to [facility]. Leatha Oliveros Discharge Planning Asst.
[2023-10-01] MEDS: Collagenase 30gm Tube 1 APPLIC TOPICAL (11:02)
[2023-10-01] MEDS: Acetaminophen 325 MG Tablet 650 MG PO ×3 (11:08→21:09)
--- NOTE | 2023-10-01 12:12 | CASEMGMT ---
Addendum entered by Sammie Olmos 10/01/23 16:26: SW spoke with physician and precert can be started at this time. DC blacksmith assistant updated and to notify [facility] to start precert. SAMSON Bee Original Note: Social Work SW met with pt and updated that [facility] and [facility] do not have availability for pt. [facility] has accepted pt. Precert is needed prior to admission to SNF. Precert will not be started yet as pt is not medically ready. Pt notified of this and understanding and agreeable with dc plan. Plan: [facility], precert to be started closer to the time pt is medically ready SAMSON Bee
--- NOTE | 2023-10-01 13:13 | CT_ITS ---
STUDY: CTA OF THE ABDOMINAL AORTA AND BILATERAL LOWER EXTREMITIES REASON FOR EXAM: Female, 68 years old. bilateral lower extremity ulcerations, PVD RADIATION DOSAGE (If Supplied By Facility): CTDIvol = ( 6.7 ) mGy, DLP = ( 1341.2 ) mGycm TECHNIQUE: Axial CT angiography multi-detector data acquisition was obtained from the diaphragm to the feet following intravenous administration of IV 100mL Isovue-370. Axial images and MIP images were reconstructed from the axial data set. Post-processing of the angiographic images was performed, with multiplanar reformation and 3D reconstruction. Individualized dose optimization techniques were used for this CT. TECHNICAL QUALITY: Good COMPARISON: CT lower extremity March 04, 2019.. CT abdomen and pelvis February 13, 2015. CTA abdominal aorta 70 2011. Descriptors of Narrowing: None (0%) Mild (< 50%) Moderate (50-70%) Severe (70-90%) Subtotal/Total Occlusion (90-100%) Non-Evaluable (technically non-diagnostic FINDINGS: Splenomegaly. Possible splenic varices. Pelvic kidney on the left. Moderate scoliosis. Solid and hollow viscus otherwise unremarkable. Abdominal aorta: No demonstrated narrowing. Celiac and superior mesenteric arteries: No demonstrated narrowing. Inferior mesenteric artery: No demonstrated narrowing. Right renal artery(arteries): Moderately severe stenosis origin right renal artery due to focal calcified plaque. Left renal artery(arteries): No demonstrated narrowing. Right common iliac artery: No demonstrated narrowing. Right external iliac artery: No demonstrated narrowing. Right internal iliac artery: No demonstrated narrowing. Left common iliac artery: No demonstrated narrowing. Left external iliac artery: No demonstrated narrowing. Left internal iliac artery: No demonstrated narrowing. RIGHT LOWER EXTREMITY Right common femoral artery: No demonstrated narrowing. Right profundus femoris: No demonstrated narrowing. Right superficial femoral: No demonstrated narrowing. Right popliteal artery: No demonstrated narrowing. Right tibioperoneal trunk: No demonstrated narrowing. Right anterior tibial artery: No demonstrated narrowing. Right posterior tibial artery: No demonstrated narrowing. Right peroneal artery: There is moderate diffuse narrowing, with visualization of the vessel to the distal calf. LEFT LOWER EXTREMITY Left common femoral artery: No demonstrated narrowing. Left profundus femoris: No demonstrated narrowing. Left superficial femoral: No demonstrated narrowing. Left popliteal artery: No demonstrated narrowing. Left tibioperoneal trunk: No demonstrated narrowing. Left anterior tibial artery: There is severe diffuse narrowing, with visualization of the vessel to the distal calf. Left posterior tibial artery: There is severe diffuse narrowing, with visualization of the vessel to the distal calf. Left peroneal artery: There is severe diffuse narrowing, with visualization of the vessel to the distal calf. CT/CTA Abd w/Runoff W/WO Contrast IMPRESSION: Severe three-vessel disease throughout the lower extremities, left greater than right. Other incidental findings as above including splenomegaly. Electronically Signed: Chip Lamas MD at 17:00 EST ,
[2023-10-01] MEDS: 0.9% Saline Lock 10 ML Syringe IV (13:26)
--- NOTE | 2023-10-01 14:15 | PCM.PROGNOTE ---
Subjective Subjective Patient was seen today for follow up, she had vascular studies today. She is resting in bed, no new complaints. No f/c/n/v. Objective Data Objective Data Vital Signs: Vital Signs Temp Pulse Resp BP Pulse Ox O2 Del Method 98.6 F 78 18 133/71 H 95 Room Air 10/01/23 08:32 10/01/23 08:32 10/01/23 08:32 10/01/23 08:32 10/01/23 08:32 10/01/23 08:32 Oxygen Delivery Method Room Air Weight: 66.3 kg Body Mass Index (BMI) 26.9 Intake & Output: Intake and Output for Last 24 Hours 09/29/23 09/30/23 10/01/23 23:59 23:59 23:59 Intake Total 990.00 / 1390.00 2160 / 2160 240 / 240 Output Total 815 / 1115 2250 / 2250 1100 / 1100 Balance 175.00 / 275.00 -90 / -90 -860 / -860 Lab / Micro Data 10/01/23 06:05 10/01/23 06:05 Labs: Laboratory Results - last 24 hr 10/01/23 06:05: WBC 1.5 L*, RBC 4.11 L, Hgb 9.7 L, Hct 32.9 L, MCV 80.0 L, MCH 23.6 L, MCHC 29.5 L, RDW Std Deviation 45.3 H, RDW Coeff of Mira 15.6 H, Plt Count 163, MPV 10.0, Immature Gran % (Auto) 4.700 H, Neut % (Auto) 35.9 L, Lymph % (Auto) 36.7, Gaston % (Auto) 22.0 H, Eos % (Auto) 0.0, Baso % (Auto) 0.7, Absolute Neuts (auto) 0.5 L, Absolute Lymphs (auto) 0.55 L, Nucleated RBC % 0, Differential Comment SCANNED, Diff Path Review January, Sodium 138, Potassium 4.7, Chloride 106, Carbon Dioxide 26.0, Anion Gap 6, BUN 43 H, Creatinine 0.62, Estim Creat Clear Calc 41.40, Est GFR (MDRD) Af Amer 123, Est GFR (MDRD) Non-Af 102, BUN/Creatinine Ratio 69.7 H, Glucose 82, Calcium 8.4 L, Total Bilirubin 0.40, AST 15, ALT 15, Alkaline Phosphatase 23 L, C-React Prot Ext Range 17.60 H, Total Protein 4.5 L, Albumin 2.1 L, Globulin 2.4, Albumin/Globulin Ratio 0.9 Micro: Microbiology 09/28/23 03:14 Ulcer, Decubitus - Leg, Right Gram Stain - Final 09/28/23 03:14 Ulcer, Decubitus - Leg, Right Wound Culture - Final Pseudomonas putida Coag Negative Staph 09/27/23 20:56 Blood Culture (Wb) - Right Hand Blood Culture - Preliminary No growth in 48 hours. 09/27/23 20:56 Blood Culture (Wb) - Anticubital Right Blood Culture - Preliminary No growth in 48 hours. Radiography Diagnostic Testing: Radiology Impression Extremity Arterial Study 09/30/23 16:30 Interpretation Summary Right NAM 1.02, may be artificially elevated. Doppler/PVR waveforms of the right leg moderately diminished throughout. Left NAM 0.76, moderate arterial insufficiency. Doppler/PVR waveforms of the left leg normal moderately diminished throughout. Ordering Physician: Mily Manuel Referring Physician: Hector Bocanegra Chi Performed By: Aysha Blackman RVT Physical Exam Const alert, oriented x3 and no apparent distress Assessment & Plan Assessment/Plan (1) Cellulitis of both lower extremities: (2) Non-pressure chronic ulcer of unspecified part of right lower leg with fat layer exposed: (3) Non-pressure ulcer of left lower extremity with fat layer exposed: (4) Long-term current use of steroids: (5) Systemic lupus erythematosus: (6) RA (rheumatoid arthritis): (7) Vasculitic ulcer of right lower extremity: (8) Vasculitic ulcer of left lower extremity: PLAN: Plan Evaluation performed. Reviewed diagnostic data. Reviewed bilateral foot xrays. Bilateral MRIs have been completed - no evidence of abscess, no osteomyelitis. Appears wounds are secondary to acute vasculitis episode. Per review of chart patient has vascular specialist Dr. Atkins and had noninvasive LE artieral studies in May and per review of results no significant arterial disease noted. Vascular surgery/Dr. Stern consulted for further recommendations on vascular status/healing potential. Vascular studies performed. Wound care: Santyl topically to wounds for enzymatic debridement, cover with gauze, kerlix and wilman dressing changes daily. No podiatry surgical plans to debride wounds at this time. A culture has been obtained and reviewed, ID on consult - she is on IV antibiotic Meropenem. Keep wounds offloaded. Podiatry will continue to follow.
[2023-10-01 14:34] VITALS: BP 133/70; PULSE 73; RESP 18; TEMP 36.4; O2SAT 99
--- NOTE | 2023-10-01 14:52 | PN.HOSP_ITS ---
Reason for Visit Reason for Visit: Bilateral leg wounds Subjective Subjective Patient states she feels like the redness has improved and the pain is overall better however having some significant pain right now she just had some ABIs. Objective Data Objective Data Vital Signs: Vital Signs Temp Pulse Resp BP Pulse Ox O2 Del Method 97.6 F L 73 18 133/70 H 99 Room Air 10/01/23 14:34 10/01/23 14:34 10/01/23 14:34 10/01/23 14:34 10/01/23 14:34 10/01/23 14:34 Oxygen Delivery Method Room Air Weight: 66.3 kg Body Mass Index (BMI) 26.9 Intake & Output: Intake and Output for Last 24 Hours 09/29/23 09/30/23 10/01/23 23:59 23:59 23:59 Intake Total 990.00 / 1390.00 2160 / 2160 240 / 240 Output Total 815 / 1115 2250 / 2250 1100 / 1100 Balance 175.00 / 275.00 -90 / -90 -860 / -860 Lab / Micro Data 10/01/23 06:05 10/01/23 06:05 Labs: Laboratory Results - last 24 hr 10/01/23 06:05: WBC 1.5 L*, RBC 4.11 L, Hgb 9.7 L, Hct 32.9 L, MCV 80.0 L, MCH 23.6 L, MCHC 29.5 L, RDW Std Deviation 45.3 H, RDW Coeff of Mira 15.6 H, Plt Count 163, MPV 10.0, Immature Gran % (Auto) 4.700 H, Neut % (Auto) 35.9 L, Lymph % (Auto) 36.7, Curry % (Auto) 22.0 H, Eos % (Auto) 0.0, Baso % (Auto) 0.7, Absolute Neuts (auto) 0.5 L, Absolute Lymphs (auto) 0.55 L, Nucleated RBC % 0, Differential Comment SCANNED, Diff Path Review January, Sodium 138, Potassium 4.7, Chloride 106, Carbon Dioxide 26.0, Anion Gap 6, BUN 43 H, Creatinine 0.62, Estim Creat Clear Calc 41.40, Est GFR (MDRD) Af Amer 123, Est GFR (MDRD) Non-Af 102, BUN/Creatinine Ratio 69.7 H, Glucose 82, Calcium 8.4 L, Total Bilirubin 0.40, AST 15, ALT 15, Alkaline Phosphatase 23 L, C-React Prot Ext Range 17.60 H, Total Protein 4.5 L, Albumin 2.1 L, Globulin 2.4, Albumin/Globulin Ratio 0.9 Micro: Microbiology 09/28/23 03:14 Ulcer, Decubitus - Leg, Right Gram Stain - Final 09/28/23 03:14 Ulcer, Decubitus - Leg, Right Wound Culture - Final Pseudomonas putida Coag Negative Staph 09/27/23 20:56 Blood Culture (Wb) - Right Hand Blood Culture - Preliminary No growth in 48 hours. 09/27/23 20:56 Blood Culture (Wb) - Anticubital Right Blood Culture - Preliminary No growth in 48 hours. Radiography Diagnostic Testing: Radiology Impression Extremity Arterial Study 09/30/23 16:30 Interpretation Summary Right NAM 1.02, may be artificially elevated. Doppler/PVR waveforms of the right leg moderately diminished throughout. Left NAM 0.76, moderate arterial insufficiency. Doppler/PVR waveforms of the left leg normal moderately diminished throughout. Ordering Physician: Mily Manuel Referring Physician: Hector Bocanegra Chi Performed By: Aysha Blackman RVT Physical Exam Const alert, oriented x3, no apparent distress and average body habitus; Negative for healthy appearing or well nourished Constitutional Narrative: Older white female, lying in bed, in wound nurse at bedside redressing wounds, appears comfortable at this time, nontoxic-appearing, does appear chronically ill and older than stated age HEENT head/scalp atraumatic and moist oral mucous membranes HEENT Narrative: Mallampati 2, no thrush Head and Scalp: normocephalic Eyes PERRL and EOMs intact bilaterally; Negative for conjunctivae normal Eyes Narrative: Conjunctiva are pale bilaterally, no scleral icterus Neck no lymphadenopathy and supple Neck Narrative: Trachea midline no thyroid enlarged Resp normal respiratory effort, no retractions, no use of accessory muscles and clear to auscultation bilaterally Auscultation: Negative for rales, rhonchi or wheezes Cardio regular rate, regular rhythm, S1 normal heart sound, S2 normal heart sound, no murmurs, no rub, no gallops and no clicks GI normal to inspection, nondistended, normoactive bowel sounds, soft to palpation and non-tender Extremity Extremity Narrative: Severe bilateral lower extremity wounds consistent with with vasculitis appearing changes both on her legs and her hands, wounds remain stable, erythema seems to be improving and areas at knees are retracting, erythema on hands is improving as well. Skin No no rashes or lesions noted, No no wounds, skin turgor normal, no jaundice and no mottling Skin Narrative: See above, multiple skin changes with rash consistent with vasculitides Neuro oriented x3, moves all extremities and no focal motor deficits Neuro Narrative: Pain with movement of bilateral lower extremities, generalized weakness due to decreased mobility from pain Speech: speech normal Psych affect normal Psych Narrative: Very pleasant, interacts appropriately Assessment & Plan Assessment/Plan (1) Acute kidney injury: (2) Acute osteomyelitis of phalanx of right foot: (3) Cellulitis of both lower extremities: (4) Leukopenia: (5) Debility: (6) Thrombocytopenia: PLAN: Plan 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 twice daily -Discussed case with her hair stylist (Claudette Quiñones MD) and she agreed with current treatment of prednisone and adding the colchicine she will also arrange follow-up for her at the end of next week or early the following week to be seen as an outpatient and start steroid taper -Cultures thus far showing gram-negative jimmy-highly suspect it will be an ESBL E. coli, coag negative staph, and Pseudomonas putida -Previous cultures with ESBL E. coli, Serratia, Proteus, and staph hemolyticus from June and July and mid August -Continue meropenem per ID -Await recommendations for discharge -Initial CRP was 75 with repeat today at 17.6 -Infectious disease following-appreciate input -No surgery at this time per podiatry and will continue medical treatment for the wounds and antibiotics per ID -Wound care following-appreciate care -Vascular surgery following-appreciate input--> discussed with Dr. 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 Chronic microcytic anemia -Hemoglobin on admission is stable when compared to previous -Likely due to her chronic disease and Felty's -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 with most recent office visit 05/26/2022 -Patient from suffers from chronic leukopenia, neutropenia, and splenomegaly -Previously had been on methotrexate however it was not efficacious so it was discontinued -Encourage ongoing outpatient follow-up Rheumatoid arthritis/SLE/vasculitis -Continue hydroxychloroquine -Continue home prednisone at higher 60 mg dose History of hypertension -Noted in her history however patient is not on any antihypertensives -Continue to monitor blood pressure -As needed hydralazine History of hyperlipidemia -Patient does not take a statin -Recommend outpatient follow-up History of breast cancer -History of bilateral mastectomy and radiation therapy -Patient took tamoxifen x 5 years -Ongoing outpatient follow-up as needed DVT prophylaxis -Subcu heparin CODE STATUS -Full code is verified on admission Charges/Coding Visit Charges Inpatient E&M: [address] [facility] L[facility]
[2023-10-01] MEDS: Colchicine 0.6 MG TABLET 0.599999999999999978 MG PO ×2 (16:15→21:09)
--- NOTE | 2023-10-01 16:35 | EX.PCM.CON.S ---
Assessment & Plan Assessment/Plan (1) Vasculitis: (2) Vasculitic ulcer of left lower extremity: (3) Vasculitic ulcer of right lower extremity: (4) RA (rheumatoid arthritis): PLAN: Plan CTA with runoff was completed today. Images were reviewed with Dr. Stern. She has some distal tibial and pedal atherosclerotic disease, but no significant disease more proximally. It would seem her presentation is primarily secondary to her vasculitis vs atherosclerotic disease. Given her neutropenia and current vasculitis flare would recommend continued conservative management for now. As her inflow appears mostly intact, hopefully will see progress towards healing when her vasculitis/RA flare is better controlled. If she were to continue to have delayed healing even with good control, then could consider distal tibial/pedal intervention as an outpatient. Will plan to have her follow-up in the office at discharge. Will continue to follow while inpatient. HPI Consult Data Date of Consult: 10/01/23 HPI Narrative HPI Narrative: KAREN DE LA GARZA, is a 68 F who presents with multiple bilateral lower extremity ulcerations. 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 In the past, she reports she will get increased pain and burning sensation in her lower legs and notice some areas of discoloration/bruising, but then she would start a steroid taper and this would resolve. This time, in February she noticed these similar symptoms but also developed a L foot ulceration. Over the next few weeks, she developed blisters which then ulcerated at various other spots on her lower extremities.Unfortunately, they have just continued to worsen. She has been following with Dr. Marie at the wound care center as well. She has been on hydroxychloroquine + prednisone to manage her RA for a long time, recently had to switch rheumatologists but still following at the [facility]. She has never tried any of the newer biologics, she tried methotrexate in the past but did not do well with this. She denies any prior vascular surgical intervention, history of VTE, pelvic/abdominal radiation, CVA/TIA, CAD/SD. She had vascular studies in 05/2023 which showed R NAM 1.01 with biphasic waveforms and L NAM 1.07 with bi/monophasic waveforms. Repeat arterial study today showed R NAM 1.02 and L NAM 0.76 with moderately diminished waveforms throughout. [facility] Medical History (Updated 09/29/23 @ 11:[address] Estella Jackson, DO) B12 deficiency anemia Breast cancer Cancer Chronic pain Complicated wound infection Depression Fibromyalgia History of steroid therapy Hyperlipidemia Hypertension Insomnia Irritable bowel syndrome Kidney disease Muscle spasm Post-menopausal Pressure ulcer of left ankle, stage 3 Raynaud disease Restless legs Rheumatoid arthritis Splenomegaly Systemic lupus erythematosus Vasculitis Home Medications prednisone 5 mg tablet 1 mg PO DAILY 10/25/20 [History Last Taken Unknown] hydroxychloroquine 200 mg tablet (Plaquenil) 200 mg PO DAILY 05/26/22 [History Last Taken Unknown] prednisone 5 mg tablet 5 mg PO DAILY #65 tabs 09/03/23 [Rx Last Taken Unknown] sulfamethoxazole 800 mg-trimethoprim 160 mg tablet (Bactrim DS) 1 tab PO BID 2 weeks #28 tabs 09/15/23 [Rx Last Taken Unknown] ascorbic acid (vitamin C) PO DAILY 09/16/23 [History Last Taken Unknown] cholecalciferol (vitamin D3) 50 mcg (2,000 unit) capsule (Vitamin D3) 2,000 unit PO DAILY 09/16/23 [History Last Taken Unknown] ibuprofen 800 mg tablet 800 mg PO Q8H 10 days #30 tabs 09/23/23 [Rx Last Taken Unknown] oxycodone-acetaminophen 5 mg-325 mg tablet (Percocet) 1 tab PO Q8H PRN pain 7 days #21 tabs 09/23/23 [Rx Last Taken Unknown] Allergy/AdvReac Type Severity Reaction Status Date / Time Penicillins AdvReac Intermediate Rash Verified 09/27/23 16:25 Family History Father No problems noted. Father Pancreas cancer Diabetes Mother Osteoarthritis Afib Surgical History History of bilateral mastectomy History of left knee surgery Social History Smoking Status: Never smoker second hand exposure: No alcohol intake: never substance use type: does not use ford/yazdanism: None seatbelt use: always do you feel safe at home: Yes Physical Exam Const alert, oriented x3 and no apparent distress General Appearance: cooperative HEENT normocephalic, head/scalp atraumatic, hearing grossly normal bilaterally, external ears normal and external nose normal Eyes EOMs intact bilaterally General Eye: normal appearance of both eyes Neck General: normal visual inspection and trachea midline Resp normal respiratory effort Effort and Inspection: able to speak in complete sentences; Negative for labored, stridor, retractions or audible wheezes Cardio regular rate and regular rhythm Extremity Extremity Narrative: Bilateral lower extremities with wound dressings in place, not removed for exam. Skin Wounds: wounds noted Wound Narrative: Wound pictures reviewed showing multiple scattered bilateral lower extremity ulcerations up to the level of the knees with eschar overlying. Neuro oriented x3, CN's II-XII intact bilaterally, moves all extremities and no focal motor deficits Speech: speech normal Lab / Micro Data 10/01/23 06:05 10/01/23 06:05 Labs: Laboratory Results - last 24 hr 10/01/23 06:05: WBC 1.5 L*, RBC 4.11 L, Hgb 9.7 L, Hct 32.9 L, MCV 80.0 L, MCH 23.6 L, MCHC 29.5 L, RDW Std Deviation 45.3 H, RDW Coeff of Mira 15.6 H, Plt Count 163, MPV 10.0, Immature Gran % (Auto) 4.700 H, Neut % (Auto) 35.9 L, Lymph % (Auto) 36.7, [place] % (Auto) 22.0 H, Eos % (Auto) 0.0, Baso % (Auto) 0.7, Absolute Neuts (auto) 0.5 L, Absolute Lymphs (auto) 0.55 L, Nucleated RBC % 0, Differential Comment SCANNED, Diff Path Review January, Sodium 138, Potassium 4.7, Chloride 106, Carbon Dioxide 26.0, Anion Gap 6, BUN 43 H, Creatinine 0.62, Estim Creat Clear Calc 41.40, Est GFR (MDRD) Af Amer 123, Est GFR (MDRD) Non-Af 102, BUN/Creatinine Ratio 69.7 H, Glucose 82, Calcium 8.4 L, Total Bilirubin 0.40, AST 15, ALT 15, Alkaline Phosphatase 23 L, C-React Prot Ext Range 17.60 H, Total Protein 4.5 L, Albumin 2.1 L, Globulin 2.4, Albumin/Globulin Ratio 0.9 Micro: Microbiology 09/28/23 03:14 Ulcer, Decubitus - Leg, Right Gram Stain - Final 09/28/23 03:14 Ulcer, Decubitus - Leg, Right Wound Culture - Final Pseudomonas putida Coag Negative Staph Imagaing Radiology Impression Extremity Arterial Study 09/30/23 16:30 Interpretation Summary Right NAM 1.02, may be artificially elevated. Doppler/PVR waveforms of the right leg moderately diminished throughout. Left NAM 0.76, moderate arterial insufficiency. Doppler/PVR waveforms of the left leg normal moderately diminished throughout. Ordering Physician: Mily Manuel Referring Physician: Hector Bocanegra Chi Performed By: Aysha Blackman RVT
[2023-10-01 20:57] VITALS: BP 134/73; PULSE 63; RESP 18; TEMP 36.6; O2SAT 100
[2023-10-02 03:24] VITALS: BMI 26.9
[2023-10-02 04:30] VITALS: BP 136/61; PULSE 63; RESP 18; TEMP 36.9; O2SAT 98
[2023-10-02] MEDS: Acetaminophen 325 MG Tablet 650 MG PO ×2 (04:37→09:48)
[2023-10-02] MEDS: Senna/Docusate Sodium 1 Tablet 2 TABLET PO (04:37)
[2023-10-02 06:57] LABS: Absolute Lymphocyte Count 0.59 X10^3/uL (0.83-4.51); Absolute Neutrophil Count 0.5 X10^3/uL (2.0-7.7); Basophil# 0.01 X10^3/uL; Basophil% 0.7 % (0-1); Hematocrit 31.1 % (37-47); Hemoglobin 9.7 g/dL (12.0-15.0); Lymphocyte # 0.59 X10^3/ul (0.83-4.51); Lymphocyte % 38.8 % (19-41); Mean Corp Hgb Conc 31.2 g/dL (32-36); Mean Corpuscular Hgb 24.7 pg (27.0-32.0); Mean Corpuscular Volume 79.1 fL (81-99); Mean Platelet Vol. 10.7 fl (6.2-12.0); Monocyte# 0.34 X10^3/uL; Monocyte% 22.4 % (0-10); NRBC Flagged by Analyzer 0 % (0-5); Neutrophil # 0.52 X10^3/uL (2.7-7.7); Neutrophil % 34.2 % (47-70); POSITIVE DIFFERENTIAL YES; POSITIVE MORPHOLOGY YES; Platelet Count 163 K/mm3 (150-450); RBC Distribution Width CV 15.2 % (11.6-14.6); RBC Distribution Width SD 43.9 fl (35.1-43.9); Red Blood Count 3.93 M/mm3 (4.2-5.4); White Blood Count 1.5 K/mm3 (4.4-11.0)
[2023-10-02 07:01] LABS: Differential Indicated SCAN CRITERIA MET
[2023-10-02 07:38] LABS: Microcytosis 2+
[2023-10-02 07:44] VITALS: BP 134/71; PULSE 58; RESP 18; TEMP 36.4; O2SAT 100
[2023-10-02] MEDS: oxyCODONE 5 MG Tablet PO ×2 (07:50→13:44)
[2023-10-02] MEDS: Multivitamins,Ther W-Minerals Tablet 1 TABLET PO (07:50)
[2023-10-02] MEDS: predniSONE 20 MG Tablet 60 MG PO (07:50)
[2023-10-02 07:57] LABS: Anion Gap 5 (5-15); BUN 56 mg/dL (7-18); Calcium,Total 8.8 mg/dL (8.5-10.1); Chloride 104 mmol/L (98-107); Creatinine, Serum 0.62 mg/dL (0.55-1.02); EST Glomerular Filtration Rate 101 mL/min (>60); Est Glom Filt Rate - Afr Amer 122 mL/min (>60); Glucose 85 mg/dL (74-106); Potassium 4.2 mmol/L (3.5-5.1); Sodium Level 136 mmol/L (136-145)
[2023-10-02] MEDS: Collagenase 30gm Tube 1 APPLIC TOPICAL (09:18)
[2023-10-02] MEDS: Meropenem 1 GM in 0.9% Normal Saline (100mL MB+) 100 ML IV (09:48)
[2023-10-02] MEDS: Heparin Injection (Vial) 5,000 UNIT/ML VIAL 5000 UNIT SC ×2 (09:48→20:50)
[2023-10-02] MEDS: Colchicine 0.6 MG TABLET 0.599999999999999978 MG PO ×2 (09:48→20:50)
[2023-10-02] MEDS: Menthol/Lanolin/Calamine/Znox 113 GM Tube 1 APPLIC TOPICAL ×2 (09:49→13:45)
[2023-10-02] MEDS: 0.9% Saline Lock 10 ML Syringe IV (09:49)
[2023-10-02] MEDS: 0.9% Normal Saline (250mL Bag) 250 ML 15 ML IV (09:52)
[2023-10-02] MEDS: Ensure Plus High Protein 120 ML LIQUID PO ×3 (09:52→18:14)
--- NOTE | 2023-10-02 10:14 | NURSING ---
transferred back to bed with x4 assist including PT and slide board. pt tolerate well.
[2023-10-02 10:43] LABS: Pathologist Review Reviewed
--- NOTE | 2023-10-02 13:23 | CASEMGMT ---
[facility] called by the RN CM at this time to set up a follow up appt with Dr. Marie as requested by hospitalist. No answer at this time, voicemail left.
[2023-10-02 13:40] VITALS: BP 139/74; PULSE 72; RESP 18; TEMP 36.8; O2SAT 99
--- NOTE | 2023-10-02 14:52 | PCM.DC.SUM ---
Providers Date of Admission: 09/27/23 Date of Discharge: 10/02/23 Primary Care Physician: Dr. Hector Bocanegra MD Consultations 09/27/23 19:51 Consult: Infectious Disease Routine Consulting Provider: Luis Jerome Reason for Consult: BL LE foot wounds, Felty syndrome EMERGENT Consult: No MD Notified: Yes Date Notified: 09/29/23 Time Notified: 10:11 Method of Notification: office Consult: Onc/Wound/it specialist Routine Comment: Reason for Consult:: BL LE wounds Consult: Podiatry Routine Consulting Provider: Bear Marshall Reason for Consult: BL LE distal wounds/foot wounds EMERGENT Consult: No MD Notified: Yes Date Notified: 09/27/23 Time Notified: 18:36 Method of Notification: ED Physician Initiated 09/28/23 12:05 Consult: General Surgery Routine Consulting Provider: Monserrat Schmid Reason for Consult: Punch bx EMERGENT Consult: No MD Notified: Yes Date Notified: 09/29/23 Time Notified: 08:46 Method of Notification: Text Comments:: ok to do tomorrow 09/30/23 16:03 Consult: Vascular Surgery Routine Consulting Provider: Elie Stern Reason for Consult: vascular disease with wounds EMERGENT Consult: No MD Notified: Yes Date Notified: 09/30/23 Time Notified: 16:03 Method of Notification: Verbal Reason For Visit: BL LE INFECTED ULCERS, KATHY Diagnosis Discharge Diagnosis (1) Vasculitis: Status: Acute Code(s): I77.6 - Arteritis, unspecified (2) Vasculitic ulcer of left lower extremity: Status: Acute Code(s): L97.929 - Non-pressure chronic ulcer of unspecified part of left lower leg with unspecified severity (3) Vasculitic ulcer of right lower extremity: Status: Acute Code(s): L97.919 - Non-pressure chronic ulcer of unspecified part of right lower leg with unspecified severity (4) RA (rheumatoid arthritis): Status: Chronic Code(s): M06.9 - Rheumatoid arthritis, unspecified Medications at Discharge Home Medications hydroxychloroquine 200 mg tablet (Plaquenil) 200 mg PO DAILY 05/26/22 ascorbic acid (vitamin C) PO DAILY 09/16/23 cholecalciferol (vitamin D3) 50 mcg (2,000 unit) capsule (Vitamin D3) 2,000 unit PO DAILY 09/16/23 acetaminophen 325 mg tablet 1,000 mg (3.0769 x 325 mg) PO TID #0 tabs 10/02/23 colchicine 0.6 mg capsule 0.6 mg PO BID #0 caps 10/02/23 collagenase clostridium histo. 250 unit/gram topical ointment (Santyl) 1 applic topical DAILY #0 grams 10/02/23 food supplemt, lactose-reduced 0.08 gram-1.5 kcal/mL oral liquid (Ensure Plus High Protein) 120 ml PO 4X/DAY #0 mL 10/02/23 melatonin 3 mg tablet 3 mg PO QHS PRN PRN Insomnia #0 tabs 10/02/23 menthol 0.44 %-zinc oxide 20.6 % topical ointment (Calmoseptine) 1 applic topical 4X/DAY #0 grams 10/02/23 multivitamin-iron 9 mg-folic acid 400 mcg-calcium and minerals tablet (High Potency Multivitamin (w-iron)) 1 tab PO BREAKFAST #0 tabs 10/02/23 oxycodone 5 mg tablet 5 mg PO Q4H PRN PRN Pain Score 4-10 2 days #12 tabs 10/02/23 prednisone 20 mg tablet 60 mg (3 x 20 mg) PO BREAKFAST #0 tabs 10/02/23 sennosides 8.6 mg-docusate sodium 50 mg tablet (Stool Softener-Stimulant Laxative) 2 tab PO BID PRN PRN Constipation #0 tabs 10/02/23 Hospital Course Operations - (Punch biopsy right knee region) Procedures - (Bilateral lower extremity MRI/ foot x-ray/PVRs/CT abdomen and pelvis) Summary of Care Provided Minutes Spent on Discharge: 45 Hospital Course: Ms. James is a 68-year-old female with history of stage III pressure ulcer on her left ankle and bilateral lower extremity pressure ulcers who follows as an outpatient with Dr. Michele Marie from podiatry who presented to the emergency department at [facility] on 09/27/2023 with difficulty walking and inability to stand up secondary to bilateral ankle and foot pain. On 09/23/2023 she had excisional debridements performed by Dr. Marie to her bilateral lower extremities and the ulcerations were dressed with Santyl and a dry sterile dressing with double layer Tubigrip and she was continue on oral antibiotics with planned operative debridement in the future. About 4 days prior to presentation she felt like she was improving however in the last day or so she feels worse. She has been compliant with her Bactrim. She has had no fever or chills. She noted pain that was constant and dull and aching but with activity attempts the pain is worsened to sharp and severe. Vitals in the emergency department showed temperature of 97.9, heart rate 76, blood pressure 149/80, respiratory was 18 and oxygen saturation was 99% on room air. CBC showed a leukopenia with a white count of 0.9, hemoglobin of 10.9, platelet count of 213,000 with an ANC of 0.5 and lymphopenia. BMP showed normal electrolytes however she did have an elevated serum creatinine and BUN at 1.62 and 42 respectively. Baseline numbers on 09/03/2023 were 32 and 0.77. Glucose was 104. CRP was 74.4 with an ESR of 13. Lactic acid was 1.5. Urinalysis was unremarkable. Bilateral plain films of her feet showed possible osteomyelitis of the second distal phalanx on the right foot. In the emergency department she was given IV fluids and IV antibiotics. ED consulted Dr. Marshall who was on-call for Dr. Marie. She was admitted to the medical floor and maintained on IV antibiotics with meropenem and vancomycin with consultation to infectious disease and podiatry. Upon evaluation her wounds look very vascular in nature. Given her history of vasculitis and autoimmune disease and autoimmune workup was ordered and I asked for a punch biopsy of her lower extremity wounds to be performed by general surgery. This was performed on 09/29/2023. Results of the punch biopsy returned on 10/01/2023 and were consistent with leukocytoclastic vasculitis. At the time of biopsy I placed the patient on prednisone 60 mg daily and once the biopsy results were obtained started colchicine 0.6 mg p.o. twice daily. I was finally able to get medical records from her primary turbine blade assembler and did discuss the case with her primary turbine blade assembler, Dr. Claudette Quiñones, and she agreed with current treatment and indicated she would get the patient into her office by the end of next week. She will call the patient to set up the appointment. She was followed by podiatry and they elected to perform no debridement at this time and to continue medical treatment with Santyl and enzymatic debridement and ongoing wound care. Cultures were obtained as noted and cultures resulted with Pseudomonas, coag negative staph, ESBL E. coli, Serratia, and staph hemolyticus. She was on antibiotics with vancomycin and Zosyn initially however ID was evaluating the patient and tailored her antibiotics to meropenem only. I discussed the case with infectious disease at the time of discharge and they felt she could go off antibiotics given the fact that her wounds were dry and had no significant signs of ongoing infection. He recommended ongoing wound care and treatment for vasculitic disease. With the vasculitis we obtain hepatitis studies which were unremarkable, autoimmune panel with the only elevated antibody being APPLICATION ARCHITECT antibody consistent with her baseline disease, ANCA's and cryoglobulins which were both were pending at discharge and complement C3 and C4 which were also pending at discharge. Given her lower extremity pain and debility that had progressed from these wounds she needed ongoing therapy at discharge and was excepted for us[facility] care at [facility]. We obtained pre-CERT on 10/02/2023. I discussed the case with podiatry and they wanted her to have ongoing wound care at the wound center and this was arranged prior to discharge. She is also to follow-up Dr. Marie as an outpatient and this will be arranged after discharge. She will follow-up with her turbine blade assembler after her office calls her to set up appointment and this should be within the next 2 weeks per my discussion with the turbine blade assembler. General surgery indicated that the suture from her punch biopsy on her right knee may be removed on 10/07/2023. She was also evaluated by vascular surgery and CTA of her abdomen pelvis was performed as well as PVRs. Vascular surgery recommended outpatient follow-up after discharge and her vasculitis was better controlled to see if her vascular disease noted on her imaging had improved with treatment of her acute rheumatologic vasculitis. Her vasculitis was improving fairly significantly with treatment of steroids and colchicine. Discharge diagnoses: Bilateral lower extremity wounds secondary to leukocytoclastic vasculitis flare KATHY-resolved Thrombocytopenia-resolved Felty syndrome Rheumatoid arthritis SLE Chronic microcytic anemia secondary to chronic disease Debility Failure to thrive History of hypertension Hyperlipidemia History of breast cancer Physical Exam Const alert, oriented x3, no apparent distress and average body habitus; Negative for healthy appearing or well nourished Constitutional Narrative: Older white female, sitting up in a chair at the bedside, appears comfortable at this time, nontoxic-appearing, does appear chronically ill and older than stated age General Appearance: cooperative, comfortable, well kempt and well developed Orientation / Consciousness: awake, oriented to person, oriented to place and oriented to time Exam Limitations: no limitations HEENT normocephalic, head/scalp atraumatic, hearing grossly normal bilaterally and moist oral mucous membranes HEENT Narrative: Mallampati 2, no thrush Eyes PERRL and EOMs intact bilaterally; Negative for conjunctivae normal Eyes Narrative: Conjunctiva are pale bilaterally, no scleral icterus Neck no lymphadenopathy and supple Neck Narrative: Trachea midline no thyroid enlarged Resp normal respiratory effort, no retractions, no use of accessory muscles and clear to auscultation bilaterally Auscultation: Negative for rales, rhonchi or wheezes Cardio regular rate, regular rhythm, S1 normal heart sound, S2 normal heart sound, no murmurs, no rub, no gallops and no clicks GI normal to inspection, nondistended, normoactive bowel sounds, soft to palpation and non-tender Extremity Extremity Narrative: Severe bilateral lower extremity wounds consistent with with vasculitis appearing changes both on her legs and her hands, wounds remain stable, erythema seems to be improving and areas at knees are retracting, erythema on hands is improving as well. Skin No no rashes or lesions noted, No no wounds, skin turgor normal, no jaundice and no mottling Skin Narrative: See above, multiple skin changes with rash consistent with vasculitides Neuro oriented x3, CN's II-XII intact bilaterally, moves all extremities and no focal motor deficits Neuro Narrative: Pain with movement of bilateral lower extremities, generalized weakness due to decreased mobility from pain, legs are hypersensitive Speech: speech normal Psych affect normal Psych Narrative: Very pleasant, interacts appropriately Weight / BMI Weight Weight: 66.3 kg Body Mass Index (BMI) 26.9 ABG / Lab / Microbiology Data 10/02/23 06:15 10/02/23 06:15 Laboratory: Laboratory Results - last 24 hr 09/30/23 07:20: Diff Path Review Reviewed 10/02/23 06:15: WBC 1.5 L*, RBC 3.93 L, Hgb 9.7 L, Hct 31.1 L, MCV 79.1 L, MCH 24.7 L, MCHC 31.2 L D, RDW Std Deviation 43.9, RDW Coeff of Mira 15.2 H, Plt Count 163, MPV 10.7, Immature Gran % (Auto) 3.900 H, Neut % (Auto) 34.2 L, Lymph % (Auto) 38.8, [place] % (Auto) 22.4 H, Eos % (Auto) 0.0, Baso % (Auto) 0.7, Absolute Neuts (auto) 0.5 L, Absolute Lymphs (auto) 0.59 L, Nucleated RBC % 0, Differential Comment , Diff Path Review May foll, Microcytosis 2+, Sodium 136, Potassium 4.2, Chloride 104, Carbon Dioxide 27.0, Anion Gap 5, BUN 56 H, Creatinine 0.62, Estim Creat Clear Calc 41.40, Est GFR (MDRD) Af Amer 122, Est GFR (MDRD) Non-Af 101, BUN/Creatinine Ratio 90.0 H, Glucose 85, Calcium 8.8 Microbiology: Microbiology 09/28/23 03:14 Ulcer, Decubitus - Leg, Right Gram Stain - Final 09/28/23 03:14 Ulcer, Decubitus - Leg, Right Wound Culture - Final Pseudomonas putida Coag Negative Staph 09/27/23 20:56 Blood Culture (Wb) - Right Hand Blood Culture - Preliminary No growth in 48 hours. 09/27/23 20:56 Blood Culture (Wb) - Anticubital Right Blood Culture - Preliminary No growth in 48 hours. Radiography Diagnostic Testing: Radiology Impression Abdomen/Pelvis CTA 10/01/23 13:13 IMPRESSION: Severe three-vessel disease throughout the lower extremities, left greater than right. Other incidental findings as above including splenomegaly. Electronically Signed: Chip Lamas MD at 17:00 EST , D/C Instructions Discharge Diet: No restrictions Meaningful Use Info Meaningful Use Diagnoses (Choose all that apply): None applicable Discharge Plan Admission Admit Date/Time: 09/27/23 18:29 Primary Reason for Your Visit: Leg wounds Attending Provider: Estella Jackson Primary Care Provider: Hector Bocanegra Chi Consulting Providers: Bear Marshall; Elda Grayson; Monserrat Schmid; Luis Jerome; Elie Stern Instructions Additional Instructions / Restrictions: 1. Sutures from your punch biopsy on your right knee can be removed on Thursday 2. You should hear from your turbine blade assembler Dr. Claudette Quiñones to schedule a follow-up appointment to be seen at the end of next week if you do not hear from her office please call and schedule an appointment (phone [phone]) 3. Continue your steroids and colchicine until directed otherwise by your turbine blade assembler 4. You will need to follow-up at the wound center as set up for you prior to discharge from the hospital Discharge Orders/Prescriptions Prescriptions: New oxycodone 5 mg Tablet 5 mg PO Q4H PRN PRN (Reason: Pain Score 4-10) 2 Days Qty: 12 0RF acetaminophen 325 mg Tablet 1,000 mg PO TID Qty: 0 0RF colchicine 0.6 mg Capsule 0.6 mg PO BID Qty: 0 0RF Santyl 250 unit/gram Ointment 1 applic topical DAILY Qty: 0 0RF Protocol: *Topical Application Instructions APPLICATION INSTRUCTIONS: follow wound instruction order prednisone 20 mg Tablet 60 mg PO BREAKFAST Qty: 0 0RF Rx Instructions: Continue this dose until you are instructed otherwise by your turbine blade assembler to start decreasing the dose sennosides-docusate sodium [Stool Softener-Stimulant Laxat] 8.6-50 mg Tablet 2 tab PO BID PRN PRN (Reason: Constipation) Qty: 0 0RF melatonin 3 mg Tablet 3 mg PO QHS PRN PRN (Reason: Insomnia) Qty: 0 0RF High Potency Multivit (w-iron) 9 mg iron-400 mcg Tablet 1 tab PO BREAKFAST Qty: 0 0RF menthol-zinc oxide [Calmoseptine] 0.44-20.6 % Ointment 1 applic topical 4X/DAY Qty: 0 0RF Protocol: *Topical Application Instructions APPLICATION INSTRUCTIONS: apply to affected region Ensure Plus High Protein 0.08 gram-1.5 kcal/mL Liquid 120 ml PO 4X/DAY Qty: 0 0RF Continued hydroxychloroquine [Plaquenil] 200 mg tablet 200 mg PO DAILY cholecalciferol (vitamin D3) [Vitamin D3] 50 mcg (2,000 unit) capsule 2,000 unit PO DAILY ascorbic acid (vitamin C) PO DAILY Discontinued prednisone 5 MG tablet 1 mg PO DAILY sulfamethoxazole-trimethoprim [Bactrim DS] 800-160 mg tablet 1 tab PO BID 14 Days Qty: 28 0RF oxycodone-acetaminophen [Percocet] 5-325 mg tablet 1 tab PO Q8H PRN (Reason: pain) 7 Days Qty: 21 0RF ibuprofen 800 mg tablet 800 mg PO Q8H 10 Days Qty: 30 0RF prednisone 5 mg tablet 5 mg PO DAILY Qty: 65 0RF Rx Instructions: 25mg (five tablets) daily for 5 days, 20 mg (4 tablets) daily for 4 days, 15 mg (3 tablets) daily for 4 days, 10 mg (2 tablets) daily for 4 days, 1 tablet daily for 4 days. Referrals / Follow Up: Michele Marie DPM [Med Staff - Active Staff] - See Referral Note (As scheduled) Hector Bocanegra Chi, MD [Primary Care Provider] - Within 1 Month Disposition Disposition (needs filled in before D/C Order can be placed): [facility] Facility Charges/Coding Visit Charges Inpatient E&M: 99204 SNF Disch >30 Min
--- NOTE | 2023-10-02 15:16 | PCM.TXEXTCAR ---
Diet Diet Order/Speech Therapy: 09/28/23 11:39 Diet: Cardiac - Heart Healthy Type of Dietary Supplement:: Guzman Is pt able to select menu?: Yes Diet Comments: teresa Hinds BID with lunch and dinner Routine Orders/Code Status O2 Frequency: PRN Keep PO Greater than or Equal to (%): 89 Routine Lab Work: CBC (1 week) and BMP (1 week) Code Status: Full Code Wound(s) from knees down: Wound Type: Stasis Ulcer Back of Right leg: Wound Type: Stasis Ulcer sparkle hands: Wound Type: Stasis Ulcer nose: Wound Type: Stasis Ulcer left knee: Wound Type: area of black eschar (?vasculitis) Dressing Change: santyl with dry dressing left medial daniel: Wound Type: cluster of areas of black eschar (?vasculitis) Dressing Change: santyl with dry dressing left lateral lower leg: Wound Type: area of black eschar (?vasculitis) Dressing Change: santyl with dry dressing left lateral ankle: Wound Type: black eschar (?vasculitis) Dressing Change: santyl with dry dressing left medial ankle: Wound Type: black eschar (? vasculitis) Dressing Change: santyl with dry dressing right daniel: Wound Type: area of black eschar (?vasculitis) Dressing Change: santly with dry dressing right lateral foot/ankle: Wound Type: cluster of black eschar Dressing Change: santyl with dry dressing right posterior lower leg: Wound Type: area of black eschar (?vasculitis) Dressing Change: santyl with dry dressing toes right foot: Wound Type: areas of eschar (? vasculitis) Dressing Change: santyl with dry dressing right medial lower leg: Wound Type: area of black eschar (? Vasculitis) Dressing Change: santyl with dry dressing right medial ankle: Wound Type: cluster of areas of black eschar (?vasculitis) Dressing Change: santyl with dry dressing right knee: Wound Type: Puncture bilateral lower legs/feet: Wound Type: scattered areas of eschar (vasculitis) Dressing Change: santyl with dry dressings Suggestions for Active Care Change Position every (hours): 2 Hours to sit in a chair: 2 Times a day to sit in chair: 3 Therapies Weight Bearing: Weight bearing as tolerated Physical Therapy: Eval and Treat Occupational Therapy: Eval and Treat Problem/Diagnosis (1) Vasculitis: Status: Acute Code(s): I77.6 - Arteritis, unspecified (2) Vasculitic ulcer of left lower extremity: Status: Acute Code(s): L97.929 - Non-pressure chronic ulcer of unspecified part of left lower leg with unspecified severity (3) Vasculitic ulcer of right lower extremity: Status: Acute Code(s): L97.919 - Non-pressure chronic ulcer of unspecified part of right lower leg with unspecified severity (4) RA (rheumatoid arthritis): Status: Chronic Code(s): M06.9 - Rheumatoid arthritis, unspecified Allergies/Procedures Done in Hospital Allergies Penicillins Adverse Reaction (Intermediate, Verified 09/27/23 16:25) Rash itching Procedures: - (Bilateral lower extremity MRI/bilateral lower extremity x-rays/CTA abdomen and pelvis/PVRs) Type of Care/Length of Stay Estimated LOS: Convalescent Care Less Than 30 days Type of Care Needed: Skilled Rehab Potential: Good Prognosis: Good Additional Orders/Day of Discharge Day of Discharge: 10/02/23 Dietary and Speech Recommendations Dietitian Recommendations/Changes: Continue Cardiac diet to manage medical conditions. Continue 120mL EPHP 4x with medpass to provide supplemental energy. RD will order orange Guzman BID to promote wound healing Discharge Plan Admission Admit Date/Time: 09/27/23 18:29 Primary Reason for Your Visit: Leg wounds Attending Provider: Estella Jackson Primary Care Provider: Hector Bocanegra Chi Consulting Providers: Bear Marshall; Elda Grayson; Monserrat Schmid; Luis Jerome; Elie Stern Instructions Additional Instructions / Restrictions: 1. Sutures from your punch biopsy on your right knee can be removed on Thursday 2. You should hear from your visitor services assistant Dr. Claudette Quiñones to schedule a follow-up appointment to be seen at the end of next week if you do not hear from her office please call and schedule an appointment (phone [phone]) 3. Continue your steroids and colchicine until directed otherwise by your visitor services assistant 4. You will need to follow-up at the wound center as set up for you prior to discharge from the hospital Discharge Orders/Prescriptions Prescriptions: New oxycodone 5 mg Tablet 5 mg PO Q4H PRN PRN (Reason: Pain Score 4-10) 2 Days Qty: 12 0RF acetaminophen 325 mg Tablet 1,000 mg PO TID Qty: 0 0RF colchicine 0.6 mg Capsule 0.6 mg PO BID Qty: 0 0RF Santyl 250 unit/gram Ointment 1 applic topical DAILY Qty: 0 0RF Protocol: *Topical Application Instructions APPLICATION INSTRUCTIONS: follow wound instruction order prednisone 20 mg Tablet 60 mg PO BREAKFAST Qty: 0 0RF Rx Instructions: Continue this dose until you are instructed otherwise by your visitor services assistant to start decreasing the dose sennosides-docusate sodium [Stool Softener-Stimulant Laxat] 8.6-50 mg Tablet 2 tab PO BID PRN PRN (Reason: Constipation) Qty: 0 0RF melatonin 3 mg Tablet 3 mg PO QHS PRN PRN (Reason: Insomnia) Qty: 0 0RF High Potency Multivit (w-iron) 9 mg iron-400 mcg Tablet 1 tab PO BREAKFAST Qty: 0 0RF menthol-zinc oxide [Calmoseptine] 0.44-20.6 % Ointment 1 applic topical 4X/DAY Qty: 0 0RF Protocol: *Topical Application Instructions APPLICATION INSTRUCTIONS: apply to affected region Ensure Plus High Protein 0.08 gram-1.5 kcal/mL Liquid 120 ml PO 4X/DAY Qty: 0 0RF Continued hydroxychloroquine [Plaquenil] 200 mg tablet 200 mg PO DAILY cholecalciferol (vitamin D3) [Vitamin D3] 50 mcg (2,000 unit) capsule 2,000 unit PO DAILY ascorbic acid (vitamin C) PO DAILY Discontinued prednisone 5 MG tablet 1 mg PO DAILY sulfamethoxazole-trimethoprim [Bactrim DS] 800-160 mg tablet 1 tab PO BID 14 Days Qty: 28 0RF oxycodone-acetaminophen [Percocet] 5-325 mg tablet 1 tab PO Q8H PRN (Reason: pain) 7 Days Qty: 21 0RF ibuprofen 800 mg tablet 800 mg PO Q8H 10 Days Qty: 30 0RF prednisone 5 mg tablet 5 mg PO DAILY Qty: 65 0RF Rx Instructions: 25mg (five tablets) daily for 5 days, 20 mg (4 tablets) daily for 4 days, 15 mg (3 tablets) daily for 4 days, 10 mg (2 tablets) daily for 4 days, 1 tablet daily for 4 days. Referrals / Follow Up: Michele Marie DPM [Med Staff - Active Staff] - See Referral Note (As scheduled) Hector Bocanegra Chi, MD [Primary Care Provider] - Within 1 Month Disposition Disposition (needs filled in before D/C Order can be placed): Intermediate Facility
--- NOTE | 2023-10-02 15:17 | PHA.DC.MR.R ---
Pharmacy [place] Med Reconciliation Pharmacy Service has performed discharge medication reconciliation for this patient. The patient's discharge medication list was reviewed for discrepancies and discrepancies were resolved. Medications at Discharge Home Medications hydroxychloroquine 200 mg tablet (Plaquenil) 200 mg PO DAILY 05/26/22 ascorbic acid (vitamin C) PO DAILY 09/16/23 cholecalciferol (vitamin D3) 50 mcg (2,000 unit) capsule (Vitamin D3) 2,000 unit PO DAILY 09/16/23 acetaminophen 325 mg tablet 1,000 mg (3.0769 x 325 mg) PO TID #0 tabs 10/02/23 colchicine 0.6 mg capsule 0.6 mg PO BID #0 caps 10/02/23 collagenase clostridium histo. 250 unit/gram topical ointment (Santyl) 1 applic topical DAILY #0 grams 10/02/23 food supplemt, lactose-reduced 0.08 gram-1.5 kcal/mL oral liquid (Ensure Plus High Protein) 120 ml PO 4X/DAY #0 mL 10/02/23 melatonin 3 mg tablet 3 mg PO QHS PRN PRN Insomnia #0 tabs 10/02/23 menthol 0.44 %-zinc oxide 20.6 % topical ointment (Calmoseptine) 1 applic topical 4X/DAY #0 grams 10/02/23 multivitamin-iron 9 mg-folic acid 400 mcg-calcium and minerals tablet (High Potency Multivitamin (w-iron)) 1 tab PO BREAKFAST #0 tabs 10/02/23 oxycodone 5 mg tablet 5 mg PO Q4H PRN PRN Pain Score 4-10 2 days #12 tabs 10/02/23 prednisone 20 mg tablet 60 mg (3 x 20 mg) PO BREAKFAST #0 tabs 10/02/23 sennosides 8.6 mg-docusate sodium 50 mg tablet (Stool Softener-Stimulant Laxative) 2 tab PO BID PRN PRN Constipation #0 tabs 10/02/23
--- NOTE | 2023-10-02 16:02 | CASEMGMT ---
Social Work Precert has been obtained for admission and physician feels pt is ready for dc today. 7000 exemption form completed in [facility]. DC clinical lab assistant notified and to complete discharge. Disposition: [facility], skilled level of care under convalescent stay SAMSON Bee
--- NOTE | 2023-10-02 16:20 | CASEMGMT ---
Discharge Planning Discharge orders, signed med list, and transport time sent to [facility] via [facility]. [facility] will transport patient by cot at 8p. Nursing, SW, and patient updated. Patient stated that she would update her family. Leatha Oliveros, Discharge Planning Asst.
--- NOTE | 2023-10-02 16:35 | CASEMGMT ---
Discharge Planning Discharge orders, signed med list, and transport time sent to [facility] via [facility]. [facility] will transport patient by cot at 8p. Nursing, SW, and patient updated. Patient stated that she would update her family. Leatha Oliveros, Discharge Planning Asst.
--- NOTE | 2023-10-02 17:59 | NURSING ---
report called to Latrice bell at [facility]
[2023-10-02 18:10] VITALS: BP 123/73; PULSE 72; RESP 18; TEMP 36.7; O2SAT 99
[2023-10-03 01:17] VITALS: BP 142/75; PULSE 67; RESP 16; TEMP 36.6; O2SAT 99
[2023-10-05 09:29] LABS: Pathologist Review Reviewed
[2023-10-06 10:20] LABS: Pathologist Review Reviewed
[2023-10-13 13:07] LABS: Complement C3 68 mg/dL (82-167); Cytoplasmic Ab (C-ANCA) <1:20 titer (Neg:<1:20); Perinuclear Ab (P-ANCA) <1:20 titer (Neg:<1:20)
== END 2023-10-03 01:30 | disposition skilled nursing facility (03) | DRG 546 ==
LOC: ED 18:46 → MS3 19:25
PROVIDERS: Anesthesiology; Admitting Provider Family Medicine; Emergency Provider Emergency Medicine; PCP Family Medicine Geriatric Medicine; Visit Provider Internal Medicine
DX: M31.0 Hypersensitivity angiitis (principal); L03.115 Cellulitis of right lower limb; M86.171 Other acute osteomyelitis, right ankle and foot; L03.116 Cellulitis of left lower limb; N17.9 Acute kidney failure, unspecified; L97.912 Non-pressure chronic ulcer of unspecified part of right lower leg with fat layer exposed; L97.922 Non-pressure chronic ulcer of unspecified part of left lower leg with fat layer exposed; D69.2 Other nonthrombocytopenic purpura; D63.8 Anemia in other chronic diseases classified elsewhere; M32.9 Systemic lupus erythematosus, unspecified; M05.00 Felty's syndrome, unspecified site; I10 Essential (primary) hypertension; D50.9 Iron deficiency anemia, unspecified; E53.8 Deficiency of other specified B group vitamins; E78.5 Hyperlipidemia, unspecified; M79.7 Fibromyalgia; M85.872 Other specified disorders of bone density and structure, left ankle and foot; M85.871 Other specified disorders of bone density and structure, right ankle and foot; R62.7 Adult failure to thrive; R53.81 Other malaise; Z68.27 Body mass index [BMI] 27.0-27.9, adult; Z79.1 Long term (current) use of non-steroidal anti-inflammatories (NSAID); Z79.52 Long term (current) use of systemic steroids
CPT/HCPCS: 36415; 73630; 73718; 75635; 80048; 80053; 80074; 81001; 82248; 82595; 83605; 83735; 84100; 84145; 84443; 85025; 85610; 85652; 85730; 86140; 86160; 86225; 86235; 86256; 87040; 87070; 87077; 87184; 87186; 87205; 87640; 88305; 93005; 93923; 94668; 97162; 97166; 97530; 97535; 97802; 99284; J2185; J7030; J7040; J7050; Q9967; A4216

== ENCOUNTER 2023-10-28 05:30 | Inpatient (IN) | payer MEDICARE, SELFPAY ==
[2023-10-28] VITALS (19 sets, daily range): BP systolic 68–177; BP diastolic 49–136; PULSE 97–109; RESP 16–42; TEMP 37.4–38.6; O2SAT 90–98; BMI 24.4; BMI 24.3
--- NOTE | 2023-10-28 05:40 | RAD_ITS ---
EXAM: XR CHEST, 1 VIEW CLINICAL INDICATION: fever TECHNIQUE: Frontal view of the chest. COMPARISON: Previous chest radiographs of 07/16/2023. FINDINGS: LUNGS AND PLEURAL SPACES: Low lung volumes. Patchy density is projected over the right hemidiaphragm, a new finding as compared to the prior study, worrisome for pneumonia within the posterior aspect of the right lower lobe. Left lung is clear. No pneumothorax. No effusion. HEART: Unremarkable. Cardiac silhouette not enlarged. Normal pulmonary vasculature. MEDIASTINUM: Stable mild elongation and calcification of the thoracic aorta. Surgical clip again projected over the left lung hilum. BONES/JOINTS: Thoracic dextroscoliosis. No acute osseous abnormality. SOFT TISSUES: Unremarkable. RAD/Chest 1 View (Portable) IMPRESSION: Findings suspicious for developing patchy pneumonia at the right lung base. Electronically Signed: Patricio Gimenez MD at 7:09 EST ,
--- NOTE | 2023-10-28 05:42 | EX.ED.DYSGE1 ---
HPI History of Present Illness Chief Complaint: Nausea/Vomiting Informant: patient Narrative Narrative: Patient is a 68-year-old female with history of SLE, hypertension, rheumatoid arthritis, Raynaud's syndrome, Felty's syndrome,, breast cancer and vasculitis presenting from nursing facility for 1 day of nausea, vomiting, diarrhea, fever and being pale and diaphoretic. Nursing notes that patient was looking worse and called 911. EMS reported that patient was nonverbal to them and hypotensive as well as hypoxic. Patient is weak but able to answer questions on my exam. She denies any associated pain. Does not report any black or blood in her stool or her vomit. MAR does show that patient appears to chronically be on prednisone and Plaquenil. PFSH [facility], LAT[facility] Medical History B12 deficiency anemia Breast cancer Cancer Chronic pain Complicated wound infection Depression Fibromyalgia History of steroid therapy Hyperlipidemia Hypertension Insomnia Irritable bowel syndrome Kidney disease Leukopenia Long-term current use of steroids Muscle spasm Post-menopausal Pressure ulcer of left ankle, stage 3 RA (rheumatoid arthritis) Raynaud disease Restless legs Rheumatoid arthritis Splenomegaly Systemic lupus erythematosus Systemic lupus erythematosus Vasculitis Home Medications hydroxychloroquine 200 mg tablet (Plaquenil) 200 mg PO DAILY 05/26/22 [History Last Taken Unknown] ascorbic acid (vitamin C) PO DAILY 09/16/23 [History Last Taken Unknown] cholecalciferol (vitamin D3) 50 mcg (2,000 unit) capsule (Vitamin D3) 2,000 unit PO DAILY 09/16/23 [History Last Taken Unknown] acetaminophen 325 mg tablet 1,000 mg (3.0769 x 325 mg) PO TID #0 tabs 10/02/23 [Rx Last Taken Unknown] colchicine 0.6 mg capsule 0.6 mg PO BID #0 caps 10/02/23 [Rx Last Taken Unknown] collagenase clostridium histo. 250 unit/gram topical ointment (Santyl) 1 applic topical DAILY #0 grams 10/02/23 [Rx Last Taken Unknown] food supplemt, lactose-reduced 0.08 gram-1.5 kcal/mL oral liquid (Ensure Plus High Protein) 120 ml PO 4X/DAY #0 mL 10/02/23 [Rx Last Taken Unknown] melatonin 3 mg tablet 3 mg PO QHS PRN PRN Insomnia #0 tabs 10/02/23 [Rx Last Taken Unknown] menthol 0.44 %-zinc oxide 20.6 % topical ointment (Calmoseptine) 1 applic topical 4X/DAY #0 grams 10/02/23 [Rx Last Taken Unknown] multivitamin-iron 9 mg-folic acid 400 mcg-calcium and minerals tablet (High Potency Multivitamin (w-iron)) 1 tab PO BREAKFAST #0 tabs 10/02/23 [Rx Last Taken Unknown] oxycodone 5 mg tablet 5 mg PO Q4H PRN PRN Pain Score 4-10 2 days #12 tabs 10/02/23 [Rx Last Taken Unknown] prednisone 20 mg tablet 60 mg (3 x 20 mg) PO BREAKFAST #0 tabs 10/02/23 [Rx Last Taken Unknown] sennosides 8.6 mg-docusate sodium 50 mg tablet (Stool Softener-Stimulant Laxative) 2 tab PO BID PRN PRN Constipation #0 tabs 10/02/23 [Rx Last Taken Unknown] omeprazole 20 mg capsule,delayed release 20 mg PO DAILY 10/28/23 [History Last Taken Unknown] Allergy/AdvReac Type Severity Reaction Status Date / Time Penicillins AdvReac Intermediate Rash Verified 10/28/23 05:43 Family History Father No problems noted. Father Pancreas cancer Diabetes Mother Osteoarthritis Afib Surgical History History of bilateral mastectomy History of left knee surgery Social History Smoking Status: Never smoker second hand exposure: No alcohol intake: never substance use type: does not use ford/taoism: None seatbelt use: always do you feel safe at home: Yes ROS ROS ED Review of Systems ROS Unobtainable: due to mental status Constitutional Constitutional ED: Reports chills and fever(s) Gastrointestinal Gastrointestinal: Reports diarrhea, nausea and vomiting EXAM Physical Exam Const Vital Signs: 10/28/23 05:31 10/28/23 05:40 10/28/23 05:49 Temperature 101.4 F H 101.4 F H Temperature Source Rectal Rectal Pulse Rate 109 H 109 H Respiratory Rate 32 H 36 H Blood Pressure 78/64 L 86/57 L Blood Pressure Mean 68 66 Pulse Ox 93 94 94 Oxygen Delivery Method Room Air Room Air Room Air Oxygen Flow Rate (L/min) 10/28/23 07:01 10/28/23 07:12 10/28/23 07:33 Temperature 99.8 F H Temperature Source Temporal Pulse Rate 100 Respiratory Rate 36 H Blood Pressure 68/49 L 89/75 L 95/77 Blood Pressure Mean 55 79 83 Pulse Ox 94 Oxygen Delivery Method Nasal Cannula Oxygen Flow Rate (L/min) 2 10/28/23 07:44 10/28/23 07:57 10/28/23 08:13 Temperature 100.6 F H 100.3 F H 100 F H Temperature Source Core Core Core Pulse Rate 103 H 103 H 102 H Respiratory Rate 37 H 36 H 36 H Blood Pressure 95/77 117/64 177/86 H Blood Pressure Mean 83 81 116 Pulse Ox 96 95 94 Oxygen Delivery Method Venturi Mask Nasal Cannula Nasal Cannula Oxygen Flow Rate (L/min) 2 2 2 10/28/23 09:10 Temperature 99.3 F H Temperature Source Core Pulse Rate 105 H Respiratory Rate 32 H Blood Pressure 153/136 H Blood Pressure Mean 141 Pulse Ox 94 Oxygen Delivery Method Nasal Cannula Oxygen Flow Rate (L/min) 2 Positive well nourished and well developed Constitutional Narrative: ill appearing General Appearance ED: well developed HEENT Reports dry mucous membranes Negative for trauma Mouth ED: Yes dry mucous membranes Mouth: dry mucous membranes Eyes PERRL and EOMs intact bilaterally Neck supple and no JVD Chest Wall inspection of chest normal and palpation of chest normal Resp Resp Narrative: Coarse breath sounds throughout, tachypneic Auscultation: diminished lung sounds Cardio regular rhythm and no murmurs Rate: tachycardic GI normal to inspection, nondistended, normoactive bowel sounds, non-tender and non-distended GI Narrative: Brown stool on rectal exam Extremity normal to inspection Neuro Neuro Narrative: Patient is somnolent but does wake up and answer yes/no questions appropriately. Sensorium / Orientation: alert and orientation impaired Motor Exam: general weakness Psych mental status grossly normal Skin no rashes or lesions noted and no wounds MDM MDM MDM Narrative Medical decision making narrative: Patient evaluated generalized weakness, fever, vomiting and diarrhea. Appears weak and ill. Is given IV fluids, rectal Tylenol and Zofran for symptom control. She is immunosuppressed and I suspect infection but I will also obtain metabolic and cardiac workup as well. Patient has chronic neutropenia. She is likely hemoconcentrated as her hemoglobin is above her baseline.She has chronic, cytopenia which is still present. Patient does have coagulopathy with elevated PT and PTT which might be consistent with her vasculitis versus septic picture. BMP is remarkable for blood glucose of 28, creatinine of 2.43 which is significantly above her baseline anion gap of 14 (her baseline is usually 2). Bicarb is low at 20. Patient does not have a significant transaminitis. I since her troponin is normal at 54. Urinalysis will be sent for culture but is positive nitrites with 1+ bacteria via straight cath. Question dehydration/concentration versus UTI. Chest x-ray shows questionable right lower lobe patchy infiltrates. She has 2 potential sources of infection plus potential gastroenteritis as the cause. She is found to be occult positive but given that she is actually hemoconcentrated do not think she needs a blood transfusion at this time. Case discussed with hospitalist as well as ICU a patient be admitted to the ICU. She is given a 30 cc/kg fluid bolus, stress dose Solu-Cortef because she is steroid-dependent, broad-spectrum antibiotics (vancomycin and cefepime) in the emergency room. Patient does have persistent hypoglycemia and requires 3 Amps of D50 (25 mg each). After he received amps of D50 glucometer was reading low glucose. Serum glucose is then sent which read 175. [id number] is now at the bedside and informed of plan of care. Patient's blood pressure does improve with fluid resuscitation. Lab Data Attestation: I reviewed the patient's lab results. Labs: Laboratory Results - last 24 hr 10/28/23 10/28/23 10/28/23 05:35 06:00 07:29 WBC 2.0 L RBC 4.80 Hgb 12.5 Hct 42.2 MCV 87.9 MCH 26.0 L MCHC 29.6 L RDW Std Deviation 66.6 H RDW Coeff of Mira 21.2 H Plt Count 128 L MPV 11.0 Neut % (Auto) Not Reportable Absolute Neuts (auto) 1.6 L Absolute Lymphs (auto) 0.13 L Total Counted 100 Neutrophils % (Manual) 67 Band Neutrophils % 14 H Lymphocytes % (Manual) 7 L Monocytes % (Manual) 7 Metamyelocytes % 5 H Diff Path Review May foll Toxic Vacuolation 3+ Platelet Estimate SLT DEC RBC Morphology N CHROM Tear Drop Cells 1+ PT 25.0 H INR 2.2 APTT 40.9 H Sodium 140 Potassium 3.5 Chloride 106 Carbon Dioxide 20.0 L Anion Gap 14 BUN 55 H Creatinine 2.43 H Estim Creat Clear Calc 20.17 Est GFR (MDRD) Af Amer 25 L Est GFR (MDRD) Non-Af 21 L BUN/Creatinine Ratio 22.6 H Glucose 28 L* Lactic Acid 8.5 H* Calcium 8.1 L Total Bilirubin 1.00 AST 64 H ALT 26 Alkaline Phosphatase 74 Troponin I High Sens 54 Total Protein 5.0 L Albumin 2.1 L Globulin 2.9 Albumin/Globulin Ratio 0.7 L Urine Color Yellow Urine Clarity Sl Cloudy Urine pH 5.0 Ur Specific Purcell 1.020 Urine Protein 100 H Urine Glucose (UA) Normal Urine Ketones 5 H Urine Occult Blood 25 H Urine Nitrite Positive H Urine Bilirubin 1 H Urine Urobilinogen 1 H Ur Leukocyte Esterase 100 H Urine RBC 5-10 SEEN Urine WBC 5-10 SEEN Ur Squamous Epith Cells 0-5 SEEN Ur Transition Epith Cell 0-5 SEEN Urine Bacteria 1+ Hyaline Casts 0-5 SEEN Urine Mucus 0 SEEN POC Glucose < 10 L* 10/28/23 10/28/23 07:58 08:09 WBC RBC Hgb Hct MCV MCH MCHC RDW Std Deviation RDW Coeff of Mira Plt Count MPV Neut % (Auto) Absolute Neuts (auto) Absolute Lymphs (auto) Total Counted Neutrophils % (Manual) Band Neutrophils % Lymphocytes % (Manual) Monocytes % (Manual) Metamyelocytes % Diff Path Review Toxic Vacuolation Platelet Estimate RBC Morphology Tear Drop Cells PT INR APTT Sodium Potassium Chloride Carbon Dioxide Anion Gap BUN Creatinine Estim Creat Clear Calc Est GFR (MDRD) Af Amer Est GFR (MDRD) Non-Af BUN/Creatinine Ratio Glucose 175 H Lactic Acid Calcium Total Bilirubin AST ALT Alkaline Phosphatase Troponin I High Sens Total Protein Albumin Globulin Albumin/Globulin Ratio Urine Color Urine Clarity Urine pH Ur Specific Purcell Urine Protein Urine Glucose (UA) Urine Ketones Urine Occult Blood Urine Nitrite Urine Bilirubin Urine Urobilinogen Ur Leukocyte Esterase Urine RBC Urine WBC Ur Squamous Epith Cells Ur Transition Epith Cell Urine Bacteria Hyaline Casts Urine Mucus POC Glucose < 10 L* Radiography Chest X-Ray - ED: 1 View, Read by ED Physician, Read by Radiologist and Right Infiltrate Diagnostic Testing: Clinical Impression(s) from Imaging Studies Chest X-Ray 10/28/23 05:40 IMPRESSION: Findings suspicious for developing patchy pneumonia at the right lung base. Electronically Signed: Patricio Gimenez MD at 7:09 EST , Rhythm Strip Rhythm Strip: Sinus Tach Rate: 109 Ectopy: None EKG Initial EKG: Attestation: I personally reviewed and interpreted this EKG as follows: Interpretation: Sinus Tachycardia Comments: Sinus tachycardia rate of 109 bpm Left axis deviation Minimal voltage criteria for LVH Normal ST segments Management Discussion w/another healthcare provider: Hospitalist and School Clerk (ICU- Dr. Vega ) Critical Care Time Critical Care Time: Yes Critical care time (excluding procedures): 30-74 minutes (50), Discussing w/Patient &/or Family/Blender Machine Operator, Discussing w/Consultants, Arranging Admission or Transfer and Performing Direct Patient Care at Bedside Discharge Plan Dx/Rx/DC Orders Clinical Impression: KATHY (acute kidney injury), Steroid dependent, Gastrointestinal fluid volume depletion, Diarrhea, Hypoglycemia, Severe sepsis, Acidosis, lactic Disposition Disposition: [facility]
[2023-10-28] MEDS: 0.9% Normal Saline (1000mL) 1,000 ML 999 ML IV ×2 (05:52→07:10)
[2023-10-28] MEDS: Acetaminophen 650 MG Suppository RC ×2 (05:53→13:14)
[2023-10-28] MEDS: Ondansetron 4 MG/2 ML Vial IV (05:53)
[2023-10-28 06:06] LABS: Hematocrit 42.2 % (37-47); Hemoglobin 12.5 g/dL (12.0-15.0); Mean Corp Hgb Conc 29.6 g/dL (32-36); Mean Corpuscular Volume 87.9 fL (81-99); POSITIVE COUNT YES; POSITIVE DIFFERENTIAL YES; POSITIVE MORPHOLOGY YES; Platelet Count 128 K/mm3 (150-450); RBC Distribution Width CV 21.2 % (11.6-14.6); RBC Distribution Width SD 66.6 fl (35.1-43.9)
[2023-10-28] MEDS: Hydrocortisone Sod Succinate 100 MG/2 ML Vial IV (06:06)
[2023-10-28 06:08] LABS: Mucous, Urine 0 SEEN /hpf (<or=2+)
[2023-10-28 06:11] LABS: Glucose, Dipstick Normal (Normal); Ketone-Dipstick 5 mg/dl (Negative); Leukocyte Esterase-Dipstick 100 /ul (Negative); Nitrite-Dipstick Positive (Negative); Occult Blood-Urine 25 /ul (Negative); Protein-Dipstick 100 mg/dl (Negative); Urine Urobilinogen 1 mg/dl (Normal)
[2023-10-28 06:31] LABS: International Normalized Ratio 2.2
[2023-10-28 06:32] LABS: Partial Thromboplast Time 40.9 Seconds (24.1-36.2)
[2023-10-28 06:32] LABS: Color, Urine Yellow (Yellow); Urine Bilirubin Dipstick 1 mg/dL (Negative); Urine Clarity Sl Cloudy (Clear)
[2023-10-28 06:33] LABS: Bacteria 1+ /hpf (None Seen); Hyaline Cast 0-5 SEEN /lpf (0-5); Red Blood Cells-Urine 5-10 SEEN /hpf (0-5); Squamous Epithelial Cells - UA 0-5 SEEN /hpf (5-10); Transitional Epithelial - Ur 0-5 SEEN /hpf (0-5); White Blood Cells 5-10 SEEN /hpf (0-5)
--- OUTSIDE RECORDS SUMMARY | 2023-10-28 06:36 | XMS RPT_ITS | CCD ---
Author Name Unknown Address [address] [place] [address] Organization [facility] Care Team Providers Care Geological Engineering Teacher Name Role Phone LEONCIO BETO Unavailable Unavailable LEONCIO BETO Unavailable Unavailable LILIANA HERNANDEZ [facility] Unavailable Unavailable BETO FANG Unavailable Unavailable Marcelo Camarena Unavailable Unavailable PROVIDER, UNKNOWN Unavailable Unavailable No, PCP Unavailable Unavailable Allergies Allergy Classification Reported Allergen(s) Allergy Type Date of Onset Reaction(s) Facility (1 source) acetaminophen / oxyCODONE; Translations: [OXYCODONE-ACETAM INOPHEN] Drug Allergy 9 [facility] Repository (1 source) Penicillins; Translations: [PENICILLINS] Propensity to adverse reactions to drug (disorder) 5 AOF [facility] Repository Problems Active Problems Problem Classification [...] Facility Start: 07-05-2018 Patient encounter Marcelo Camarena [facility] Start: 10-20-2017 End: 10-22-2017 Ambulatory SUSANSHERIDAN LEONCIO [facility] Payers Date Payer Category Payer Unknown [id number] Medicare Summary Purpose Family History No Family History Records FoundNo Family History Records FoundNo Family History Records Found Advance Directives No Advanced Directives Records FoundNo Advanced Directives Records FoundNo Advanced Directives Records Found Additional Source Comments INFORMATION SOURCE (unrecogn ized section and content) DATE CREATED AUTHOR AUTHOR'S ORGANIZ ATION 08/05/2018 [facility] [employer] DATE CREATED AUTHOR AUTHOR'S ORGANIZ ATION 08/20/2018 [facility] [employer] FOR RECORDS PERTAINING TO PATIENTS [...] BE BASED ON THE PRIMARY CLINICAL RECORDS. [facility] [employer] [facility]. provides no warranty or guarantee of the accuracy or completeness of information in this document.
[2023-10-28] MEDS: Cefepime HCl 2 GM in 0.9% Normal Saline (100mL MB+) 100 ML IV (06:38)
[2023-10-28 06:41] LABS: Differential Indicated MANUAL DIFF
[2023-10-28 07:03] LABS: ALB/GLOB Ratio 0.7 RATIO (0.9-2.4); AST(SGOT) 64 U/L (15-37); Alanine Aminotransfer ALT/SGPT 26 U/L (13-56); Albumin, Serum 2.1 g/dL (3.2-5.0); Alkaline Phosphatase 74 U/L (45-117); Anion Gap 14 (5-15); BUN 55 mg/dL (7-18); BUN/Creat Ratio 22.6 RATIO (10-20); Calcium,Total 8.1 mg/dL (8.5-10.1); Chloride 106 mmol/L (98-107); Creatinine, Serum 2.43 mg/dL (0.55-1.02); EST Glomerular Filtration Rate 21 mL/min (>60); Est Glom Filt Rate - Afr Amer 25 mL/min (>60); Estimated Creatinine Clearance 20.17 ml/min; Globulin 2.9 g/dL (2.2-4.2); Glucose 28 mg/dL (74-106); Lactic Acid 8.5 mmol/L (0.4-1.9); Potassium 3.5 mmol/L (3.5-5.1); Sodium Level 140 mmol/L (136-145); Troponin-I HS 54 pg/mL (3.0-54.0)
[2023-10-28] MEDS: Dextrose 50%-Water 25 GM/50 ML DISP.SYRIN IV ×4 (07:05→11:10)
[2023-10-28] MEDS: Vancomycin HCl 1,750 MG in 0.9% Normal Saline (500mL Bag) 500 ML 250 MG IV (07:11)
[2023-10-28 07:22] LABS: Lymphocyte 7 % (19-41); Metamyelocyte 5 % (0-1); Monocyte 7 % (0-10); Neutrophil-Band 14 % (0-5); Neutrophil-Segmented 67 % (47-70); Total Cells Counted 100 (MANUAL DIFF)
[2023-10-28 07:23] LABS: Tear Drop Cell 1+; Vacuolated Cells 3+
[2023-10-28 07:24] LABS: Platelet Estimate SLT DEC (ADEQ); Red Cell Morphology N CHROM NORMAL (NORM C&C)
[2023-10-28 07:25] LABS: Absolute Lymphocyte Count 0.13 X10^3/uL (0.83-4.51); Absolute Neutrophil Count 1.6 X10^3/uL (2.0-7.7)
[2023-10-28 08:05] LABS: Bedside Glucose < 10 mg/dL (74-106)
[2023-10-28] MEDS: 0.9% Normal Saline (1000mL) 1,000 ML 150 ML IV (08:09)
[2023-10-28 08:18] LABS: Bedside Glucose < 10 mg/dL (74-106)
[2023-10-28 08:36] LABS: Glucose 175 mg/dL (74-106)
--- NOTE | 2023-10-28 09:11 | NURSING ---
ICU [facility] SEPTIC SHOCK, HYPOVOLEMIA, HYPOGLYCEMIA
--- NOTE | 2023-10-28 09:23 | HP.PCM.HOS_ITS ---
HPI - General General Date of Admission: 10/28/23 Date of Service: 10/28/23 Chief Complaint: vomiting. diarrhea HPI Narrative KAREN DE LA GARZA, is a 68 F who presents with 24 to 36 hours of nausea, vomiting and diarrhea. Patient was admitted earlier this month with vasculitis of her lower extremities. Patient has a history of rheumatoid arthritis and lupus. 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 Patient chronically was on steroids of 5 mg of prednisone daily but was discharged with prednisone 60 mg daily. Patient follow-up with her safety risk lead at the [facility] and continue that dosing. Patient over the past couple days has had the symptoms as mentioned above. Patient presents here with hypotension with a blood pressure that dropped down as low as 68/49 but also severe hypoglycemia. In the initial glucose on her BMP was 29. Patient did receive a couple rounds of D50 and blood sugar glucometer was less than 10. Patient received more doses of D50 and most recent glucose was 177. Patient is not diabetic nor does she not take any diabetes medications, oral or insulin. Patient did receive greater than 2 L of IV fluids in the emergency room for 30 cc/kg of IV fluid and blood pressure improved to 1.177/86. Patient has a weak voice which she has had since yesterday but is coherent now. Patient did receive 100 mg of IV hydrocortisone given her chronic steroid usage. Patient did receive cefepime and vancomycin in the emergency room. Chest x-ray was concerning for patchy infiltrates. [facility] Medical History B12 deficiency anemia Breast cancer Cancer Chronic pain Complicated wound infection Depression Fibromyalgia History of steroid therapy Hyperlipidemia Hypertension Insomnia Irritable bowel syndrome Kidney disease Leukopenia Long-term current use of steroids Muscle spasm Post-menopausal Pressure ulcer of left ankle, stage 3 RA (rheumatoid arthritis) Raynaud disease Restless legs Rheumatoid arthritis Splenomegaly Systemic lupus erythematosus Systemic lupus erythematosus Vasculitis Home Medications hydroxychloroquine 200 mg tablet (Plaquenil) 200 mg PO DAILY 05/26/22 [History Last Taken Unknown] ascorbic acid (vitamin C) PO DAILY 09/16/23 [History Last Taken Unknown] cholecalciferol (vitamin D3) 50 mcg (2,000 unit) capsule (Vitamin D3) 2,000 unit PO DAILY 09/16/23 [History Last Taken Unknown] acetaminophen 325 mg tablet 1,000 mg (3.0769 x 325 mg) PO TID #0 tabs 10/02/23 [Rx Last Taken Unknown] colchicine 0.6 mg capsule 0.6 mg PO BID #0 caps 10/02/23 [Rx Last Taken Unknown] collagenase clostridium histo. 250 unit/gram topical ointment (Santyl) 1 applic topical DAILY #0 grams 10/02/23 [Rx Last Taken Unknown] food supplemt, lactose-reduced 0.08 gram-1.5 kcal/mL oral liquid (Ensure Plus High Protein) 120 ml PO 4X/DAY #0 mL 10/02/23 [Rx Last Taken Unknown] melatonin 3 mg tablet 3 mg PO QHS PRN PRN Insomnia #0 tabs 10/02/23 [Rx Last Taken Unknown] menthol 0.44 %-zinc oxide 20.6 % topical ointment (Calmoseptine) 1 applic topical 4X/DAY #0 grams 10/02/23 [Rx Last Taken Unknown] multivitamin-iron 9 mg-folic acid 400 mcg-calcium and minerals tablet (High Potency Multivitamin (w-iron)) 1 tab PO BREAKFAST #0 tabs 10/02/23 [Rx Last Taken Unknown] oxycodone 5 mg tablet 5 mg PO Q4H PRN PRN Pain Score 4-10 2 days #12 tabs 10/02/23 [Rx Last Taken Unknown] prednisone 20 mg tablet 60 mg (3 x 20 mg) PO BREAKFAST #0 tabs 10/02/23 [Rx Last Taken Unknown] sennosides 8.6 mg-docusate sodium 50 mg tablet (Stool Softener-Stimulant Laxative) 2 tab PO BID PRN PRN Constipation #0 tabs 10/02/23 [Rx Last Taken Unknown] omeprazole 20 mg capsule,delayed release 20 mg PO DAILY 10/28/23 [History Last Taken Unknown] Allergy/AdvReac Type Severity Reaction Status Date / Time Penicillins AdvReac Intermediate Rash Verified 10/28/23 05:43 Family History Father No problems noted. Father Pancreas cancer Diabetes Mother Osteoarthritis Afib Surgical History History of bilateral mastectomy History of left knee surgery Social History Smoking Status: Never smoker second hand exposure: No alcohol intake: never substance use type: does not use ford/denominational: None seatbelt use: always do you feel safe at home: Yes ROS ROS Narrative No shortness of breath. No chest pain. No abdominal pain. Does have wounds on her legs. Is at a shelter facility currently. All review of systems were negative except as mentioned above in the history of present illness and the other review of systems. Vital Signs Vital Signs Vital Signs: 10/28/23 05:31 10/28/23 05:40 10/28/23 05:49 Temperature 38.6 C H 38.6 C H Temperature Source Rectal Rectal Pulse Rate 109 H 109 H Respiratory Rate 32 H 36 H Blood Pressure 78/64 L 86/57 L Blood Pressure Mean 68 66 Pulse Ox 93 94 94 Oxygen Delivery Method Room Air Room Air Room Air Oxygen Flow Rate (L/min) 10/28/23 07:01 10/28/23 07:12 10/28/23 07:33 Temperature 37.7 C H Temperature Source Temporal Pulse Rate 100 Respiratory Rate 36 H Blood Pressure 68/49 L 89/75 L 95/77 Blood Pressure Mean 55 79 83 Pulse Ox 94 Oxygen Delivery Method Nasal Cannula Oxygen Flow Rate (L/min) 2 10/28/23 07:44 10/28/23 07:57 10/28/23 08:13 Temperature 38.1 C H 37.9 C H 37.7 C H Temperature Source Core Core Core Pulse Rate 103 H 103 H 102 H Respiratory Rate 37 H 36 H 36 H Blood Pressure 95/77 117/64 177/86 H Blood Pressure Mean 83 81 116 Pulse Ox 96 95 94 Oxygen Delivery Method Venturi Mask Nasal Cannula Nasal Cannula Oxygen Flow Rate (L/min) 2 2 2 10/28/23 09:10 Temperature 37.4 C H Temperature Source Core Pulse Rate 105 H Respiratory Rate 32 H Blood Pressure 153/136 H Blood Pressure Mean 141 Pulse Ox 94 Oxygen Delivery Method Nasal Cannula Oxygen Flow Rate (L/min) 2 Weight Weight: 68.6 kg Body Mass Index (BMI) 24.4 Physical Exam Const Constitutional Narrative: Awake, alert. Answers questions but her voice is weak. Appears chronically ill. Appears older than stated age. General Appearance: cooperative HEENT HEENT Narrative: Temporal wasting. Mucous membranes are dry. Eyes EOMs intact bilaterally Eyes Narrative: No scleral icterus. Neck no lymphadenopathy Neck Narrative: No thyromegaly Resp normal respiratory effort and no retractions Cardio regular rate, regular rhythm, S1 normal heart sound and S2 normal heart sound GI normal to inspection, nondistended, normoactive bowel sounds, soft to palpation, non-tender and non-distended Extremity Extremity Narrative: Profound atrophy in lower extremities. Does have numerous eschars on the lower extremities bilaterally with the right being greater than the left. Those do not appear to be infected at this time. Does have eschar is involving right lower extremity below the knee around the calf around the ankles as well as on the second and third toes. Reviewing the images that were taken earlier this month, appears that these eschar's are just evolving from previous and does not appear to be any new developments from that. Unable to palpate pulses dorsalis pedal or posterior tibial in the lower extremities. Skin Skin Narrative: As above with extremities. Neuro moves all extremities Psych Psych Narrative: Flat affect. Results Lab / Micro Data Attestation: I reviewed the patient's lab results. 10/28/23 05:35 10/28/23 08:09 Labs: Laboratory Results - last 24 hr 10/28/23 05:35: WBC 2.0 L, RBC 4.80, Hgb 12.5, Hct 42.2, MCV 87.9, MCH 26.0 L, MCHC 29.6 L, RDW Std Deviation 66.6 H, RDW Coeff of Mira 21.2 H, Plt Count 128 L, MPV 11.0, Neut % (Auto) Not Reportable, Absolute Neuts (auto) 1.6 L, Absolute Lymphs (auto) 0.13 L, Total Counted 100, Neutrophils % (Manual) 67, Band Neutrophils % 14 H, Lymphocytes % (Manual) 7 L, Monocytes % (Manual) 7, Metamyelocytes % 5 H, Diff Path Review May foll, Toxic Vacuolation 3+, Platelet Estimate SLT DEC, RBC Morphology N CHROM, Tear Drop Cells 1+, PT 25.0 H, INR 2.2, APTT 40.9 H, Sodium 140, Potassium 3.5, Chloride 106, Carbon Dioxide 20.0 L , Anion Gap 14, BUN 55 H, Creatinine 2.43 H, Estim Creat Clear Calc 20.17, Est GFR (MDRD) Af Amer 25 L, Est GFR (MDRD) Non-Af 21 L, BUN/Creatinine Ratio 22.6 H , Glucose 28 L*, Lactic Acid 8.5 H*, Calcium 8.1 L, Total Bilirubin 1.00, AST 64 H, ALT 26, Alkaline Phosphatase 74, Troponin I High Sens 54, Total Protein 5.0 L , Albumin 2.1 L, Globulin 2.9, Albumin/Globulin Ratio 0.7 L 10/28/23 06:00: Urine Color Yellow, Urine Clarity Sl Cloudy, Urine pH 5.0, Ur Specific [place] 1.020, Urine Protein 100 H, Urine Glucose (UA) Normal, Urine Ketones 5 H, Urine Occult Blood 25 H, Urine Nitrite Positive H, Urine Bilirubin 1 H, Urine Urobilinogen 1 H, Ur Leukocyte Esterase 100 H, Urine RBC 5-10 SEEN, Urine WBC 5-10 SEEN, Ur Squamous Epith Cells 0-5 SEEN, Ur Transition Epith Cell 0-5 SEEN, Urine Bacteria 1+, Hyaline Casts 0-5 SEEN, Urine Mucus 0 SEEN 10/28/23 07:29: POC Glucose < 10 L* 10/28/23 07:58: POC Glucose < 10 L* 10/28/23 08:09: Glucose 175 H Micro: Microbiology 10/28/23 05:47 Mucosa - Nose SARS-CoV-2, Influenza & RSV (PCR) - Final 10/28/23 05:50 Stool Stool Occult Blood (AJAY) - Final Occult Blood Positive Rhythm Strip Rhythm Strip: Sinus Tach Rate: 109 Ectopy: None EKG Initial EKG: Attestation: I personally reviewed and interpreted this EKG as follows: Prior EKG tracings: available for review EKG Rhythm Intrepretation: Sinus Rhythm Imaging Radiology Impression Chest X-Ray 10/28/23 05:40 IMPRESSION: Findings suspicious for developing patchy pneumonia at the right lung base. Electronically Signed: Patricio Gimenez MD at 7:09 EST , Assessment & Plan Assessment/Plan (1) Shock: (2) Adrenal crisis: (3) Pneumonia: (4) KATHY (acute kidney injury): (5) Non-pressure chronic ulcer of unspecified part of right lower leg with fat layer exposed: (6) Non-pressure ulcer of left lower extremity with fat layer exposed: PLAN: Plan Shock * Sepsis, present on admission with a change in mental status upon arrival which subsequent improved, blood pressure with systolic blood pressure in the 60s and respiratory rate was up into the 30s. Additionally SIRS criteria 44 with a temp of 38.6, heart rate 105, respiratory rate of 32 and a white count of 2. * Likely multifactorial but could be component of septic shock due to pneumonia but also compounded by adrenal crisis. * Patient has responded very well with IV fluids meeting criteria for 30 cc/kg as well as 100 mg of hydrocortisone. * Antibiotics currently with cefepime and vancomycin emergency room and will be continued on the floor. * Follow-up infectious workup. * No need for pressor agents at this time. * Patient will be monitored in the intensive care unit though she is currently hemodynamic stable this time. But patient does well overnight then she can likely transition to a lower acuity of care tomorrow. The patient does have recurrent issues in regards to hypertension, will consult CCM. Adrenal crisis * I suspect is related with an underlying infection possibly pneumonia as patient was taking 60 mg of prednisone daily for her recent vasculitis. * Will continue with hydrocortisone 50 mg 4 times a day for the time being and eventually taper that down to her 60 mg of prednisone daily. Acute kidney injury * I suspect prerenal but cannot rule out component of ischemic ATN at this time. * IV fluids as patient clinically is very dehydrated. * No need for renal replacement therapy at this time. Pneumonia * Suspect gram-negative given the patient's recent hospitalization and immunocompromise state. * Continue with cefepime and vancomycin. Hypoglycemia * Patient not diabetic nor does she take any oral hypoglycemics nor insulin. Likely due to adrenal crisis. * Patient received several rounds of D50 and glucose has improved. * For the time being, we will check her glucose every hour to ensure stability if remains stable then can likely discontinue the blood sugar checks. Lower extremity wounds * Reviewing images from earlier this month, does not appear to be any worsening of that, however there is development of eschars from there. * Patient previously seen podiatry and I would not plan a do any kind of debridement until her vascular status was improved. Will hold off on podiatry at this point time as there is no clear source of infection stemming from her lower extremities though that cannot be officially ruled out at this point time. * Will consult wound care. Severe protein calorie malnutrition * Patient profoundly cachectic in appearance. * Was on Ensure 4 times a day. Will continue. * Consult nutrition. Chronic conditions * Rheumatoid arthritis, Felty syndrome, lupus: On Plaquenil. On steroids. * B12 anemia * IBS * Hypertension VTE prophylaxis with subcu heparin Advance care planning: Spent additional 20 minutes where I discussed CODE STATUS: Addressed with the patient. Patient wishes to be full code. I did full the patient's [id number] who is present at bedside and provided much of the history and explained to her that I will defer the patient's CODE STATUS to the patient but I strongly recommended that the [id number] and her , who is the patient's brother as well as patient any other family members have a discussion down the road regards to aggressiveness of care as I feel that the patient does undergo cardiac arrest that the likelihood of her surviving that event would be extremely low, but also if she were to survive her quality of l agustina afterwards would be severely diminished given her already diminished quality of life. Charges/Coding Visit Charges Inpatient E&M: 54677 Init Hosp L3
[2023-10-28 10:03] LABS: Reflex Lactate? Y
[2023-10-28 10:19] LABS: Troponin-I HS 59 pg/mL (3.0-54.0)
[2023-10-28] MEDS: Dextrose 10%-Water 250 ML 40 ML IV (10:26)
--- OUTSIDE RECORDS SUMMARY | 2023-10-28 10:38 | XMS RPT_ITS | CCD ---
Author Name Unknown Address [address] [place] [address] Organization [facility] Care Team Providers Care Assistant Professor Of Radiology Name Role Phone LEONCIO BETO Unavailable Unavailable LEONCIO BETO Unavailable Unavailable LILIANA HERNANDEZ [facility] Unavailable Unavailable BETO FANG Unavailable Unavailable Marcelo Camarena Unavailable Unavailable PROVIDER, UNKNOWN Unavailable Unavailable No, PCP Unavailable Unavailable Allergies Allergy Classification Reported Allergen(s) Allergy Type Date of Onset Reaction(s) Facility (1 source) acetaminophen / oxyCODONE; Translations: [OXYCODONE-ACETAM INOPHEN] Drug Allergy 9 [facility] Repository (1 source) Penicillins; Translations: [PENICILLINS] Propensity to adverse reactions to drug (disorder) 5 AOF [facility] Repository Problems Active Problems Problem Classification [...] Facility Start: 07-05-2018 Patient encounter Marcelo Camarena [facility] Start: 10-20-2017 End: 10-22-2017 Ambulatory SUSANSHERIDAN LEONCIO [facility] Payers Date Payer Category Payer Unknown [id number] Medicare Summary Purpose Family History No Family History Records FoundNo Family History Records FoundNo Family History Records Found Advance Directives No Advanced Directives Records FoundNo Advanced Directives Records FoundNo Advanced Directives Records Found Additional Source Comments INFORMATION SOURCE (unrecogn ized section and content) DATE CREATED AUTHOR AUTHOR'S ORGANIZ ATION 08/05/2018 [facility] [employer] DATE CREATED AUTHOR AUTHOR'S ORGANIZ ATION 08/20/2018 [facility] [employer] FOR RECORDS PERTAINING TO PATIENTS [...] BE BASED ON THE PRIMARY CLINICAL RECORDS. [facility] [employer] [facility] provides no warranty or guarantee of the accuracy or completeness of information in this document.
[2023-10-28] MEDS: Menthol/Lanolin/Calamine/Znox 113 GM Tube 1 APPLIC TOPICAL (11:14)
[2023-10-28] MEDS: Collagenase 30gm Tube 1 APPLIC TOPICAL (11:14)
[2023-10-28] MEDS: 0.9% Saline Lock 10 ML Syringe IV (11:15)
[2023-10-28] MEDS: Heparin Injection (Vial) 5,000 UNIT/ML VIAL 5000 UNIT SC (11:21)
[2023-10-28 11:31] LABS: Allen Test Positive; Base Excess -18 mmol/L (-2 to +2); Bicarbonate 9.1 mmol/L (22-26); Blood Gas Specimen Type ART; Mode Not entered; O2 Delivery Device Cannula; PO2 120 mmHG (75-100); SITE R Radial; SO2 98 % (95-99); Total Carbon Dioxide 10 mmol/L; pH 7.24 (7.35-7.45)
[2023-10-28 11:39] LABS: Bedside Glucose 40 mg/dL (74-106)
--- NOTE | 2023-10-28 11:49 | CPS ---
SPO2 confirmed by ABG.
[2023-10-28] MEDS: Pantoprazole Sodium 40 MG in 0.9% Normal Saline (100mL MB+) 100 ML 330 MG IV (12:27)
[2023-10-28] MEDS: Hydrocortisone Sod Succinate 100 MG/2 ML Vial 50 MG IV (12:28)
--- NOTE | 2023-10-28 12:47 | WOUNDNOTE ---
wound photo: right buttock
--- NOTE | 2023-10-28 12:48 | WOUNDNOTE ---
wound photo: right posterior thigh
--- NOTE | 2023-10-28 12:49 | WOUNDNOTE ---
wound photo: right foot
--- NOTE | 2023-10-28 12:49 | WOUNDNOTE ---
wound photo: right leg
--- NOTE | 2023-10-28 12:50 | WOUNDNOTE ---
wound photo: bilateral lower legs
--- NOTE | 2023-10-28 12:51 | WOUNDNOTE ---
wound photo: right medial lower leg
--- NOTE | 2023-10-28 12:51 | WOUNDNOTE ---
wound photo: left lower leg
--- NOTE | 2023-10-28 12:52 | WOUNDNOTE ---
wound photo: left leg
--- NOTE | 2023-10-28 12:53 | WOUNDNOTE ---
wound photo: right posterolateral lower leg
--- NOTE | 2023-10-28 13:26 | PCM.OP.PRO ---
Procedure Report Date of Procedure: 10/28/23 Assessment & Plan Assessment/Plan (1) Shock: Procedures Radiology Radiology Access Procedures: PICC Procedure Time Out Time Out Informed consent given: Yes Consent signed: Yes Time out checklist: patient, procedure, site marked/identified, positioning of patient, supplies available and allergies confirmed Time out verified: Yes Time out date: 10/28/23 Time out time: 11:38 PICC Line Consent Screening tool completed:: Yes Consent obtained:: Yes Consent given by (patient or responsible alliance party):: patient's sister in law Line successful (if no, document why in comments):: Yes Insertion Reason for Insertion: Poor Venous Access Date of Insertion: 10/28/23 Ok to use: Yes Type of PICC inserted: Dual Power PICC PICC Lot #: [id number] PICC Reference #: [id number] Microintroducer Used: Yes (in kit) Ultrasound/Equipment Used: Probe Cover Kit Trimmed Length (cm): 38 Insertion Length (cm): 36 Exposed Length (cm): 2 Tip Placement: Caval Atrial Junction Placement Confirmation: 3CG Insertion Vein: Right Brachial Insertion Attempts: 1 Local Anesthesia Used: Lidocaine 1% (in kit) Dressing Applied: Statlock and Tegaderm CHG Arm Measurement above site (in cm): 27 Patient Tolerated Procedure: Well Threading Difficulties: Yes (AT SHOULDER JOINT, SEE COMMENTS. ) Comments Comment: Patient identity was verified with two patient identifiers. Informed consent was obtained and time-out was completed. Hands were sanitized. The patient was positioned supine with right arm at 90 degrees. The patient's upper arm vasculature was assessed using ultrasound, and the right brachial vein was externally marked. An external measurement was obtained of 38 cm. External leads were applied to the patient's right upper chest and laterally and inferior of the umbilicus on the mid axillary line. Cap, mask, and prep gloves were donned. The underdrape was placed under the patient's arm. The site was prepped with chlorhexidine, and tourniquet was loosely applied. Prep gloves were discarded, and hands were sanitized. The sterile kit was opened with additional supplies dropped in. Sterile gown and gloves were donned, and the patient was draped. The sterile kit was assembled with all needle, introducer, connector, and catheter flushed with sterile normal saline. The marked site of insertion was anesthetized with 1% lidocaine. Patient tolerated well. The right brachial vein was then accessed using ultrasound guidance and guidewire was inserted to safety oswaldo. The tourniquet was released. The access needle was removed while securing the guidewire in place. The site was again anesthetized with 1% lidocaine, prior to insertion of introducer sheath and dilator. Patient tolerated well. The catheter was trimmed to a length of 38 cm. While attaching the catheter connector to the 3 CG sensor, the guidewire was inadvertently completely removed from the catheter. The guidewire is not able to be easily passed through the proximal rubber stopper on the catheter, requiring a second kit to be opened. Using 3C guidance, the catheter was then inserted through the introducer sheath, slowly. There was mild resistance on insertion near the shoulder joint. However, the right arm was able to be repositioned while maintaining sterile field to allow passage of the catheter. There was no resistance after this point and the catheter proceeded to the SVC easily. Maximal p-wave, without deflection, was obtained at an insertion length of 36 cm, leaving 2 cm external. The introducer sheath was retracted and peeled away, incrementally, while keeping the catheter secured. The stylet was removed. A flushed needleless connector was attached to each lumen. Blood return was verified and each lumen was flushed with sterile normal saline in a pulsatile fashion. Total sterile flushes used for the insertion was 8 10 ml syringes. Finally, the insertion site was cleaned with chlorhexidine, and the catheter was secured using a StatLock. The site was covered with a Tegaderm CHG Dressing. Baseline arm circumference was obtained at the insertion site and measured 27 cm. The patient was provided with a patient education handout on PICC line care and verbalized understanding of infection prevention, heavy lifting restriction, maintaining mobility, and watching for any signs of infection. Primary nurse is aware that the PICC line is ready for use.
--- NOTE | 2023-10-28 13:30 | PCM.RX.CS ---
Consult Antibiotic Management Pharmacy has been consulted to manage selected antibiotic: Vancomycin Type of Intervention Type of Consult: New start Suspected Infection Suspected Infection: Sepsis and Pneumonia Prior Doses of Antibiotics Prior Doses of Antibiotics Received/Current Regimen: received vanc 1750mg IV x1 in E.R. starting at 07:11 this morning Labs Labs: Sodium 140 mmol/L (136-145) 10/28/23 05:35 Potassium 3.5 mmol/L (3.5-5.1) 10/28/23 05:35 Chloride 106 mmol/L (98-107) 10/28/23 05:35 Carbon Dioxide 20.0 mmol/L (21.0-32.0) L 10/28/23 05:35 Anion Gap 14 (5-15) 10/28/23 05:35 BUN 55 mg/dL (7-18) H 10/28/23 05:35 Creatinine 2.43 mg/dL (0.55-1.02) H 10/28/23 05:35 Est GFR (MDRD) Af Amer 25 mL/min (>60) L 10/28/23 05:35 Est GFR (MDRD) Non-Af 21 mL/min (>60) L 10/28/23 05:35 BUN/Creatinine Ratio 22.6 RATIO (10-20) H 10/28/23 05:35 Glucose 175 mg/dL (74-106) H 10/28/23 08:09 Microbiology Microbiology: Microbiology 10/28/23 10:00 Stool C. difficile GDH Antigen & Toxins - Final 10/28/23 10:00 Stool Clostridioides difficile (PCR) - Final 10/28/23 05:35 Blood Culture (Wb) - Anticubital Right Blood Culture - Preliminary 10/28/23 06:00 Urine Catheter - [place] Legionella Antigen - Final 10/28/23 06:00 Urine Catheter - [place] Streptococcus pneumoniae Antigen (M - Final 10/28/23 05:47 Mucosa - Nose SARS-CoV-2, Influenza & RSV (PCR) - Final 10/28/23 05:50 Stool Stool Occult Blood (AJAY) - Final Occult Blood Positive Dosing Weight Weight used for dosin.3 kg Estimated Creatinine Clearance Estimated Creatinine Clearance: 20.2ml/min Goal Trough Goal Trough: 15-20 mcg/mL Pharmacy Plan for Drug Dosing Pharmacy Plan for Drug Dosing: Given the patient's current renal function with CrCl around 20, will not schedule another vanc dose at this time. Will order a vanc random level for tomorrow morning and then will evaluate that level tomorrow to determine if a dose should be given tomorrow. Pharmacy Service will continue to monitor and adjust dosing as required. Follow-Up Labs Follow-Up Labs: Trough: Vancomycin (random) Date/Time Labs Ordered Labs to be done on [date and time ordered]: 10/29/23 06:00
--- NOTE | 2023-10-28 13:40 | NURSING ---
Blood pressure reading 43/31, recheck . In to check on patient, found unresponsive. WRECKER DRIVER called. Shortly after, patient lost pulse and CODE BLUE called. See code charting.
--- NOTE | 2023-10-28 14:05 | CASEMGMT ---
SW responded to rapid response, Stroke team, and code blue. SW called patient's sister Hayley and explained patient is not doing well and it would be best if she came to the hospital. Hayley said she is in a wheelchair recovering from surgery. Hayley will call her sister in law to bring her in. Physician then asked SW to get Hayley back on the phone. SW called Hayley back and let her know the physician would like to talk with her. Physician was talking with Hayley and Hayley asked that CPR be stopped. Patient then . Hayley told physician she will come in to the hospital as soon as she gets a ride. Rubber Compounder Formulator was also present and he said he would wait on Hayley to arrive. Nichole Ballard MSW [place]
[2023-10-28 14:08] LABS: Lactic Acid 13.1 mmol/L (0.4-1.9)
--- NOTE | 2023-10-28 14:11 | EXP.PCM_ITS ---
Preliminary Cause of Preliminary Cause of Preliminary Cause of : Septic shock Adrenal crisis Pneumonia Date of Admission: 10/28/23 Date of : 10/28/23 Principle Diagnosis Problem List: Active and Suspected Problems (Updated 10/28/23 @ 09:[address] Elie Jenkins, DO) Pneumonia (Acute) Adrenal crisis (Acute) Shock (Acute) Acidosis, lactic (Acute) Severe sepsis (Acute) Hypoglycemia (Acute) Diarrhea (Acute) Gastrointestinal fluid volume depletion (Acute) Steroid dependent (Acute) KATHY (acute kidney injury) (Acute) Non-pressure ulcer of left lower extremity with fat layer exposed (Acute) Hospital Course Patient presented with 24 to 36 hours of nausea, vomiting and diarrhea. Patient was not feeling well but was in contact with her family either speaking with him or via text. She presented to the emergency room and was notably hypotensive with a blood pressure down to 68 of 49. Patient did receive IV fluids per sepsis protocol and blood pressure did improve into the 170s. Complicating this is patient was profoundly hypoglycemic at around 29 and spot testing was less than 10. Patient received several rounds of D50 and glucose did improve to 177. Patient had chest x-ray that was concerning for pneumonia and patient was received cefepime as well as vancomycin. Patient was alert and talking but did have a weak voice. Patient did have ulcerations on her feet and legs but those appear to be improved from earlier this month when she had vasculitis. Did discuss with the wound nurse who took care of her at that time and stated that these appear to be stable though there was some blistering on the posterior aspect of her left leg. Prior to leaving the emergency room, which is where I saw the patient initially, I pulled the patient's [id number] at bedside. Patient previously expressed point wishing to both full code. Told [id number] that my concern is that the patient does have cardiac arrest that she would have a high likelihood of not surviving it and if she were her quality of life would be extremely poor. I did recommend that they discuss further at a later point. A rapid response team was called this afternoon as there was a change in the patient's mental condition. Patient was unresponsive to verbal or noxious stimuli. Blood pressure was down into the 80s initially. Plan was to call a stroke team but then patient went into PEA. Patient received 2 rounds of epinephrine and was intubated in the ICU. The patient's sister, who is her power of exhaust and muffler fitter, was contacted and I discussed the case with her. After the second round of epinephrine was administered, the and the pulse check was negative for any pulse, patient was noted to be in asystole. The sister said to stop CPR. No pulse was palpated and patient was pronounced at 1404 on October 28, 2023.
--- NOTE | 2023-10-28 14:15 | CHAPLAIN ---
Addendum entered by Roman Oliva 10/28/23 15:58: returned to room when notified that family members had arrived post of patient; met with sister, two nieces, and a fiancee of sister; offered support, gave time for family to speak of their relationships to pt and for things relevant to pt's life; sister states that pt did not have a meghan community but requested a prayer 'to be said for her please'; prayer given and ongoing offer of support, beverages, and presence Original Note: Type of Pastoral Visit ___ Initial Visit ___ Follow-up Visit ___ On-call Visit ___ General Patient Visit ___ Spiritual Assessment ___ Family Conference ___ Bereavement _x__ Rapid Response _x__ Code Blue ___ Other (describe below) Pastoral Care Referral From ___ Patient ___ Family ___ Nurse ___ Physician ___ Judge ___ Janitor Cleaner _x__ Other (describe below) Sacrament/Intervention ___ Active listening ___ Anointing ___ Adventism ___ Bereavement ___ Communion ___ Meghan exploration ___ ___ Life review ___ Prayer ___ Reconciliation ___ Sacrament of Sick _x__ Supportive presence ___ Wedding ___ Other (describe below) Pastoral Comments responded to rapid response in ICU which then became a code blue for this patient; medical team was active in caring for the patient; family member had already left for the day; SW was able to contact family and sister will be coming into the hospital; patient in the meantime; this ore sampler will be available to family when they arrive
[2023-10-28 14:24] LABS: Bedside Glucose 104 mg/dL (74-106)
[2023-10-28 14:24] LABS: Bedside Glucose 133 mg/dL (74-106)
[2023-10-28 14:38] LABS: Bedside Glucose 446 mg/dL (74-106)
[2023-10-28 14:38] LABS: Bedside Glucose 111 mg/dL (74-106)
[2023-10-28 14:38] LABS: Bedside Glucose 186 mg/dL (74-106)
--- NOTE | 2023-10-28 15:22 | CASEMGMT ---
LINDA spoke with patient's sister, Hayley. SW offered condolences for her loss. Hayley was appreciative of [facility] and everyone that helped patient. Nichole Ballard CERAMIC SAW TENDER [employer]NAM[employer]IA
[2023-10-29 10:57] LABS: Pathologist Review Reviewed
== END 2023-10-28 17:25 | DRG 871 ==
LOC: ED 08:58 → ICU 09:48
PROVIDERS: Emergency Provider Emergency Medicine; PCP Family Medicine Geriatric Medicine
DX: A41.9 Sepsis, unspecified organism (principal); R65.21 Severe sepsis with septic shock; E43 Unspecified severe protein-calorie malnutrition; J15.69 Pneumonia due to other Gram-negative bacteria; D68.9 Coagulation defect, unspecified; E27.2 Addisonian crisis; L97.912 Non-pressure chronic ulcer of unspecified part of right lower leg with fat layer exposed; M31.0 Hypersensitivity angiitis; N17.9 Acute kidney failure, unspecified; L97.922 Non-pressure chronic ulcer of unspecified part of left lower leg with fat layer exposed; I46.9 Cardiac arrest, cause unspecified; M32.9 Systemic lupus erythematosus, unspecified; M06.9 Rheumatoid arthritis, unspecified; M05.00 Felty's syndrome, unspecified site; I10 Essential (primary) hypertension; E16.2 Hypoglycemia, unspecified; E86.9 Volume depletion, unspecified; M79.7 Fibromyalgia; K52.9 Noninfective gastroenteritis and colitis, unspecified; E78.5 Hyperlipidemia, unspecified; E86.0 Dehydration; R09.02 Hypoxemia; Z79.52 Long term (current) use of systemic steroids
CPT/HCPCS: 36569; 36600; 71045; 80053; 81001; 82274; 82803; 82947; 82962; 83605; 84484; 85025; 85610; 85730; 87040; 87077; 87086; 87088; 87184; 87186; 87449; 87493; 87506; 87631; 87640; 92950; 93005; 97802; 99285; J7030; J7040; A4216; J2405